=== PATIENT | female | born 1970 | race Caucasian/White ===

== ENCOUNTER 2020-10-07 17:26 | Emergency (ER) | payer BC, SELFPAY ==
[2020-10-07 18:20] VITALS: BP 141/76; PULSE 87; RESP 18; TEMP 36.8; O2SAT 100; BMI 33.5
[2020-10-07 18:38] VITALS: BP 141/76; PULSE 87; RESP 18; TEMP 36.8; O2SAT 100
--- NOTE | 2020-10-07 18:38 | HMH.EDUTC ---
[facility] – [place] Disposition Clinical Impression: Exposure to COVID-19 virus, Viral syndrome Disposition: Home, Self-Care Condition on Discharge: Good Instructions: Preventing the Spread of Coronavirus Discharge Instructions Additional Instructions: Drink plenty of fluids. Take tylenol for pain or fever. Return if you begin to have difficulty breathing. Follow up with your regular doctor. GO TO THE ER FOR ANY WORSENING SYMPTOMS Prescriptions: Azithromycin [Z-Carter 250mg Tab*] 250 mg PO UD DOSE PK #6 tab Transmission Status: Received by [id number] Referrals: Conrado Corbett [Primary Care Provider] - Time of Disposition: 18:43 Medical Decision Making - Medical Records Medical records reviewed: No: I reviewed the patient's medical records. - Milo Inquiry Pt receiving controlled substance: No Vital Signs: 10/07/20 18:20 10/07/20 18:38 Temperature 98.2 F 98.2 F Temperature Source Oral Pulse Rate 87 Pulse Rate [Right Brachial] 87 Respiratory Rate 18 18 Blood Pressure 141/76 H Blood Pressure [Right Arm] 141/76 H Blood Pressure Mean [Right Arm] 97 Blood Pressure Source [Right Arm] Automatic Cuff Blood Pressure Position [Right Arm] Sitting 02 Sat by Pulse Oximetry 100 Oxygen Delivery Method Room Air Orders (Tests/Meds): ORDERS Category Date Time Status Covid-19 Nasal PCR ([facility]) Stat Lab 10/07/20 18:20 Received [facility] [place] HPI - General Stated complaint: covid exposure Time Seen by Provider: 10/07/20 18:38 Mode of Arrival: Ambulatory Source of Information: Patient Limitations: No Limitations Description of Symptoms (Recalled from Triage Doc. by RN): PATIENT REQUESTING COVID TEST; DENIES SYMPTOMS HEENT Symptoms (Recalled from RN notes): No Resp Symptoms (Recalled from RN notes): No Skin Symptoms (Recalled from RN notes): No MS Symptoms (Recalled from RN notes): No Functional Status (Recalled from RN notes): WNL - History of Present Illness Provider Complaint: She c/o sore throat and body aches. She states her symptoms began about 2 days ago. - Related Data Home Medications Medication Instructions Recorded Confirmed Insulin Glargine,Hum.rec.anlog 95 units SQ HS 06/24/18 07/21/19 [Lantus Solostar 100 Units/mL 3mL flexpen] Insulin Lispro [HumaLOG 100 60 unit SQ AC 06/24/18 07/21/19 units/mL 3mL vial (SSI)] Previous Rx's Medication Instructions Recorded Azithromycin [Z-Carter 250mg Tab*] 250 mg PO UD DOSE PK #6 tab 10/07/20 Allergies Allergy/AdvReac Type Severity Reaction Status Date / Time bupropion Allergy Unknown Verified 06/08/19 10:14 pseudoephedrine Allergy Unknown Verified 06/08/19 10:14 - Worker's Comp Is this a Worker's Comp case?: No [facility] History - Hepatitis A Screen Drug use history?: No High risk sexual behaviors?: No History of sexually transmitted infection?: No Currently employed?: No Childcare worker?: No Do you have indoor plumbing?: Yes Do you have electricity?: Yes Attestation statement:: This patient has been screened for Hepatitis A risk factors. I have reviewed the patient's past medical history: Yes Medical History: Reports:: Diabetes Mellitus Type 2, Gastroesophageal Reflux Disease(GERD), Hypertension Denies:: Cancer, Diabetes Mellitus Type 1, MRSA Laterality Cases: Bilateral: Tonsillectomy Other Surgeries: Yes: Appendectomy, Other Amputation: No Fractures: No - Social History Smoking Status: Never smoker Alcohol Intake: never Substance Use Type: denies use Occupational Status: other Housing: house Household Members: family Family Hx:: No significant family history ROS Obtained: Yes All systems reviewed & no additional complaints - Constitutional Constitutional: Reports system reviewed and no additional complaints, except as docu - Eyes Eyes: Reports system reviewed and no additional complaints, except as docu - ENT Ears, Nose, Mouth, and Throat: Reports system reviewed and no additional compl
== END 2020-10-07 18:40 | disposition home or self-care (01) ==
PROVIDERS: Emergency Provider Nurse Practitioner Family; PCP Family Medicine
DX: Z20.828 Contact with and (suspected) exposure to other viral communicable diseases (principal); I10 Essential (primary) hypertension; K21.9 Gastro-esophageal reflux disease without esophagitis; E11.9 Type 2 diabetes mellitus without complications
CPT/HCPCS: 99201; U0003

== ENCOUNTER 2020-12-28 09:02 | Emergency (ER) | payer BC, SELFPAY ==
[2020-12-28 09:15] VITALS: BP 153/78; PULSE 69; RESP 14; TEMP 36.2; O2SAT 97; BMI 34.5
--- NOTE | 2020-12-28 09:47 | HMH.EDUTC ---
[facility] [place] Clinical Impression: Close exposure to COVID-19 virus, Nausea Disposition: Home, Self-Care Condition on Discharge: Good Instructions: DI for COVID-19 (Suspected or Confirmed ), Coronavirus Disease 2019, Preventing the Spread of Coronavirus Discharge Instructions, DI for Nausea -- Adult Additional Instructions: *Monitor Temp, Over the counter Motrin or Tylenol as directed/as needed Tylenol every 4 hours and Motrin every 6 hours (as long as your family doctor has told you that you can take it) for fever or pain. and straight to ER if unable to lower temp less than 101.0 after medication given *Warm salt water gargles may help to soothe the throat *Throat Lozenges *Warm fluids like tea with honey may help to soothe the throat *Sleep elevated *Humidifier/Vaporizer Follow up IMMEDIATELY for new or worsening symptoms or no Noticeable improvement over the next 48-72 hours. 911 for difficulty breathing or swallowing You were tested for today for COVID19 your test result should be back in the next 24-48 hours, you may call to the [facility] to see if your test results are back in the next 48 hours [phone] [facility] hours are 9am-9pm You was given a handout with instructions for Self Quarantine and Self isolation for while you wait on test results and what to do if they are positive If you are positive the Health Dept will be contacting you also Prescriptions: Ondansetron [Zofran 4mg ODT] 4 mg PO TIDP PRN #9 tab PRN Reason: Nausea Transmission Status: Pending to [id number] Referrals: Conrado Corbett [Primary Care Provider] - As needed Forms: Work/School Release Time of Disposition: 09:57 Medical Decision Making - Milo Inquiry Pt receiving controlled substance: No Milo was queried for this patient: No Vital Signs: 12/28/20 09:15 Temperature 97.2 F L Temperature Source Oral Pulse Rate [Right Radial] 69 Respiratory Rate 14 Blood Pressure [Right Arm] 153/78 H Blood Pressure Mean [Right Arm] 103 Blood Pressure Source [Right Arm] Automatic Cuff Blood Pressure Position [Right Arm] Sitting 02 Sat by Pulse Oximetry 97 Oxygen Delivery Method Room Air Medical Decision Narrative: Patient states that she has taken zofran before without complications or reactions [facility] [place] - General Stated complaint: covid exposure, symtoms Time Seen by Provider: 12/28/20 09:48 Mode of Arrival: Ambulatory Source of Information: Patient Limitations: No Limitations Description of Symptoms (Recalled from Triage Doc. by RN): Covid test, sore throat, headache and nausea HEENT Symptoms (Recalled from RN notes): Yes (sore throat) Resp Symptoms (Recalled from RN notes): No Skin Symptoms (Recalled from RN notes): No MS Symptoms (Recalled from RN notes): Yes (body aches) Functional Status (Recalled from RN notes): ok - History of Present Illness Provider Complaint: Patient states that her tested positive at work for COVID and she has been having sore throat, cough and nausea so she came in and wanted to get tested - Related Data Home Medications Medication Instructions Recorded Confirmed Insulin Glargine,Hum.rec.anlog 95 units SQ HS 06/24/18 07/21/19 [Lantus Solostar 100 Units/mL 3mL flexpen] Insulin Lispro [HumaLOG 100 60 unit SQ AC 06/24/18 07/21/19 units/mL 3mL vial (SSI)] Previous Rx's Medication Instructions Recorded Azithromycin [Z-Carter 250mg Tab*] 250 mg PO UD DOSE PK #6 tab 10/07/20 Ondansetron [Zofran 4mg ODT] 4 mg PO TIDP PRN #9 tab 12/28/20 Allergies Allergy/AdvReac Type Severity Reaction Status Date / Time bupropion Allergy Unknown Verified 06/08/19 10:14 pseudoephedrine Allergy Unknown Verified 06/08/19 10:14 - Worker's Comp Is this a Worker's Comp case?: No Is this an [facility] Worker's Comp?: No Is this a [facility] Worker's Comp?: No [facility] History - Hepatitis A Screen Drug use history?: No High risk sexual behaviors?: No History of sexually transm
[2020-12-28 10:13] VITALS: BP 150/74; PULSE 74; RESP 16; TEMP 36.6; O2SAT 98
== END 2020-12-28 10:14 | disposition home or self-care (01) ==
PROVIDERS: Emergency Provider Nurse Practitioner; PCP Family Medicine
DX: Z20.822 Contact with and (suspected) exposure to COVID-19 (principal); J02.9 Acute pharyngitis, unspecified; I10 Essential (primary) hypertension; K21.9 Gastro-esophageal reflux disease without esophagitis; E11.9 Type 2 diabetes mellitus without complications; Z79.899 Other long term (current) drug therapy
CPT/HCPCS: 99202; G0463; U0003

== ENCOUNTER → 2021-07-07 11:50 | Outpatient (CLI) | payer BC, SELFPAY | PROVIDERS: Visit Provider Internal Medicine Gastroenterology | DX: Z20.822 Contact with and (suspected) exposure to COVID-19 (principal) | CPT/HCPCS: U0003 ==

== ENCOUNTER → 2021-11-14 10:29 | Outpatient (CLI) | payer BC, SELFPAY | PROVIDERS: PCP Family Medicine; Visit Provider Nurse Practitioner | DX: Z20.822 Contact with and (suspected) exposure to COVID-19 (principal) | CPT/HCPCS: C9803; U0003; U0005 ==

== ENCOUNTER 2022-12-21 11:08 | Emergency (ER) | payer BC, SELFPAY ==
[2022-12-21 11:25] VITALS: BP 149/72; PULSE 68; RESP 19; TEMP 36.8; O2SAT 100; BMI 31.4
--- NOTE | 2022-12-21 11:39 | EXP.UTC ---
Discharge Plan Disposition Patient Disposition: Home, Self-Care Condition: Good Prescriptions Prescriptions: New benzonatate 100 mg capsule 100 mg PO TID PRN (Reason: cough) Qty: 30 0RF amoxicillin-pot clavulanate 875-125 mg Tablet 1 tab PO Q12H Qty: 20 0RF No Action (DME) pen needle, diabetic 32 gauge x 1/4 needle See Rx Instructions .ROUTE .MEDSUPPLY Qty: 50 Rx Instructions: As directed (DME) flash glucose sensor Kit See Rx Instructions .ROUTE .MEDSUPPLY Qty: 1 Label Comments: USE NEEDED Rx Instructions: As directed dapagliflozin 10 mg tablet 10 mg PO naproxen 500 mg tablet 500 mg PO (DME) blood sugar diagnostic Strip See Rx Instructions .ROUTE .MEDSUPPLY Qty: 10 Label Comments: USE 1 STRIP TO CHECK GLUCOSE THREE TIMES DAILY AND NEEDED Rx Instructions: As directed bisoprolol-hydrochlorothiazide 10-6.25 mg tablet 1 tab PO Label Comments: TAKE 1 TABLET BY MOUTH ONCE DAILY lisinopril 20 mg tablet 20 mg PO Label Comments: TAKE 1 TABLET BY MOUTH ONCE DAILY sitagliptin phos-metformin 50-500 mg tablet 1 tab PO Label Comments: TAKE 1 TABLET BY MOUTH TWICE DAILY WITH MEALS fenofibrate nanocrystallized 145 mg tablet 145 mg PO Label Comments: TAKE 1 TABLET BY MOUTH ONCE DAILY amlodipine 10 mg tablet 10 mg PO omeprazole 40 mg capsule,delayed release(DR/EC) 40 mg PO Label Comments: TAKE 1 CAPSULE BY MOUTH ONCE DAILY atorvastatin 40 mg tablet 40 mg PO Label Comments: TAKE 1 TABLET BY MOUTH ONCE DAILY amoxicillin-pot clavulanate 875-125 mg tablet 1 tab PO Q12H 10 Days Qty: 20 0RF insulin lispro 100 UNIT/ML solution 60 unit SQ AC insulin glargine 100/ML insulin pen 95 units SQ HS ondansetron 4 MG tablet,disintegrating 4 mg PO TIDP PRN (Reason: Nausea) Qty: 9 0RF Referrals Follow up/Referrals: Conrado Corbett [Primary Care Provider] - See instructions Activity Restrictions/Add. Instructions Additional Instructions/Restrictions: *Monitor Temp, Over the counter Motrin or Tylenol as directed/as needed Tylenol every 4 hours and Motrin every 6 hours (as long as your family doctor has told you that you can take it) for fever or pain. and straight to ER if unable to lower temp less than 101.0 after medication given *Warm salt water gargles may help to soothe the throat *Throat Lozenges? *Warm fluids like tea with honey may help to soothe the throat? *Sleep elevated *Humidifier/Vaporizer Your throat swab was sent for culture. Those results are typically sent to your primary care. Be sure to follow up in 2-3 days with your family doctor/primary care physician if no improvement so they can review those result and treat if necessary. If you don?t have a primary care doctor, I recommend you get one but in the mean time, you will have to return to a walk in clinic Follow up IMMEDIATELY for new or worsening symptoms or no Noticeable improvement over the next 48-72 hours. 911 for difficulty breathing or swallowing Clinical Impressions Clinical Impression: Sinusitis Instructions Patient Instructions: DI for Sinusitis, Sinusitis, Sinus Headache Discharge ED Provider: Carina Mcguire [facility] – [place] HPI General Stated complaint: sore throat,cough,body aches Mode of Arrival: Ambulatory Source of Information: Patient Limitations: No Limitations Time Seen by Provider: 12/21/22 11:39 Description of Symptoms (Recalled from Triage Doc. by RN): PATIENT C/O PRODUCTIVE COUGH AND SORE THROAT X 3 DAYS HEENT Symptoms (Recalled from RN notes): Yes Resp Symptoms (Recalled from RN notes): Yes Skin Symptoms (Recalled from RN notes): No MS Symptoms (Recalled from RN notes): No Functional Status (Recalled from RN notes): WNL History of Present Illness Provider Complaint: Patient states that she has been having sinus congestio
[2022-12-21 11:42] VITALS: BP 149/72; PULSE 68; RESP 19; TEMP 36.8; O2SAT 100
[2022-12-21 11:42] LABS: UTC Strep Screen (Rapid) Negative (Negative)
== END 2022-12-21 11:54 | disposition home or self-care (01) ==
PROVIDERS: Emergency Provider Nurse Practitioner; PCP Family Medicine
DX: J32.9 Chronic sinusitis, unspecified (principal)
CPT/HCPCS: 87880; 99212; 99213; G0463

== ENCOUNTER 2024-03-19 22:09 | Emergency (ER) | payer BC, SELFPAY ==
--- NOTE | 2024-03-19 22:29 | XR_ITS ---
PROCEDURE INFORMATION: Exam: XR Right Tibia and Fibula Exam date and time: 03/19/2024 10:28 PM Age: 54 years old Clinical indication: Pain; Lower leg; Right; Additional info: Fall, distal femur/knee pain TECHNIQUE: Imaging protocol: Radiologic exam of the right tibia and fibula. Views: 2 views. COMPARISON: CR XR KNEE RT 3V 03/19/2024 10:27 PM FINDINGS: Bones/joints: The osseous structures are intact, with no signs of acute fracture, dislocation, or malalignment. Age-related degenerative changes are observed. There is no evidence of abnormal bone density or destructive lesions. Soft tissues: The soft tissues appear within normal limits. IMPRESSION: At the time of imaging, the study shows no acute osseous abnormalities but does reveal signs of age-related degenerative changes.
--- NOTE | 2024-03-19 22:29 | XR_ITS ---
PROCEDURE INFORMATION: Exam: XR Right Knee Exam date and time: 03/19/2024 10:27 PM Age: 54 years old Clinical indication: Pain; Knee; Right; Additional info: Fall, distal femur/knee pain TECHNIQUE: Imaging protocol: Radiologic exam of the right knee. Views: 3 views. COMPARISON: No relevant prior studies available. FINDINGS: Bones/joints: There is a small joint effusion. There is diffuse osseous demineralization. There is tricompartmental osteoarthritis of the knee with loss of joint space, subchondral sclerosis, and productive changes. The osseous structures are intact, with no signs of acute fracture, dislocation, or malalignment. There is no evidence of abnormal bone density or destructive lesions. Soft tissues: The soft tissues appear within normal limits. Vasculature: Scattered atherosclerotic disease of the arterial vasculature. IMPRESSION: 1. There is a small joint effusion. 2. At the time of imaging, the study shows no acute osseous abnormalities but does reveal signs of tricompartmental osteoarthritis.
--- NOTE | 2024-03-19 22:29 | XR_ITS ---
PROCEDURE INFORMATION: Exam: XR Right Femur Exam date and time: 03/19/2024 10:29 PM Age: 54 years old Clinical indication: Pain; Thigh; Right; Additional info: Fall, distal femur/knee pain TECHNIQUE: Imaging protocol: Radiologic exam of the right femur. Views: 2 views. COMPARISON: CR XR KNEE RT 3V 03/19/2024 10:27 PM FINDINGS: Bones/joints: The osseous structures are intact, with no signs of acute fracture, dislocation, or malalignment. Age-related degenerative changes are observed. There is no evidence of abnormal bone density or destructive lesions. Soft tissues: The soft tissues appear within normal limits. IMPRESSION: At the time of imaging, the study shows no acute osseous abnormalities but does reveal signs of age-related degenerative changes.
[2024-03-19 22:58] VITALS: BP 174/83; PULSE 91; RESP 18; TEMP 37.1; O2SAT 97; BMI 30.9
--- NOTE | 2024-03-19 23:03 | ED_ITS ---
Discharge Plan Disposition Patient Disposition: Home, Self-Care Chief Complaint: Fall Prescriptions Prescriptions: No Action (DME) pen needle, diabetic 32 gauge x 1/4 needle See Rx Instructions .ROUTE .MEDSUPPLY Qty: 50 Rx Instructions: As directed (DME) flash glucose sensor Kit See Rx Instructions .ROUTE .MEDSUPPLY Qty: 1 Patient Comments: USE NEEDED Rx Instructions: As directed dapagliflozin propanediol 10 mg tablet 10 mg PO naproxen 500 mg tablet 500 mg PO (DME) blood sugar diagnostic Strip See Rx Instructions .ROUTE .MEDSUPPLY Qty: 10 Patient Comments: USE 1 STRIP TO CHECK GLUCOSE THREE TIMES DAILY AND NEEDED Rx Instructions: As directed bisoprolol-hydrochlorothiazide 10-6.25 mg tablet 1 tab PO Patient Comments: TAKE 1 TABLET BY MOUTH ONCE DAILY lisinopril 20 mg tablet 20 mg PO Patient Comments: TAKE 1 TABLET BY MOUTH ONCE DAILY sitagliptin phos-metformin 50-500 mg tablet 1 tab PO Patient Comments: TAKE 1 TABLET BY MOUTH TWICE DAILY WITH MEALS fenofibrate nanocrystallized 145 mg tablet 145 mg PO Patient Comments: TAKE 1 TABLET BY MOUTH ONCE DAILY amlodipine 10 mg tablet 10 mg PO omeprazole 40 mg capsule,delayed release(DR/EC) 40 mg PO Patient Comments: TAKE 1 CAPSULE BY MOUTH ONCE DAILY atorvastatin 40 mg tablet 40 mg PO Patient Comments: TAKE 1 TABLET BY MOUTH ONCE DAILY amoxicillin-pot clavulanate 875-125 mg tablet 1 tab PO Q12H 10 Days Qty: 20 0RF insulin lispro 100 UNIT/ML solution 60 unit SQ AC insulin glargine 100/ML insulin pen 95 units SQ HS ondansetron 4 MG tablet,disintegrating 4 mg PO TIDP PRN (Reason: Nausea) Qty: 9 0RF benzonatate 100 mg capsule 100 mg PO TID PRN (Reason: cough) Qty: 30 0RF amoxicillin-pot clavulanate 875-125 mg Tablet 1 tab PO Q12H Qty: 20 0RF Referrals Follow up/Referrals: Conrado Corbett [Primary Care Provider] - See instructions Activity Restrictions/Add. Instructions Additional Instructions/Restrictions: Follow-up with your family doctor as needed for this visit to the emergency department. Tylenol and Motrin for symptomatic pain control. Clinical Impressions Clinical Impression: Acute pain of right knee Discharge ED Provider: Ronnell Corey General Adult HPI General Chief complaint: Fall Stated complaint: AO 03/19/24 1300 Fall,Injury right knee Time Seen by Provider: 03/19/24 22:20 History of Present Illness HPI narrative: Please note that above description of symptoms, in this electronic medical record under categorization of recalled from ER triage doctor by RN are reflective of an initial nursing assessment, however, is not reflective of my full history and physical exam that was personally taken and clarified. Consequentially, this preceding description of symptoms, which may include the patient's categorized chief complaint in the EMR, do not reflect my personal clinical impression, and the ultimate description of history of present illness and patient stated complaints should be deferred to this section of the note. Unless stated otherwise or congruent with this section of the note, additional signs, symptoms, or incongruence should be interpreted as inaccurate with my clinical impression. Related Data Home Medications Medication Instructions Recorded Confirmed insulin glargine 100 unit/mL (3 95 units SQ HS Diabetes 06/24/18 04/11/21 mL) subcutaneous pen insulin lispro 100 unit/mL 60 unit SQ AC Diabetes 06/24/18 04/11/21 subcutaneous solution amlodipine 10 mg tablet 10 mg PO 04/11/21 04/11/21 atorvastatin 40 mg tablet 40 mg PO 04/11/21 04/11/21 bisoprolol 10 1 tab PO 04/11/21 04/11/21 mg-hydrochlorothiazide 6.25 mg tablet blood sugar diagnostic #10 04/11/21 04/11/21 dapagliflozin propanediol 10 mg 10 mg PO 04/11/21 04/11/21 tablet fenofibrate nanocrystallized 145 145 mg PO 04/11/21 04/11/21 mg tablet flash glucose sensor #1 ea 04/11/21 04/11/21 lisinopril 20 mg tablet 20 mg PO 04/11/21 04/11/21 naproxen 500 mg tablet 500 mg PO 04/11/21 04/11/21 omeprazole 40 mg capsule,delayed 40 mg PO 04/11/21 04/11/21 release pen needle, diabetic 32 gauge x #50 ea 04/11/21 04/11/21 1/4 sitagliptin phosphate 50 1 tab PO 04/11/21 04/11/21 mg-metformin 500 mg tablet Previous Rx's Medication Instructions Recorded ondansetron 4 mg disintegrating 4 mg PO TIDP PRN Nausea #9 tabs 12/28/20 tablet amoxicillin 875 mg-potassium 1 tab PO Q12H 10 days #20 tabs 04/11/21 clavulanate 125 mg tablet amoxicillin 875 mg-potassium 1 tab PO Q12H #20 tabs 12/21/22 clavulanate 125 mg tablet benzonatate 100 mg capsule 100 mg PO TID PRN cough #30 caps 12/21/22 Allergies Allergy/AdvReac Type Severity Reaction Status Date / Time bupropion Allergy Unknown Verified 04/11/21 17:41 pseudoephedrine Allergy Unknown Verified 04/11/21 17:41 pregabalin [From Lyrica] Allergy Verified 12/21/22 11:36 [facility] Disclaimer: The information contained in this section may have been updated after the patient was seen, as this information can be updated by other users. Medical History (Updated 03/19/24 @ 23:04 by Ronnell Corey MD) Diabetes mellitus, type 2 Hyperlipidemia Hypertension Surgical History (Updated 12/21/22 @ 11:36 by Margot Benton RN) History of tonsillectomy History of hysterectomy History of section History of cholecystectomy History of appendectomy Social History (Updated 12/21/22 @ 11:36 by Margot Benton RN) Smoking Status: Never smoker alcohol intake: never substance use type: denies use current occupational status: other Travel in the last 8 weeks: None household members: family housing: house ROS Obtained: Yes All systems reviewed & no additional complaints except as documented Physical Exam General General appearance: alert and in no apparent distress Head Head exam: atraumatic and normocephalic Eye Eye exam: Present normal appearance, PERRL and EOMI ENT ENT exam: Present mucous membranes moist Neck Neck exam: Present normal inspection, full ROM and trachea midline Respiratory Respiratory exam: Absent respiratory distress, wheezes, stridor, accessory muscle use or prolonged expiratory phase Cardiovascular Cardiovascular exam: Present normal rhythm Abdominal Exam Abdominal exam: Present soft; Absent distention, tenderness, guarding, rebound or rigidity Extremities Exam Extremities exam: Absent edema Neurological Exam Neurological exam: Present alert, oriented X3, CN II-XII intact and normal gait; Absent motor sensory deficit Skin Skin exam: Present warm and dry; Absent diaphoresis or erythema Medical Decision Making Medical Records Medical records reviewed: Yes I reviewed the patient's medical records. Milo Inquiry Pt receiving controlled substance: No Milo was queried for this patient: No Orders (Tests/Meds): ORDERS Category Date Time Status Femur XR right 2 views [XR femur RT 2V] Stat Exams 03/19/24 22:29 Completed Fibula/tibia XR right 2 views [XR tibia fibula RT 2V] Exams 03/19/24 22:29 Completed Stat Knee XR right 3 views [XR knee RT 3V] Stat Exams 03/19/24 22:29 Completed Medical Decision Narrative: 54-year-old no relevant medical history presenting with right knee injury. Patient slipped on muddy stone about 2 PM today, 03/19. Able to bear weight, but has significant pain in her knee. Has taken meloxicam and Robaxin, this has not helped much. No neurologic deficits. History was obtained via conversation with patient. On arrival, patient hemodynamically stable, alert, oriented x4, appropriate, GCS 15, moving all extremities spontaneously, pupils equal and reactive to light. Full physical exam performed and significant for structurally intact right lower extremity. She does have a superficial abrasion overlying patellar ligament, but no tibial plateau tenderness. No obvious effusion. Patellar glide within normal limits. ACL, PCL, MCL, LCL, patellar ligament and tendon within normal limits. No obvious deformity. Differential includes sprain, strain, fracture, dislocation, among others. Independent rotation of x-rays demonstrates no acute bony abnormality of the imaged right lower extremity. Because of this I feel patient is appropriate for outpatient management. Critical Care Critical Care Time Critical Care Time: No
[2024-03-19 23:18] VITALS: BP 145/81; PULSE 84; RESP 16; TEMP 37.1; O2SAT 97
== END 2024-03-19 23:19 | disposition home or self-care (01) ==
PROVIDERS: Emergency Provider Emergency Medicine; PCP Family Medicine
DX: M25.561 Pain in right knee (principal); W01.10XA Fall on same level from slipping, tripping and stumbling with subsequent striking against unspecified object, initial encounter
CPT/HCPCS: 73552; 73562; 73590; 99283

== ENCOUNTER 2024-04-03 13:04 | Emergency (ER) | payer BC, SELFPAY ==
[2024-04-03 13:05] VITALS: BP 135/78; PULSE 94; RESP 20; TEMP 36.9; O2SAT 97
--- NOTE | 2024-04-03 13:11 | HMH.EDGENADL ---
Discharge Plan Disposition Patient Disposition: Home, Self-Care Prescriptions Prescriptions: New cefdinir 300 mg capsule 300 mg PO BID 10 Days Qty: 20 0RF ondansetron HCl 4 mg tablet 4 mg PO Q8H PRN (Reason: nausea and vomiting) 4 Days Qty: 12 0RF No Action (DME) pen needle, diabetic 32 gauge x 1/4 needle See Rx Instructions .ROUTE .MEDSUPPLY Qty: 50 Rx Instructions: As directed (DME) flash glucose sensor Kit See Rx Instructions .ROUTE .MEDSUPPLY Qty: 1 Patient Comments: USE NEEDED Rx Instructions: As directed dapagliflozin propanediol 10 mg tablet 10 mg PO naproxen 500 mg tablet 500 mg PO (DME) blood sugar diagnostic Strip See Rx Instructions .ROUTE .MEDSUPPLY Qty: 10 Patient Comments: USE 1 STRIP TO CHECK GLUCOSE THREE TIMES DAILY AND NEEDED Rx Instructions: As directed bisoprolol-hydrochlorothiazide 10-6.25 mg tablet 1 tab PO Patient Comments: TAKE 1 TABLET BY MOUTH ONCE DAILY lisinopril 20 mg tablet 20 mg PO Patient Comments: TAKE 1 TABLET BY MOUTH ONCE DAILY sitagliptin phos-metformin 50-500 mg tablet 1 tab PO Patient Comments: TAKE 1 TABLET BY MOUTH TWICE DAILY WITH MEALS fenofibrate nanocrystallized 145 mg tablet 145 mg PO Patient Comments: TAKE 1 TABLET BY MOUTH ONCE DAILY amlodipine 10 mg tablet 10 mg PO omeprazole 40 mg capsule,delayed release(DR/EC) 40 mg PO Patient Comments: TAKE 1 CAPSULE BY MOUTH ONCE DAILY atorvastatin 40 mg tablet 40 mg PO Patient Comments: TAKE 1 TABLET BY MOUTH ONCE DAILY amoxicillin-pot clavulanate 875-125 mg tablet 1 tab PO Q12H 10 Days Qty: 20 0RF insulin lispro 100 UNIT/ML solution 60 unit SQ AC insulin glargine 100/ML insulin pen 95 units SQ HS ondansetron 4 MG tablet,disintegrating 4 mg PO TIDP PRN (Reason: Nausea) Qty: 9 0RF benzonatate 100 mg capsule 100 mg PO TID PRN (Reason: cough) Qty: 30 0RF amoxicillin-pot clavulanate 875-125 mg Tablet 1 tab PO Q12H Qty: 20 0RF Referrals Follow up/Referrals: Conrado Corbett [Primary Care Provider] - See instructions Activity Restrictions/Add. Instructions Additional Instructions/Restrictions: You were evaluated in the emergency department today. You have a very small area on your right kidney that is concerning for possible infection, and you have some bacteria in your urine. Given this, we are prescribing you an antibiotic. Please follow-up closely with your primary care provider for monitoring of the area on your right kidney to make sure that it goes away. We have prescribed you Zofran to have as needed for nausea and vomiting. Please follow-up closely with your primary care provider. Return to the emergency department for new or worsening symptoms. Clinical Impressions Clinical Impression: Lesion of right [place] kidney, Pyelonephritis, Enteritis Stand Alone Forms Stand Alone Forms: Work/School Release Instructions Patient Instructions: DI for Kidney Infection, DI for Diarrhea and Traveler's Diarrhea -- Adult, DI for Nausea -- Adult Discharge ED Provider: Lauren Stewart General Adult HPI <Lazaro Huang MD - Last Filed: 04/03/24 16:45> General Chief complaint: Nausea/Vomiting/Diarrhea Stated complaint: vomiting since 7am every 45 minutes wirh stomach p Time Seen by Provider: 04/03/24 13:11 History of Present Illness HPI narrative: The patient presents with a chief complaint of nausea and vomiting, which started at 7 AM. They describe the vomit as containing remnants of last night's dinner and occurring every 45 minutes. The patient also reports experiencing some abdominal pain localized in the epigastrium and left upper quadrant The patient does not believe the symptoms are indicative of a stomach virus, as they have prior experience with such viruses and the sensations differ. They mention being on Ozempic, which has previously caused them nausea, vomiting, and constipation, but typically only results in vomiting once, unlike the current episode. Regarding bowel movements, the patient notes a slight movement yesterday but no gas today, despite usually managing constipation with Miralax. She has a pertinent surgical history of having had their gallbladder and appendix removed. The patient also mentions a recent change in medication due to a sprained knee. They were switched from meloxicam to naproxen by their medical doctor approximately a week and a half ago. She denies any pain with urination. Please note that above description of symptoms, in this electronic medical record under categorization of recalled from ER triage doctor by RN are reflective of an initial nursing assessment, however, is not reflective of my full history and physical exam that was personally taken and clarified. Consequentially, this preceding description of symptoms, which may include the patient's categorized chief complaint in the EMR, do not reflect my personal clinical impression, and the ultimate description of history of present illness and patient stated complaints should be deferred to this section of the note. Unless stated otherwise or congruent with this section of the note, additional signs, symptoms, or incongruence should be interpreted as inaccurate with my clinical impression. Related Data Home Medications Medication Instructions Recorded Confirmed insulin glargine 100 unit/mL (3 95 units SQ HS Diabetes 06/24/18 04/11/21 mL) subcutaneous pen insulin lispro 100 unit/mL 60 unit SQ AC Diabetes 06/24/18 04/11/21 subcutaneous solution amlodipine 10 mg tablet 10 mg PO 04/11/21 04/11/21 atorvastatin 40 mg tablet 40 mg PO 04/11/21 04/11/21 bisoprolol 10 1 tab PO 04/11/21 04/11/21 mg-hydrochlorothiazide 6.25 mg tablet blood sugar diagnostic #10 ea 04/11/21 04/11/21 dapagliflozin propanediol 10 mg 10 mg PO 04/11/21 04/11/21 tablet fenofibrate nanocrystallized 145 145 mg PO 04/11/21 04/11/21 mg tablet flash glucose sensor #1 ea 04/11/21 04/11/21 lisinopril 20 mg tablet 20 mg PO 04/11/21 04/11/21 naproxen 500 mg tablet 500 mg PO 04/11/21 04/11/21 omeprazole 40 mg capsule,delayed 40 mg PO 04/11/21 04/11/21 release pen needle, diabetic 32 gauge x #50 ea 04/11/21 04/11/21/ sitagliptin phosphate 50 1 tab PO 04/11/21 04/11/21 mg-metformin 500 mg tablet Previous Rx's Medication Instructions Recorded ondansetron 4 mg disintegrating 4 mg PO TIDP PRN Nausea #9 tabs 12/28/20 tablet amoxicillin 875 mg-potassium 1 tab PO Q12H 10 days #20 tabs 04/11/21 clavulanate 125 mg tablet amoxicillin 875 mg-potassium 1 tab PO Q12H #20 tabs 12/21/22 clavulanate 125 mg tablet benzonatate 100 mg capsule 100 mg PO TID PRN cough #30 caps 12/21/22 cefdinir 300 mg capsule 300 mg PO BID 10 days #20 caps 04/03/24 ondansetron HCl 4 mg tablet 4 mg PO Q8H PRN nausea and 04/03/24 vomiting 4 days #12 tabs Allergies Allergy/AdvReac Type Severity Reaction Status Date / Time bupropion Allergy Unknown Verified 04/11/21 17:41 pseudoephedrine Allergy Unknown Verified 04/11/21 17:41 pregabalin [From Lyrica] Allergy Verified 12/21/22 11:36 PFSH <Lazaro Huang MD - Last Filed: 04/03/24 16:45> [facility] Disclaimer: The information contained in this section may have been updated after the patient was seen, as this information can be updated by other users. Medical History (Updated 04/03/24 @ 18:16 by Lauren Stewart DO) Diabetes mellitus, type 2 Hyperlipidemia Hypertension Surgical History (Updated 12/21/22 @ 11:36 by Margot Benton, RN) History of tonsillectomy History of hysterectomy History of section History of cholecystectomy History of appendectomy Social History (Updated 12/21/22 @ 11:36 by Margot Benton, RN) Smoking Status: Never smoker alcohol intake: never substance use type: denies use current occupational status: other Travel in the last 8 weeks: None household members: family housing: house <Lazaro Huang MD - Last Filed: 04/03/24 16:45> ROS Obtained: Yes other As per HPI Physical Exam <Lazaro Huang MD - Last Filed: 04/03/24 16:45> General General appearance: alert and in distress Comment: Frequent retching Head Head exam: atraumatic and normocephalic Eye Eye exam: Present normal appearance Neck Neck exam: Present normal inspection Chest Chest inspection: Present normal inspection and symmetric chest wall rise Respiratory Respiratory exam: Present normal lung sounds bilaterally; Absent respiratory distress Cardiovascular Cardiovascular exam: Present regular rate and normal rhythm Abdominal Exam Abdominal exam: Present soft and tenderness; Absent guarding, rebound or rigidity Abdominal tenderness: Present LUQ, epigastrium and moderate Neurological Exam Neurological exam: Present alert and oriented X3 Psychiatric Psychiatric exam: Present normal affect and normal mood Skin Skin exam: Present warm and dry Medical Decision Making <Lazaro Huang MD - Last Filed: 04/03/24 16:45> Medical Records Medical records reviewed: Yes I reviewed the patient's medical records. Milo Inquiry Pt receiving controlled substance: No Vital Signs: 04/03/24 13:05 04/03/24 16:48 04/03/24 17:30 Temperature 98.4 F Temperature Source Oral Pulse Rate 83 82 Pulse Rate [Right Radial] 94 H Respiratory Rate 20 22 14 Blood Pressure 152/68 H 137/65 Blood Pressure [Right Arm] 135/78 Blood Pressure Mean [Right Arm] 97 Blood Pressure Source Automatic Cuff Blood Pressure Source [Right Arm] Automatic Cuff Blood Pressure Position Sitting Blood Pressure Position [Right Arm] Sitting 02 Sat by Pulse Oximetry 97 98 98 Oxygen Delivery Method Room Air Room Air Room Air 04/03/24 18:34 Temperature 98.2 F Temperature Source Oral Pulse Rate 84 Pulse Rate [Right Radial] Respiratory Rate 16 Blood Pressure 160/74 H Blood Pressure [Right Arm] Blood Pressure Mean [Right Arm] Blood Pressure Source Automatic Cuff Blood Pressure Source [Right Arm] Blood Pressure Position Sitting Blood Pressure Position [Right Arm] 02 Sat by Pulse Oximetry Oxygen Delivery Method Room Air Lab Data Lab Results 04/03/24 14:36: WBC 9.2, RBC 4.93, Hgb 12.5, Hct 37.4, MCV 76.0 L, MCH 25.3 L, MCHC 33.3, RDW 15.8, Plt Count 332, MPV 7.6, Neut % (Auto) 87.5 H, Lymph % (Auto) 7.1 L, [place] % (Auto) 4.6, Eos % (Auto) 0.2, Baso % (Auto) 0.5, Neut # (Auto) 8.0 H, Lymph # (Auto) 0.7, [place] # (Auto) 0.4, Eos # (Auto) 0.0, Baso # (Auto) 0.1, Total Counted 100, Neutrophils % (Manual) 83 H, Lymphocytes % (Manual) 16, Monocytes % (Manual) 1 L, Platelet Estimate Normal, Hypochromasia 1+, Microcytosis 1+, Sodium 141, Potassium 4.6, Chloride 101, Carbon Dioxide 27, Anion Gap 17.6 H, BUN 19 H, Creatinine 1.00, Estimated Creat Clear 79, Estimated GFR 57 L, Est GFR ( Amer) 69, Glucose 140 H, Calcium 10.4 H, Total Bilirubin 0.5, AST 26, ALT 21, Alkaline Phosphatase 117, Total Protein 8.2, Albumin 4.6, Globulin 3.6 H, Albumin/Globulin Ratio 1.3, Lipase 99 04/03/24 16:56: Urine Color Yellow, Urine Appearance Clear, Urine pH 6.5, Ur Specific [place] <= 1.005, Urine Protein 1+, Urine Glucose (UA) 3+, Urine Ketones Negative, Urine Blood Trace-i, Urine Nitrate Negative, Urine Bilirubin Negative, Urine Urobilinogen 0.2, Ur Leukocyte Esterase Trace, Urine RBC Occasional, Urine WBC 3-5, Ur Squamous Epith Cells 3-5, Urine Bacteria 2+ 04/03/24 14:36 04/03/24 14:36 Orders (Tests/Meds): ED MEDICATIONS Discontinued Medications Generic Name Dose Route Start Last Admin Trade Name Freq PRN Reason Stop Dose Admin Hydromorphone HCl 0.5 mg 04/03/24 14:20 04/03/24 14:42 Hydromorphone 4 Mg/Ml Syringe IV 04/03/24 14:21 0.5 mg ONCE ONE Administration Lactated Ringer's 1,000 mls @ 999 mls/hr 04/03/24 14:20 04/03/24 14:42 Lactated Ringer's 1000 Ml Bag IV 04/03/24 15:20 999 mls/hr .Q1H1M ONE Administration Ceftriaxone Sodium 2 gm/ 100 mls @ 200 mls/hr 04/03/24 17:38 04/03/24 17:59 Sodium Chloride IV 04/03/24 18:07 200 mls/hr ONCE ONE Administration Iopamidol 75 ml 04/03/24 15:08 04/03/24 15:09 Iopamidol-370 (76%);100ml Bottle IV 04/03/24 15:09 75 ml ONCE ONE Administration Ondansetron HCl 4 mg 04/03/24 14:20 04/03/24 14:42 Ondansetron 4mg/2ml Vial IV 04/03/24 14:21 4 mg ONCE ONE Administration Ondansetron HCl 4 mg 04/03/24 18:27 04/03/24 18:30 Ondansetron 4mg Odt SL 04/03/24 18:28 4 mg ONCE ONE Administration Sodium Chloride 10 ml 04/03/24 15:08 04/03/24 15:09 Sodium Chloride 0.9% 10ml Syr (Rad Only) IV 04/03/24 15:09 10 ml ONCE ONE Administration ORDERS Category Date Time Status CT abdomen pelvis w con Stat Cat Scan 04/03/24 14:20 Completed CBC w/Auto Diff [Complete Blood Count Auto Diff] Stat Lab 04/03/24 14:36 Completed CMP [Comprehensive Metabolic Panel] Stat Lab 04/03/24 14:36 Completed Lipase Stat Lab 04/03/24 14:36 Completed UA [Urinalysis and Microscopic] Stat Lab 04/03/24 16:56 Completed Urine Culture Stat Micro 04/03/24 16:56 Received Medical Decision Narrative: Patient with history and exam per above presenting for evaluation of left upper quadrant pain, nausea, vomiting Diagnoses considered include bowel obstruction, gastroenteritis, pancreatitis, PUD, perforation, acute kidney injury, among others ED workup and treatment included: CBC, CMP, lipase, CT abdomen pelvis with contrast, LR 1 L, morphine, Zofran Labs were independently interpreted by me, significant for no leukocytosis, lipase within normal limits, creatinine 1.0 Imaging pending at this time Care was transferred to incoming physician. <Lauren Stewart, DO - Last Filed: 04/03/24 23:17> Vital Signs: 04/03/24 13:05 04/03/24 16:48 04/03/24 17:30 Temperature 98.4 F Temperature Source Oral Pulse Rate 83 82 Pulse Rate [Right Radial] 94 H Respiratory Rate 20 22 14 Blood Pressure 152/68 H 137/65 Blood Pressure [Right Arm] 135/78 Blood Pressure Mean [Right Arm] 97 Blood Pressure Source Automatic Cuff Blood Pressure Source [Right Arm] Automatic Cuff Blood Pressure Position Sitting Blood Pressure Position [Right Arm] Sitting 02 Sat by Pulse Oximetry 97 98 98 Oxygen Delivery Method Room Air Room Air Room Air 04/03/24 18:34 Temperature 98.2 F Temperature Source Oral Pulse Rate 84 Pulse Rate [Right Radial] Respiratory Rate 16 Blood Pressure 160/74 H Blood Pressure [Right Arm] Blood Pressure Mean [Right Arm] Blood Pressure Source Automatic Cuff Blood Pressure Source [Right Arm] Blood Pressure Position Sitting Blood Pressure Position [Right Arm] 02 Sat by Pulse Oximetry Oxygen Delivery Method Room Air Lab Data Lab Results 04/03/24 14:36: WBC 9.2, RBC 4.93, Hgb 12.5, Hct 37.4, MCV 76.0 L, MCH 25.3 L, MCHC 33.3, RDW 15.8, Plt Count 332, MPV 7.6, Neut % (Auto) 87.5 H, Lymph % (Auto) 7.1 L, [place] % (Auto) 4.6, Eos % (Auto) 0.2, Baso % (Auto) 0.5, Neut # (Auto) 8.0 H, Lymph # (Auto) 0.7, [place] # (Auto) 0.4, Eos # (Auto) 0.0, Baso # (Auto) 0.1, Total Counted 100, Neutrophils % (Manual) 83 H, Lymphocytes % (Manual) 16, Monocytes % (Manual) 1 L, Platelet Estimate Normal, Hypochromasia 1+, Microcytosis 1+, Sodium 141, Potassium 4.6, Chloride 101, Carbon Dioxide 27, Anion Gap 17.6 H, BUN 19 H, Creatinine 1.00, Estimated Creat Clear 79, Estimated GFR 57 L, Est GFR ( Amer) 69, Glucose 140 H, Calcium 10.4 H, Total Bilirubin 0.5, AST 26, ALT 21, Alkaline Phosphatase 117, Total Protein 8.2, Albumin 4.6, Globulin 3.6 H, Albumin/Globulin Ratio 1.3, Lipase 99 04/03/24 16:56: Urine Color Yellow, Urine Appearance Clear, Urine pH 6.5, Ur Specific [place] <= 1.005, Urine Protein 1+, Urine Glucose (UA) 3+, Urine Ketones Negative, Urine Blood Trace-i, Urine Nitrate Negative, Urine Bilirubin Negative, Urine Urobilinogen 0.2, Ur Leukocyte Esterase Trace, Urine RBC Occasional, Urine WBC 3-5, Ur Squamous Epith Cells 3-5, Urine Bacteria 2+ Orders (Tests/Meds): ED MEDICATIONS Discontinued Medications Generic Name Dose Route Start Last Admin Trade Name Freq PRN Reason Stop Dose Admin Hydromorphone HCl 0.5 mg 04/03/24 14:20 04/03/24 14:42 Hydromorphone 4 Mg/Ml Syringe IV 04/03/24 14:21 0.5 mg ONCE ONE Administration Lactated Ringer's 1,000 mls @ 999 mls/hr 04/03/24 14:20 04/03/24 14:42 Lactated Ringer's 1000 Ml Bag IV 04/03/24 15:20 999 mls/hr .Q1H1M ONE Administration Ceftriaxone Sodium 2 gm/ 100 mls @ 200 mls/hr 04/03/24 17:38 04/03/24 17:59 Sodium Chloride IV 04/03/24 18:07 200 mls/hr ONCE ONE Administration Iopamidol 75 ml 04/03/24 15:08 04/03/24 15:09 Iopamidol-370 (76%);100ml Bottle IV 04/03/24 15:09 75 ml ONCE ONE Administration Ondansetron HCl 4 mg 04/03/24 14:20 04/03/24 14:42 Ondansetron 4mg/2ml Vial IV 04/03/24 14:21 4 mg ONCE ONE Administration Ondansetron HCl 4 mg 04/03/24 18:27 04/03/24 18:30 Ondansetron 4mg Odt SL 04/03/24 18:28 4 mg ONCE ONE Administration Sodium Chloride 10 ml 04/03/24 15:08 04/03/24 15:09 Sodium Chloride 0.9% 10ml Syr (Rad Only) IV 04/03/24 15:09 10 ml ONCE ONE Administration ORDERS Category Date Time Status CT abdomen pelvis w con Stat Cat Scan 04/03/24 14:20 Completed CBC w/Auto Diff [Complete Blood Count Auto Diff] Stat Lab 04/03/24 14:36 Completed CMP [Comprehensive Metabolic Panel] Stat Lab 04/03/24 14:36 Completed Lipase Stat Lab 04/03/24 14:36 Completed UA [Urinalysis and Microscopic] Stat Lab 04/03/24 16:56 Completed Urine Culture Stat Micro 04/03/24 16:56 Received Medical Decision Narrative: Patient with history and exam per above presenting for evaluation of left upper quadrant pain, nausea, vomiting Diagnoses considered include bowel obstruction, gastroenteritis, pancreatitis, PUD, perforation, acute kidney injury, among others ED workup and treatment included: CBC, CMP, lipase, CT abdomen pelvis with contrast, LR 1 L, morphine, Zofran Labs were independently interpreted by me, significant for no leukocytosis, lipase within normal limits, creatinine 1.0 Imaging pending at this time Care was transferred to incoming physician. Terry DO: On my assessment of the patient, she is resting comfortably. Abdominal exam is benign. I independently interpreted CT scan prior to radiology read and noted no obvious bowel obstruction. CT scan per radiology is concerning for enteritis. She also has a hypoattenuated lesion on her right kidney which they said could be pyelonephritis. Urinalysis was obtained that demonstrated 2+ bacteria as well as white blood cells. It is contaminant with squamous cells, but patient states that she has had pyelonephritis and sepsis in the past. Given this, decision was made to order IV Rocephin. Urine culture was sent and was pending. Patient is able to tolerate oral intake. At this time, I feel that she is appropriate for discharge home with instructions for supportive management, prescription for cefdinir to treat pyelonephritis, and prescription for Zofran to treat nausea and vomiting. Strict return precautions were given as well as instructions for close follow-up with her primary care provider. Patient was discharged after all questions were answered. Critical Care <Lazaro Huang MD - Last Filed: 04/03/24 16:45> Critical Care Time Critical Care Time: No
--- NOTE | 2024-04-03 14:20 | CT_ITS ---
FINAL REPORT CLINICAL HISTORY: n/v/RUQ pain, concern for bowel obstruction COMPARISON: None FINDINGS: CT OF THE ABDOMEN AND PELVIS WITH CONTRAST Axial CT images of the abdomen and pelvis were obtained after the administration of IV contrast. Coronal and sagittal reformatted images were also obtained and reviewed. This study was performed with techniques to keep radiation doses as low as reasonably achievable (ALARA). Individualized dose reduction techniques using automated exposure control or adjustment of mA and/or kV according to the patient's size were employed. Abdomen: The lung bases are clear. The heart is normal in size. The liver has an unremarkable appearance, without evidence of mass or biliary ductal dilatation. The gallbladder has been surgically resected. There is mild biliary ductal dilatation, likely post cholecystectomy change. The spleen is unremarkable. No adrenal mass is present. The pancreas has an unremarkable appearance. There is severe left renal atrophy and scarring present. There is a 10 mm cyst present in the right kidney. There is a low-attenuation area present in the upper right kidney, that is of uncertain etiology but may represent acute pyelonephritis. The aorta is normal in caliber. There is no free fluid or adenopathy. No mass or abnormal fluid collection is seen. There are multiple fluid-filled loops of small bowel present, nondilated, and nonspecific. This may represent ileus or enteritis. Pelvis: The appendix is not well-visualized. The urinary bladder is unremarkable. No inflammatory process is seen. There is no evidence of mass or adenopathy. There is no evidence of bowel obstruction. IMPRESSION: Low-attenuation area in the upper right kidney, that is of uncertain etiology but may represent a focus of acute pyelonephritis. Multiple fluid-filled nondilated loops of small bowel are present, nonspecific, may represent an ileus or enteritis. Reviewed, Interpreted and Dictated by Josue Perez III, MD Transcribed by Nelli Kemp Authenticated and [facility]
[2024-04-03] MEDS: ONDANSETRON 4MG/2ML VIAL 4 MG IV (14:42)
[2024-04-03] MEDS: LACTATED RINGERS 1000ML 1,000 ML 999 ML IV (14:42)
[2024-04-03 14:49] LABS: Basophils # 0.1 K/mm3 (0-0.2); Basophils % 0.5 % (0.1-2.0); Eosinophils % 0.2 % (0.1-12.0); Hematocrit 37.4 % (37.0-47.0); Hemoglobin 12.5 g/dL (12.2-16.2); Lymphocytes # 0.7 K/mm3 (0.7-4.5); Lymphocytes % 7.1 % (10-50); Mean Corpuscular HGB Conc 33.3 g/dL (31.8-35.4); Mean Corpuscular Hemoglobin 25.3 pg (27.0-31.2); Mean Platelet Volume 7.6 fl (7.4-10.4); Monocytes # 0.4 K/mm3 (0.1-1.0); Monocytes % 4.6 % (1.7-9.3); Neutrophils % 87.5 % (37.0-80.0); Platelet Count 332 K/mm3 (142-424); Red Blood Count 4.93 M/mm3 (4.20-5.40); Red Cell Distribution Width 15.8 % (11.5-17.5); White Blood Count 9.2 K/mm3 (4.8-10.8)
[2024-04-03 14:51] LABS: Chloride 101 mmol/L (98-107); Sodium 141 mmol/L (136-145)
[2024-04-03 14:52] LABS: Potassium 4.6 mmoL/L (3.5-5.1)
[2024-04-03 14:54] LABS: Alanine Aminotransferase 21 U/L (12-78); Albumin Level 4.6 g/dl (3.5-5.0); Albumin/Globulin Ratio 1.3 (1.1-1.8); Alkaline Phosphatase 117 U/L (38-126); Anion Gap 17.6 mEq/L (5-15); Aspartate Amino Transferase 26 U/L (14-36); Bilirubin,Total 0.5 mg/dl (0.2-1.3); Blood Urea Nitrogen 19 mg/dl (7-17); Carbon Dioxide 27 mmol/L (22.0-30.0); Creatinine Clearance Estimated 79 mL/min (50-200); Estimated Glomerular Filt Rate 57 ml/min (>60); GFR (African American) 69 ML/MIN (>60); Globulin 3.6 g/dL (1.3-3.2); Total Protein,Serum 8.2 g/dl (6.3-8.2)
[2024-04-03 14:55] LABS: Calcium 10.4 mg/dl (8.4-10.2); Glucose 140 mg/dl (74-100); Lipase 99 U/L (23-300)
[2024-04-03 14:59] LABS: MANUAL DIFFERENTIAL MANUAL DIFFERENTIAL (MANUAL DIFF)
[2024-04-03] MEDS: IOPAMIDOL-370 (76%);100ML BOTTLE 75 ML IV (15:09)
[2024-04-03] MEDS: SODIUM CHLORIDE 0.9% 10ML SYR (RAD ONLY) 10 ML IV (15:09)
[2024-04-03 15:30] LABS: Hypochromasia 1+; Lymphocytes % 16 % (10-50); Microcytosis 1+; Monocytes % 1 % (2-9); Neutrophils % 83 % (42-76); Platelet Estimate Normal; Total Cells Counted 100
[2024-04-03 16:48] VITALS: BP 152/68; PULSE 83; RESP 22; O2SAT 98
--- NOTE | 2024-04-03 16:49 | PC.NURSE ---
pt stated HSBS was 115
[2024-04-03 17:08] LABS: Microscopic, Urine URINE MICROSCOPIC (MICROSCOPIC)
[2024-04-03 17:15] LABS: Appearance,Urine CLEAR (Clear); Bilirubin,Urine Negative (Negative); Blood, Urine TRACE-I (Negative); Color,Urine YELLOW (Yellow); Glucose,Urine (UA) 3+ (Negative); Ketones,Urine Negative (Negative); Leukocyte Esterase,Urine TRACE (Negative); Nitrate,Urine Negative (Negative); PH,Urine 6.5 (5.0-8.5); Protein,Urine 1+ (Negative); Specific Gravity, Urine <= 1.005 (1.005-1.030); Urobilinogen,Urine 0.2 EU/dl (0.2)
[2024-04-03 17:30] VITALS: BP 137/65; PULSE 82; RESP 14; O2SAT 98
[2024-04-03 17:52] LABS: Bacteria,Urine 2+ /lpf; RBC,Urine Occasional #/hpf (0-3)
[2024-04-03] MEDS: CEFTRIAXONE SODIUM 2 GM in 0.9 % SODIUM CHLORIDE 100 ML IV (17:59)
[2024-04-03] MEDS: ONDANSETRON 4MG ODT 4 MG SL (18:30)
[2024-04-03 18:34] VITALS: BP 160/74; PULSE 84; RESP 16; TEMP 36.8; O2SAT 99
--- NOTE | 2024-04-04 09:13 | PC.NURSE ---
urine culture discussed with , pt dc with cefdinir, ntd
== END 2024-04-03 18:35 | disposition home or self-care (01) ==
PROVIDERS: Emergency Medicine; Emergency Provider Emergency Medicine; PCP Family Medicine
DX: N10 Acute pyelonephritis (principal); B96.1 Klebsiella pneumoniae [K. pneumoniae] as the cause of diseases classified elsewhere; R10.13 Epigastric pain; K52.9 Noninfective gastroenteritis and colitis, unspecified; N28.9 Disorder of kidney and ureter, unspecified; R11.2 Nausea with vomiting, unspecified; E11.9 Type 2 diabetes mellitus without complications; I10 Essential (primary) hypertension; E78.5 Hyperlipidemia, unspecified; Z79.4 Long term (current) use of insulin; Z79.84 Long term (current) use of oral hypoglycemic drugs; Z79.85 Long-term (current) use of injectable non-insulin antidiabetic drugs
CPT/HCPCS: 74177; 80053; 81001; 83690; 85007; 85025; 87086; 87088; 87186; 96361; 96365; 96375; 99285; J0696; J2405; Q9967

== ENCOUNTER 2024-05-21 13:46 | Inpatient (IN) | payer BC, SELFPAY ==
[2024-05-21] VITALS (12 sets, daily range): BP systolic 119–164; BP diastolic 67–88; PULSE 82–115; RESP 16–20; TEMP 37.1–37.7; O2SAT 95–97; BMI 28.3; BMI 28.4
[2024-05-21 14:07] LABS: Microscopic, Urine URINE MICROSCOPIC (MICROSCOPIC)
--- NOTE | 2024-05-21 14:08 | ED_ITS ---
Discharge Plan Disposition Patient Disposition: Admitted Condition: Good Clinical Impressions Clinical Impression: Sepsis without septic shock, Pyelonephritis, FELICITAS (acute kidney injury), Diabetes mellitus type 2, insulin dependent Hyperglycemia due to type 2 diabetes mellitus Qualifiers: Diabetes mellitus terminal manager insulin use: with care home use Qualified Code(s): E11.65 - Type 2 diabetes mellitus with hyperglycemia Discharge ED Provider: Ronnell Corey General Adult HPI <JALYN Zimmer - Last Filed: 05/21/24 15:54> General Chief complaint: Abdominal Pain Stated complaint: vomiting, lower back/abd/muscle pain Time Seen by Provider: 05/21/24 13:49 History of Present Illness HPI narrative: Patient presents for 3 days of intractable vomiting. Patient is intolerant of any oral intake. Patient had 3 bowel movements today however. Patient has had a cholecystectomy appendectomy and total abdominal hysterectomy in the past. She denies any chest pain fever chills hemoptysis hematochezia melena hematemesis Related Data Home Medications Medication Instructions Recorded Confirmed insulin glargine 100 unit/mL (3 40 units SQ HS Diabetes 06/24/18 05/21/24 mL) subcutaneous pen amlodipine 10 mg tablet 10 mg PO DAILY 04/11/21 05/21/24 atorvastatin 40 mg tablet 40 mg PO DAILY 04/11/21 05/21/24 bisoprolol 10 1 tab PO DAILY 04/11/21 05/21/24 mg-hydrochlorothiazide 6.25 mg tablet blood sugar diagnostic #10 ea 04/11/21 04/11/21 flash glucose sensor #1 ea 04/11/21 04/11/21 lisinopril 20 mg tablet 20 mg PO DAILY 04/11/21 05/21/24 omeprazole 40 mg capsule,delayed 40 mg PO DAILY 04/11/21 05/21/24 release pen needle, diabetic 32 gauge x #50 ea 04/11/21 04/11/2111/21 Previous Rx's Medication Instructions Recorded ondansetron 4 mg disintegrating 4 mg PO TIDP PRN Nausea #9 tabs 12/28/20 tablet Allergies Allergy/AdvReac Type Severity Reaction Status Date / Time bupropion Allergy Unknown Verified 04/11/21 17:41 pseudoephedrine Allergy Unknown Verified 04/11/21 17:41 pregabalin [From Lyrica] Allergy Verified 12/21/22 11:36 PFSH <JALYN Zimmer - Last Filed: 05/21/24 15:54> [facility] Disclaimer: The information contained in this section may have been updated after the patient was seen, as this information can be updated by other users. Medical History (Updated 05/21/24 @ 15:55 by Cesar Benson MD) Diabetes mellitus, type 2 Hyperlipidemia Hypertension Surgical History (Updated 12/21/22 @ 11:36 by Margot Benton, RN) History of tonsillectomy History of hysterectomy History of section History of cholecystectomy History of appendectomy Social History (Updated 12/21/22 @ 11:36 by Margot Benton, LAURA) Smoking Status: Never smoker alcohol intake: never substance use type: denies use current occupational status: other Travel in the last 8 weeks: None household members: family housing: house <JALYN Zimmer - Last Filed: 05/21/24 15:54> ROS Obtained: Yes Systems reviewed as appropriate & no additional complaints except as documented Physical Exam <JALYN Zimmer - Last Filed: 05/21/24 15:54> General General appearance: alert and in no apparent distress Respiratory Respiratory exam: Present normal lung sounds bilaterally Cardiovascular Cardiovascular exam: Present normal rhythm and tachycardia Abdominal Exam Abdominal exam: Present soft and tenderness (Patient is diffusely tender in abdomen without any rebound guarding or rigidity. Bowel sounds normal active) Neurological Exam Neurological exam: Present alert and oriented X3 Medical Decision Making <JALYN Zimmer - Last Filed: 05/21/24 15:54> Medical Records Medical records reviewed: Yes I reviewed the patient's medical records. Milo Inquiry Pt receiving controlled substance: No Vital Signs: 05/21/24 13:47 05/21/24 13:58 05/21/24 14:15 Temperature 99.9 F H Temperature Source Oral Pulse Rate 115 H 106 H Pulse Rate [Right] 111 H Respiratory Rate 20 Blood Pressure 119/88 164/86 H Blood Pressure [Right Arm] 119/88 Blood Pressure Mean [Right Arm] 98 Blood Pressure Source [Right Arm] Automatic Cuff 02 Sat by Pulse Oximetry 97 97 95 Oxygen Delivery Method Room Air Room Air Room Air 05/21/24 14:32 05/21/24 14:45 05/21/24 15:00 Temperature Temperature Source Pulse Rate 104 H 99 H 99 H Pulse Rate [Right] Respiratory Rate Blood Pressure 158/87 H 162/88 H 131/67 Blood Pressure [Right Arm] Blood Pressure Mean [Right Arm] Blood Pressure Source [Right Arm] 02 Sat by Pulse Oximetry 96 95 97 Oxygen Delivery Method 05/21/24 15:15 05/21/24 15:30 05/21/24 16:09 Temperature 98.8 F Temperature Source Oral Pulse Rate 95 H 94 H 90 Pulse Rate [Right] Respiratory Rate 16 Blood Pressure 152/84 H 137/74 145/75 H Blood Pressure [Right Arm] Blood Pressure Mean [Right Arm] Blood Pressure Source [Right Arm] 02 Sat by Pulse Oximetry 95 96 Oxygen Delivery Method Room Air Lab Data Lab results reviewed: Yes I reviewed the patient's lab results. Lab Results 05/21/24 13:54: Urine Color Yellow, Urine Appearance Cloudy, Urine pH 6.0, Ur Specific [place] 1.025, Urine Protein 2+, Urine Glucose (UA) 3+, Urine Ketones 1+, Urine Blood 2+, Urine Nitrate Negative, Urine Bilirubin 2+ A, Urine Urobilinogen 0.2, Ur Leukocyte Esterase Trace, Urine RBC 5-10, Urine WBC 10-20, Ur Squamous Epith Cells 3-5, Urine Bacteria 2+ 05/21/24 14:00: WBC 12.5 H, RBC 4.93, Hgb 12.9, Hct 37.7, MCV 76.5 L, MCH 26.1 L , MCHC 34.1, RDW 16.4, Plt Count 174, MPV 8.5, Neut % (Auto) 86.1 H, Lymph % (Auto) 6.4 L, [place] % (Auto) 7.1, Eos % (Auto) 0.0 L, Baso % (Auto) 0.4, Neut # (Auto) 10.8 H, Lymph # (Auto) 0.8, [place] # (Auto) 0.9, Eos # (Auto) 0.0, Baso # (Auto) 0.1, Total Counted 100, Neutrophils % (Manual) 86 H, Lymphocytes % (Manual) 5 L, Monocytes % (Manual) 9, Platelet Estimate Normal, RBC Morphology Normal, Sodium 135 L, Potassium 4.0, Chloride 99, Carbon Dioxide 22, Anion Gap 18.0 H, BUN 34 H, Creatinine 1.60 H, Estimated Creat Clear 46, Estimated GFR 33 L, Est GFR ( Amer) 40 L, Glucose 197 H, Calcium 9.5, Magnesium 2.0, Total Bilirubin 1.1, AST 32, ALT 28, Alkaline Phosphatase 94, Total Protein 7.7, Albumin 4.5, Globulin 3.2, Albumin/Globulin Ratio 1.4, Lipase 73, Procalcitonin 10.6 H, Acetone Level None detected 05/21/24 14:12: VBG pH 7.39, VBG pCO2 35.9, VBG pO2 41.1 H, VBG HCO3 21.2 L, VBG Total CO2 22.3 L, VBG O2 Saturation 76.1 H, VBG Base Excess -3.8 L, VBG Lactic Acid 3.4 H 05/21/24 14:00 05/21/24 14:00 Orders (Tests/Meds): ED MEDICATIONS Generic Name Dose Route Start Last Admin Trade Name Freq PRN Reason Stop Dose Admin Acetaminophen 650 mg 05/21/24 15:50 Acetaminophen 325mg Tab PO 06/20/24 15:49 Q4HP PRN Fever or Mild Pain (1-3) Ceftriaxone Sodium 1 gm/ 50 mls @ 100 mls/hr 05/21/24 15:45 05/21/24 16:30 Sodium Chloride IV 05/31/24 15:44 Not Given Q24H [facility] Insulin Glargine 20 unit 05/21/24 21:00 Insulin Glargine 100 Units/Ml 3ml Flexpen SQ 06/20/24 20:59 HS [facility] Insulin Human Lispro 0 unit 05/21/24 16:30 Humalog 100 Units/Ml 10ml Vial (Ssi) SQ 06/20/24 16:29 ACHS [facility] Protocol Ondansetron HCl 4 mg 05/21/24 16:34 Ondansetron 4mg/2ml Vial IV 06/20/24 16:33 Q8HP PRN Nausea Promethazine HCl 25 mg 05/21/24 16:34 Promethazine Hcl 25mg/Ml 1ml Vial IV 06/20/24 16:33 Q6HP PRN Nausea And Vomiting Sodium Chloride 10 ml 05/21/24 14:45 05/21/24 14:46 Sodium Chloride 0.9% 10ml Syr (Rad Only) IV 06/20/24 14:44 10 ml NEEDED PRN Administration Maintain IV Site Sodium Chloride 25 ml 05/21/24 16:34 Sodium Chloride 0.9% 25ml Bag IV 06/20/24 16:33 NEEDED PRN for Use with IV Promethazine Discontinued Medications Generic Name Dose Route Start Last Admin Trade Name Jerod PRN Reason Stop Dose Admin Acetaminophen 1,000 mg 05/21/24 14:11 05/21/24 14:19 Acetaminophen 1,000mg/100ml Vial IV 05/21/24 14:12 1,000 mg ONCE ONE Administration Lactated Ringer's 1,000 mls @ 999 mls/hr 05/21/24 14:11 05/21/24 14:19 Lactated Ringer's 1000 Ml Bag IV 05/21/24 15:11 999 mls/hr .Q1H1M ONE Administration Insulin Glargine 40 unit 05/21/24 21:00 Insulin Glargine 100 Units/Ml 3ml Flexpen SQ 06/20/24 20:59 HS YOBANY Iopamidol 75 ml 05/21/24 14:45 05/21/24 14:45 Iopamidol-370 (76%);100ml Bottle IV 05/21/24 14:46 75 ml ONCE ONE Administration Ketorolac Tromethamine 15 mg 05/21/24 14:11 05/21/24 14:19 Ketorolac 30mg/Ml Vial IV 05/21/24 14:12 15 mg ONCE ONE Administration Ondansetron HCl 4 mg 05/21/24 14:11 05/21/24 14:19 Ondansetron 4mg/2ml Vial IV 05/21/24 14:12 4 mg ONCE ONE Administration ORDERS Category Date Time Status CT abdomen pelvis w con Stat Cat Scan 05/21/24 14:11 Completed Acetone, Serum (Rapid) Stat Lab 05/21/24 14:00 Completed CBC w/Auto Diff [Complete Blood Count Auto Diff] Stat Lab 05/21/24 14:00 Completed CMP [Comprehensive Metabolic Panel] Stat Lab 05/21/24 14:00 Completed Complete Blood Count Auto Diff AMLAB Lab 05/22/24 06:00 Ordered Comprehensive Metabolic Panel AMLAB Lab 05/22/24 06:00 Ordered Lipase Stat Lab 05/21/24 14:00 Completed Magnesium AMLAB Lab 05/22/24 06:00 Ordered Magnesium Stat Lab 05/21/24 14:00 Completed Procalcitonin Stat Lab 05/21/24 14:00 Completed UA [Urinalysis and Microscopic] Stat Lab 05/21/24 13:54 Completed Blood Culture Stat Micro 05/21/24 15:48 Received Urine Culture Stat Micro 05/21/24 13:54 Received VBG [Venous Blood Gas] Stat RT 05/21/24 14:12 Completed Tissue Perfus/Sepsis Re-Eval Sepsis Re-Evaluation Performed: Yes Date Performed: 05/21/24 Time Performed: 15:50 Medical Decision Narrative: In summary patient is a 54-year-old female who presents to the emergency department for evaluation of vomiting. Patient is normotensive tachycardic upon arrival, afebrile. Physical exam is remarkable for diffuse mild tenderness to palpation of the abdomen but no rebound or guarding rigidity. Bowel sounds normal active.. Differential diagnosis includes gastroenteritis versus pancreatitis versus bowel obstruction etc. Initial workup will be conducted with hematologic labs urinalysis CT scan abdomen pelvis. Initial interventions include crystalloid bolus acetaminophen antiemetics. Initial workup reviewed by me shows patient has elevated white count acute kidney injury urinary tract infection and open anion gap without ketosis my informal review of her CT scan shows patient has stranding around the right kidney suggestive of pyelonephritis.. Upon repeat evaluation patient still intolerant of oral intake. Given this I had interactive discussion with hospital medicine regarding patient management and they are agreeable for admission for further evaluation and care. I have ordered blood cultures prior to Rocephin. Tissue reperfusion patient is improving with fluid resuscitation stable vital signs <Ronnell Corey MD - Last Filed: 05/21/24 17:09> Vital Signs: 05/21/24 13:47 05/21/24 13:58 05/21/24 14:15 Temperature 99.9 F H Temperature Source Oral Pulse Rate 115 H 106 H Pulse Rate [Right] 111 H Respiratory Rate 20 Blood Pressure 119/88 164/86 H Blood Pressure [Right Arm] 119/88 Blood Pressure Mean [Right Arm] 98 Blood Pressure Source [Right Arm] Automatic Cuff 02 Sat by Pulse Oximetry 97 97 95 Oxygen Delivery Method Room Air Room Air Room Air 05/21/24 14:32 05/21/24 14:45 05/21/24 15:00 Temperature Temperature Source Pulse Rate 104 H 99 H 99 H Pulse Rate [Right] Respiratory Rate Blood Pressure 158/87 H 162/88 H 131/67 Blood Pressure [Right Arm] Blood Pressure Mean [Right Arm] Blood Pressure Source [Right Arm] 02 Sat by Pulse Oximetry 96 95 97 Oxygen Delivery Method 05/21/24 15:15 05/21/24 15:30 05/21/24 16:09 Temperature 98.8 F Temperature Source Oral Pulse Rate 95 H 94 H 90 Pulse Rate [Right] Respiratory Rate 16 Blood Pressure 152/84 H 137/74 145/75 H Blood Pressure [Right Arm] Blood Pressure Mean [Right Arm] Blood Pressure Source [Right Arm] 02 Sat by Pulse Oximetry 95 96 Oxygen Delivery Method Room Air Lab Data Lab Results 05/21/24 13:54: Urine Color Yellow, Urine Appearance Cloudy, Urine pH 6.0, Ur Specific [place] 1.025, Urine Protein 2+, Urine Glucose (UA) 3+, Urine Ketones 1+, Urine Blood 2+, Urine Nitrate Negative, Urine Bilirubin 2+ A, Urine Urobilinogen 0.2, Ur Leukocyte Esterase Trace, Urine RBC 5-10, Urine WBC 10-20, Ur Squamous Epith Cells 3-5, Urine Bacteria 2+ 05/21/24 14:00: WBC 12.5 H, RBC 4.93, Hgb 12.9, Hct 37.7, MCV 76.5 L, MCH 26.1 L , MCHC 34.1, RDW 16.4, Plt Count 174, MPV 8.5, Neut % (Auto) 86.1 H, Lymph % (Auto) 6.4 L, [place] % (Auto) 7.1, Eos % (Auto) 0.0 L, Baso % (Auto) 0.4, Neut # (Auto) 10.8 H, Lymph # (Auto) 0.8, [place] # (Auto) 0.9, Eos # (Auto) 0.0, Baso # (Auto) 0.1, Total Counted 100, Neutrophils % (Manual) 86 H, Lymphocytes % (Manual) 5 L, Monocytes % (Manual) 9, Platelet Estimate Normal, RBC Morphology Normal, Sodium 135 L, Potassium 4.0, Chloride 99, Carbon Dioxide 22, Anion Gap 18.0 H, BUN 34 H, Creatinine 1.60 H, Estimated Creat Clear 46, Estimated GFR 33 L, Est GFR ( Amer) 40 L, Glucose 197 H, Calcium 9.5, Magnesium 2.0, Total Bilirubin 1.1, AST 32, ALT 28, Alkaline Phosphatase 94, Total Protein 7.7, Albumin 4.5, Globulin 3.2, Albumin/Globulin Ratio 1.4, Lipase 73, Procalcitonin 10.6 H, Acetone Level None detected 05/21/24 14:12: VBG pH 7.39, VBG pCO2 35.9, VBG pO2 41.1 H, VBG HCO3 21.2 L, VBG Total CO2 22.3 L, VBG O2 Saturation 76.1 H, VBG Base Excess -3.8 L, VBG Lactic Acid 3.4 H Orders (Tests/Meds): ED MEDICATIONS Generic Name Dose Route Start Last Admin Trade Name Freq PRN Reason Stop Dose Admin Acetaminophen 650 mg 05/21/24 15:50 Acetaminophen 325mg Tab PO 06/20/24 15:49 Q4HP PRN Fever or Mild Pain (1-3) Ceftriaxone Sodium 1 gm/ 50 mls @ 100 mls/hr 05/21/24 15:45 05/21/24 16:30 Sodium Chloride IV 05/31/24 15:44 Not Given Q24H [facility] Insulin Glargine 20 unit 05/21/24 21:00 Insulin Glargine 100 Units/Ml 3ml Flexpen SQ 06/20/24 20:59 HS [facility] Insulin Human Lispro 0 unit 05/21/24 16:30 Humalog 100 Units/Ml 10ml Vial (Ssi) SQ 06/20/24 16:29 ACHS [facility] Protocol Ondansetron HCl 4 mg 05/21/24 16:34 Ondansetron 4mg/2ml Vial IV 06/20/24 16:33 Q8HP PRN Nausea Promethazine HCl 25 mg 05/21/24 16:34 Promethazine Hcl 25mg/Ml 1ml Vial IV 06/20/24 16:33 Q6HP PRN Nausea And Vomiting Sodium Chloride 10 ml 05/21/24 14:45 05/21/24 14:46 Sodium Chloride 0.9% 10ml Syr (Rad Only) IV 06/20/24 14:44 10 ml NEEDED PRN Administration Maintain IV Site Sodium Chloride 25 ml 05/21/24 16:34 Sodium Chloride 0.9% 25ml Bag IV 06/20/24 16:33 NEEDED PRN for Use with IV Promethazine Discontinued Medications Generic Name Dose Route Start Last Admin Trade Name Jerod PRN Reason Stop Dose Admin Acetaminophen 1,000 mg 05/21/24 14:11 05/21/24 14:19 Acetaminophen 1,000mg/100ml Vial IV 05/21/24 14:12 1,000 mg ONCE ONE Administration Lactated Ringer's 1,000 mls @ 999 mls/hr 05/21/24 14:11 05/21/24 14:19 Lactated Ringer's 1000 Ml Bag IV 05/21/24 15:11 999 mls/hr .Q1H1M ONE Administration Insulin Glargine 40 unit 05/21/24 21:00 Insulin Glargine 100 Units/Ml 3ml Flexpen SQ 06/20/24 20:59 HS YOBANY Iopamidol 75 ml 05/21/24 14:45 05/21/24 14:45 Iopamidol-370 (76%);100ml Bottle IV 05/21/24 14:46 75 ml ONCE ONE Administration Ketorolac Tromethamine 15 mg 05/21/24 14:11 05/21/24 14:19 Ketorolac 30mg/Ml Vial IV 05/21/24 14:12 15 mg ONCE ONE Administration Ondansetron HCl 4 mg 05/21/24 14:11 05/21/24 14:19 Ondansetron 4mg/2ml Vial IV 05/21/24 14:12 4 mg ONCE ONE Administration ORDERS Category Date Time Status CT abdomen pelvis w con Stat Cat Scan 05/21/24 14:11 Completed Acetone, Serum (Rapid) Stat Lab 05/21/24 14:00 Completed CBC w/Auto Diff [Complete Blood Count Auto Diff] Stat Lab 05/21/24 14:00 Completed CMP [Comprehensive Metabolic Panel] Stat Lab 05/21/24 14:00 Completed Complete Blood Count Auto Diff AMLAB Lab 05/22/24 06:00 Ordered Comprehensive Metabolic Panel AMLAB Lab 05/22/24 06:00 Ordered Lipase Stat Lab 05/21/24 14:00 Completed Magnesium AMLAB Lab 05/22/24 06:00 Ordered Magnesium Stat Lab 05/21/24 14:00 Completed Procalcitonin Stat Lab 05/21/24 14:00 Completed UA [Urinalysis and Microscopic] Stat Lab 05/21/24 13:54 Completed Blood Culture Stat Micro 05/21/24 15:48 Received Urine Culture Stat Micro 05/21/24 13:54 Received VBG [Venous Blood Gas] Stat RT 05/21/24 14:12 Completed Medical Decision Narrative: In summary patient is a 54-year-old female who presents to the emergency department for evaluation of vomiting. Patient is normotensive tachycardic upon arrival, afebrile. Physical exam is remarkable for diffuse mild tenderness to palpation of the abdomen but no rebound or guarding rigidity. Bowel sounds normal active.. Differential diagnosis includes gastroenteritis versus pancreatitis versus bowel obstruction etc. Initial workup will be conducted with hematologic labs urinalysis CT scan abdomen pelvis. Initial interventions include crystalloid bolus acetaminophen antiemetics. Initial workup reviewed by me shows patient has elevated white count acute kidney injury urinary tract infection and open anion gap without ketosis my informal review of her CT scan shows patient has stranding around the right kidney suggestive of pyelonephritis.. Upon repeat evaluation patient still intolerant of oral intake. Given this I had interactive discussion with hospital medicine regarding patient management and they are agreeable for admission for further evaluation and care. I have ordered blood cultures prior to Rocephin. Tissue reperfusion patient is improving with fluid resuscitation stable vital signs. Patient mentating without issue, very well-appearing. On independent interpretation of workup, patient has negative acetone in the blood, but ketones in the urine and other findings concerning for UTI. Ketones in the urine could be due to dehydration ketosis or DKA. Patient not acidotic, bicarb a little low with anion gap of 18, largely accounted for by lactic acid greater than 3. Patient sugar less than 200. I feel this is likely due to dehydration ketosis more so than DKA. I was consulted by the MARCELL, and we discussed the complexity of the problems being addressed. I approved the treatment and management plan for this patient?s care in the Emergency Department, thus performing a substantive portion of the medical decision making. Ronnell Corey MD Critical Care <JALYN Zimmer - Last Filed: 05/21/24 15:54> Critical Care Time Critical Care Time: No
--- NOTE | 2024-05-21 14:11 | CT_ITS ---
PROCEDURE INFORMATION: Exam: CT Abdomen And Pelvis With Contrast Exam date and time: 05/21/2024 2:38 PM Age: 54 years old Clinical indication: Abdominal pain; Additional info: Acute abdominal pain TECHNIQUE: Imaging protocol: Computed tomography of the abdomen and pelvis with contrast. Radiation optimization: All CT scans at this facility use at least one of these dose optimization techniques: automated exposure control; mA and/or kV adjustment per patient size (includes targeted exams where dose is matched to clinical indication); or iterative reconstruction. Contrast material: ISOVUE; Contrast volume: 75 ml; Contrast route: IV; COMPARISON: CT ABDOMEN PELVIS W CON 04/03/2024 3:07 PM FINDINGS: Liver: Decreased density throughout the liver compatible with hepatic steatosis. Partially enhancing predominantly hypodense focus subcapsular region of the liver abutting the falciform ligament. Findings most compatible with hemangioma. Similar findings present on the previous study.additional smaller partially enhancing hypodense nodule demonstrated immediately adjacent to the larger lesion. Findings again most compatible with a hemangioma. Gallbladder and biliary ducts: Cholecystectomy Pancreas: Pancreas unremarkable Spleen: Evidence of prior splenic granulomatous disease. Borderline splenomegaly Adrenal glands: Adrenal glands unremarkable. Kidneys and ureters: Chronic cortical scarring left kidney. Subtle asymmetric regions of hypodensity upper pole right kidney. More prominent lesion involving the lower pole of the right kidney. Findings most compatible with pyelonephritis. Perinephric stranding. Findings nonspecific and may reflect acute versus chronic inflammatory change. Stomach and bowel: Colonic diverticulosis. No evidence of diverticulitis. Appendix: No evidence of appendicitis. Intraperitoneal space: Unremarkable. No free air. No significant fluid collection. Vasculature: Unremarkable. No abdominal aortic aneurysm. Lymph nodes: Prominent left inguinal lymph nodes Urinary bladder: Unremarkable as visualized. Reproductive: Hysterectomy Bones/joints: Lumbar spondylosis with multilevel disc degeneration. Persistent prominent approximate 4 mm osteophytic ridge with underlying smaller disc bulge. Borderline spinal canal narrowing. Soft tissues: Unremarkable. IMPRESSION: 1. Asymmetric regions of hypodensity upper pole right kidney. More prominent lesion involving the lower pole of the right kidney. Findings most compatible with pyelonephritis. Findings demonstrated on series 1002 image number [id number], [id number]. [id number]. Please see above report for discussion of nonacute findings. COMMENTS: Consistent with the [employer]'s Incidental Findings Committee white paper (J Am Celia Radiol 2018): Any incidental renal lesion less than 1 cm or classified as too small to characterize, or any incidental cystic renal lesion characterized as simple-appearing, is likely benign. No follow-up imaging is recommended for these lesions per consensus recommendations based on imaging criteria.
[2024-05-21 14:12] LABS: Appearance,Urine CLOUDY (Clear); Blood, Urine 2+ (Negative); Color,Urine YELLOW (Yellow); Glucose,Urine (UA) 3+ (Negative); Ketones,Urine 1+ (Negative); Leukocyte Esterase,Urine TRACE (Negative); Nitrate,Urine Negative (Negative); Protein,Urine 2+ (Negative); Specific Gravity, Urine 1.025 (1.005-1.030); Urobilinogen,Urine 0.2 EU/dl (0.2)
[2024-05-21 14:13] LABS: Bilirubin,Urine 2+ (Negative)
[2024-05-21 14:19] LABS: Chloride 99 mmol/L (98-107)
[2024-05-21] MEDS: LACTATED RINGERS 1000ML 1,000 ML 999 ML IV (14:19)
[2024-05-21] MEDS: ACETAMINOPHEN 1,000MG/100ML VIAL 1000 MG IV (14:19)
[2024-05-21] MEDS: ONDANSETRON 4MG/2ML VIAL 4 MG IV ×2 (14:19→19:47)
[2024-05-21] MEDS: KETOROLAC 30MG/ML VIAL 15 MG IV (14:19)
[2024-05-21 14:20] LABS: Basophils # 0.1 K/mm3 (0-0.2); Basophils % 0.4 % (0.1-2.0); Hematocrit 37.7 % (37.0-47.0); Hemoglobin 12.9 g/dL (12.2-16.2); Lymphocytes # 0.8 K/mm3 (0.7-4.5); Lymphocytes % 6.4 % (10-50); Mean Corpuscular HGB Conc 34.1 g/dL (31.8-35.4); Mean Corpuscular Hemoglobin 26.1 pg (27.0-31.2); Mean Corpuscular Volume 76.5 fl (81-99); Mean Platelet Volume 8.5 fl (7.4-10.4); Monocytes # 0.9 K/mm3 (0.1-1.0); Monocytes % 7.1 % (1.7-9.3); Neutrophils # 10.8 K/mm3 (1.8-7.8); Neutrophils % 86.1 % (37.0-80.0); Platelet Count 174 K/mm3 (142-424); Red Blood Count 4.93 M/mm3 (4.20-5.40); Red Cell Distribution Width 16.4 % (11.5-17.5); Sodium 135 mmol/L (136-145); White Blood Count 12.5 K/mm3 (4.8-10.8)
[2024-05-21 14:22] LABS: Bacteria,Urine 2+ /lpf
[2024-05-21 14:22] LABS: Alanine Aminotransferase 28 U/L (12-78); Alkaline Phosphatase 94 U/L (38-126); Aspartate Amino Transferase 32 U/L (14-36); Bilirubin,Total 1.1 mg/dl (0.2-1.3); Blood Urea Nitrogen 34 mg/dl (7-17); Carbon Dioxide 22 mmol/L (22.0-30.0); Creatinine Clearance Estimated 46 mL/min (50-200); Estimated Glomerular Filt Rate 33 ml/min (>60); GFR (African American) 40 ML/MIN (>60); Lipase 73 U/L (23-300)
[2024-05-21 14:23] LABS: Albumin Level 4.5 g/dl (3.5-5.0); Albumin/Globulin Ratio 1.4 (1.1-1.8); Calcium 9.5 mg/dl (8.4-10.2); Globulin 3.2 g/dL (1.3-3.2); Glucose 197 mg/dl (74-100); Total Protein,Serum 7.7 g/dl (6.3-8.2)
[2024-05-21 14:24] LABS: VBG Base Excess -3.8 mmol/L (-2.4-2.3); VBG HCO3 21.2 mmol/L (23-30); VBG Oxygen Saturation 76.1 % (50-70); VBG PCO2 35.9 mmol/L (35-51); VBG PH 7.39 mmol/L (7.31-7.41); VBG PO2 41.1 mmol/L (28-40); VBG Total CO2 22.3 mmol/L (23-27)
[2024-05-21 14:25] LABS: MANUAL DIFFERENTIAL MANUAL DIFFERENTIAL (MANUAL DIFF)
[2024-05-21 14:25] LABS: Lactate Venous 3.4 mmol/L (0.4-2.0)
[2024-05-21] MEDS: IOPAMIDOL-370 (76%);100ML BOTTLE 75 ML IV (14:45)
[2024-05-21] MEDS: SODIUM CHLORIDE 0.9% 10ML SYR (RAD ONLY) 10 ML IV (14:46)
[2024-05-21 15:01] LABS: Acetone, Serum (Rapid) None Detected (None Detect)
[2024-05-21 15:09] LABS: Lymphocytes % 5 % (10-50); Monocytes % 9 % (2-9); Neutrophils % 86 % (42-76); Platelet Estimate Normal; RBC Morphology Normal; Total Cells Counted 100
--- NOTE | 2024-05-21 15:45 | PC.NURSE ---
BRIAN JOHNSON SPEAKING WITH DR QUIROS FOR ADMISSION
--- NOTE | 2024-05-21 15:53 | P.HP_ITS ---
History of Present Illness *Admission Date: 05/21/24 *Reason for visit:: Nausea/vomiting *History of present illness: Ms. Hawley is a 54-year-old female with history of hypertension, diabetes, hyperlipidemia. She presented to the ER with complaint of 2 to 3 days of nausea and vomiting with intermittent fevers. States she has been feeling bad and unable to keep much down. Has not eaten in 2 days. Went to see her primary care yesterday who thought she had gastroenteritis. She was negative for flu and COVID. They started antiemetics and she was sent home. She reports developing pain in her abdomen that radiated to her back on the right side yesterday afternoon with progression to pressure in her pelvis and burning with urination today. On arrival to the ER, was tachycardic with low-grade temperature. Workup concerning for sepsis. CT image of the abdomen showed pyelonephritis. Patient initiated on fluids and ceftriaxone. Cultures obtained. Medicine consulted for further management and admission. On arrival to the floor, she is feeling little bit better after receiving IV fluids. Denies any active nausea right now. Would like to try popsicle. Stable on room air. at bedside. Has not taken her insulin in a couple days. [facility] Disclaimer: The information contained in this section may have been updated after the patient was seen, as this information can be updated by other users. Medical History Diabetes mellitus, type 2 Hyperlipidemia Hypertension Surgical History History of tonsillectomy History of hysterectomy History of section History of cholecystectomy History of appendectomy Social History Smoking Status: Never smoker alcohol intake: never substance use type: denies use current occupational status: other Travel in the last 8 weeks: None household members: family housing: house Review of Systems Review of Systems Review of systems (narrative): 14 point review of systems performed, pertinent positives and negatives as per HPI Meds Home Medications and Allergies Home Medications Medication Instructions Recorded Confirmed Type insulin glargine 100 unit/mL (3 40 units SQ HS Diabetes 06/24/18 05/21/24 History mL) subcutaneous pen ondansetron 4 mg disintegrating 4 mg PO TIDP PRN Nausea #9 tabs 12/28/20 05/21/24 Rx tablet amlodipine 10 mg tablet 10 mg PO DAILY 04/11/21 05/21/24 History atorvastatin 40 mg tablet 40 mg PO DAILY 04/11/21 05/21/24 History bisoprolol 10 1 tab PO DAILY 04/11/21 05/21/24 History mg-hydrochlorothiazide 6.25 mg tablet blood sugar diagnostic #10 ea 04/11/21 04/11/21 History flash glucose sensor #1 ea 04/11/21 04/11/21 History lisinopril 20 mg tablet 20 mg PO DAILY 04/11/21 05/21/24 History omeprazole 40 mg capsule,delayed 40 mg PO DAILY 04/11/21 05/21/24 History release pen needle, diabetic 32 gauge x #50 ea 04/11/21 04/11/21 History 1/ New Prescriptions to Start Prescriptions: Allergies Allergy/AdvReac Type Severity Reaction Status Date / Time bupropion Allergy Unknown Verified 04/11/21 17:41 pseudoephedrine Allergy Unknown Verified 04/11/21 17:41 pregabalin [From Lyrica] Allergy Verified 12/21/22 11:36 Exam Data for Last 24 hours Vital signs and Labs for Last 24 Hours: Temp Pulse Resp BP Pulse Ox O2 Del Method 99.9 F H 94 H 20 137/74 96 Room Air 05/21/24 13:47 05/21/24 15:30 05/21/24 13:47 05/21/24 15:30 05/21/24 15:30 05/21/24 14:15 Laboratory Results - last 24 hr 05/21/24 13:54: Urine Color Yellow, Urine Appearance Cloudy, Urine pH 6.0, Ur Specific [place] 1.025, Urine Protein 2+, Urine Glucose (UA) 3+, Urine Ketones 1+, Urine Blood 2+, Urine Nitrate Negative, Urine Bilirubin 2+ A, Urine Urobilinogen 0.2, Ur Leukocyte Esterase Trace, Urine RBC 5-10, Urine WBC 10-20, Ur Squamous Epith Cells 3-5, Urine Bacteria 2+ 05/21/24 14:00: WBC 12.5 H, RBC 4.93, Hgb 12.9, Hct 37.7, MCV 76.5 L, MCH 26.1 L , MCHC 34.1, RDW 16.4, Plt Count 174, MPV 8.5, Neut % (Auto) 86.1 H, Lymph % (Auto) 6.4 L, [place] % (Auto) 7.1, Eos % (Auto) 0.0 L, Baso % (Auto) 0.4, Neut # (Auto) 10.8 H, Lymph # (Auto) 0.8, [place] # (Auto) 0.9, Eos # (Auto) 0.0, Baso # (Auto) 0.1, Total Counted 100, Neutrophils % (Manual) 86 H, Lymphocytes % (Manual) 5 L, Monocytes % (Manual) 9, Platelet Estimate Normal, RBC Morphology Normal, Sodium 135 L, Potassium 4.0, Chloride 99, Carbon Dioxide 22, Anion Gap 18.0 H, BUN 34 H, Creatinine 1.60 H, Estimated Creat Clear 46, Estimated GFR 33 L, Est GFR ( Amer) 40 L, Glucose 197 H, Calcium 9.5, Magnesium 2.0, Total Bilirubin 1.1, AST 32, ALT 28, Alkaline Phosphatase 94, Total Protein 7.7, Albumin 4.5, Globulin 3.2, Albumin/Globulin Ratio 1.4, Lipase 73, Acetone Level None detected 05/21/24 14:12: VBG pH 7.39, VBG pCO2 35.9, VBG pO2 41.1 H, VBG HCO3 21.2 L, VBG Total CO2 22.3 L, VBG O2 Saturation 76.1 H, VBG Base Excess -3.8 L, VBG Lactic Acid 3.4 H I & O for Last 24 hours: Intake & Output 05/18/24 05/19/24 05/20/24 05/21/24 23:59 23:59 23:59 23:59 Weight 74.843 kg Constitutional Constitutional: no acute distress, average body habitus and cooperative *Routine HEENT Exam Head: Present normocephalic Eye: Present EOMI and PERRL ENT: Present mucous membranes moist *Routine Neck Exam Neck: Present supple; Absent lymphadenopathy *Routine Respiratory Exam Respiratory: Present CTA bilaterally *Routine Cardiovascular Exam Cardiovascular: Present Normal S1, Normal S2 and tachycardia *Routine Abdominal Exam Abdominal: Present soft, normoactive bowel sounds and tenderness (right hemiabdomen) *Routine Rectal Exam Rectal:: deferred *Routine Genitalia Exam Genitalia:: deferred *Routine Extremities Exam Extremities: Absent cyanosis, clubbing or edema Routine Back/Spine/Pelvis Exam Back/Spine: Present CVA tenderness (mild right sided) *Routine Skin Exam Skin: Present warm; Absent rash *Routine Neurological Exam Neurological: Present alert, oriented X3 and moving all extremities; Absent altered mental status Assessment and Plan *Assessment and plan (1) Severe sepsis: Status: Acute Category: Medical Code(s): A41.9 - Sepsis, unspecified organism; R65.20 - Severe sepsis without septic shock (2) Pyelonephritis: Status: Acute Category: Medical Code(s): N12 - Tubulo-interstitial nephritis, not specified as acute or chronic (3) FELICITAS (acute kidney injury): Status: Acute Category: Medical Code(s): N17.9 - Acute kidney failure, unspecified (4) Hypertension: Status: Chronic Qualifiers: Hypertension type: primary hypertension Qualified Code(s): I10 - Essential (primary) hypertension Category: Medical Code(s): I10 - Essential (primary) hypertension (5) Hyperlipidemia: Status: Chronic Qualifiers: Hyperlipidemia type: mixed hyperlipidemia Qualified Code(s): E78.2 - Mixed hyperlipidemia Category: Medical Code(s): E78.5 - Hyperlipidemia, unspecified (6) Diabetes mellitus, type 2: Status: Chronic Qualifiers: Diabetes mellitus fpc insulin use: with fpc use Category: Medical Code(s): E11.9 - Type 2 diabetes mellitus without complications Plan 54-year-old presented with nausea and vomiting over 2 to 3 days. Developed worsening abdominal pain and dysuria today. Workup in the ER concerning for sepsis with pyelonephritis. Discussed case with ER physician, request admission for antibiotics and treatment of her sepsis. I agreed to admit for further management. Received ceftriaxone in the ER. Will give additional liter of IV fluids. Necessitates inpatient management for her severe sepsis (kidney injury, tachycardia, leukocytosis, pyelonephritis on CT of abdomen). Problems addressed as follows: Severe sepsis -Ceftriaxone 1 g in the ER. Per my review of CT imaging, has stranding around right kidney. Urinalysis grossly abnormal with trace leuk esterase and 2+ bacteria and 10-20 white cells. -Continue ceftriaxone daily. Urine culture obtained and pending. Blood cultures obtained. Further management de-escalation of antibiotics pending culture and sensitivity. -1 L of LR in the ER. Will administer 1 more liter over 4 hours. -Zofran 4 mg as needed every 8 hours for nausea. Phenergan 25 mg as needed every 6 hours for nausea or vomiting. -Tylenol 650 every 6 hours as needed for pain -White cell count elevated at 12.5, repeat CBC, CMP, magnesium ordered for the morning. Acute kidney injury:BUN 34, creatinine 1.6. Baseline last month normal at 1.0. Monitor for improvement with fluid resuscitation. Insulin-dependent diabetes -On basal insulin 40 units nightly at home along with Ozempic weekly. Has been able to wean off of some of her insulin regimen with addition of Ozempic. Reports last A1c approximately 6. Repeat A1c pending. -Will continue Lantus at decreased dose of 20 units nightly. Sliding scale insulin with monitoring of glucose ACHS. Will use continuous glucose monitor. -Mild anion gap of 18, bicarb 22. Does not appear in DKA however as she has no acetone in her blood, and her pH on VBG is normal at 7.39. GERD: Continue home omeprazole. Holding home blood pressure regimen in the setting of FELICITAS and sepsis. Reevaluate in the morning. Holding home Lipitor in the setting of sepsis and FELICITAS. Full code Diabetic diet Prophylactic Lovenox
--- NOTE | 2024-05-21 15:54 | PC.NURSE ---
PROOF MACHINE OPERATOR SUPERVISOR NOTIFIED OF ADMISSION
[2024-05-21 16:10] LABS: Procalcitonin 10.6 ng/mL (0.0-2.0)
[2024-05-21] MEDS: humaLOG 100 UNITS/ML 10ML VIAL (SSI) SQ (17:09)
[2024-05-21 17:28] LABS: Hemoglobin A1C 6.6 % (4.0-6.0)
[2024-05-21] MEDS: LACTATED RINGERS 1000ML 1,000 ML 250 ML IV (17:30)
[2024-05-21 18:26] LABS: Reflex Lactic Add Lactic Reflex
[2024-05-21] MEDS: ACETAMINOPHEN 325MG TAB 650 MG PO (19:47)
--- NOTE | 2024-05-21 20:36 | PC.NURSE ---
AT 1950 PATIENT RECEIVED TYLENOL 650 MG PO FOR H/A 05/27 AND ACHING IN ABDOMEN 05/27 WHICH WAS INEFFECTIVE. ALSO RECEIVED ZOFRAN 4 MG IVP FOR NAUSEA AND THIS WAS EFFECTIVE. VOICE MAIL LEFT FOR COVERING QUALITATIVE FIELD COORDINATOR FOR ADDITIONAL PAIN MED.
[2024-05-21 20:41] LABS: POC Glucose,Bedside 130 (70-110)
[2024-05-21] MEDS: PANTOPRAZOLE 40MG TABLET 40 MG PO (20:51)
[2024-05-21] MEDS: MORPHINE 2MG/ML SYRINGE 2 MG IV (22:12)
--- NOTE | 2024-05-21 23:43 | PC.NURSE ---
PATIENT C/O HEADACHE RETURNING. E PATE NOTIFIED. ICE PACK WAS RECOMMENDED.
[2024-05-22] VITALS: BP 149/85; PULSE 100; RESP 14; TEMP 37.4; O2SAT 98
[2024-05-22] MEDS: MORPHINE 2MG/ML SYRINGE 2 MG IV (02:32)
[2024-05-22] MEDS: ONDANSETRON 4MG/2ML VIAL 4 MG IV ×3 (02:33→17:18)
--- NOTE | 2024-05-22 02:38 | PC.NURSE ---
medicated with zofran 4 mg ivp for nausea and morphine 2 mg ivp for headache and back-abdomen pain 05/27. ice pack helped froa while.
[2024-05-22 04:00] VITALS: BP 122/58; PULSE 91; RESP 15; TEMP 37.7; O2SAT 97; BMI 28.7
[2024-05-22 04:22] LABS: POC Glucose,Bedside 158 (70-110)
--- NOTE | 2024-05-22 04:58 | PC.NURSE ---
0500 lab calls back positive bld cultures aerobic bottle: gram negative rods, PCR Klebsiella pneumoniae. E MALIA He notified.
[2024-05-22 05:18] LABS: POC Glucose,Bedside 110 (70-110)
[2024-05-22 05:44] LABS: Basophils % 0.3 % (0.1-2.0); Eosinophils % 0.1 % (0.1-12.0); Hematocrit 32.2 % (37.0-47.0); Lymphocytes # 0.9 K/mm3 (0.7-4.5); Lymphocytes % 10.1 % (10-50); Mean Corpuscular HGB Conc 32.6 g/dL (31.8-35.4); Mean Corpuscular Hemoglobin 25.3 pg (27.0-31.2); Mean Corpuscular Volume 77.7 fl (81-99); Mean Platelet Volume 8.9 fl (7.4-10.4); Monocytes # 0.7 K/mm3 (0.1-1.0); Monocytes % 7.4 % (1.7-9.3); Neutrophils # 7.5 K/mm3 (1.8-7.8); Neutrophils % 82.1 % (37.0-80.0); Platelet Count 140 K/mm3 (142-424); Red Blood Count 4.15 M/mm3 (4.20-5.40); Red Cell Distribution Width 16.4 % (11.5-17.5); White Blood Count 9.1 K/mm3 (4.8-10.8)
[2024-05-22 05:56] LABS: Chloride 102 mmol/L (98-107); Sodium 134 mmol/L (136-145)
[2024-05-22 05:57] LABS: Potassium 3.8 mmoL/L (3.5-5.1)
[2024-05-22 05:59] LABS: Alanine Aminotransferase 13 U/L (12-78); Albumin Level 3.5 g/dl (3.5-5.0); Albumin/Globulin Ratio 1.3 (1.1-1.8); Alkaline Phosphatase 74 U/L (38-126); Anion Gap 13.8 mEq/L (5-15); Aspartate Amino Transferase 20 U/L (14-36); Bilirubin,Total 0.8 mg/dl (0.2-1.3); Blood Urea Nitrogen 27 mg/dl (7-17); Calcium 8.8 mg/dl (8.4-10.2); Carbon Dioxide 22 mmol/L (22.0-30.0); Creatinine Clearance Estimated 69 mL/min (50-200); Estimated Glomerular Filt Rate 51 ml/min (>60); GFR (African American) 62 ML/MIN (>60); Globulin 2.8 g/dL (1.3-3.2); Glucose 108 mg/dl (74-100); Hemoglobin 10.5 g/dL (12.2-16.2); Total Protein,Serum 6.3 g/dl (6.3-8.2)
--- NOTE | 2024-05-22 06:48 | PC.NURSE ---
PATIENT CALLED OUT STATING HER DEXCOM ALERTED HER THAT HER BLD SUGAR WAS 55. DENIES FEELING SHAKEY. NO S/S OF HYPOGLYCEMIA. BLOOD SUGAR RECHECKED WITH OUR GLUCOMETER AND WAS 115.
[2024-05-22 06:53] LABS: POC Glucose,Bedside 115 (70-110)
--- NOTE | 2024-05-22 07:02 | EXP.ACUTE.PN ---
Subjective *Date: 05/22/24 *Time: 10:32 Interval history: Patient had headache overnight and some mild nausea. No jillian emesis. Afebrile this morning, temperature defervescing. Tolerated small amount of breakfast but not having much of an appetite. Denies any dysuria today. Medical Exam Vital signs and Labs for Last 24 Hours: Vital Signs Temp Pulse Pulse Resp BP BP Pulse Ox 05/22/24 06:31 05/22/24 04:54 05/22/24 04:00 99.9 F H 91 H 15 122/58 L 97 05/22/24 02:40 05/22/24 01:00 05/22/24 00:00 99.3 F 100 H 14 149/85 H 98 05/21/24 23:00 05/21/24 21:00 05/21/24 20:00 97 05/21/24 19:33 98.7 F 82 16 144/77 H 97 05/21/24 18:18 05/21/24 17:00 05/21/24 16:33 99.0 F 92 H 16 153/84 H 96 05/21/24 16:09 98.8 F 90 16 145/75 H 05/21/24 15:30 94 H 137/74 96 05/21/24 15:15 95 H 152/84 H 95 05/21/24 15:00 99 H 131/67 97 05/21/24 14:45 99 H 162/88 H 95 05/21/24 14:32 104 H 158/87 H 96 05/21/24 14:15 106 H 164/86 H 95 05/21/24 13:58 115 H 119/88 97 05/21/24 13:47 99.9 F H 111 H 20 119/88 97 O2 Del Method 05/22/24 06:31 Room Air 05/22/24 04:54 Room Air 05/22/24 04:00 Room Air 05/22/24 02:40 Room Air 05/22/24 01:00 Room Air 05/22/24 00:00 Room Air 05/21/24 23:00 Room Air 05/21/24 21:00 Room Air 05/21/24 20:00 Room Air 05/21/24 19:33 Room Air 05/21/24 18:18 Room Air 05/21/24 17:00 Room Air 05/21/24 16:33 Room Air 05/21/24 16:09 Room Air 05/21/24 15:30 05/21/24 15:15 05/21/24 15:00 05/21/24 14:45 05/21/24 14:32 05/21/24 14:15 Room Air 05/21/24 13:58 Room Air 05/21/24 13:47 Room Air Intake and Output 05/21/24 05/21/24 05/22/24 15:59 23:59 07:59 Intake Total 1630 / 3110 1480 / 1480 Output Total 2 / 2 Balance 1628 / 3108 1479 / 1479 Intake: Intake, Oral Amount 480 / 960 480 / 480 Intake, Total IV Amount 1150 / 2150 1000 / 1000 Lactated Ringers 1000ML 1,000 1000 / 1000 ml @ 250 mls/hr IV .Q4H [facility] Rx# :[id number] Output: Output, Urine Amount Other: Number of Unmeasured Voids 11 18 Weight 74.843 kg 75.098 kg 76.385 kg Patient Weight 05/22/24 23:59 Weight 76.385 kg Laboratory Results - last 24 hr 05/21/24 13:54: Urine Color Yellow, Urine Appearance Cloudy, Urine pH 6.0, Ur Specific [place] 1.025, Urine Protein 2+, Urine Glucose (UA) 3+, Urine Ketones 1+, Urine Blood 2+, Urine Nitrate Negative, Urine Bilirubin 2+ A, Urine Urobilinogen 0.2, Ur Leukocyte Esterase Trace, Urine RBC 5-10, Urine WBC 10-20, Ur Squamous Epith Cells 3-5, Urine Bacteria 2+ 05/21/24 14:00: WBC 12.5 H, RBC 4.93, Hgb 12.9, Hct 37.7, MCV 76.5 L, MCH 26.1 L, MCHC 34.1, RDW 16.4, Plt Count 174, MPV 8.5, Neut % (Auto) 86.1 H, Lymph % (Auto) 6.4 L, [place] % (Auto) 7.1, Eos % (Auto) 0.0 L, Baso % (Auto) 0.4, Neut # (Auto) 10.8 H, Lymph # (Auto) 0.8, [place] # (Auto) 0.9, Eos # (Auto) 0.0, Baso # (Auto) 0.1, Total Counted 100, Neutrophils % (Manual) 86 H, Lymphocytes % (Manual) 5 L, Monocytes % (Manual) 9, Platelet Estimate Normal, RBC Morphology Normal, Sodium 135 L, Potassium 4.0, Chloride 99, Carbon Dioxide 22, Anion Gap 18.0 H, BUN 34 H, Creatinine 1.60 H, Estimated Creat Clear 46, Estimated GFR 33 L, Est GFR ( Amer) 40 L, Glucose 197 H, Hemoglobin A1c 6.6 H, Calcium 9.5, Magnesium 2.0, Total Bilirubin 1.1, AST 32, ALT 28, Alkaline Phosphatase 94, Total Protein 7.7, Albumin 4.5, Globulin 3.2, Albumin/Globulin Ratio 1.4, Lipase 73, Procalcitonin 10.6 H, Acetone Level None detected 05/21/24 14:12: VBG pH 7.39, VBG pCO2 35.9, VBG pO2 41.1 H, VBG HCO3 21.2 L, VBG Total CO2 22.3 L, VBG O2 Saturation 76.1 H, VBG Base Excess -3.8 L, VBG Lactic Acid 3.4 H 05/21/24 17:07: POC Glucose 158 H 05/21/24 18:50: Lactate 1.0 05/21/24 20:34: POC Glucose 130 H 05/22/24 05:11: POC Glucose 110 05/22/24 05:15: WBC 9.1 D, RBC 4.15 L, Hgb 10.5 L D, Hct 32.2 L, MCV 77.7 L, MCH 25.3 L, MCHC 32.6, RDW 16.4, Plt Count 140 L, MPV 8.9, Neut % (Auto) 82.1 H, Lymph % (Auto) 10.1, [place] % (Auto) 7.4, Eos % (Auto) 0.1, Baso % (Auto) 0.3, Neut # (Auto) 7.5, Lymph # (Auto) 0.9, [place] # (Auto) 0.7, Eos # (Auto) 0.0, Baso # (Auto) 0.0, Sodium 134 L, Potassium 3.8, Chloride 102, Carbon Dioxide 22, Anion Gap 13.8, BUN 27 H, Creatinine 1.10 H D, Estimated Creat Clear 69, Estimated GFR 51 L, Est GFR ( Amer) 62 D, Glucose 108 H D, Calcium 8.8, Magnesium 2.0, Total Bilirubin 0.8, AST 20 D, ALT 13 D, Alkaline Phosphatase 74, Total Protein 6.3, Albumin 3.5 D, Globulin 2.8, Albumin/Globulin Ratio 1.3 05/22/24 06:45: POC Glucose 115 H I & O for Labs for Last 24 Hours: Intake & Output 05/19/24 05/20/24 05/21/24 05/22/24 23:59 23:59 23:59 23:59 Intake Total 1630 / 3110 1480 / 1480 Output Total Balance 1628 / 3108 1479 / 1479 Weight 75.098 kg 76.385 kg Microbiology Reports for the Last 24 Hours: Microbiology 05/21/24 15:48 Blood Blood Culture - Preliminary Constitutional: Present no acute distress and cooperative Head: Present atraumatic and normocephalic ENT: Present normal exam Respiratory: Present normal respiratory effort; Absent rhonchi, wheezes or crackles Cardiac: Present Reg Rate and Rhythm GI: Present soft, tenderness (Mild right upper quadrant pain.) and normal bowel sounds; Absent distention Extremities: Present normal inspection and full ROM Skin: Present intact; Absent erythema Neuro: Present Grossly Intact, alert, awake, oriented x 3 and moves all extremities Assessment and Plan *Assessment and plan (1) Severe sepsis: Status: Acute Category: Medical Code(s): A41.9 - Sepsis, unspecified organism; R65.20 - Severe sepsis without septic shock (2) Pyelonephritis: Status: Acute Category: Medical Code(s): N12 - Tubulo-interstitial nephritis, not specified as acute or chronic (3) FELICITAS (acute kidney injury): Status: Acute Category: Medical Code(s): N17.9 - Acute kidney failure, unspecified (4) Hypertension: Status: Chronic Qualifiers: Hypertension type: primary hypertension Qualified Code(s): I10 - Essential (primary) hypertension Category: Medical Code(s): I10 - Essential (primary) hypertension (5) Hyperlipidemia: Status: Chronic Qualifiers: Hyperlipidemia type: mixed hyperlipidemia Qualified Code(s): E78.2 - Mixed hyperlipidemia Category: Medical Code(s): E78.5 - Hyperlipidemia, unspecified (6) Diabetes mellitus, type 2: Status: Chronic Qualifiers: Diabetes mellitus truck terminal manager insulin use: with truck terminal manager use Category: Medical Code(s): E11.9 - Type 2 diabetes mellitus without complications Plan 54-year-old presented with nausea and vomiting over 2 to 3 days. Developed worsening abdominal pain and dysuria today. Workup in the ER concerning for sepsis with pyelonephritis. Discussed case with ER physician, request admission for antibiotics and treatment of her sepsis. I agreed to admit for further management. Received ceftriaxone in the ER. Will give additional liter of IV fluids. Necessitates inpatient management for her severe sepsis (kidney injury, tachycardia, leukocytosis, pyelonephritis on CT of abdomen). Patient showing some defervescent's. Continues to require inpatient management. Culture growing gram-negative rods. Problems addressed as follows: Severe sepsis -Continue ceftriaxone 1 g daily, blood cultures pending and negative so far. Urine culture with gram-negative rods. further management de-escalation of antibiotics pending culture and sensitivity. - Toradol 15 mg as needed every 6 hours for headache and pain -Zofran 4 mg as needed every 8 hours for nausea. Phenergan 25 mg as needed every 6 hours for nausea or vomiting. -Tylenol 650 every 6 hours as needed for pain -White cell count down from 12.5-9.1. Hemoglobin 10.5. repeat CBC, CMP, magnesium ordered for the morning. Acute kidney injury: BUN improved to 27, creatinine normalized to 1.1. Down from creatinine 1.6 on admission. Close to baseline. Tolerating p.o. fluids. Caution with nephrotoxins. Insulin-dependent diabetes -Morning glucose 108, A1c 6.9. -Will continue Lantus at decreased dose of 20 units nightly. Sliding scale insulin with monitoring of glucose ACHS. Will use continuous glucose monitor. -Anion gap closed this morning. GERD: Continue home omeprazole. Holding home blood pressure regimen in the setting of FELICITAS and sepsis. Reevaluate in the morning. Holding home Lipitor in the setting of sepsis and FELICITAS. Full code Diabetic diet Prophylactic Lovenox
[2024-05-22 08:00] VITALS: BP 149/72; PULSE 94; RESP 20; TEMP 36.8; O2SAT 96
[2024-05-22] MEDS: KETOROLAC 30MG/ML VIAL 15 MG IV ×2 (08:17→21:34)
[2024-05-22] MEDS: ACETAMINOPHEN 325MG TAB 650 MG PO ×2 (08:19→15:25)
[2024-05-22] MEDS: ENOXAPARIN 40MG/0.4ML SYRINGE 40 MG SQ (08:33)
[2024-05-22] MEDS: AMLODIPINE 10MG TABLET 10 MG PO (08:33)
--- OUTSIDE RECORDS SUMMARY | 2024-05-22 09:30 | XMS_ITS ---
Author Name Unknown Address [address] [place] [address] [place] [address] Phone Organization [facility] Address [address] [place] [address] [place] [address] Phone Care Team Providers Care Hand Bootmaker Name Role Phone Juan Carlos LOPEZ, Chriss Abarca Unavailable [phone] Chelle Lopez, Conrado Primary Care Provider [phone] Reason for Referral Date Encounter Description Provider Reason for Referral 12/27/21 NEW PROBLEM/EST PT Mauri Cervantes PA-C Ref erral To Physician Problems Includes: Active, inactive, and resolved Problems All Visits Onset Date Resolved Date Provider Condition S tatus History of Lower Back Pain 02/23/2020 Chriss Rangel MD Active Last Documented On 0 1:37PM ; [facility] Joint Pain in the Right Hip 02/23/2020 Chriss Rangel MD Active Last Documented On 0 1:37PM ; [facility] Plan of Treatment Instructions to patient Lose weight Last Documented On 2 8:50AM ; [facility] Instructions for patient Last Documented On 0 2:35PM ; [facility] Instructions for patient Last Documented On 0 8:47AM ; [facility] Instructions for patient Last Documented On 0 1:38PM ; [facility] Assessments Includes: Assessments for all patient encounters No Assessments Recorded Instructions Includes: Instructions for all patient encounters Instructions to patient Lose weight Last Documented On 2 8:50AM ; [facility] Instructions for patient Last Documented On 0 2:35PM ; [facility] Instructions for patient Last Documented On 0 8:47AM ; [facility] Instructions for patient Last Documented On 0 1:38PM ; [facility] Medical Equipment - Implanted Devices Includes: Current and historical Devices No Medical Equipment Recorded Medications Includes: Current and historical Medications Current Medications (continue as prescribed) Lantus 100 UNIT/ML Subcutaneous Solution 02/24/2020 Provider: Diagnosis: Last Documented On 0 3:42PM By Talia Ivory ; [facility] HumaLOG 100 UNIT/ML Subcutaneous Solution Cartridge Provider: Diagnosis: Last Documented On 0 3:42PM By Talia Ivory ; [facility] Ziac 10-6.25 MG Oral Tablet 02/24/2020 Provider: Diagnosis: Last Documented On 0 3:43PM By Talia Ivory ; [facility] amLODIPine Besylate 10 MG Oral Tablet 02/24/2020 Pro vider: Diagnosis: Last Documented On 0 3:43PM By Talia Ivory ; [facility] Pravastatin Sodium 10 MG Oral Tablet 02/24/2020 Prov ider: Diagnosis: Last Documented On 0 3:43PM By Talia Ivory ; [facility] Naprosyn 250 MG Oral Tablet 02/24/2020 Provider: Diagnosis: Last Documented On 0 3:43PM By Talia Ivory ; [facility] Aspirin 81 MG Oral Tablet 02/24/2020 Provider: Diagnosis: Last Documented On 0 3:44PM By Talia Ivory ; [facility], [facility] Medications Administered Includes: Administered Medications in patient's chart No Administered Medications Recorded Results Includes: Results from 05/22/2023 through 05/22/2024 No Results Recorded For Specified Dates History of Present Illness History of Present Illness not supported for this document type No History of Present Illness Recorded Social History Description Last Updated Not a current smoker. 12/27/2021 Last Documented On 2 2:03PM ; [facility] Recent change in diet diabetic 2 Last Documented On 2 2:03PM ; [facility] Non-smoker 12/27/2021 Last Documented On 2 2:03PM ; [facility] Caffeine use 02/24/2020 Last Documented On 0 10:12PM ; [facility] Exercising regularly 02/24/2020 Last Documented On 0 10:12PM ; [facility] No tobacco use 02/23/2020 Last Documented On 0 10:12PM ; [facility] Smoking status : Never smoker 02/23/2020 Last Documented On 0 10:12PM ; [facility] No recent change in diet 02/23/2020 Last Documented On 0 10:12PM ; [facility] Not a current smoker 02/23/2020 Last Documented On 0 10:12PM ; [facility] Not using alcohol 02/23/2020 Last Documented On 0 10:12PM ; [facility] Not using drugs 02/23/2020 Last Documented On 0 10:12PM ; [facility] Procedures and Surgical History Surgical History Last Updated History of appendectomy 02/24/2020 Last Documented On 0 10:12PM ; [facility] History of hysterectomy 02/24/2020 Last Documented On 0 10:12PM ; [facility] Medical History Includes: Medical History in patient's chart Description Last Updated History of History of Heart Attack / Str javon 12/27/2021 Last Documented On 2 2:03PM ; [facility] History of Hypertension 12/27/2021 Last Documented On 2 2:03PM ; [facility] No recent immunization for flu 2 Last Documented On 2 2:03PM ; [facility] No recent immunization for pneumococcal pneumonia 12/27/2021 Last Documented On 2 2:03PM ; [facility] Gallbladder disease 02/24/2020 Last Documented On 0 10:12PM ; [facility] History of acute myocardial infarction 0 02/24/2020 Last Documented On 0 10:12PM ; [facility] History of diabetes mellitus 02/24/2020 Last Documented On 0 10:12PM ; [facility] History of heart disease 02/24/2020 Last Documented On 0 10:12PM ; [facility] Intermittent hypertension 02/24/2020 Last Documented On 0 10:12PM ; [facility] Family History Includes: Family History in patient's chart Description Last Updated Diabetes mellitus 12/27/2021 Last Documented On 2 2:03PM ; [facility] stroke/seizures 02/24/2020 Last Documented On 0 10:12PM ; [facility] Family history of diabetes mellitus 06/2020 Last Documented On 0 10:12PM ; [facility] Family history of heart disease 02/24/20 20 Last Documented On 0 10:12PM ; [facility] Family history of hypertension 0 Last Documented On 0 10:12PM ; [facility] Review of Systems Review of Systems not supported for this document type No Review of Systems Recorded Mental Status No Mental Status Recorded Functional Status No Functional Status Recorded Physical Exam Physical Exam not supported for this document type No Physical Exam Recorded Allergies Includes: Active, inactive, and resolved Allergies Substance Type Reaction Onset Date Resolved Date Statu s Wellbutrin Allergy 02/24/2020 Active Last Documented On 2 8:36AM ; [facility] Sudafed Allergy 02/24/2020 Active Last Documented On 2 8:36AM ; [facility] nickel allergy Allergy 02/24/2020 Acti ve Last Documented On 2 8:36AM ; [facility] Insurance Includes: Active Insurance Policies Plan Name Member ID Group # Subscriber Relationship Effect quincy Dates 1 - [facility] [id number] Cesar Jerome 11/18/2019 - Unknown Clinical Notes Includes: Signed Clinical Notes starting from 11/01/2022 No Clinical Notes Recorded
--- OUTSIDE RECORDS SUMMARY | 2024-05-22 09:30 | XMS_ITS | Clinical Summary ---
Author Name Unknown Address [address] [place] [address] [place] [address] Phone Organization [facility] Address [address] [place] [address] Phone Care Team Providers Care Airport Operations Crew Member Name Role Phone Juan Carlos LOPEZ, Chriss Abarca Unavailable [phone] Conrado Corbett Md Primary Care Provider [phone] Reason for Visit and Chief Complaint BRACE FITTING Problems Includes: Problems addressed during this encounter and other active Problems All Visits Onset Date Resolved Date Provider Condition S tatus History of Lower Back Pain 02/23/2020 Chriss Rangel MD Active Last Documented On 0 1:37PM ; [facility] Joint Pain in the Right Hip 02/23/2020 Chriss Rangel MD Active Last Documented On 0 1:37PM ; [facility] Plan of Treatment No Plan of Treatment Recorded Assessments Includes: Assessments from this encounter No Assessments Recorded Medical Equipment - Implanted Devices Includes: Current Devices No Medical Equipment Recorded Medications Includes: Medications discussed during this encounter and other current Medications Current Medications (continue as prescribed) Lantus 100 UNIT/ML Subcutaneous Solution 02/24/2020 Provider: Diagnosis: Last Documented On 0 3:42PM By Talia [facility], [facility] HumaLOG 100 UNIT/ML Subcutaneous Solution Cartridge Provider: Diagnosis: Last Documented On 0 3:42PM By Talia [facility], [facility] Ziac 10-6.25 MG Oral Tablet 02/24/2020 Provider: Diagnosis: Last Documented On 0 3:43PM By Talia Ivory ; [facility] amLODIPine Besylate 10 MG Oral Tablet 02/24/2020 Pro vider: Diagnosis: Last Documented On 0 3:43PM By Talia Ivory ; [facility], [facility] Pravastatin Sodium 10 MG Oral Tablet 02/24/2020 Prov ider: Diagnosis: Last Documented On 0 3:43PM By Talia Ivory ; [facility], [facility] Naprosyn 250 MG Oral Tablet 02/24/2020 Provider: Diagnosis: Last Documented On 0 3:43PM By Talia Ivory ; [facility], [facility] Aspirin 81 MG Oral Tablet 02/24/2020 Provider: Diagnosis: Last Documented On 0 3:44PM By Talia Ivory ; [facility], [facility] Medications Administered Includes: Administered Medications from this encounter No Administered Medications Recorded Results Includes: Results discussed during this encounter No Results Recorded For Specified Dates History of Present Illness Includes: History of Present Illness from this encounter No History of Present Illness Recorded Social History No Social History Recorded - Smoking Status Unknown Medical History Includes: Medical History addressed during this encounter No Medical History Recorded Family History Includes: Family History addressed during this encounter No Family History Recorded Review of Systems Includes: Review of Systems from this encounter No Review of Systems Recorded Mental Status Includes: Mental Status from this encounter No Mental Status Recorded Functional Status Includes: Functional Status from this encounter No Functional Status Recorded Physical Exam Includes: Physical Exam from this encounter No Physical Exam Recorded Allergies Includes: Active Allergies Substance Type Reaction Onset Date Resolved Date Statu s Wellbutrin Allergy 02/24/2020 Active Last Documented On 2 8:36AM ; [facility] Sudafed Allergy 02/24/2020 Active Last Documented On 2 8:36AM ; [facility], [facility] nickel allergy Allergy 02/24/2020 Acti ve Last Documented On 2 8:36AM ; [facility], [facility] Insurance Includes: Active Insurance Policies Plan Name Member ID Group # Subscriber Relationship Effect quincy Dates 1 - [facility] [id number] Cesar Jerome 11/18/2019 - Unknown Clinical Notes Includes: Clinical Notes from this encounter No Clinical Notes Recorded
--- OUTSIDE RECORDS SUMMARY | 2024-05-22 09:30 | XMS_ITS | Clinical Summary ---
Author Name Unknown Address [address] [place] [address] [place] [address] Phone Organization [facility] Address [address] [place] [address] Phone Care Team Providers Care Explosive Expert Name Role Phone Juan Carlos LOPEZ, Chriss Abarca Unavailable [phone] Conrado Corbett Md Primary Care Provider [phone] Reason for Visit and Chief Complaint BRACE FITTING Problems Includes: Problems addressed during this encounter and other active Problems All Visits Onset Date Resolved Date Provider Condition S tatus History of Lower Back Pain 02/23/2020 Chriss Rangel MD Active Last Documented On 0 1:37PM ; [facility] Joint Pain in the Right Hip 02/23/2020 Chriss Rangel MD Active Last Documented On 0 1:37PM ; [facility] Plan of Treatment No Plan of Treatment Recorded Assessments Includes: Assessments from this encounter No Assessments Recorded Medical Equipment - Implanted Devices Includes: Current Devices No Medical Equipment Recorded Medications Includes: Medications discussed during this encounter and other current Medications Current Medications (continue as prescribed) Lantus 100 UNIT/ML Subcutaneous Solution 02/24/2020 Provider: Diagnosis: Last Documented On 0 3:42PM By Talia MOSS [facility], [facility] HumaLOG 100 UNIT/ML Subcutaneous Solution Cartridge Provider: Diagnosis: Last Documented On 0 3:42PM By Talia [facility], [facility] Ziac 10-6.25 MG Oral Tablet 02/24/2020 Provider: Diagnosis: Last Documented On 0 3:43PM By Talia Ivory ; [facility] amLODIPine Besylate 10 MG Oral Tablet 02/24/2020 Pro vider: Diagnosis: Last Documented On 0 3:43PM By Talia Ivory ; [facility], [facility] Pravastatin Sodium 10 MG Oral Tablet 02/24/2020 Prov ider: Diagnosis: Last Documented On 0 3:43PM By Talia Ivory ; [facility], [facility] Naprosyn 250 MG Oral Tablet 02/24/2020 Provider: Diagnosis: Last Documented On 0 3:43PM By Talia Ivory ; [facility], [facility] Aspirin 81 MG Oral Tablet 02/24/2020 Provider: Diagnosis: Last Documented On 0 3:44PM By Talia Ivory ; [facility], [facility] Medications Administered Includes: Administered Medications from this [...] Active Last Documented On 2 8:36AM ; [facility], [facility] Sudafed Allergy 02/24/2020 Active Last Documented On 2 8:36AM ; [facility] nickel allergy Allergy 02/24/2020 Acti ve Last Documented On 2 8:36AM ; [facility] Insurance Includes: Active Insurance Policies Plan Name Member ID Group # Subscriber Relationship Effect quincy Dates 1 - [facility] [id number] Cesar Jerome 11/18/2019 - Unknown Clinical Notes Includes: Clinical Notes from this encounter No Clinical Notes Recorded
--- OUTSIDE RECORDS SUMMARY | 2024-05-22 09:30 | XMS_ITS | Clinical Summary ---
Author Name Unknown Address [address] [place] [address] [place] [address] Phone Organization [facility] Address [address] [place] [address] Phone Care Team Providers Care Fertilizing Machine Operator Name Role Phone Juan Carlos LOPEZ, Chriss Abarca Unavailable [phone] Conrado Corbett Md Primary Care Provider [phone] Reason for Visit and Chief Complaint BRACE FITTING Problems Includes: Problems addressed during this encounter and other active Problems All Visits Onset Date Resolved Date Provider Condition S tatus History of Lower Back Pain 02/23/2020 Chriss Rangel MD Active Last Documented On 0 1:37PM ; [facility] Joint Pain in the Right Hip 02/23/2020 Chriss Rangel MD Active Last Documented On 0 1:37PM ; [facility] Plan of Treatment No Plan of Treatment Recorded Assessments Includes: Assessments from this encounter No Assessments Recorded Medical Equipment - Implanted Devices Includes: Current Devices No Medical Equipment Recorded Medications Includes: Medications discussed during this encounter and other current Medications Current Medications (continue as prescribed) Lantus 100 UNIT/ML Subcutaneous Solution 02/24/2020 Provider: Diagnosis: Last Documented On 0 3:42PM By Talia [facility] HumaLOG 100 UNIT/ML Subcutaneous Solution Cartridge Provider: Diagnosis: Last Documented On 0 3:42PM By Talia [facility] Ziac 10-6.25 MG Oral Tablet 02/24/2020 Provider: Diagnosis: Last Documented On 0 3:43PM By Talia Ivory ; [facility] amLODIPine Besylate 10 MG Oral Tablet 02/24/2020 Pro vider: Diagnosis: Last Documented On 0 3:43PM By Talia Ivory ; [facility] Pravastatin Sodium 10 MG Oral Tablet 02/24/2020 Prov ider: Diagnosis: Last Documented On 0 3:43PM By Talia Ivory ; [facility] Naprosyn 250 MG Oral Tablet 02/24/2020 Provider: Diagnosis: Last Documented On 0 3:43PM By Talia Ivory ; [facility] Aspirin 81 MG Oral Tablet 02/24/2020 Provider: Diagnosis: Last Documented On 0 3:44PM By Talia Ivory ; [facility] Medications Administered Includes: Administered Medications from [...] Active Last Documented On 2 8:36AM ; [facility] Sudafed Allergy 02/24/2020 Active Last Documented On 2 8:36AM ; [facility] nickel allergy Allergy 02/24/2020 Acti ve Last Documented On 2 8:36AM ; [facility] Encounters Encounter Provider Location Date Check-In Time Check-Out Time Diagnosis BRACE FITTING Chriss Rangel MD [facility] 12/27/2021 9:02AM 11:59PM Insurance Includes: Active Insurance Policies Plan Name Member ID Group # Subscriber Relationship Effect quincy Dates 1 - [facility] [id number] Cesar Jerome 11/18/2019 - Unknown Clinical Notes Includes: Clinical Notes from this encounter No Clinical Notes Recorded
--- OUTSIDE RECORDS SUMMARY | 2024-05-22 09:30 | XMS_ITS ---
Care Plan - [facility] Created on: May 22, 2024 Gail Jerome : 1970 Sex: Female Author Name Unknown Address [address] [place] [address] [place] [address] Phone Organization [facility] Address [address] [place] [address] [place] [address] Phone Care Team Providers Care Optical Instrument Assembler Name Role Phone Juan Carlos LOPEZ, Chriss Abarca Unavailable [phone] Conrado Corbett Md Primary Care Provider [phone]
--- OUTSIDE RECORDS SUMMARY | 2024-05-22 09:30 | XMS_ITS | Clinical Summary ---
Author Name Unknown Address [address] [place] [address] [place] [address] Phone Organization [facility] , [facility] Address [address] [place] [address] [place] [address] Phone Care Team Providers Care Senior Project Controls Specialist Name Role Phone Juan Carlos LOPEZ, Chriss Abarca Unavailable [phone] Chelle Lopez, Conrado Primary Care Provider [phone] Reason for Referral Date Encounter Description Provider Reason for Referral 12/27/21 NEW PROBLEM/EST PT Mauri Cervantes PA-C Ref erral To Physician Reason for Visit and Chief Complaint The Chief Complaint is: right knee pain Problems Includes: Problems addressed during this encounter and other active Problems All Visits Onset Date Resolved Date Provider Condition S tatus History of Lower Back Pain 02/23/2020 Chriss Rangel MD Active Last Documented On 0 1:37PM ; [facility], [facility] Joint Pain in the Right Hip 02/23/2020 Chriss Rangel MD Active Last Documented On 0 1:37PM ; [facility], [facility] Plan of Treatment Patient was seen by myself Mauri Cervantes PA-C. Patient will follow up 4 weeks we will give her a note to be off work, physical therapy she can stay out of the knee immobilizer will fit her with a hinged knee brace - Last Documented On 12/27/2021 2:03PM ; [facility], [facility] Pending Tests Order Diagnosis Results Due Ordering P rovider Therapy - Physical Therapy Knee 12/27/21 Mauri Cervantes PA-C Last Documented On 2 2:03PM ; [facility], [facility] Instructions to patient Lose weight Last Documented On 2 8:50AM ; [facility], [facility] Assessments Includes: Assessments from this encounter Findings Right knee sprain - Last Documented On 12/27/2021 2:03PM ; [facility], [facility] Instructions Includes: Instructions from this encounter Instructions to patient Lose weight Last Documented On 2 8:50AM ; [facility], [facility] Medical Equipment - Implanted Devices Includes: Current Devices No Medical Equipment Recorded Medications Includes: Medications discussed during this encounter and other current Medications Current Medications (continue as prescribed) Lantus 100 UNIT/ML Subcutaneous Solution 02/24/2020 Provider: Diagnosis: Last Documented On 0 3:42PM By Talia Ivory ; [facility], [facility] HumaLOG 100 UNIT/ML Subcutaneous Solution Cartridge Provider: Diagnosis: Last Documented On 0 3:42PM By Talia Ivory ; [facility], [facility] Ziac 10-6.25 MG Oral Tablet 02/24/2020 Provider: Diagnosis: Last Documented On 0 3:43PM By Talia Ivory ; [facility], [facility] amLODIPine Besylate 10 MG Oral Tablet 02/24/2020 Pro vider: Diagnosis: Last Documented On 0 3:43PM By Talia Ivory ; [facility], [facility] Pravastatin Sodium 10 MG Oral Tablet 02/24/2020 Prov ider: Diagnosis: Last Documented On 0 3:43PM By Talia Ivory ; [facility], [facility] Naprosyn 250 MG Oral Tablet 02/24/2020 Provider: Diagnosis: Last Documented On 0 3:43PM By Talia Ivory ; [facility], [facility] Aspirin 81 MG Oral Tablet 02/24/2020 Provider: Diagnosis: Last Documented On 0 3:44PM By Talia Ivory ; [facility], [facility] Medications Administered Includes: Administered Medications from this encounter No Administered Medications Recorded Vital Signs Includes: Vital Signs from this encounter Vital Name 12/27/2021 08:36A Blood Pressure Sitting R 196/102 Pulse Rate-Sitting (bpm) 63 Height (in) 63 Weight (lb) 203.2 Body Mass Index (kg/m2) 36.0 Body Surface Area (m2) 1.9 Note: Yessica Last Documented: On 12/27/2021 8:50AM ; [facility], [facility] Results Includes: Results discussed during this encounter No Results Recorded For Specified Dates History of Present Illness Includes: History of Present Illness from this encounter HPI Gail Jerome is a 51 year old female. - Symptoms fast movements, flexing makes sypmptoms worse. - Allergy list reviewed - Problem list reviewed - Medication reconciliation performed - Medication list reviewed with patient - Previous history of new onset pain 12/25/2021 fell on ice - Pain is throbbing - Patient pain level from 1-10: 4 Patient's her the complaints of right knee pain she twisted her right knee on Saturday she done did not fall on it she was seen in the emergency room it hurts when she tries to flex her knee or bend her knee back it hurts to go up and down steps or after sitting to try to get off of the commode. No previous injury to the knee and she did not feel anything pop. She was placed in a knee immobilizer. Social History Description Last Updated Not a current smoker. 12/27/2021 Last Documented On 2 2:03PM ; [facility], [facility] Recent change in diet diabetic 2 Last Documented On 2 2:03PM ; [facility], [facility] Non-smoker 12/27/2021 Last Documented On 2 2:03PM ; [facility], [facility] Caffeine use 02/24/2020 Last Documented On 2 8:36AM ; [facility], [facility] Exercising regularly 02/24/2020 Last Documented On 2 8:36AM ; [facility], [facility] No tobacco use 02/23/2020 Last Documented On 2 8:36AM ; [facility], [facility] Smoking status : Never smoker 02/23/2020 Last Documented On 2 8:36AM ; [facility], [facility] No recent change in diet 02/23/2020 Last Documented On 2 8:36AM ; [facility], [facility] Not a current smoker 02/23/2020 Last Documented On 2 8:36AM ; [facility], [facility] Not using alcohol 02/23/2020 Last Documented On 2 8:36AM ; [facility], [facility] Not using drugs 02/23/2020 Last Documented On 2 8:36AM ; [facility], [facility] Procedures and Surgical History Includes: Procedures from this encounter Procedures Code Diagnosis Performing Provider Service L ocation Service Date use of tobacco assessment performed 1000F Last Documented On 2 8:37AM ; [facility], [facility] referral to physician Last Documented On 2 8:50AM ; [facility], [facility] an X-ray was performed [facility] [address] Last Documented On 2 9:17AM ; [facility], [facility] Surgical History Last Updated History of appendectomy 02/24/2020 Last Documented On 2 8:36AM ; [facility], [facility] History of hysterectomy 02/24/2020 Last Documented On 2 8:36AM ; [facility], [facility] Medical History Includes: Medical History addressed during this encounter Description Last Updated History of History of Heart Attack / Str javon 12/27/2021 Last Documented On 2 2:03PM ; [facility], [facility] History of Hypertension 12/27/2021 Last Documented On 2 2:03PM ; [facility], [facility] No recent immunization for flu 2 Last Documented On 2 2:03PM ; [facility] No recent immunization for pneumococcal pneumonia 12/27/2021 Last Documented On 2 2:03PM ; [facility], [facility] Gallbladder disease 02/24/2020 Last Documented On 2 8:36AM ; [facility], [facility] History of acute myocardial infarction 0 02/24/2020 Last Documented On 2 8:36AM ; [facility], [facility] History of diabetes mellitus 02/24/2020 Last Documented On 2 8:36AM ; [facility], [facility] History of heart disease 02/24/2020 Last Documented On 2 8:36AM ; [facility], [facility] Intermittent hypertension 02/24/2020 Last Documented On 2 8:36AM ; [facility], [facility] Family History Includes: Family History addressed during this encounter Description Last Updated Diabetes mellitus 12/27/2021 Last Documented On 2 2:03PM ; [facility] stroke/seizures 02/24/2020 Last Documented On 2 8:36AM ; [facility] Family history of diabetes mellitus 0 06/2020 Last Documented On 2 8:36AM ; [facility] Family history of heart disease 02/24/20 20 Last Documented On 2 8:36AM ; [facility] Family history of hypertension 0 Last Documented On 2 8:36AM ; [facility] Review of Systems Includes: Review of Systems from this encounter Systemic: Not feeling tired, no recent weight loss, and no recent weight gain. No edema. Head: No headache and no sinus pain. Eyes: No vision problems. Vision problems. No glaucomatous visual field defect. Cataracts and Glasses/Contacts. No Glaucoma. Otolaryngeal: No hearing loss and no tinnitus. No nasal symptoms. Cardiovascular: No chest pain or discomfort and no palpitations. Hypertension and High Cholesterol. Pulmonary: No daytime asthma symptoms, no cough, and no chronic cough. No wheezing. Gastrointestinal: Heartburn. No abdominal pain. Indigestion and Acid Reflux. No Peptic Ulcer, no GI Stomach Bleed, and no Ulcers. Endocrine: No hot flashes. Muscle weakness. No Diabetes, no Hypothyroid, and no Hyperthyroid. Hematologic: No easy bleeding, no tendency for easy bruising, and no Anemia. Musculoskeletal: Arthritis and lower back pain. No soft tissue swelling. Pain localized to one or more joints. Neurological: No dizziness, no convulsions, and no numbness. Psychological: No anxiety, no emotional lability, and no depression. Insomnia. Not crying for no reason. Skin: No dry skin. No Ulcers, no Scars, no rash, and no ulcers. Allergic and Immunologic: Complaint of seasonal allergic reaction. REVIEWED W/ PATIENT 12/27/2021 Mental Status Includes: Mental Status from this encounter Description No anxiety Functional Status Includes: Functional Status from this encounter No Functional Status Recorded Physical Exam Includes: Physical Exam from this encounter Allergies Includes: Active Allergies Substance Type Reaction Onset Date Resolved Date Statu s Wellbutrin Allergy 02/24/2020 Active Last Documented On 2 8:36AM ; [facility] Sudafed Allergy 02/24/2020 Active Last Documented On 2 8:36AM ; [facility], [facility] nickel allergy Allergy 02/24/2020 Acti ve Last Documented On 2 8:36AM ; [facility], [facility] Encounters Encounter Provider Location Date Check-In Time Check-Out Time Diagnosis NEW PROBLEM/EST PT Mauri Cervantes PA-C [facility] 12/27/19 22 8:43AM 9:15AM Insurance Includes: Active Insurance Policies Plan Name Member ID Group # Subscriber Relationship Effect quincy Dates 1 - [facility] [place] [id number] Cesar Jerome 11/18/2019 - Unknown Clinical Notes Includes: Clinical Notes from this encounter No Clinical Notes Recorded
--- OUTSIDE RECORDS SUMMARY | 2024-05-22 09:30 | XMS_ITS | Clinical Summary ---
Author Name Unknown Address [address] [place] [address] [place] [address] Phone Organization [facility] , [facility] Address [address] [place] [address] Phone Care Team Providers Care Geospatial Intelligence Analyst Name Role Phone Juan Carlos LOPEZ, Chriss Abarca Unavailable [phone] Conrado Corbett Md Primary Care Provider [phone] Reason for Visit and Chief Complaint The Chief Complaint is: (R) hip pain Problems Includes: Problems addressed during this encounter and other active Problems All Visits Onset Date Resolved Date Provider Condition S tatus History of Lower Back Pain 02/23/2020 Chriss Rangel MD Active Last Documented On 0 1:37PM ; [facility] Joint Pain in the Right Hip 02/23/2020 Chriss Rangel MD Active Last Documented On 0 1:37PM ; [facility], [facility] Plan of Treatment Patient was seen by myself Mauri Cervantes PA-C. Patient will follow up 4 weeks we will try some physical therapy with this this does not help then consider possible referral to another physician for possible hip arthroscopy - Last Documented On 07/06/2020 2:53PM ; [facility] Assessments Includes: Assessments from this encounter Findings Right hip pain - Last Documented On 07/06/2020 2:53PM ; [facility] Medical Equipment - Implanted Devices Includes: Current Devices No Medical Equipment Recorded Medications Includes: Medications discussed during this encounter and other current Medications Current Medications (continue as prescribed) Lantus 100 UNIT/ML Subcutaneous Solution 02/24/2020 Provider: Diagnosis: Last Documented On 0 3:42PM By Talia Ivory ; [facility] HumaLOG 100 UNIT/ML Subcutaneous Solution Cartridge Provider: Diagnosis: Last Documented On 0 3:42PM By Talia Ivory ; [facility] Ziac 10-6.25 MG Oral Tablet 02/24/2020 Provider: Diagnosis: Last Documented On 0 3:43PM By Talia Ivory ; [facility] amLODIPine Besylate 10 MG Oral Tablet 02/24/2020 Pro vider: Diagnosis: Last Documented On 0 3:43PM By Talia Ivory ; [facility] Pravastatin Sodium 10 MG Oral Tablet 02/24/2020 Prov ider: Diagnosis: Last Documented On 0 3:43PM By Talia Ivory ; [facility] Naprosyn 250 MG Oral Tablet 02/24/2020 Provider: Diagnosis: Last Documented On 0 3:43PM By Talia Ivory ; [facility] Aspirin 81 MG Oral Tablet 02/24/2020 Provider: Diagnosis: Last Documented On 0 3:44PM By Talia Ivory ; [facility], [facility] Medications Administered Includes: Administered Medications from this encounter No Administered Medications Recorded Vital Signs Includes: Vital Signs from this encounter Vital Name 04/14/2020 11:35A Blood Pressure Sitting (mmHg) 128/75 Pulse Rate-Sitting (bpm) 66 Height (in) 63 Weight (lb) 194 Body Mass Index (kg/m2) 34.4 Body Surface Area (m2) 1.9 Note: [facility] Last Documented: On 04/14/2020 11:45A M ; [facility] Results Includes: Results discussed during this encounter No Results Recorded For Specified Dates History of Present Illness Includes: History of Present Illness from this encounter HPI Gail Jerome is a 50 year old female. - Allergy list reviewed - Problem list reviewed - Medication list reviewed with patient - Medication reconciliation performed follow-up of her right hip MRI. She had an injection a few weeks ago which lasted for about 2 days no pain in the right hip joint at a time. But she still complains of pain in the right hip groin area when she tries to buttock clothing on get up and down out of a chair and sometimes her right leg will give out on her. Pain will radiate into the thigh no back pain. also having some right knee pain Social History Description Last Updated Caffeine use 02/24/2020 Last Documented On 0 11:34AM ; [facility] Exercising regularly 02/24/2020 Last Documented On 0 11:34AM ; [facility] No tobacco use 02/23/2020 Last Documented On 0 11:34AM ; [facility] Smoking status : Never smoker 02/23/2020 Last Documented On 0 11:34AM ; [facility] No recent change in diet 02/23/2020 Last Documented On 0 11:34AM ; [facility] Not a current smoker 02/23/2020 Last Documented On 0 11:34AM ; [facility] Not using alcohol 02/23/2020 Last Documented On 0 11:34AM ; [facility], [facility] Not using drugs 02/23/2020 Last Documented On 0 11:34AM ; [facility], [facility] Procedures and Surgical History Includes: Procedures from this encounter Procedures Code Diagnosis Performing Provider Service L ocation Service Date Clinical summary provided to patient Last Documented On 0 11:35AM ; [facility], [facility] Surgical History Last Updated History of appendectomy 02/24/2020 Last Documented On 0 11:34AM ; [facility], [facility] History of hysterectomy 02/24/2020 Last Documented On 0 11:34AM ; [facility], [facility] Medical History Includes: Medical History addressed during this encounter Description Last Updated Gallbladder disease 02/24/2020 Last Documented On 0 11:34AM ; [facility] History of acute myocardial infarction 0 02/24/2020 Last Documented On 0 11:34AM ; [facility] History of diabetes mellitus 02/24/2020 Last Documented On 0 11:34AM ; [facility], [facility] History of heart disease 02/24/2020 Last Documented On 0 11:34AM ; [facility], [facility] Intermittent hypertension 02/24/2020 Last Documented On 0 11:34AM ; [facility] Family History Includes: Family History addressed during this encounter Description Last Updated stroke/seizures 02/24/2020 Last Documented On 0 11:34AM ; [facility] Family history of diabetes mellitus 06/2020 Last Documented On 0 11:34AM ; [facility] Family history of heart disease 02/24/20 20 Last Documented On 0 11:34AM ; [facility] Family history of hypertension 0 Last Documented On 0 11:34AM ; [facility] Review of Systems Includes: Review of Systems from this encounter Systemic: Not feeling tired (fatigue), no recent weight loss, and no recent weight gain. No edema. Head: No headache and no sinus pain. Eyes: No vision problems. Vision problems. No glaucomatous visual field defect. Otolaryngeal: No hearing loss and no tinnitus. No nasal symptoms. Cardiovascular: No chest pain or discomfort and no palpitations. Pulmonary: No daytime asthma symptoms, no cough, and no chronic cough. No wheezing. Gastrointestinal: No heartburn and no abdominal pain. Endocrine: No hot flashes. Muscle weakness. Hematologic: No easy bleeding and no tendency for easy bruising. Musculoskeletal: Lower back pain. No soft tissue swelling. Pain localized to one or more joints. Neurological: No dizziness, no convulsions, and no numbness. Psychological: No anxiety, no emotional lability, and no depression. Insomnia. Not crying for no reason. Skin: No dry skin, no rash, and no ulcers. Allergic and Immunologic: Complaint of seasonal allergic reaction. no ROS changes [facility] Mental Status Includes: Mental Status from this encounter Description No anxiety Functional Status Includes: Functional Status from this encounter No Functional Status Recorded Physical Exam Includes: Physical Exam from this encounter Allergies Includes: Active Allergies Substance Type Reaction Onset Date Resolved Date Statu s Wellbutrin Allergy 02/24/2020 Active Last Documented On 2 8:36AM ; [facility] Sudafed Allergy 02/24/2020 Active Last Documented On 2 8:36AM ; [facility] nickel allergy Allergy 02/24/2020 Acti ve Last Documented On 2 8:36AM ; [facility] Encounters Encounter Provider Location Date Check-In Time Check- Out Time Diagnosis Follow Up Chriss Rangel MD [facility] 0 11:12AM 11:59AM Insurance Includes: Active Insurance Policies Plan Name Member ID Group # Subscriber Relationship Effect quincy Dates 1 - [facility] [id number] Cesar Jerome 11/18/2019 - Unknown Clinical Notes Includes: Clinical Notes from this encounter No Clinical Notes Recorded
--- NOTE | 2024-05-22 09:57 | HMH.PHAINT1 ---
Pharmacy Intervention Comments: home medication list verified using outpatient list and pt interview
[2024-05-22 10:05] LABS: POC Glucose,Bedside 141 (70-110)
[2024-05-22 11:12] VITALS: BP 131/72; PULSE 98; RESP 18; TEMP 36.7; O2SAT 97
[2024-05-22 11:27] VITALS: BMI 28.7
--- NOTE | 2024-05-22 14:26 | PC.NURSE ---
Aox4, up adlib, 90's on RA, getting abx iv, 20g L AC SL, PAIN, nausea meds given once my shift.
[2024-05-22] MEDS: CEFTRIAXONE SODIUM 1 GM in 0.9 % SODIUM CHLORIDE 50 ML IV (15:22)
[2024-05-22 15:34] VITALS: BP 159/69; PULSE 90; RESP 22; TEMP 36.9; O2SAT 98
[2024-05-22 15:36] LABS: POC Glucose,Bedside 153 (70-110)
[2024-05-22 20:00] VITALS: BP 163/72; PULSE 84; RESP 17; TEMP 37.3; O2SAT 97
[2024-05-22 21:19] LABS: POC Glucose,Bedside 125 (70-110)
[2024-05-22] MEDS: PANTOPRAZOLE 40MG TABLET 40 MG PO (21:34)
[2024-05-23] VITALS: BP 160/74; PULSE 86; RESP 14; TEMP 36.9; O2SAT 94
[2024-05-23 04:00] VITALS: BP 145/73; PULSE 94; RESP 14; TEMP 37.1; O2SAT 97; BMI 29.2
--- NOTE | 2024-05-23 04:17 | PC.NURSE ---
A/O X 4. C/O ABDOMINAL ACHING/SORENESS ALL QUADRANTS, 05/27. MEDICATED WITH 15 MG TORADOL IV AT 2137. NO FURTHER COMPLAINTS OF PAIN VOICED AT THIS TIME. HAS DEXCOM BUT READING MUCH LOWER THAN OUR GLUCOMETER.
[2024-05-23 05:13] LABS: POC Glucose,Bedside 103 (70-110)
[2024-05-23 07:58] LABS: Basophils % 0.5 % (0.1-2.0); Eosinophils % 0.5 % (0.1-12.0); Hematocrit 27.5 % (37.0-47.0); Hemoglobin 10.8 g/dL (12.2-16.2); Lymphocytes # 0.8 K/mm3 (0.7-4.5); Lymphocytes % 14.3 % (10-50); Mean Corpuscular HGB Conc 39.1 g/dL (31.8-35.4); Mean Corpuscular Hemoglobin 30.2 pg (27.0-31.2); Mean Corpuscular Volume 77.3 fl (81-99); Mean Platelet Volume 8.1 fl (7.4-10.4); Monocytes # 0.4 K/mm3 (0.1-1.0); Monocytes % 7.7 % (1.7-9.3); Neutrophils # 4.2 K/mm3 (1.8-7.8); Platelet Count 162 K/mm3 (142-424); Red Blood Count 3.56 M/mm3 (4.20-5.40); Red Cell Distribution Width 16.2 % (11.5-17.5); White Blood Count 5.4 K/mm3 (4.8-10.8)
[2024-05-23 08:00] VITALS: BP 133/71; PULSE 71; RESP 17; TEMP 36.6; O2SAT 97
[2024-05-23 08:10] LABS: Alanine Aminotransferase 13 U/L (12-78); Albumin Level 3.5 g/dl (3.5-5.0); Albumin/Globulin Ratio 1.2 (1.1-1.8); Alkaline Phosphatase 82 U/L (38-126); Anion Gap 8.4 mEq/L (5-15); Aspartate Amino Transferase 19 U/L (14-36); Bilirubin,Total 0.7 mg/dl (0.2-1.3); Blood Urea Nitrogen 18 mg/dl (7-17); Carbon Dioxide 27 mmol/L (22.0-30.0); Chloride 102 mmol/L (98-107); Creatinine Clearance Estimated 86 mL/min (50-200); Estimated Glomerular Filt Rate 65 ml/min (>60); GFR (African American) 78 ML/MIN (>60); Globulin 2.9 g/dL (1.3-3.2); Glucose 112 mg/dl (74-100); Potassium 3.4 mmoL/L (3.5-5.1); Sodium 134 mmol/L (136-145); Total Protein,Serum 6.4 g/dl (6.3-8.2)
[2024-05-23] MEDS: AMLODIPINE 10MG TABLET 10 MG PO (08:36)
[2024-05-23] MEDS: ACETAMINOPHEN 325MG TAB 650 MG PO (08:36)
[2024-05-23] MEDS: ENOXAPARIN 40MG/0.4ML SYRINGE 40 MG SQ (08:36)
--- NOTE | 2024-05-23 09:01 | P.DS_ITS ---
General Admission date:: 05/21/24 Discharge date: 05/23/24 HPI HPI HPI: Ms. Hawley is a 54-year-old female with history of hypertension, diabetes, hyperlipidemia. She presented to the ER with complaint of 2 to 3 days of nausea and vomiting with intermittent fevers. States she has been feeling bad and unable to keep much down. Has not eaten in 2 days. Went to see her primary care yesterday who thought she had gastroenteritis. She was negative for flu and COVID. They started antiemetics and she was sent home. She reports developing pain in her abdomen that radiated to her back on the right side yes terday afternoon with progression to pressure in her pelvis and burning with urination today. On arrival to the ER, was tachycardic with low-grade temperature. Workup concerning for sepsis. CT image of the abdomen showed pyelonephritis. Patient initiated on fluids and ceftriaxone. Cultures obtained. Medicine consulted for further management and admission. On arrival to the floor, she is feeling little bit better after receiving IV fluids. Denies any active nausea right now. Would like to try popsicle. Stable on room air. at bedside. Has not taken her insulin in a couple days. Hospital Course Hospital Course Hospital Course: 54-year-old presented with nausea and vomiting over 2 to 3 days. Developed worsening abdominal pain and dysuria today. Workup in the ER concerning for sepsis with pyelonephritis. Discussed case with ER physician, request admission for antibiotics and treatment of her sepsis. I agreed to admit for further management. Received ceftriaxone in the ER. Will give additional liter of IV fluids. Necessitates inpatient management for her severe sepsis (kidney injury, tachycardia, leukocytosis, pyelonephritis on CT of abdomen). Patient's symptoms showed improvement with initiation of antibiotics. White cell count normalized. Stable to discharge home to transition to oral antibiotics and complete empiric therapy. Problems as follows. Severe sepsis Pyelonephritis FELICITAS -Patient admitted with sepsis criteria including leukocytosis, tachycardia, abnormal urine concerning for UTI/pyelonephritis, CT imaging showing pyelonephritis. Started on ceftriaxone 1 g daily empirically for antibiotic coverage. She had improvement in symptoms. Urine returned positive for E. coli. Transition to Levaquin to complete therapy as an outpatient. Will treat for 7 days total with Levaquin 750 mg p.o. daily. Nausea resolved. Tolerating p.o. intake by day of discharge. Pain improving. Continue treatment with Tylenol or ibuprofen. White count normalized. Voiding independently. Kidney function returned to normal, initially had FELICITAS with creatinine 1.6 and BUN 34. Improved to 0.9 with BUN of 18 by day of discharge. Blood cultures remain negative at day of discharge Insulin-dependent diabetes - A1c 6.9, well-controlled. Resume decreased dose of home insulin regimen during admission. Okay to resume regular home regimen at discharge with long- acting insulin and Ozempic. GERD: Continue home omeprazole. Holding home blood pressure regimen in the setting of FELICITAS and sepsis. Holding home Lipitor in the setting of sepsis and FELICITAS. Okay to resume home medications when infection completely resolved and antibiotics completed. Exam Data for Last 24 hours Vital signs and Labs for Last 24 Hours: Temp Pulse Resp BP Pulse Ox O2 Del Method 97.8 F 71 17 133/71 97 Room Air 05/23/24 08:00 05/23/24 08:00 05/23/24 08:00 05/23/24 08:00 05/23/24 08:00 05/23/24 06:27 Laboratory Results - last 24 hr 05/22/24 09:58: POC Glucose 141 H 05/22/24 15:28: POC Glucose 153 H 05/22/24 21:10: POC Glucose 125 H 05/23/24 05:05: POC Glucose 103 05/23/24 07:05: WBC 5.4 D, RBC 3.56 L, Hgb 10.8 L, Hct 27.5 L, MCV 77.3 L, MCH 30.2, MCHC 39.1 H, RDW 16.2, Plt Count 162, MPV 8.1, Neut % (Auto) 77.0, Lymph % (Auto) 14.3, [place] % (Auto) 7.7, Eos % (Auto) 0.5, Baso % (Auto) 0.5, Neut # (Auto) 4.2, Lymph # (Auto) 0.8, [place] # (Auto) 0.4, Eos # (Auto) 0.0, Baso # (Auto) 0.0, Sodium 134 L, Potassium 3.4 L, Chloride 102, Carbon Dioxide 27, Anion Gap 8.4, BUN 18 H D, Creatinine 0.90, Estimated Creat Clear 86, Estimated GFR 65, Est GFR ( Amer) 78 D, Glucose 112 H, Calcium 9.0, Magnesium 2.0, Total Bilirubin 0.7, AST 19, ALT 13, Alkaline Phosphatase 82, Total Protein 6.4, Albumin 3.5, Globulin 2.9, Albumin/Globulin Ratio 1.2 I & O for Last 24 hours: Intake & Output 05/20/24 05/21/24 05/22/24 05/23/24 23:59 23:59 23:59 23:59 Intake Total 1630 / 3110 2410 / 3094 684 / 684 Output Total 2 / 2 / Balance 1628 / 3108 2408 / 3092 684 / 684 Weight 75.098 kg 76.385 kg 77.655 kg Microbiology Reports for the Last 24 Hours: Microbiology 05/21/24 15:48 Blood Blood Culture - Preliminary NO GROWTH AFTER 24 HOURS 05/21/24 13:54 Urine,Clean Catch Urine Culture - Preliminary Gram Negative Rods Constitutional Constitutional: no acute distress *Routine HEENT Exam Head: Present normocephalic Eye: Present EOMI and PERRL ENT: Present mucous membranes moist *Routine Neck Exam Neck: Present supple; Absent lymphadenopathy *Routine Respiratory Exam Respiratory: Present CTA bilaterally *Routine Cardiovascular Exam Cardiovascular: Present RRR *Routine Abdominal Exam Abdominal: Present soft, normoactive bowel sounds and tenderness (intervally improved in RUQ); Absent distended *Routine Rectal Exam Patient deferred: visual exam *Routine Exam Patient deferred: external exam *Routine Extremities Exam Extremities: Absent cyanosis, clubbing or edema Routine Back/Spine/Pelvis Exam Back/Spine: Absent CVA tenderness *Routine Skin Exam Skin: Present warm; Absent rash *Routine Neurological Exam Neurological: Present alert and oriented X3 Results Data Completed and Pending Labs on day of discharge: Labs from last 24 hours 05/23/24 05/23/24 05/22/24 07:05 05:05 21:10 WBC 5.4 D RBC 3.56 L Hgb 10.8 L Hct 27.5 L MCV 77.3 L MCH 30.2 MCHC 39.1 H RDW 16.2 Plt Count 162 MPV 8.1 Neut % (Auto) 77.0 Lymph % (Auto) 14.3 [place] % (Auto) 7.7 Eos % (Auto) 0.5 Baso % (Auto) 0.5 Neut # (Auto) 4.2 Lymph # (Auto) 0.8 [place] # (Auto) 0.4 Eos # (Auto) 0.0 Baso # (Auto) 0.0 Sodium 134 L Potassium 3.4 L Chloride 102 Carbon Dioxide 27 Anion Gap 8.4 BUN 18 H D Creatinine 0.90 Estimated Creat Clear 86 Estimated GFR 65 Est GFR ( Amer) 78 D Glucose 112 H POC Glucose 103 125 H Calcium 9.0 Magnesium 2.0 Total Bilirubin 0.7 AST 19 ALT 13 Alkaline Phosphatase 82 Total Protein 6.4 Albumin 3.5 Globulin 2.9 Albumin/Globulin Ratio 1.2 05/22/24 05/22/24 15:28 09:58 WBC RBC Hgb Hct MCV MCH MCHC RDW Plt Count MPV Neut % (Auto) Lymph % (Auto) [place] % (Auto) Eos % (Auto) Baso % (Auto) Neut # (Auto) Lymph # (Auto) [place] # (Auto) Eos # (Auto) Baso # (Auto) Sodium Potassium Chloride Carbon Dioxide Anion Gap BUN Creatinine Estimated Creat Clear Estimated GFR Est GFR ( Amer) Glucose POC Glucose 153 H 141 H Calcium Magnesium Total Bilirubin AST ALT Alkaline Phosphatase Total Protein Albumin Globulin Albumin/Globulin Ratio Preliminary micro results at discharge 05/21/24 15:48 Blood Culture - Preliminary Blood NO GROWTH AFTER 24 HOURS 05/21/24 13:54 Urine Culture - Preliminary Urine,Clean Catch Gram Negative Rods 05/21/24 15:48 Blood Culture - Preliminary Blood DS: Diagnosis Discharge Diagnosis (1) Severe sepsis: Status: Acute Code(s): A41.9 - Sepsis, unspecified organism; R65.20 - Severe sepsis without septic shock (2) Pyelonephritis: Status: Acute Code(s): N12 - Tubulo-interstitial nephritis, not specified as acute or chronic (3) FELICITAS (acute kidney injury): Status: Acute Code(s): N17.9 - Acute kidney failure, unspecified (4) Hypertension: Status: Chronic Code(s): I10 - Essential (primary) hypertension Qualifiers: Hypertension type: primary hypertension Qualified Code(s): I10 - Essential (primary) hypertension (5) Hyperlipidemia: Status: Chronic Code(s): E78.5 - Hyperlipidemia, unspecified Qualifiers: Hyperlipidemia type: mixed hyperlipidemia Qualified Code(s): E78.2 - Mixed hyperlipidemia (6) Diabetes mellitus, type 2: Status: Chronic Code(s): E11.9 - Type 2 diabetes mellitus without complications Qualifiers: Diabetes mellitus medical management trainer insulin use: with medical management trainer use Meds Home Medications and Allergies Home Medications Medication Instructions Recorded Confirmed Type insulin glargine 100 unit/mL (3 40 units SQ HS Diabetes 06/24/18 05/22/24 H istory mL) subcutaneous pen ondansetron 4 mg disintegrating 4 mg PO TIDP PRN Nausea #9 tabs 12/28/20 05/22/24 Rx tablet amlodipine 10 mg tablet 10 mg PO DAILY 04/11/21 05/21/24 History atorvastatin 40 mg tablet 40 mg PO DAILY 04/11/21 05/21/24 History bisoprolol 10 1 tab PO DAILY 04/11/21 05/21/24 History mg-hydrochlorothiazide 6.25 mg tablet blood sugar diagnostic #10 ea 04/11/21 05/22/24 History flash glucose sensor #1 ea 04/11/21 05/22/24 History omeprazole 40 mg capsule,delayed 40 mg PO DAILY 04/11/21 05/21/24 History release pen needle, diabetic 32 gauge x #50 ea 04/11/21 05/22/24 History 1/4 dapagliflozin propanediol 10 mg 10 mg PO DAILY 05/22/24 05/22/24 History tablet (Farxiga) famotidine 40 mg tablet 40 mg PO DAILY 05/22/24 05/22/24 History lisinopril 40 mg tablet 40 mg PO DAILY 05/22/24 05/22/24 History meloxicam 15 mg tablet 15 mg PO DAILY 05/22/24 05/22/24 History methocarbamol 750 mg tablet 750 mg PO TIDP PRN MUSCLE SPASMS 05/22/24 05/22/24 History semaglutide 1 mg/dose (4 mg/3 mL) 1 mg SQ WEEKLY 05/22/24 05/22/24 History subcutaneous pen injector (Ozempic) levofloxacin 750 mg tablet 750 mg PO 1100 4 days #4 tabs 05/23/24 Rx New Prescriptions to Start Prescriptions: levofloxacin Cesar Benson Allergies Allergy/AdvReac Type Severity Reaction Status Date / Time bupropion Allergy Unknown Verified 04/11/21 17:41 pseudoephedrine Allergy Unknown Verified 04/11/21 17:41 pregabalin [From Lyrica] Allergy Verified 12/21/22 11:36 Discharge Plan Disposition Patient Disposition: Home, Self-Care Condition: Good Discharge Order Discharge Orders: Discharge Order (Routine); Ordered 05/23/24 Ordered By: Cesar Benson Follow up Plan Follow up with: Conrado Corbett [Primary Care Provider] - Enter time for follow up (please call for appointment) Prescriptions/Medication Reconciliation: New levofloxacin 750 mg Tablet 750 mg PO 1100 4 Days Qty: 4 0RF Continued (DME) pen needle, diabetic 32 gauge x 1/4 needle See Rx Instructions .ROUTE .MEDSUPPLY Qty: 50 Rx Instructions: As directed (DME) flash glucose sensor Kit See Rx Instructions .ROUTE .MEDSUPPLY Qty: 1 Patient Comments: USE NEEDED Rx Instructions: As directed (DME) blood sugar diagnostic Strip See Rx Instructions .ROUTE .MEDSUPPLY Qty: 10 Patient Comments: USE 1 STRIP TO CHECK GLUCOSE THREE TIMES DAILY AND NEEDED Rx Instructions: As directed bisoprolol-hydrochlorothiazide 10-6.25 mg tablet 1 tab PO DAILY Patient Comments: TAKE 1 TABLET BY MOUTH ONCE DAILY amlodipine 10 mg tablet 10 mg PO DAILY omeprazole 40 mg capsule,delayed release(DR/EC) 40 mg PO DAILY Patient Comments: TAKE 1 CAPSULE BY MOUTH ONCE DAILY atorvastatin 40 mg tablet 40 mg PO DAILY Patient Comments: TAKE 1 TABLET BY MOUTH ONCE DAILY insulin glargine 100/ML insulin pen 40 units SQ HS ondansetron 4 MG tablet,disintegrating 4 mg PO TIDP PRN (Reason: Nausea) Qty: 9 0RF meloxicam 15 mg tablet 15 mg PO DAILY Patient Comments: TAKE 1 TABLET BY MOUTH ONCE DAILY famotidine 40 mg tablet 40 mg PO DAILY Patient Comments: TAKE 1 TABLET BY MOUTH ONCE DAILY methocarbamol 750 mg tablet 750 mg PO TIDP PRN (Reason: MUSCLE SPASMS) Patient Comments: TAKE 1 TABLET BY MOUTH THREE TIMES DAILY NEEDED FOR MUSCLE SPASM lisinopril 40 mg tablet 40 mg PO DAILY Patient Comments: TAKE 1 TABLET BY MOUTH ONCE DAILY Ozempic 1 mg/dose (4 mg/3 mL) pen injector 1 mg SQ WEEKLY Patient Comments: INJECT 1 MG UNDER THE SKIN ONCE A WEEK ON THE SAME DAY OF EACH WEEK Held dapagliflozin propanediol [Farxiga] 10 mg tablet 10 mg PO DAILY Hold Instructions: Until resolution of infection and follow-up with PCP. Patient Comments: TAKE 1 TABLET BY MOUTH IN THE MORNING Problem Reconciliation Problems Reviewed?: Yes Patient Discharge Instructions ACTIVITY: Continue current activity DIET: continue same diet Patient Instructions: DI for Kidney Infection Providers Primary Care Provider: Conrado Corbett Admit Provider: Cesar Benson Attending Provider: Cesar Benson
[2024-05-23] MEDS: UBROGEPANT 50MG TABLET 100 MG PO (09:36)
[2024-05-23] MEDS: levoFLOXacin 750 MG TABLET PO (10:52)
[2024-05-23 10:59] LABS: POC Glucose,Bedside 165 (70-110)
[2024-05-23] MEDS: humaLOG 100 UNITS/ML 10ML VIAL (SSI) SQ (11:11)
[2024-05-23 12:00] VITALS: BP 147/64; PULSE 78; RESP 16; TEMP 36.6; O2SAT 95
--- NOTE | 2024-05-26 13:14 | CARE MANAGER ---
Contacted patient related to hospital discharge. Patient states she began vomiting again on Saturday and went to [facility] ER. They kept her until early Saturday morning as she was getting dehydrated, but patient reports that she feels better. She follows up with PCP tomorrow and denies questions or concerns. LAURA Urena
== END 2024-05-23 13:02 | disposition home or self-care (01) | DRG 872 ==
LOC: ER 15:54 → 2ND 15:58
PROVIDERS: Emergency Medicine; Physician Assistant; Admitting Provider Internal Medicine Adolescent Medicine; Emergency Provider Emergency Medicine; PCP Family Medicine; Visit Provider Internal Medicine Adolescent Medicine
DX: A41.9 Sepsis, unspecified organism (principal); N12 Tubulo-interstitial nephritis, not specified as acute or chronic; N17.9 Acute kidney failure, unspecified; E11.65 Type 2 diabetes mellitus with hyperglycemia; I10 Essential (primary) hypertension; E78.2 Mixed hyperlipidemia; K21.9 Gastro-esophageal reflux disease without esophagitis
CPT/HCPCS: 36415; 74177; 80053; 81001; 82009; 82803; 82962; 83036; 83605; 83690; 83735; 84145; 85007; 85025; 85027; 87040; 87077; 87086; 87088; 87186; 99285; J0131; J0696; J1650; J1885; J2270; J2405; J7120; Q9967

== ENCOUNTER 2024-08-04 13:35 | Emergency (ER) | payer BC, SELFPAY ==
--- NOTE | 2024-08-04 14:45 | EXP.UTC ---
Discharge Plan Disposition Patient Disposition: Home, Self-Care Condition: Good Prescriptions Prescriptions: New nitrofurantoin monohyd/m-cryst [Macrobid] 100 mg Capsule 100 mg PO BID Qty: 10 0RF Rx Instructions: must administer with a meal/food phenazopyridine [Pyridium] 100 mg tablet 100 mg PO TID Qty: 6 0RF ondansetron 4 mg Tablet,Disintegrating 4 mg PO Q8H PRN (Reason: Nausea) Qty: 8 0RF No Action (DME) pen needle, diabetic 32 gauge x 1/4 needle See Rx Instructions .ROUTE .MEDSUPPLY Qty: 50 Rx Instructions: As directed (DME) flash glucose sensor Kit See Rx Instructions .ROUTE .MEDSUPPLY Qty: 1 Patient Comments: USE NEEDED Rx Instructions: As directed (DME) blood sugar diagnostic Strip See Rx Instructions .ROUTE .MEDSUPPLY Qty: 10 Patient Comments: USE 1 STRIP TO CHECK GLUCOSE THREE TIMES DAILY AND NEEDED Rx Instructions: As directed bisoprolol-hydrochlorothiazide 10-6.25 mg tablet 1 tab PO DAILY Patient Comments: TAKE 1 TABLET BY MOUTH ONCE DAILY amlodipine 10 mg tablet 10 mg PO DAILY omeprazole 40 mg capsule,delayed release(DR/EC) 40 mg PO DAILY Patient Comments: TAKE 1 CAPSULE BY MOUTH ONCE DAILY atorvastatin 40 mg tablet 40 mg PO DAILY Patient Comments: TAKE 1 TABLET BY MOUTH ONCE DAILY insulin glargine 100/ML insulin pen 40 units SQ HS ondansetron 4 MG tablet,disintegrating 4 mg PO TIDP PRN (Reason: Nausea) Qty: 9 0RF meloxicam 15 mg tablet 15 mg PO DAILY Patient Comments: TAKE 1 TABLET BY MOUTH ONCE DAILY famotidine 40 mg tablet 40 mg PO DAILY Patient Comments: TAKE 1 TABLET BY MOUTH ONCE DAILY methocarbamol 750 mg tablet 750 mg PO TIDP PRN (Reason: MUSCLE SPASMS) Patient Comments: TAKE 1 TABLET BY MOUTH THREE TIMES DAILY NEEDED FOR MUSCLE SPASM lisinopril 40 mg tablet 40 mg PO DAILY Patient Comments: TAKE 1 TABLET BY MOUTH ONCE DAILY dapagliflozin propanediol [Farxiga] 10 mg tablet 10 mg PO DAILY Patient Comments: TAKE 1 TABLET BY MOUTH IN THE MORNING Ozempic 1 mg/dose (4 mg/3 mL) pen injector 1 mg SQ WEEKLY Patient Comments: INJECT 1 MG UNDER THE SKIN ONCE A WEEK ON THE SAME DAY OF EACH WEEK levofloxacin 750 mg Tablet 750 mg PO 1100 4 Days Qty: 4 0RF Referrals Follow up/Referrals: Conrado Corbett [Primary Care Provider] - See instructions Activity Restrictions/Add. Instructions Additional Instructions/Restrictions: Drink plenty of fluids. Take tylenol or ibuprofen for pain or fever. Take the medications as directed. Follow up with your regular doctor. GO TO THE ER FOR ANY WORSENING SYMPTOMS The pyridium will make your urine turn orange, this is an expected side effect. It will stain your clothes if it comes into contact with them. We will culture the urine. That will tell what bacteria is causing your infection and which antibiotics will treat it best.This test takes 3 days to complete. Clinical Impressions Clinical Impression: UTI (urinary tract infection) Qualifiers: Urinary tract infection type: site unspecified Hematuria presence: without hematuria Qualified Code(s): N39.0 - Urinary tract infection, site not specified Instructions Patient Instructions: Urine Culture, DI for Urinary Tract Infection (UTI), Ceftriaxone Injection Print Language Print Language: Somali Discharge ED Provider: Cesar Palmer [facility] General Stated complaint: possible UTI Time Seen by Provider: 08/04/24 14:45 Related Data Home Medications ?Medication ?Instructions ?Recorded ?Confirmed insulin glargine 100 unit/mL (3 40 units SQ HS Diabetes 06/24/18 05/22/24 mL) subcutaneous pen amlodipine 10 mg tablet 10 mg PO DAILY 04/11/21 05/21/24 atorvastatin 40 mg tablet 40 mg PO DAILY 04/11/21 05/21/24 bisoprolol 10 1 tab PO DAILY 04/11/21 05/21/24 mg-hydrochlorothiazide 6.25 mg tablet blood sugar diagnostic #10 ea 04/11/21 05/22/24 flash glucose sensor #1 ea 04/11/21 05/22/24 omeprazole 40 mg capsule,delayed 40 mg PO DAILY 04/11/21 05/21/24 release pen needle, diabetic 32 gauge x #50 ea 04/11/21 05/22/2411/21 dapagliflozin propanediol 10 mg 10 mg PO DAILY 05/22/24 05/22/24 tablet (Farxiga) famotidine 40 mg tablet 40 mg PO DAILY 05/22/24 05/22/24 lisinopril 40 mg tablet 40 mg PO DAILY 05/22/24 05/22/24 meloxicam 15 mg tablet 15 mg PO DAILY 05/22/24 05/22/24 methocarbamol 750 mg tablet 750 mg PO TIDP PRN MUSCLE SPASMS 05/22/24 05/22/24 semaglutide 1 mg/dose (4 mg/3 mL) 1 mg SQ WEEKLY 05/22/24 05/22/24 subcutaneous pen injector (Ozempic) Previous Rx's ?Medication ?Instructions ?Recorded ondansetron 4 mg disintegrating 4 mg PO TIDP PRN Nausea #9 tabs 12/28/20 tablet levofloxacin 750 mg tablet 750 mg PO 1100 4 days #4 tabs 05/23/24 nitrofurantoin 100 mg PO BID #10 caps 08/04/24 monohydrate/macrocrystals 100 mg capsule (Macrobid) ondansetron 4 mg disintegrating 4 mg PO Q8H PRN Nausea #8 tabs 08/04/24 tablet phenazopyridine 100 mg tablet 100 mg PO TID 6 doses #6 tabs 08/04/24 (Pyridium) Allergies Allergy/AdvReac Type Severity Reaction Status Date / Time bupropion Allergy Unknown Verified 04/11/21 17:41 pseudoephedrine Allergy Unknown Verified 04/11/21 17:41 pregabalin [From Lyrica] Allergy Verified 12/21/22 11:36 [facility] Disclaimer: The information contained in this section may have been updated after the patient was seen, as this information can be updated by other users. Medical History Diabetes mellitus, type 2 Hyperlipidemia Hypertension Surgical History History of tonsillectomy History of hysterectomy History of section History of cholecystectomy History of appendectomy Social History Smoking Status: Never smoker alcohol intake: never substance use type: denies use current occupational status: other Travel in the last 8 weeks: None household members: family housing: house ROS Obtained: Yes All systems reviewed & no additional complaints except as documented Constitutional Constitutional: Reports system reviewed and no additional complaints, except as documented, Denies chills and Denies fever(s) Eyes Eyes: Denies eye discharge ENT Ears, Nose, Mouth, and Throat: Denies dysphagia, Denies sore throat and Denies throat swelling Cardiovascular Cardiovascular: Denies chest pain and Denies dyspnea Respiratory Respiratory: Denies chest congestion, Denies cough and Denies dyspnea Gastrointestinal Gastrointestingal: Denies abdominal pain, constipation, diarrhea, dysphagia, nausea or vomiting Genitourinary Female Genitourinary: Reports as per HPI, Reports dysuria, Reports urinary frequency, Denies urinary incontinence, Reports urinary hesitancy and Reports urinary urgency Musculoskeletal Musculoskeletal: Denies arthralgias and Reports back pain Integumentary/Breasts Skin/Breast: Denies rash Neurologic Neurologic: Denies paresthesias Allergic/Immunologic Allergic/Immunologic: Denies throat swelling Physical Exam General General appearance: alert and in no apparent distress Head Head exam: atraumatic and normocephalic Eye Eye exam: Present normal appearance, PERRL and EOMI ENT ENT exam: Present normal exam, mucous membranes moist, TM's normal bilaterally and normal external ear exam Neck Neck exam: Present normal inspection, full ROM and trachea midline; Absent tenderness, meningismus or lymphadenopathy Chest Chest inspection: Present normal inspection and symmetric chest wall rise; Absent tenderness Respiratory Respiratory exam: Present normal lung sounds bilaterally; Absent respiratory distress, wheezes or stridor Cardiovascular Cardiovascular exam: Present regular rate, normal rhythm and normal heart sounds Abdominal Exam Abdominal exam: Present soft and normal bowel sounds; Absent distention, tenderness, guarding, rebound, rigidity, incision, psoas sign, obturator sign, heel tap sign, Sun's sign, Rovsing's sign or tenderness at McBurney's Point Extremities Exam Extremities exam: Present normal inspection, full ROM and normal capillary refill; Absent tenderness, edema, joint swelling, calf tenderness or cyanosis Back Exam Back exam: Present normal inspection and full ROM; Absent tenderness, CVA tenderness (R) or CVA tenderness (L) Neurological Exam Neurological exam: Present alert, oriented X3 and normal gait Psychiatric Psychiatric exam: Present normal affect and normal mood Skin Skin exam: Present warm, dry, intact and normal color Lymphatic Lymphatic Findings: no adenopathy Medical Decision Making Medical Records Medical records reviewed: No I reviewed the patient's medical records. Screening: Per USPSTF and CDC recommendations, given the prevalence of disease in our region, it is our hospital?s policy to screen for HIV and viral Hepatitis for all patients aged 18 and over and those with ongoing risk factors. Milo Inquiry Pt receiving controlled substance: No Lab Data Lab results reviewed: Yes I reviewed the patient's lab results.
[2024-08-04 14:48] LABS: Color,Urine Dark Yellow (Yellow)
[2024-08-04 14:49] LABS: Apearance,Urine Cloudy (Clear); Bilirubin,Urine Negative (Negative); Blood, Urine Trace (Negative); Glucose,Urine (UA) 1000 (Negative); Ketones,Urine Negative (Negative); Protein,Urine 3+ (Negative); Specific Gravity, Urine 1.015 (1.005-1.030); UTC Leukocyte Esterase,Urine 1+ (Negative); UTC Nitrate,Urine Positive (Negative); Urobilinogen,Urine 0.2 EU/dl (0.2)
[2024-08-04 14:56] VITALS: BP 148/68; PULSE 72; RESP 16; TEMP 36.8; O2SAT 97; BMI 29.2
[2024-08-04] MEDS: LIDOCAINE 1% 5ML PF VIAL IM (15:18)
[2024-08-04] MEDS: cefTRIAXone 1GM VIAL 1 GM IM (15:18)
[2024-08-04 15:35] VITALS: BP 148/68; PULSE 72; RESP 16; TEMP 36.8; O2SAT 97
--- NOTE | 2024-08-06 08:25 | PC.NURSE ---
CRITICAL URINE CULTURE REPORTED TO DANIEL CAM APRN
== END 2024-08-04 15:36 | disposition home or self-care (01) ==
PROVIDERS: Emergency Provider Nurse Practitioner Family; PCP Family Medicine
DX: N39.0 Urinary tract infection, site not specified (principal); B95.2 Enterococcus as the cause of diseases classified elsewhere
CPT/HCPCS: 81003; 87086; 87088; 87186; 96372; 99212; 99214; G0463; J0696

== ENCOUNTER 2024-08-27 19:22 | Inpatient (IN) | payer BC, SELFPAY ==
[2024-08-27] VITALS (7 sets, daily range): BP systolic 136–189; BP diastolic 59–91; PULSE 86–94; RESP 18; TEMP 37–37.1; O2SAT 95–99; BMI 29.2; BMI 29.8
--- NOTE | 2024-08-27 19:41 | CT_ITS ---
PROCEDURE INFORMATION: Exam: CT Abdomen And Pelvis With Contrast Exam date and time: 08/27/2024 8:40 PM Age: 54 years old Clinical indication: Abdominal pain; Additional info: Rlq, right flank pain. Concern for pyelonephritis TECHNIQUE: Imaging protocol: Computed tomography of the abdomen and pelvis with contrast. Radiation optimization: All CT scans at this facility use at least one of these dose optimization techniques: automated exposure control; mA and/or kV adjustment per patient size (includes targeted exams where dose is matched to clinical indication); or iterative reconstruction. Contrast material: ISOVUE; Contrast volume: 75 ml; Contrast route: IV; COMPARISON: 1. CT ABDOMEN PELVIS W CON 05/21/2024 2:[address] ABDOMEN PELVIS W CON 04/03/2024 3:[address] abdomen pelvis wo con 06/24/2018 8:50 AM FINDINGS: Liver: There is fat deposition adjacent to the falciform ligament. Gallbladder and biliary ducts: The patient is status post cholecystectomy. There is dilation of the intrahepatic biliary ducts most likely reflecting post cholecystectomy effect. Pancreas: Normal. Spleen: There are multiple calcifications in the spleen most likely reflects small granulomas. The spleen is enlarged. Adrenal glands: The adrenal glands appear normal. Kidneys and ureters: There is severe right hydroureteronephrosis extending to the urinary bladder without an obstructing calculus identified. There is a right-sided obstructive uropathy and underlying pyelonephritis is not excluded. Stomach and bowel: Mild fluid distention of small-bowel loops. Appendix: No evidence of appendicitis. Intraperitoneal space: Unremarkable. Vasculature: The abdominal aorta and its major branches appear normal without evidence of aneurysm or stenosis. There are pelvic phleboliths. Lymph nodes: No lymphadenopathy. Urinary bladder: The urinary bladder is collapsed. Reproductive: No acute process. Bones/joints: The visualized osseous structures of the abdomen and pelvis appear normal for patient age. Soft tissues: Unremarkable. IMPRESSION: 1. There is severe right hydroureteronephrosis extending to the urinary bladder without an obstructing calculus identified. 2. There is a right-sided obstructive uropathy and underlying pyelonephritis is not excluded.
--- NOTE | 2024-08-27 19:44 | ED_ITS ---
Discharge Plan Disposition Patient Disposition: Admitted Clinical Impressions Clinical Impression: Pyelonephritis, FELICITAS (acute kidney injury), Pancreatitis Discharge ED Provider: Marlo Hernandez General Adult HPI General Chief complaint: Abdominal Pain Stated complaint: vomiting, RT side abd pain Time Seen by Provider: 08/27/24 19:32 Mode of Arrival: Wheelchair Source of Information: Patient Limitations: No Limitations Description of Symptoms (Recalled from ER Triage Doc. by RN): Pt to ED via wheelchair with c/o RLQ abd pain, right flank, and back pain, N/V, and shivering X4 hours. Pt reports hx of kidney infections/kidney stones. Pt also reports frequent urination. History of Present Illness HPI narrative: Gail Jerome is a 54-year-old female with history of type 2 diabetes mellitus, hypertension, hyperlipidemia on [place] presenting to the emergency department for complaints of nausea, vomiting, right flank and right lower quadrant abdominal pain x 1 day. Patient states that starting today, she developed right flank and right lower quadrant abdominal pain that has worsened throughout the course of the day. She is also had multiple episodes of nonbilious nonbloody vomiting. She denies any dysuria or hematuria but states that she has had increased urine frequency today. She notes that similar episodes have happened in the past when she has had kidney infections and feels that this is similar. She has had chills but no documented fevers. She denies any rashes, diarrhea or constipation. She reports a history of cholecystectomy, appendectomy, total hysterectomy. Related Data Home Medications ?Medication ?Instructions ?Recorded ?Confirmed insulin glargine 100 unit/mL (3 40 units SQ HS Diabetes 06/24/18 05/22/24 mL) subcutaneous pen amlodipine 10 mg tablet 10 mg PO DAILY 04/11/21 05/21/24 atorvastatin 40 mg tablet 40 mg PO DAILY 04/11/21 05/21/24 bisoprolol 10 1 tab PO DAILY 04/11/21 05/21/24 mg-hydrochlorothiazide 6.25 mg tablet blood sugar diagnostic #10 ea 04/11/21 05/22/24 flash glucose sensor #1 ea 04/11/21 05/22/24 omeprazole 40 mg capsule,delayed 40 mg PO DAILY 04/11/21 05/21/24 release pen needle, diabetic 32 gauge x #50 isidro 04/11/21 05/22/24 1/ dapagliflozin propanediol 10 mg 10 mg PO DAILY 05/22/24 05/22/24 tablet (Farxiga) famotidine 40 mg tablet 40 mg PO DAILY 05/22/24 05/22/24 lisinopril 40 mg tablet 40 mg PO DAILY 05/22/24 05/22/24 meloxicam 15 mg tablet 15 mg PO DAILY 05/22/24 05/22/24 methocarbamol 750 mg tablet 750 mg PO TIDP PRN MUSCLE SPASMS 05/22/24 05/22/24 semaglutide 1 mg/dose (4 mg/3 mL) 1 mg SQ WEEKLY 05/22/24 05/22/24 subcutaneous pen injector (Ozempic) Previous Rx's ?Medication ?Instructions ?Recorded levofloxacin 750 mg tablet 750 mg PO 1100 4 days #4 tabs 05/23/24 nitrofurantoin 100 mg PO BID #10 caps 08/04/24 monohydrate/macrocrystals 100 mg capsule (Macrobid) ondansetron 4 mg disintegrating 4 mg PO Q8H PRN Nausea #8 tabs 08/04/24 tablet phenazopyridine 100 mg tablet 100 mg PO TID 6 doses #6 tabs 08/04/24 (Pyridium) sulfamethoxazole 800 1 tab PO BID 7 days #14 tabs 08/06/24 mg-trimethoprim 160 mg tablet (Bactrim DS) Allergies Allergy/AdvReac Type Severity Reaction Status Date / Time bupropion Allergy Unknown Verified 04/11/21 17:41 pseudoephedrine Allergy Unknown Verified 04/11/21 17:41 pregabalin [From Lyrica] Allergy Verified 12/21/22 11:36 [facility] Disclaimer: The information contained in this section may have been updated after the patient was seen, as this information can be updated by other users. Medical History Exposure to COVID-19 virus Diabetes mellitus, type 2 Hyperlipidemia Hypertension Surgical History History of tonsillectomy History of hysterectomy History of section History of cholecystectomy History of appendectomy Social History Smoking Status: Never smoker alcohol intake: never substance use type: denies use current occupational status: other Travel in the last 8 weeks: None household members: family housing: house Other Medical History Have you received the Flu Vaccine for this season: No Have you received the Pneumonia Vaccine: No ROS Obtained: Yes Systems reviewed as appropriate & no additional complaints except as documented Physical Exam General General appearance: alert and obese Comment: Appears uncomfortable Head Head exam: atraumatic Eye Eye exam: Present normal appearance ENT ENT exam: Present normal external ear exam Neck Neck exam: Present full ROM Chest Chest inspection: Present symmetric chest wall rise Respiratory Respiratory exam: Present normal lung sounds bilaterally; Absent respiratory distress Cardiovascular Cardiovascular exam: Present regular rate, normal rhythm and tachycardia Abdominal Exam Abdominal exam: Present soft and tenderness; Absent guarding or rigidity Abdominal tenderness: Present RLQ Extremities Exam Extremities exam: Present normal inspection Back Exam Back exam: Present normal inspection and CVA tenderness (R); Absent CVA tenderness (L) Neurological Exam Neurological exam: Present alert and oriented X3 Psychiatric Psychiatric exam: Present normal affect Skin Skin exam: Present warm and dry Medical Decision Making Medical Records Medical records reviewed: Yes I reviewed the patient's medical records. Screening: Per USPSTF and CDC recommendations, given the prevalence of disease in our region, it is our hospital?s policy to screen for HIV and viral Hepatitis for all patients aged 18 and over and those with ongoing risk factors. Milo Inquiry Pt receiving controlled substance: No Vital Signs: 08/27/24 19:23 08/27/24 19:30 08/27/24 20:15 Temperature 98.6 F Temperature Source Oral Pulse Rate 93 H 90 Pulse Rate [Left Radial] 94 H Respiratory Rate 18 Blood Pressure 189/83 H 145/84 H Blood Pressure [Right Arm] 189/91 H Blood Pressure Mean [Right Arm] 123 Blood Pressure Source [Right Arm] Automatic Cuff Blood Pressure Position [Right Arm] Sitting 02 Sat by Pulse Oximetry 99 99 95 Oxygen Delivery Method Room Air 08/27/24 20:30 08/27/24 21:01 08/27/24 21:30 Temperature Temperature Source Pulse Rate 86 91 H 93 H Pulse Rate [Left Radial] Respiratory Rate Blood Pressure 181/83 H 159/59 H 139/62 Blood Pressure [Right Arm] Blood Pressure Mean [Right Arm] Blood Pressure Source [Right Arm] Blood Pressure Position [Right Arm] 02 Sat by Pulse Oximetry 97 96 95 Oxygen Delivery Method Lab Data Lab Results 08/27/24 19:41: VBG pH 7.33, VBG pCO2 44.0, VBG pO2 44.4 H, VBG HCO3 22.9 L, VBG Total CO2 24.2, VBG O2 Saturation 78.5 H, VBG Base Excess -3.0 L, VBG Lactic Acid 2.7 H 08/27/24 19:48: WBC 2.8 L, RBC 5.21, Hgb 13.6, Hct 41.0, MCV 78.7 L, MCH 26.1 L, MCHC 33.1, RDW 15.7, Plt Count 198, MPV 7.6, Neut % (Auto) 83.8 H, Lymph % (Auto) 12.7, [place] % (Auto) 2.0, Eos % (Auto) 1.1, Baso % (Auto) 0.4, Neut # (Auto) 2.4, Lymph # (Auto) 0.4 L, [place] # (Auto) 0.1, Eos # (Auto) 0.0, Baso # (Auto) 0.0, Sodium 137, Potassium 3.4 L, Chloride 102, Carbon Dioxide 25, Anion Gap 13.4, BUN 19 H, Creatinine 1.30 H, Estimated Creat Clear 59, Estimated GFR 42 L, Est GFR ( Amer) 51 L, Glucose 117 H, Hemoglobin A1c 5.5, Calcium 10.0, Magnesium 1.5 L, Total Bilirubin 0.7, AST 32, ALT 30, Alkaline Phosphatase 72, Total Protein 7.7, Albumin 4.9, Globulin 2.8, Albumin/Globulin Ratio 1.8, L ipase 586 H, Serum HCG, Qual Negative, HIV 1&2 Antibody Rapid Nonreactive 08/27/24 20:07: Urine Color Yellow, Urine Appearance Clear, Urine pH 7.0, Ur Specific [place] 1.020, Urine Protein 2+ A, Urine Glucose (UA) Negative, Urine Ketones Negative, Urine Blood Trace-i, Urine Nitrate Negative, Urine Bilirubin Negative, Urine Urobilinogen 0.2, Ur Leukocyte Esterase Negative, Urine RBC 10- 20, Urine WBC 20-50, Ur Squamous Epith Cells 5-10, Urine Bacteria 2+ 08/27/24 19:48 08/27/24 19:48 Orders (Tests/Meds): ED MEDICATIONS Generic Name Dose Route Start Last Admin Trade Name Freq PRN Reason Stop Dose Admin Acetaminophen 650 mg 08/27/24 22:59 Acetaminophen 325mg Tab PO 09/26/24 22:58 Q4HP PRN Fever or Mild Pain (1-3) Enoxaparin Sodium 40 mg 08/28/24 09:00 Enoxaparin 40mg/0.4ml Syringe SQ 09/27/24 08:59 DAILY YOBANY Ceftriaxone Sodium 2 gm/ 100 mls @ 200 mls/hr 08/27/24 20:45 08/27/24 20:43 Sodium Chloride IV 09/06/24 20:44 200 mls/hr Q24H YOBANY Administration Lactated Ringer's 1,000 mls @ 50 mls/hr 08/27/24 23:00 Lactated Ringer's 1000 Ml Bag IV 09/26/24 22:59 .Q20H YOBANY Ondansetron HCl 4 mg 08/27/24 22:59 Ondansetron 4mg/2ml Vial IV 09/26/24 22:58 Q8HP PRN Nausea Pantoprazole Sodium 40 mg 08/28/24 21:00 Pantoprazole 40mg Tablet PO 09/27/24 20:59 HS YOBANY Sodium Chloride 10 ml 08/27/24 20:43 08/27/24 20:43 Sodium Chloride 0.9% 10ml Syr (Rad Only) IV 09/26/24 20:42 10 ml NEEDED PRN Administration Maintain IV Site Sodium Chloride 10 ml 08/27/24 22:59 Sodium Chloride 0.9% 10ml Flush Syringe IV 09/26/24 22:58 NEEDED PRN Maintain IV Site Sodium Chloride 10 ml 08/27/24 22:59 Sodium Chloride 0.9% 10ml Flush Syringe IV 09/26/24 22:58 NEEDED PRN Maintain IV Site Discontinued Medications Generic Name Dose Route Start Last Admin Trade Name Chuckq PRN Reason Stop Dose Admin Droperidol 2.5 mg 08/27/24 20:50 08/27/24 21:08 Droperidol 5mg/2ml Vial IV 08/27/24 20:51 2.5 mg ONCE ONE Administration Sodium Chloride 1,000 mls @ 999 mls/hr 08/27/24 19:41 08/27/24 19:54 Sod Chlor 0.9% 1000ml Bag IV 08/27/24 20:41 999 mls/hr .Q1H1M ONE Administration Magnesium Sulfate 2 gm in 50 mls @ 50 mls/hr 08/27/24 20:17 08/27/24 20:24 Magnesium Sulfate 2gm/50ml Premix IV 08/27/24 21:16 50 mls/hr ONCE ONE Administration Iopamidol 75 ml 08/27/24 20:43 08/27/24 20:43 Iopamidol-370 (76%);100ml Bottle IV 08/27/24 20:44 75 ml ONCE ONE Administration Morphine Sulfate 4 mg 08/27/24 19:41 08/27/24 19:54 Morphine 4mg/Ml Syringe IV 08/27/24 19:42 4 mg ONCE ONE Administration Ondansetron HCl 4 mg 08/27/24 19:41 08/27/24 19:54 Ondansetron 4mg/2ml Vial IV 08/27/24 19:42 4 mg ONCE ONE Administration Promethazine HCl 25 mg 08/27/24 20:23 08/27/24 20:29 Promethazine Hcl 25mg/Ml 1ml Vial IV 08/27/24 20:24 25 mg ONCE ONE Administration Sodium Chloride 25 ml 08/27/24 20:23 08/27/24 20:29 Sodium Chloride 0.9% 25ml Bag IV 08/27/24 20:24 25 ml ONCE ONE Administration ORDERS Category Date Time Status CT abdomen pelvis w con Stat Cat Scan 08/27/24 19:41 Completed CBC w/Auto Diff [Complete Blood Count Auto Diff] Stat Lab 08/27/24 19:48 Completed CMP [Comprehensive Metabolic Panel] Stat Lab 08/27/24 19:48 Completed HIV (1&2) Antibody Rapid Stat Lab 08/27/24 19:48 Completed Hemoglobin A1C Stat Lab 08/27/24 19:48 Completed Hep C Ab with Reflex to RNA Stat Lab 08/27/24 19:48 Received Lipase Stat Lab 08/27/24 19:48 Completed Magnesium Stat Lab 08/27/24 19:48 Completed Serum [HCG Qualitative, Serum] Stat Lab 08/27/24 19:48 Completed Urinalysis and Microscopic Stat Lab 08/27/24 20:07 Completed Blood Culture Stat Micro 08/27/24 19:48 Received Urine Culture Stat Micro 08/27/24 20:07 Received VBG [Venous Blood Gas] Stat RT 08/27/24 19:41 Completed ECG Data Tracing #1: I reviewed this ECG and interpreted as documented below: ECG reviewed at 2102 by me personally. Normal sinus rhythm. Ventricular rate of 91 bpm. QTc normal at 414. No ST elevations or depressions. Medical Decision Narrative: Gail Jerome is a 54F with a history of hyperlipidemia, hypertension, diabetes mellitus with previous diagnosis of pyelonephritis who presents to the emergency department for 1 day of nausea, vomiting as well as right flank and right lower quadrant abdominal pain. She states that she is also had increased urinary frequency. Chills at home but no documented fever. She has had multiple episodes of nonbilious nonbloody vomiting. She states that this feels similar to previous episodes of pyelonephritis. On arrival, patient is hypertensive with blood pressure 189/91, heart rate 94 bpm, afebrile, breathing comfortably on room air with oxygen saturation 99% SpO2. Physical exam, stated above, revealed an uncomfortable appearing female in no acute respiratory distress. She has tenderness to palpation in the right lower quadrant as well as CVA tenderness in the right flank. Her abdomen is nonperitoneal neck. Cardiopulmonary exam is unremarkable. Differential diagnosis includes: Pyelonephritis, UTI, pancreatitis, sepsis, colitis, diverticulitis, muscle strain, gastritis, peptic ulcer disease, DKA/HHS, among others Workup in the emergency department included: CT abdomen pelvis with IV contrast, CBC, CMP, lipase, VBG, lactic acid. Patient symptoms were initially treated with 4 mg of IV Zofran, 4 mg of IV morphine and 1 L of normal saline. Due to continued nausea and vomiting, patient required 25 mg of IV Phenergan, which did not produce any improvement, she subsequently received 2.5 mg of IV droperidol. CT abdomen pelvis was interpreted by me personally prior to official radiology reads. There does appear to be some mild perinephric fat stranding around the right kidney consistent with pyelonephritis. There is a mild amount of fat stranding surrounding the tail of the pancreas as well concerning for pancreatitis. Radiology report pending at this time. See final report for details. Lab studies were interpreted by me personally. No leukocytosis. CBC otherwise unremarkable nonactionable. VBG with no acidosis or alkalosis. Lactate mildly elevated 2.7. CMP demonstrated mild FELICITAS with creatinine of 1.3 and BUN of 19, likely prerenal in nature secondary to patient's nausea and vomiting. Mild hypokalemia with potassium of 3.4. Glucose 117, magnesium low at 1.5 (replaced with 2 g of magnesium sulfate.) lipase elevated at 586. Discussed the patient's case with the hospitalist this is felt that she would benefit from continued IV antibiotics, IV fluids for her FELICITAS and symptomatic treatment of her nausea and vomiting. They agreed to evaluate patient and admit the patient. Her nausea had improved some after droperidol and she had remained hemodynamically stable throughout her ED visit and was appropriate for admission at this time. She was subsequently admitted to the hospital medicine service for further management. Critical Care Critical Care Time Critical Care Time: No
[2024-08-27] MEDS: MORPHINE 4MG/ML SYRINGE 4 MG IV (19:54)
[2024-08-27] MEDS: ONDANSETRON 4MG/2ML VIAL 4 MG IV (19:54)
[2024-08-27] MEDS: 0.9 % SODIUM CHLORIDE 1000ML 1,000 ML 999 ML IV (19:54)
[2024-08-27 20:08] LABS: Basophils % 0.4 % (0.1-2.0); Eosinophils % 1.1 % (0.1-12.0); Hemoglobin 13.6 g/dL (12.2-16.2); Lymphocytes # 0.4 K/mm3 (0.7-4.5); Lymphocytes % 12.7 % (10-50); Mean Corpuscular HGB Conc 33.1 g/dL (31.8-35.4); Mean Corpuscular Hemoglobin 26.1 pg (27.0-31.2); Mean Corpuscular Volume 78.7 fl (81-99); Mean Platelet Volume 7.6 fl (7.4-10.4); Monocytes # 0.1 K/mm3 (0.1-1.0); Neutrophils # 2.4 K/mm3 (1.8-7.8); Neutrophils % 83.8 % (37.0-80.0); Platelet Count 198 K/mm3 (142-424); Red Blood Count 5.21 M/mm3 (4.20-5.40); Red Cell Distribution Width 15.7 % (11.5-17.5); White Blood Count 2.8 K/mm3 (4.8-10.8)
[2024-08-27 20:10] LABS: Albumin Level 4.9 g/dl (3.5-5.0); Chloride 102 mmol/L (98-107)
[2024-08-27 20:11] LABS: Potassium 3.4 mmoL/L (3.5-5.1); Sodium 137 mmol/L (136-145)
[2024-08-27 20:11] LABS: Microscopic, Urine URINE MICROSCOPIC (MICROSCOPIC)
[2024-08-27 20:12] LABS: VBG HCO3 22.9 mmol/L (23-30); VBG Oxygen Saturation 78.5 % (50-70); VBG PH 7.33 mmol/L (7.31-7.41); VBG PO2 44.4 mmol/L (28-40); VBG Total CO2 24.2 mmol/L (23-27)
--- NOTE | 2024-08-27 20:12 | PC.NURSE ---
UA sent at 8:08
[2024-08-27 20:13] LABS: Alanine Aminotransferase 30 U/L (12-78); Anion Gap 13.4 mEq/L (5-15); Aspartate Amino Transferase 32 U/L (14-36); Blood Urea Nitrogen 19 mg/dl (7-17); Carbon Dioxide 25 mmol/L (22.0-30.0); Creatinine Clearance Estimated 59 mL/min (50-200); Estimated Glomerular Filt Rate 42 ml/min (>60); GFR (African American) 51 ML/MIN (>60)
[2024-08-27 20:13] LABS: Appearance,Urine CLEAR (Clear); Bilirubin,Urine Negative (Negative); Blood, Urine TRACE-I (Negative); Color,Urine YELLOW (Yellow); Glucose,Urine (UA) Negative (Negative); Ketones,Urine Negative (Negative); Leukocyte Esterase,Urine Negative (Negative); Nitrate,Urine Negative (Negative); Protein,Urine 2+ (Negative); Urobilinogen,Urine 0.2 EU/dl (0.2)
[2024-08-27 20:14] LABS: Albumin/Globulin Ratio 1.8 (1.1-1.8); Alkaline Phosphatase 72 U/L (38-126); Bilirubin,Total 0.7 mg/dl (0.2-1.3); Globulin 2.8 g/dL (1.3-3.2); Glucose 117 mg/dl (74-100); Lipase 586 U/L (23-300); Magnesium 1.5 mg/dl (1.6-2.3); Total Protein,Serum 7.7 g/dl (6.3-8.2)
[2024-08-27 20:14] LABS: Lactate Venous 2.7 mmol/L (0.4-2.0)
[2024-08-27] MEDS: MAGNESIUM SULFATE IN WATER 2 GM/50 ML PIGGYBACK IV (20:24)
[2024-08-27 20:28] LABS: WBC,Urine 20-50 #/hpf (0-3)
[2024-08-27 20:29] LABS: Bacteria,Urine 2+ /lpf
[2024-08-27] MEDS: SODIUM CHLORIDE 0.9% 25ML BAG 25 ML IV (20:29)
[2024-08-27] MEDS: PROMETHAZINE HCL 25MG/ML 1ML VIAL 25 MG IV (20:29)
[2024-08-27 20:30] LABS: HCG Qualitative, Serum Negative (Negative)
[2024-08-27] MEDS: CEFTRIAXONE SODIUM 2 GM in 0.9 % SODIUM CHLORIDE 100 ML IV (20:43)
[2024-08-27] MEDS: SODIUM CHLORIDE 0.9% 10ML SYR (RAD ONLY) 10 ML IV (20:43)
[2024-08-27] MEDS: IOPAMIDOL-370 (76%);100ML BOTTLE 75 ML IV (20:43)
--- NOTE | 2024-08-27 20:58 | ECG_ITS ---
APPROVED REPORT Exam: Resting ECG HR:91 bpm ECG Measurements Heart Rate 91 AXES ID 185 P 71 QRSd 92 QRS 9 QT 366 T 0 QTc 414 Conclusion SINUS RHYTHM NONSPECIFIC ST & T-WAVE ABNORMALITY No STEMI Electronically signed by : GOOD SIMS, 08/28/2024 03:25:16
[2024-08-27] MEDS: droPERidol 5MG/2ML VIAL 2.5 MG IV (21:08)
[2024-08-27 21:54] LABS: HIV (1&2) Antibody Rapid NONREACTIVE (NONREACTIVE)
--- NOTE | 2024-08-27 21:54 | PC.NURSE ---
Report called to LAURA Sandhu
[2024-08-27 22:31] LABS: Hemoglobin A1C 5.5 % (4.0-6.0)
[2024-08-27 23:32] LABS: Reflex Lactic Add Lactic Reflex
--- NOTE | 2024-08-27 23:33 | EXP.HP ---
History of Present Illness *Admission Date: 08/27/24 *Reason for visit:: Recurrent urinary tract infection with pyelonephritis, *History of present illness: Ms. Hawley has been having issues with her kidney and urinary tract infection on a regular basis since with 22, she has been seen in the emergency room and/or admitted 4 times since then. She stated she did have a new appointment with a medical billing manager or urologist in November at [facility]. She has not seen anyone for this except family practice, patient was seen and treated in the ER in March of this year for right kidney infection, then returned on 05 23 of this year and was admitted for same., Noted in ER note for July where her Macrobid was changed to Bactrim due to resistance.. She comes in today with similar symptoms of abdominal pain flank pain nausea,. But front and in the past white count is actually down. And she now has positive lipase. But denies right upper quadrant pain in the abdomen. She does show an increase in BUN and creatinine on her labs. CT scan was done which shows inflammation of the right kidney possible spleen enlargement hydroureter nephrosis on the right without blockage. After reviewing all records and talking with the ER physician will admit for IV antibiotic, with potentially trying to contact her new specialist to see if we can get her appointment set for an earlier date instead of November. Patient is also noted for diabetes, her vomiting is now controlled with medication received in the ER. [facility] Disclaimer: The information contained in this section may have been updated after the patient was seen, as this information can be updated by other users. Medical History Exposure to COVID-19 virus Diabetes mellitus, type 2 Hyperlipidemia Hypertension Surgical History History of tonsillectomy History of hysterectomy History of section History of cholecystectomy History of appendectomy Social History Smoking Status: Never smoker alcohol intake: never substance use type: denies use current occupational status: other Travel in the last 8 weeks: None household members: family housing: house Other Medical History Have you received the Flu Vaccine for this season: No Have you received the Pneumonia Vaccine: Yes Review of Systems Review of Systems Review of systems:: pertinent systems reviewed and negative unless documented below Constitutional Constitutional: Reports as per HPI and Reports fatigue Comments: Patient was examined on stretcher in the emergency room with family member at bedside. Patient reports feeling better now that her nausea has resolved. She answers questions well alert and orient Eyes Eyes: Reports as per HPI ENT Ears, Nose, Mouth, and Throat: Reports as per HPI *Cardiovascular Cardiovascular: Reports as per HPI Comments: Denies any shortness of breath or chest wall pressure or pain *Respiratory Respiratory: Reports system reviewed and no additional complaints, except as documented Comments: Reports no difficulty breathing *Gastrointestinal Gastrointestinal: Reports as per HPI, Reports abdominal pain, Reports nausea and Reports vomiting Comments: Patient's nausea and vomiting now uncontrolled. But still has abdominal pain generalized she says *Genitourinary Genitourinary: Reports system reviewed and no additional complaints, except as documented Comments: Patient states she has no problems controlling her urine *Musculoskeletal Musculoskeletal: Reports system reviewed and no additional complaints, except as documented Integumentary/Breasts Skin/Breast: Reports system reviewed and no additional complaints, except as documented *Neurologic Neurologic: Reports system reviewed and no additional complaints, except as documented Psychiatric Psychiatric: Reports system reviewed and no additional complaints, except as documented Endocrine Endocrine: Reports system reviewed and no additional complaints, except as documented and Reports fatigue Hematologic/Lymphatic Hematologic/Lymphatic: Reports system reviewed and no additional complaints, except as documented Allergic/Immunologic Allergic/Immunologic: Reports system reviewed and no additional complaints, except as documented Meds Home Medications and Allergies Home Medications ?Medication ?Instructions ?Recorded ?Confirmed ?Type insulin glargine 100 unit/mL (3 40 units SQ HS 06/24/18 08/28/24 History mL) subcutaneous pen amlodipine 10 mg tablet 10 mg PO DAILY 04/11/21 08/28/24 History atorvastatin 40 mg tablet 40 mg PO DAILY 04/11/21 08/28/24 History blood sugar diagnostic #10 ea 04/11/21 08/28/24 History flash glucose sensor #1 ea 04/11/21 08/28/24 History omeprazole 40 mg capsule,delayed 40 mg PO DAILY 04/11/21 08/28/24 History release pen needle, diabetic 32 gauge x #50 isidro 04/11/21 08/28/24 History 1/4 lisinopril 40 mg tablet 40 mg PO DAILY 05/22/24 08/28/24 History meloxicam 15 mg tablet 15 mg PO DAILY 05/22/24 08/28/24 History methocarbamol 750 mg tablet 750 mg PO TIDP PRN MUSCLE SPASMS 05/22/24 08/28/24 History bisoprolol 10 1 tab PO DAILY 08/28/24 08/28/24 History mg-hydrochlorothiazide 6.25 mg tablet tirzepatide 2.5 mg/0.5 mL 2.5 mg SQ WEEKLY 08/28/24 08/28/24 History subcutaneous pen injector (Maximiliano) New Prescriptions to Start Prescriptions: Allergies Allergy/AdvReac Type Severity Reaction Status Date / Time bupropion Allergy Unknown Verified 04/11/21 17:41 pseudoephedrine Allergy Unknown Verified 04/11/21 17:41 pregabalin [From Lyrica] Allergy Verified 12/21/22 11:36 Exam Data for Last 24 hours Vital signs and Labs for Last 24 Hours: Temp Pulse Resp BP Pulse Ox O2 Del Method 98.7 F 88 18 136/62 95 Room Air 08/27/24 22:03 08/27/24 22:03 08/27/24 22:03 08/27/24 22:03 08/27/24 21:30 08/27/24 22:03 Laboratory Results - last 24 hr 08/27/24 19:41: VBG pH 7.33, VBG pCO2 44.0, VBG pO2 44.4 H, VBG HCO3 22.9 L, VBG Total CO2 24.2, VBG O2 Saturation 78.5 H, VBG Base Excess -3.0 L, VBG Lactic Acid 2.7 H 08/27/24 19:48: WBC 2.8 L, RBC 5.21, Hgb 13.6, Hct 41.0, MCV 78.7 L, MCH 26.1 L, MCHC 33.1, RDW 15.7, Plt Count 198, MPV 7.6, Neut % (Auto) 83.8 H, Lymph % (Auto) 12.7, Mcke[place] % (Auto) 2.0, Eos % (Auto) 1.1, Baso % (Auto) 0.4, Neut # (Auto) 2.4, Lymph # (Auto) 0.4 L, Mckean # (Auto) 0.1, Eos # (Auto) 0.0, Baso # (Auto) 0.0, Sodium 137, Potassium 3.4 L, Chloride 102, Carbon Dioxide 25, Anion Gap 13.4, BUN 19 H, Creatinine 1.30 H, Estimated Creat Clear 59, Estimated GFR 42 L, Est GFR ( Amer) 51 L, Glucose 117 H, Hemoglobin A1c 5.5, Calcium 10.0, Magnesium 1.5 L, Total Bilirubin 0.7, AST 32, ALT 30, Alkaline Phosphatase 72, Total Protein 7.7, Albumin 4.9, Globulin 2.8, Albumin/Globulin Ratio 1.8, Lipase 586 H, Serum HCG, Qual Negative, HIV 1&2 Antibody Rapid Nonreactive 08/27/24 20:07: Urine Color Yellow, Urine Appearance Clear, Urine pH 7.0, Ur Specific [place] 1.020, Urine Protein 2+ A, Urine Glucose (UA) Negative, Urine Ketones Negative, Urine Blood Trace-i, Urine Nitrate Negative, Urine Bilirubin Negative, Urine Urobilinogen 0.2, Ur Leukocyte Esterase Negative, Urine RBC 10-20, Urine WBC 20-50, Ur Squamous Epith Cells 5-10, Urine Bacteria 2+ I & O for Last 24 hours: Intake & Output 08/24/24 08/25/24 08/26/24 08/27/24 23:59 23:59 23:59 23:59 Weight 79.379 kg Radiology Reports for the Last 24 Hours: CT scan of the abdomen shows inflammation of the right kidney hydronephrosis Constitutional Constitutional: mild distress, obese and cooperative Comments: Patient is still uncomfortable and quite tired, she had to work to stay awake during the exam *Routine HEENT Exam Head: Present normocephalic and atraumatic Eye: Present EOMI and PERRL ENT: Present mucous membranes dry *Routine Neck Exam Neck: Present supple and full ROM Comments: Patient able to move her neck without any difficulty or pain Routine Chest/Breast/Axilla Exam Comments: Exam not done patient reports she has no chest wall or breast pain *Routine Respiratory Exam Respiratory: Present CTA bilaterally, normal respiratory effort, able to speak in complete sentences and symmetric chest movement *Routine Cardiovascular Exam Cardiovascular: Present RRR, Normal S1 and Normal S2 *Routine Abdominal Exam Abdominal: Present tenderness and obese Comments: Slightly hyperactive bowel sound, tenderness on palpation greater to both upper quadrants *Routine Rectal Exam Rectal:: deferred *Routine Genitalia Exam Genitalia:: deferred *Routine Extremities Exam Extremities: Present full ROM and pulses intact Comments: Patient able to move all limbs well with good range of motion no signs of distress Routine Back/Spine/Pelvis Exam Back/Spine: Present full ROM Comments: Patient is able to sit up without any problems there was no CVA tenderness noted *Routine Skin Exam Comments: Skin is pink warm and dry turgor was fair *Routine Neurological Exam Neurological: Present alert, oriented X3, CN II-XII intact, vision grossly intact, hearing grossly intact and normal speech Comments: No motor deficits or decreased range of motion decrease in any joint found Routine Psychiatric Exam Psychiatric: Present normal affect, normal thought process, cooperative, good insight and good judgment Comments: Patient was slightly somnolent during the exam and during the interview as she had received medication for nausea and vomiting H&P: Result Impressions 1. Pyelonephritis with urinary tract infection: This is about the fourth time in the last 6 months that the patient has been having problem.. She does have an appointment as a new patient with a urologist or medical billing manager at [facility] in November. She has not been followed up for any of this since her last hospitalization in July. Patient noted that her nausea and vomiting much improved medication she has received. 2. Neutropenia: This is a new development from her other times with urinary tract infections, not excessively low patient does not appear to be septic at this time 3. FELICITAS with low magnesium, patient is now on IV fluids we will keep her on clear liquids at present. Continue medication for nausea and vomiting replace electrolytes as needed try to improve kidney function with maximizing hydration. 4. ,UTI: PATIENT HAS RECEIVED 2 G OF ROCEPHIN IV IN THE EMERGENCY ROOM , will continue antibiotics starting again in the morning. Will talk with the dayshift provider to determine best antibiotic if she has good coverage for tonight I 5. Splenomegaly noted on the CT scan it was also questionable on her last CTA of her abdomen and a previous visit to this hospital for similar condition. This will need to be monitored and followed by her primary care. 6. Elevated lipase: Will continue to monitor with labs patient not showing any significant right upper quadrant pain of pancreatitis at this time. Imaging and Cardiology CT scan - abdomen: Status: image reviewed by me Additional comments: Agree with the reading of radiologist there is some inflammation of the right kidney some fat stranding may be a little fat stranding with the pancreas as her lipase is also elevated slightly, spleen showing not much difference from her previous CT scan which noted slight enlargement. Assessment and Plan *Assessment and plan (1) Sepsis: Status: Acute Category: Medical Code(s): A41.9 - Sepsis, unspecified organism (2) Pyelonephritis: Status: Acute Category: Medical Code(s): N12 - Tubulo-interstitial nephritis, not specified as acute or chronic (3) FELICITAS (acute kidney injury): Status: Acute Category: Medical Code(s): N17.9 - Acute kidney failure, unspecified (4) Diabetes mellitus, type 2: Status: Chronic Qualifiers: Diabetes mellitus oysterman insulin use: with care home use Category: Medical Code(s): E11.9 - Type 2 diabetes mellitus without complications (5) UTI (urinary tract infection): Status: Acute Qualifiers: Hematuria presence: without hematuria Urinary tract infection type: site unspecified Qualified Code(s): N39.0 - Urinary tract infection, site not specified Category: Medical Code(s): N39.0 - Urinary tract infection, site not specified (6) Pancreatitis: Status: Acute Category: Medical Code(s): K85.90 - Acute pancreatitis without necrosis or infection, unspecified (7) Neutropenia: Status: Acute Category: Medical Code(s): D70.9 - Neutropenia, unspecified Plan 54-year-old female who presented with pain and nausea. Found to have fever on arrival. Concern for pyelonephritis and sepsis. Case discussed with ER physician, request admission for further treatment with IV antibiotics of her pyelonephritis and sepsis. Medicine agreed to admit for further management. Problems addressed as follows: Sepsis Pyelonephritis Acute kidney injury -Per chart review, patient has had previous multidrug-resistant pathogens. Initially treated with ceftriaxone 2 g. Continue daily. -Per my review of CT abdomen, has stranding around right kidney. Concerning for pyelonephritis on CT. - Urine grossly abnormal with 20-50 white cells and 2+ bacteria. Urine culture pending. Blood cultures pending -White count low at 2.8, patient tachycardic above 90, suspected infection with pyelonephritis meeting sepsis criteria. Neutrophil predominant 83% -Noted to have FELICITAS with creatinine elevated 1.3. Baseline less than 1 Insulin-dependent diabetes -Admission glucose 117, A1c pending - Sliding scale insulin with monitoring of glucose ACHS. Will use continuous glucose monitor. -Patient on Farxiga at home along with Saad. Given recurrent UTIs recommend discontinuing Farxiga as it is contraindicated at this time GERD: Continue pantoprazole as formulary conversion Holding home blood pressure regimen in the setting of FELICITAS and sepsis. Reevaluate in the morning. Holding home Lipitor in the setting of sepsis and FELICITAS. Full code Diabetic diet Prophylactic Lovenox MDM: [place]: High, acute infection with high risk for morbidity given sepsis and pyelonephritis Data: High, discussion of case with ER physician, review of previous labs/cultures/chart from previous admissions. Review of labs above and ordering labs for the morning along with personal review of CT of abdomen pelvis Risk: High medications necessitating close monitoring for toxicity with antibiotics, insulin, meds impacting kidney function. Rounded on patient after nurse practitioner. Personally examined and interviewed patient. Agree with exam findings and care plan as documented. Plan personally adjusted above. Updated to reflect complexity of decision for admission, review of chart, treatment plan at time of admission.
[2024-08-28] VITALS: BP 125/65; PULSE 91; RESP 18; TEMP 36.9; O2SAT 95
[2024-08-28 00:02] LABS: Lactic Acid Follow Up (RFLX 1) 3.4 mmol/L (0.7-2.1)
[2024-08-28 01:47] LABS: Reflex Lactic (2 hrs) Add Lactic Reflex
[2024-08-28 02:24] LABS: Lactic Acid Follow up (RFLX 2) 2.3 mmol/L (0.7-2.1)
[2024-08-28] MEDS: LACTATED RINGERS 1000ML 1,000 ML 50 ML IV (03:06)
[2024-08-28] MEDS: MAGNESIUM SULFATE IN WATER 2 GM/50 ML PIGGYBACK IV (03:07)
[2024-08-28] MEDS: POTASSIUM CHLORIDE 20MEQ TAB 40 MEQ PO ×2 (03:07→06:33)
[2024-08-28 04:00] VITALS: BP 117/51; PULSE 83; RESP 16; TEMP 37.9; O2SAT 96; BMI 29.8
[2024-08-28 06:30] LABS: Albumin Level 3.5 g/dl (3.5-5.0); Chloride 108 mmol/L (98-107)
[2024-08-28 06:31] LABS: Potassium 4.1 mmoL/L (3.5-5.1); Sodium 137 mmol/L (136-145)
[2024-08-28 06:33] LABS: Alanine Aminotransferase 32 U/L (12-78); Anion Gap 10.1 mEq/L (5-15); Aspartate Amino Transferase 33 U/L (14-36); Blood Urea Nitrogen 23 mg/dl (7-17); Carbon Dioxide 23 mmol/L (22.0-30.0); Creatinine Clearance Estimated 56 mL/min (50-200); Estimated Glomerular Filt Rate 39 ml/min (>60); GFR (African American) 47 ML/MIN (>60)
[2024-08-28 06:34] LABS: Albumin/Globulin Ratio 1.4 (1.1-1.8); Alkaline Phosphatase 53 U/L (38-126); Bilirubin,Total 0.6 mg/dl (0.2-1.3); Calcium 8.9 mg/dl (8.4-10.2); Globulin 2.5 g/dL (1.3-3.2); Glucose 109 mg/dl (74-100); Lipase 82 U/L (23-300); Magnesium 2.8 mg/dl (1.6-2.3)
[2024-08-28 06:57] LABS: Basophils % 0.2 % (0.1-2.0); Hematocrit 34.3 % (37.0-47.0); Lymphocytes # 0.4 K/mm3 (0.7-4.5); Lymphocytes % 3.4 % (10-50); Mean Corpuscular HGB Conc 33.1 g/dL (31.8-35.4); Mean Corpuscular Volume 78.5 fl (81-99); Mean Platelet Volume 8.5 fl (7.4-10.4); Monocytes # 0.6 K/mm3 (0.1-1.0); Monocytes % 4.9 % (1.7-9.3); Neutrophils # 10.7 K/mm3 (1.8-7.8); Neutrophils % 91.5 % (37.0-80.0); Platelet Count 165 K/mm3 (142-424); Red Blood Count 4.37 M/mm3 (4.20-5.40); Red Cell Distribution Width 15.9 % (11.5-17.5); White Blood Count 11.7 K/mm3 (4.8-10.8)
[2024-08-28 07:00] LABS: MANUAL DIFFERENTIAL MANUAL DIFFERENTIAL (MANUAL DIFF)
[2024-08-28 07:54] VITALS: BP 114/55; PULSE 75; RESP 16; TEMP 37.4; O2SAT 95
[2024-08-28 08:17] LABS: Hemoglobin 11.4 g/dL (12.2-16.2)
[2024-08-28] MEDS: ENOXAPARIN 40MG/0.4ML SYRINGE 40 MG SQ (08:22)
--- NOTE | 2024-08-28 08:22 | HMH.PHAINT1 ---
Pharmacy Intervention Comments: MEDICATION RECONCILIATION COMPLETED ON PATIENT USING EXTERNAL FILL HISTORY FROM PHARMACY. -CARRIE CLAYTON, GRAEMED
[2024-08-28 08:55] LABS: Lymphocytes % 4 % (10-50); Monocytes % 3 % (2-9); Neutrophils % 93 % (42-76); Total Cells Counted 100
[2024-08-28 08:56] LABS: Platelet Estimate Normal; RBC Morphology Normal
[2024-08-28] MEDS: MEROPENEM 1 GM in 0.9 % SODIUM CHLORIDE 100 ML IV ×2 (09:46→16:54)
[2024-08-28] MEDS: humaLOG 100 UNITS/ML 10ML VIAL (SSI) SQ (11:02)
--- NOTE | 2024-08-28 11:03 | SW/DCPLANNER ---
Addendum entered by Maxine Russo 08/28/24 12:46: [facility] has requested that PICC care information be faxed once completed tomorrow. I have updated [employer] fax: [phone] phone [phone] Addendum entered by Maxine Russo 08/28/24 12:23: Per Faby w/ [facility] IV medication is covered at 100%. Faby will reach out to family about delivery time of medication to home. Faby is also checking to make sure a [employer] nurse is available to do PICC care and lab draws. If they can not provide a nurse patient prefers to come back to [facility] outpatient for PICC care and lab draws. I will continue to follow up. Original Note: Per patient will need 10 days total of IV Meropenem 1gm Q8, PICC care and lab draws. I discuss IV antibiotics w/ patient and she is agreeable to do this at home w/ the assistance from her . Patient is agreeable for information/order to be faxed to [facility] for IV antibiotics and nursing care. Once [facility] reviews information/order I will follow up w/ patient regarding OOP and nurse availability. Per PICC will be placed tomorrow then discharge afterwards pending no setbacks. I will continue to follow up w/ patient and Faby w/ [facility].
--- NOTE | 2024-08-28 11:58 | EXP.ACUTE.PN ---
Subjective *Date: 08/28/24 *Time: 14:02 Interval history: Patient states she is feeling somewhat better this morning. Afebrile this morning. White count jumped from less than 4 to 11.7. Blood cultures returned positive and under 12 hours, positive for Enterobacter. Based on previous cultures, will transition to meropenem. Stable on room air. No nausea or vomiting. Electrolytes and kidney function normal for patient. Medical Exam Vital signs and Labs for Last 24 Hours: Vital Signs Temp Pulse Pulse Resp BP BP Pulse Ox 08/28/24 07:54 99.4 F 75 16 114/55 L 95 08/28/24 06:35 08/28/24 05:03 08/28/24 04:00 100.2 F H 83 16 117/51 L 96 08/28/24 03:15 08/28/24 01:00 08/28/24 00:00 98.5 F 91 H 18 125/65 95 08/27/24 23:00 08/27/24 22:03 98.7 F 88 18 136/62 08/27/24 21:30 93 H 139/62 95 08/27/24 21:01 91 H 159/59 H 96 08/27/24 20:30 86 181/83 H 97 08/27/24 20:15 90 145/84 H 95 08/27/24 19:30 93 H 189/83 H 99 08/27/24 19:23 98.6 F 94 H 18 189/91 H 99 O2 Del Method 08/28/24 07:54 Room Air 08/28/24 06:35 Room Air 08/28/24 05:03 Room Air 08/28/24 04:00 Room Air 08/28/24 03:15 Room Air 08/28/24 01:00 Room Air 08/28/24 00:00 Room Air 08/27/24 23:00 Room Air 08/27/24 22:03 Room Air 08/27/24 21:30 08/27/24 21:01 08/27/24 20:30 08/27/24 20:15 08/27/24 19:30 08/27/24 19:23 Room Air Intake and Output 08/27/24 08/28/24 08/28/24 23:59 07:59 15:59 Intake Total 720 / 720 Output Total 0 / 0 0 / 0 Balance 0 / 0 720 / 720 Intake: Intake, Oral Amount 720 / 720 Output: Output, Urine Amount 0 / 0 0 / 0 Other: Number of Unmeasured Voids 1 1 Weight 79.379 kg 79.379 kg Patient Weight 08/28/24 23:59 Weight 79.379 kg Laboratory Results - last 24 hr 08/27/24 19:41: VBG pH 7.33, VBG pCO2 44.0, VBG pO2 44.4 H, VBG HCO3 22.9 L, VBG Total CO2 24.2, VBG O2 Saturation 78.5 H, VBG Base Excess -3.0 L, VBG Lactic Acid 2.7 H 08/27/24 19:48: WBC 2.8 L, RBC 5.21, Hgb 13.6, Hct 41.0, MCV 78.7 L, MCH 26.1 L, MCHC 33.1, RDW 15.7, Plt Count 198, MPV 7.6, Neut % (Auto) 83.8 H, Lymph % (Auto) 12.7, [place] % (Auto) 2.0, Eos % (Auto) 1.1, Baso % (Auto) 0.4, Neut # (Auto) 2.4, Lymph # (Auto) 0.4 L, [place] # (Auto) 0.1, Eos # (Auto) 0.0, Baso # (Auto) 0.0, Sodium 137, Potassium 3.4 L, Chloride 102, Carbon Dioxide 25, Anion Gap 13.4, BUN 19 H, Creatinine 1.30 H, Estimated Creat Clear 59, Estimated GFR 42 L, Est GFR ( Amer) 51 L, Glucose 117 H, Hemoglobin A1c 5.5, Calcium 10.0, Magnesium 1.5 L, Total Bilirubin 0.7, AST 32, ALT 30, Alkaline Phosphatase 72, Total Protein 7.7, Albumin 4.9, Globulin 2.8, Albumin/Globulin Ratio 1.8, Lipase 586 H, Serum HCG, Qual Negative, HIV 1&2 Antibody Rapid Nonreactive 08/27/24 20:07: Urine Color Yellow, Urine Appearance Clear, Urine pH 7.0, Ur Specific [place] 1.020, Urine Protein 2+ A, Urine Glucose (UA) Negative, Urine Ketones Negative, Urine Blood Trace-i, Urine Nitrate Negative, Urine Bilirubin Negative, Urine Urobilinogen 0.2, Ur Leukocyte Esterase Negative, Urine RBC 10-20, Urine WBC 20-50, Ur Squamous Epith Cells 5-10, Urine Bacteria 2+ 08/27/24 23:42: Lactate 3.4 H 08/28/24 02:00: Lactate 2.3 H 08/28/24 05:50: WBC 11.7 H D, RBC 4.37, Hgb 11.4 L D, Hct 34.3 L, MCV 78.5 L, MCH 26.0 L, MCHC 33.1, RDW 15.9, Plt Count 165, MPV 8.5, Neut % (Auto) 91.5 H, Lymph % (Auto) 3.4 L, [place] % (Auto) 4.9, Eos % (Auto) 0.0 L, Baso % (Auto) 0.2, Neut # (Auto) 10.7 H, Lymph # (Auto) 0.4 L, [place] # (Auto) 0.6, Eos # (Auto) 0.0, Baso # (Auto) 0.0, Total Counted 100, Neutrophils % (Manual) 93 H, Lymphocytes % (Manual) 4 L, Monocytes % (Manual) 3, Platelet Estimate Normal, RBC Morphology Normal, Sodium 137, Potassium 4.1 D, Chloride 108 H, Carbon Dioxide 23, Anion Gap 10.1, BUN 23 H, Creatinine 1.40 H, Estimated Creat Clear 56, Estimated GFR 39 L, Est GFR ( Amer) 47 L, Glucose 109 H, Calcium 8.9, Magnesium 2.8 H D, Total Bilirubin 0.6, AST 33, ALT 32, Alkaline Phosphatase 53, Total Protein 6.0 L, Albumin 3.5 D, Globulin 2.5, Albumin/Globulin Ratio 1.4, Lipase 82 I & O for Labs for Last 24 Hours: Intake & Output 08/25/24 08/26/24 08/27/24 08/28/24 23:59 23:59 23:59 23:59 Intake Total 720 / 720 Output Total 0 / 0 0 / 0 Balance 0 / 0 720 / 720 Weight 79.379 kg 79.379 kg Microbiology Reports for the Last 24 Hours: Microbiology 08/27/24 19:48 Blood Blood Culture - Preliminary Constitutional: Present no acute distress and cooperative Head: Present atraumatic and normocephalic ENT: Present normal exam Respiratory: Present normal respiratory effort; Absent rhonchi, wheezes or crackles Cardiac: Present Reg Rate and Rhythm GI: Present soft, tenderness (Mild right upper quadrant pain.) and normal bowel sounds; Absent distention Comments:: Mild right CVA tenderness to percussion Extremities: Present normal inspection and full ROM Skin: Present intact; Absent erythema Neuro: Present Grossly Intact, alert, awake, oriented x 3 and moves all extremities Assessment and Plan *Assessment and plan (1) Sepsis: Status: Acute Category: Medical Code(s): A41.9 - Sepsis, unspecified organism (2) Bacteremia due to Enterobacter species: Status: Acute Category: Medical Code(s): R78.81 - Bacteremia; B96.89 - Other specified bacterial agents as the cause of diseases classified elsewhere (3) Pyelonephritis: Status: Acute Category: Medical Code(s): N12 - Tubulo-interstitial nephritis, not specified as acute or chronic (4) FELICITAS (acute kidney injury): Status: Acute Category: Medical Code(s): N17.9 - Acute kidney failure, unspecified (5) Hypertension: Status: Chronic Qualifiers: Hypertension type: primary hypertension Qualified Code(s): I10 - Essential (primary) hypertension Category: Medical Code(s): I10 - Essential (primary) hypertension (6) Hyperlipidemia: Status: Chronic Qualifiers: Hyperlipidemia type: mixed hyperlipidemia Qualified Code(s): E78.2 - Mixed hyperlipidemia Category: Medical Code(s): E78.5 - Hyperlipidemia, unspecified (7) Diabetes mellitus, type 2: Status: Chronic Qualifiers: Diabetes mellitus fpc insulin use: with long term care administrator use Category: Medical Code(s): E11.9 - Type 2 diabetes mellitus without complications Plan 54-year-old presented with nausea and flank pain. Concern for pyelonephritis in the ER. Meeting sepsis criteria. Admitted to medicine for further management. Blood cultures positive in less than 24 hours for Enterobacter. Antibiotic regimen adjusted based on previous sensitivities. Continues to require inpatient management. Problems addressed as follows: Sepsis Pyelonephritis Enterobacter bacteremia -Initiated on ceftriaxone, based on previous culture per chart review, she grew Enterobacter 5 months ago resistant to cephalosporins. Only sensitive to meropenem and Bactrim. Will transition to meropenem 1 g every 8 hours due to bacteremia. Will need at least 10 days of therapy. -Still awaiting culture finalization with speciation and sensitivity -Will need PICC line, plan to place tomorrow after 24 hours of appropriate antibiotics - Toradol 15 mg as needed every 6 hours for headache and pain -Zofran 4 mg as needed every 8 hours for nausea. Phenergan 25 mg as needed every 6 hours for nausea or vomiting. -Tylenol 650 every 6 hours as needed for pain -White count low at 2.8 on arrival, increased to 11.7 this morning. Hemoglobin 11.4. Fever defervesced overnight. Acute kidney injury: BUN 23, Cr 1.4, baseline <1. Tolerating p.o. fluids. Caution with nephrotoxins. Repeat CBC, CMP, magnesium ordered for the morning. Insulin-dependent diabetes -Morning glucose 109, A1c 6.9. -Will continue Lantus at decreased dose of 20 units nightly. Sliding scale insulin with monitoring of glucose ACHS. Will use continuous glucose monitor. -Patient on Farxiga at home along with Monjaro. Given recurrent UTIs recommend discontinuing Farxiga as it is contraindicated at this time GERD: Continue pantoprazole as formulary conversion Holding home blood pressure regimen in the setting of FELICITAS and sepsis. Reevaluate in the morning. Holding home Lipitor in the setting of sepsis and FELICITAS. Full code Diabetic diet Prophylactic Lovenox MDM: [place]: High, acute infection with high risk for morbidity given Enterobacter bacteremia and sepsis Data: Med, review of labs from this morning with ordering of labs for tomorrow. Review of previous records. Risk: High medications necessitating close monitoring for toxicity with antibiotics, insulin, meds impacting kidney function.
[2024-08-28 12:00] VITALS: BP 131/57; PULSE 72; RESP 16; TEMP 37.2; O2SAT 97
[2024-08-28 13:40] LABS: POC Glucose,Bedside 158 (70-110)
[2024-08-28] MEDS: ACETAMINOPHEN 325MG TAB 650 MG PO ×2 (13:42→18:59)
[2024-08-28 16:00] VITALS: BP 129/70; PULSE 77; RESP 16; TEMP 37.7; O2SAT 95
[2024-08-28 17:03] LABS: POC Glucose,Bedside 106 (70-110)
[2024-08-28 19:43] VITALS: BP 133/68; PULSE 78; RESP 20; TEMP 37.7; O2SAT 96
--- NOTE | 2024-08-28 20:25 | EXP.EVENT.NO ---
Problem nursing reported to me that the patient did not get much relief for the Tylenol for her headache and other pain.. plan: Will add Toradol 15 every 6 hours as needed for pain IV to see if this will help, question whether this will give better relief if the pain is from the kidney or the ureter. Nursing will let me know the results of the medication..
[2024-08-28] MEDS: INSULIN GLARGINE 100 UNITS/ML 3ML FLEXPEN 20 UNIT SQ (21:15)
[2024-08-28] MEDS: PANTOPRAZOLE 40MG TABLET 40 MG PO (21:17)
[2024-08-28] MEDS: KETOROLAC 30MG/ML VIAL 15 MG IV (21:21)
[2024-08-28 21:25] LABS: POC Glucose,Bedside 124 (70-110)
[2024-08-29] VITALS: BP 126/65; PULSE 75; RESP 16; TEMP 36.9; O2SAT 95
[2024-08-29] MEDS: MEROPENEM 1 GM in 0.9 % SODIUM CHLORIDE 100 ML IV ×3 (00:32→14:32)
[2024-08-29 04:00] VITALS: BP 141/64; PULSE 83; RESP 16; TEMP 37.2; O2SAT 94; BMI 30.9
[2024-08-29 06:15] LABS: POC Glucose,Bedside 108 (70-110)
[2024-08-29 07:06] LABS: Alanine Aminotransferase 24 U/L (12-78); Blood Urea Nitrogen 18 mg/dl (7-17); Calcium 9.1 mg/dl (8.4-10.2); Chloride 110 mmol/L (98-107); Glucose 112 mg/dl (74-100); Sodium 134 mmol/L (136-145); Total Protein,Serum 6.6 g/dl (6.3-8.2)
[2024-08-29 07:17] LABS: Albumin Level 3.9 g/dl (3.5-5.0); Albumin/Globulin Ratio 1.4 (1.1-1.8); Alkaline Phosphatase 68 U/L (38-126); Anion Gap 5.4 mEq/L (5-15); Aspartate Amino Transferase 27 U/L (14-36); Bilirubin,Total 0.9 mg/dl (0.2-1.3); Carbon Dioxide 23 mmol/L (22.0-30.0); Creatinine Clearance Estimated 82 mL/min (50-200); Estimated Glomerular Filt Rate 57 ml/min (>60); GFR (African American) 69 ML/MIN (>60); Globulin 2.7 g/dL (1.3-3.2); Potassium 4.4 mmoL/L (3.5-5.1)
[2024-08-29 07:27] LABS: Basophils % 0.5 % (0.1-2.0); Eosinophils # 0.1 K/mm3 (0.0-0.4); Eosinophils % 1.6 % (0.1-12.0); Hematocrit 33.9 % (37.0-47.0); Hemoglobin 11.6 g/dL (12.2-16.2); Lymphocytes # 0.9 K/mm3 (0.7-4.5); Lymphocytes % 10.6 % (10-50); Mean Corpuscular HGB Conc 34.2 g/dL (31.8-35.4); Mean Corpuscular Hemoglobin 26.9 pg (27.0-31.2); Mean Corpuscular Volume 78.8 fl (81-99); Mean Platelet Volume 8.1 fl (7.4-10.4); Monocytes # 0.4 K/mm3 (0.1-1.0); Neutrophils # 6.9 K/mm3 (1.8-7.8); Neutrophils % 82.4 % (37.0-80.0); Platelet Count 135 K/mm3 (142-424); Red Cell Distribution Width 15.7 % (11.5-17.5); White Blood Count 8.3 K/mm3 (4.8-10.8)
--- NOTE | 2024-08-29 07:54 | EXP.DC.SUM ---
General Admission date:: 08/27/24 Discharge date: 08/29/24 HPI HPI HPI: Ms. Hawely has been having issues with her kidney and urinary tract infection on a regular basis since with , she has been seen in the emergency room and/or admitted 4 times since then. She stated she did have a new appointment with a project accountant or urologist in November at [facility]. She has not seen anyone for this except family [facility], patient was seen and treated in the ER in March of this year for right kidney infection, then returned on 05 23 of this year and was admitted for same., Noted in ER note for July where her Macrobid was changed to Bactrim due to resistance.. She comes in today with similar symptoms of abdominal pain flank pain nausea,. But front and in the past white count is actually down. And she now has positive lipase. But denies right upper quadrant pain in the abdomen. She does show an increase in BUN and creatinine on her labs. CT scan was done which shows inflammation of the right kidney possible spleen enlargement hydroureter nephrosis on the right without blockage. After reviewing all records and talking with the ER physician will admit for IV antibiotic, with potentially trying to contact her new specialist to see if we can get her appointment set for an earlier date instead of November. Patient is also noted for diabetes, her vomiting is now controlled with medication received in the ER. Hospital Course Hospital Course Hospital Course: 54-year-old presented with nausea and flank pain. Concern for pyelonephritis in the ER. Meeting sepsis criteria. Admitted to medicine for further management. Blood cultures positive in less than 24 hours for Enterobacter. Antibiotic regimen adjusted based on previous sensitivities. Symptoms effervescing. PICC line placed. Will complete 10 days of antibiotics with meropenem to treat Enterobacter species. Stable discharge home with home health. Problems addressed as follows: Sepsis Pyelonephritis Enterobacter bacteremia -Initiated on ceftriaxone, based on previous culture per chart review, she grew Enterobacter 5 months ago resistant to cephalosporins. Only sensitive to meropenem and Bactrim. Transitioned to meropenem 1 g every 8 hours due to bacteremia. Symptoms defervesced with resolution of fever. PICC line placed on morning of discharge. Will continue 10 days of antibiotics total with meropenem every 8 hours. Chest imaging reviewed on day of discharge showing appropriate placement of PICC line. Responding to NSAIDs for pain control. Continue Tylenol and ibuprofen at discharge. White count normalized and sepsis appears to have resolved by discharge. Will continue to follow cultures after discharge. Orders have been sent to [facility] and home health for shelter and IV antibiotics along with PICC care at home. -Of note, already has an appointment with urology/nephrology at [facility] in the coming weeks. Encouraged to keep this appointment. Acute kidney injury: Elevated on admission with BUN 23, Cr 1.4, baseline <1. Tolerating p.o. fluids. Normalized to BUN of 18, creatinine of 1 on day of discharge. Insulin-dependent diabetes -Morning glucose 112 on day of discharge. A1c well-controlled at 6.9. Recommend continuing patient's Lantus nightly. Okay to resume Mounjaro. Patient on Farxiga at home along with Monjaro. Given recurrent UTIs recommend discontinuing Farxiga as it is contraindicated at this time GERD: Continue home PPI Held home blood pressure regimen in the setting of FELICITAS and sepsis. Okay to resume in the morning after discharge given normalization of kidney function Held home Lipitor in the setting of sepsis and FELICITAS. Okay to resume once home Total time spent on discharge 45 minutes in counseling, documentation, chart review, and direct care with patient. Exam Data for Last 24 hours Vital signs and Labs for Last 24 Hours: Temp Pulse Resp BP Pulse Ox O2 Del Method 99.0 F 83 16 141/64 H 94 L Room Air 08/29/24 04:00 08/29/24 04:00 08/29/24 04:00 08/29/24 04:00 08/29/24 04:00 08/29/24 06:53 Laboratory Results - last 24 hr 08/28/24 05:50: Hgb 11.4 L D, Total Counted 100, Neutrophils % (Manual) 93 H, Lymphocytes % (Manual) 4 L, Monocytes % (Manual) 3, Platelet Estimate Normal, RBC Morphology Normal 08/28/24 10:45: POC Glucose 158 H 08/28/24 16:52: POC Glucose 106 08/28/24 21:13: POC Glucose 124 H 08/29/24 06:02: POC Glucose 108 08/29/24 06:48: WBC 8.3 D, RBC 4.30, Hgb 11.6 L, Hct 33.9 L, MCV 78.8 L, MCH 26.9 L, MCHC 34.2, RDW 15.7, Plt Count 135 L, MPV 8.1, Neut % (Auto) 82.4 H, Lymph % (Auto) 10.6, [place] % (Auto) 5.0, Eos % (Auto) 1.6, Baso % (Auto) 0.5, Neut # (Auto) 6.9, Lymph # (Auto) 0.9, [place] # (Auto) 0.4, Eos # (Auto) 0.1, Baso # (Auto) 0.0, Sodium 134 L, Potassium 4.4, Chloride 110 H, Carbon Dioxide 23, Anion Gap 5.4, BUN 18 H, Creatinine 1.00 D, Estimated Creat Clear 82, Estimated GFR 57 L, Est GFR ( Amer) 69 D, Glucose 112 H, Calcium 9.1, Magnesium 2.0 D, Total Bilirubin 0.9, AST 27, ALT 24, Alkaline Phosphatase 68, Total Protein 6.6, Albumin 3.9 D, Globulin 2.7, Albumin/Globulin Ratio 1.4 I & O for Last 24 hours: Intake & Output 08/26/24 08/27/24 08/28/24 08/29/24 23:59 23:59 23:59 23:59 Intake Total 1290 / 1290 100 / 100 Output Total 0 / 0 0 / 0 0 / 0 Balance 0 / 0 1290 / 1290 100 / 100 Weight 79.379 kg 79.379 kg 82.191 kg Microbiology Reports for the Last 24 Hours: Microbiology 08/27/24 19:48 Blood Blood Culture - Preliminary 08/27/24 19:48 Blood Blood Culture - Preliminary Constitutional Constitutional: no acute distress *Routine HEENT Exam Head: Present normocephalic Eye: Present EOMI and PERRL ENT: Present mucous membranes moist *Routine Neck Exam Neck: Present supple; Absent lymphadenopathy *Routine Respiratory Exam Respiratory: Present CTA bilaterally *Routine Cardiovascular Exam Cardiovascular: Present RRR *Routine Abdominal Exam Abdominal: Present soft, normoactive bowel sounds and tenderness (intervally improved mild in RUQ); Absent distended *Routine Rectal Exam Patient deferred: visual exam *Routine Exam Patient deferred: external exam *Routine Extremities Exam Extremities: Absent cyanosis, clubbing or edema Routine Back/Spine/Pelvis Exam Back/Spine: Absent CVA tenderness *Routine Skin Exam Skin: Present warm; Absent rash *Routine Neurological Exam Neurological: Present alert, oriented X3 and moving all extremities; Absent altered mental status Results Data Completed and Pending Labs on day of discharge: Labs from last 24 hours 08/29/24 08/29/24 08/28/24 06:48 06:02 21:13 WBC 8.3 D RBC 4.30 Hgb 11.6 L Hct 33.9 L MCV 78.8 L MCH 26.9 L MCHC 34.2 RDW 15.7 Plt Count 135 L MPV 8.1 Neut % (Auto) 82.4 H Lymph % (Auto) 10.6 [place] % (Auto) 5.0 Eos % (Auto) 1.6 Baso % (Auto) 0.5 Neut # (Auto) 6.9 Lymph # (Auto) 0.9 [place] # (Auto) 0.4 Eos # (Auto) 0.1 Baso # (Auto) 0.0 Total Counted Neutrophils % (Manual) Lymphocytes % (Manual) Monocytes % (Manual) Platelet Estimate RBC Morphology Sodium 134 L Potassium 4.4 Chloride 110 H Carbon Dioxide 23 Anion Gap 5.4 BUN 18 H Creatinine 1.00 D Estimated Creat Clear 82 Estimated GFR 57 L Est GFR ( Amer) 69 D Glucose 112 H POC Glucose 108 124 H Calcium 9.1 Magnesium 2.0 D Total Bilirubin 0.9 AST 27 ALT 24 Alkaline Phosphatase 68 Total Protein 6.6 Albumin 3.9 D Globulin 2.7 Albumin/Globulin Ratio 1.4 08/28/24 08/28/24 08/28/24 16:52 10:45 05:50 WBC RBC Hgb 11.4 L D Hct MCV MCH MCHC RDW Plt Count MPV Neut % (Auto) Lymph % (Auto) [place] % (Auto) Eos % (Auto) Baso % (Auto) Neut # (Auto) Lymph # (Auto) [place] # (Auto) Eos # (Auto) Baso # (Auto) Total Counted 100 Neutrophils % (Manual) 93 H Lymphocytes % (Manual) 4 L Monocytes % (Manual) 3 Platelet Estimate Normal RBC Morphology Normal Sodium Potassium Chloride Carbon Dioxide Anion Gap BUN Creatinine Estimated Creat Clear Estimated GFR Est GFR ( Amer) Glucose POC Glucose 106 158 H Calcium Magnesium Total Bilirubin AST ALT Alkaline Phosphatase Total Protein Albumin Globulin Albumin/Globulin Ratio Preliminary micro results at discharge 08/27/24 19:48 Blood Culture - Preliminary Blood 08/27/24 19:48 Blood Culture - Preliminary Blood DS: Diagnosis Discharge Diagnosis (1) Sepsis: Status: Acute Code(s): A41.9 - Sepsis, unspecified organism (2) Pyelonephritis: Status: Acute Code(s): N12 - Tubulo-interstitial nephritis, not specified as acute or chronic (3) FELICITAS (acute kidney injury): Status: Acute Code(s): N17.9 - Acute kidney failure, unspecified (4) Diabetes mellitus, type 2: Status: Chronic Code(s): E11.9 - Type 2 diabetes mellitus without complications 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 (5) UTI (urinary tract infection): Status: Acute Code(s): N39.0 - Urinary tract infection, site not specified Qualifiers: Hematuria presence: without hematuria Urinary tract infection type: site unspecified Qualified Code(s): N39.0 - Urinary tract infection, site not specified (6) Pancreatitis: Status: Acute Code(s): K85.90 - Acute pancreatitis without necrosis or infection, unspecified (7) Neutropenia: Status: Acute Code(s): D70.9 - Neutropenia, unspecified Meds Home Medications and Allergies Home Medications ?Medication ?Instructions ?Recorded ?Confirmed ?Type amlodipine 10 mg tablet 10 mg PO DAILY 04/11/21 08/28/24 History atorvastatin 40 mg tablet 40 mg PO DAILY 04/11/21 08/28/24 History blood sugar diagnostic #10 ea 04/11/21 08/28/24 History flash glucose sensor #1 ea 04/11/21 08/28/24 History omeprazole 40 mg capsule,delayed 40 mg PO DAILY 04/11/21 08/28/24 History release pen needle, diabetic 32 gauge x #50 04/11/21 08/28/24 History 1/4 lisinopril 40 mg tablet 40 mg PO DAILY 05/22/24 08/28/24 History meloxicam 15 mg tablet 15 mg PO DAILY 05/22/24 08/28/24 History methocarbamol 750 mg tablet 750 mg PO TIDP PRN MUSCLE SPASMS 05/22/24 08/28/24 History bisoprolol 10 1 tab PO DAILY 08/28/24 08/28/24 History mg-hydrochlorothiazide 6.25 mg tablet tirzepatide 2.5 mg/0.5 mL 2.5 mg SQ WEEKLY 08/28/24 08/28/24 History subcutaneous pen injector (Mounjaro) insulin glargine 100 unit/mL (3 30 unit (0.3 mL) SQ HS 30 days #0 08/29/24 08/28/24 Rx mL) subcutaneous pen mL meropenem 1 gram intravenous 1 g IV Q8H #0 ea 08/29/24 Rx solution New Prescriptions to Start Prescriptions: Allergies Allergy/AdvReac Type Severity Reaction Status Date / Time bupropion Allergy Unknown Verified 04/11/21 17:41 pseudoephedrine Allergy Unknown Verified 04/11/21 17:41 pregabalin [From Lyrica] Allergy Verified 12/21/22 11:36 Discharge Plan Disposition Patient Disposition: Home Health Service Condition: Fair Discharge Order Discharge Orders: Discharge Order (Routine); Ordered 08/29/24 Ordered By: Cesar Benson Follow up Plan Follow up with: Conrado Corbett [Primary Care Provider] - Enter time for follow up (please call saturdayaugust 31 to schedule a hospital follow up with your primary care doctor! ) Prescriptions/Medication Reconciliation: New meropenem 1 gram Recon Soln 1 g IV Q8H Qty: 0 0RF Rx Instructions: last dose 09/06/24 Continued amlodipine 10 mg tablet 10 mg PO DAILY omeprazole 40 mg capsule,delayed release(DR/EC) 40 mg PO DAILY Patient Comments: TAKE 1 CAPSULE BY MOUTH ONCE DAILY atorvastatin 40 mg tablet 40 mg PO DAILY Patient Comments: TAKE 1 TABLET BY MOUTH ONCE DAILY meloxicam 15 mg tablet 15 mg PO DAILY Patient Comments: TAKE 1 TABLET BY MOUTH ONCE DAILY methocarbamol 750 mg tablet 750 mg PO TIDP PRN (Reason: MUSCLE SPASMS) Patient Comments: TAKE 1 TABLET BY MOUTH THREE TIMES DAILY NEEDED FOR MUSCLE SPASM lisinopril 40 mg tablet 40 mg PO DAILY Patient Comments: TAKE 1 TABLET BY MOUTH ONCE DAILY bisoprolol-hydrochlorothiazide 10-6.25 mg tablet 1 tab PO DAILY Patient Comments: TAKE 1 TABLET BY MOUTH ONCE DAILY Mounjaro 2.5 mg/0.5 mL pen injector 2.5 mg SQ WEEKLY Patient Comments: INJECT 1 SYRINGE SUBCUTANEOUSLY ONCE A WEEK Changed insulin glargine 100/ML insulin pen 30 unit SQ HS 30 Days Qty: 0 0RF Discontinued dapagliflozin propanediol [Farxiga] 10 mg tablet 10 mg PO DAILY Patient Comments: TAKE 1 TABLET BY MOUTH IN THE MORNING No Action (DME) pen needle, diabetic 32 gauge x 1/4 needle See Rx Instructions .ROUTE .MEDSUPPLY Qty: 50 Rx Instructions: As directed (DME) flash glucose sensor Kit See Rx Instructions .ROUTE .MEDSUPPLY Qty: 1 Patient Comments: USE NEEDED Rx Instructions: As directed (DME) blood sugar diagnostic Strip See Rx Instructions .ROUTE .MEDSUPPLY Qty: 10 Patient Comments: USE 1 STRIP TO CHECK GLUCOSE THREE TIMES DAILY AND NEEDED Rx Instructions: As directed Problem Reconciliation Problems Reviewed?: Yes Patient Discharge Instructions ACTIVITY: Continue current activity DIET: continue same diet Additional Instructions: Meropenem to be administered at 6 AM, 2 PM, and 10 PM daily. Last dose due 09/06/2024 at 10 PM Patient Instructions: DI for Kidney Infection, DI for Pancreatitis, Peripherally Inserted Central Catheter, DI for Acute Kidney Injury Print Language: [place] Providers Primary Care Provider: Conrado Corbett Admit Provider: Cesar Benson Attending Provider: Cesar Benson
[2024-08-29 08:00] VITALS: BP 157/76; PULSE 83; RESP 15; TEMP 37.6; O2SAT 96
[2024-08-29 08:51] LABS: HCV Ab Non Reactive (Non Reactive)
[2024-08-29] MEDS: AMLODIPINE 10MG TABLET 10 MG PO (09:10)
[2024-08-29] MEDS: ENOXAPARIN 40MG/0.4ML SYRINGE 40 MG SQ (09:10)
[2024-08-29] MEDS: ONDANSETRON 4MG/2ML VIAL 4 MG IV (09:14)
[2024-08-29 11:46] LABS: POC Glucose,Bedside 96 (70-110)
[2024-08-29 11:48] VITALS: BP 152/73; PULSE 80; RESP 15; TEMP 37.2; O2SAT 95
--- NOTE | 2024-08-29 12:57 | XR_ITS ---
PROCEDURE INFORMATION: Exam: XR Chest Exam date and time: 08/29/2024 1:35 PM Age: 54 years old Clinical indication: Device placement; Picc; Additional info: Picc placement TECHNIQUE: Imaging protocol: Radiologic exam of the chest. Views: 1 view. Total images: 2 COMPARISON: CT ABDOMEN PELVIS W CON 08/27/2024 8:40 PM FINDINGS: Tubes, catheters and devices: Right-sided PICC tip is overlying the superior vena cava. Lungs: No focal pneumonia. Pleural spaces: No evidence of pneumothorax. Heart/Mediastinum: The heart is not enlarged. Diaphragm: There is nonspecific elevation of the right hemidiaphragm. Bones/joints: The thoracic spine demonstrates mild degenerative changes at multiple levels. Degenerative changes of the glenohumeral and acromioclavicular joints. IMPRESSION: 1. Right-sided PICC tip is overlying the superior vena cava. 2. No focal pneumonia. 3. No evidence of pneumothorax. 4. Degenerative changes of the glenohumeral and acromioclavicular joints.
[2024-08-29] MEDS: KETOROLAC 30MG/ML VIAL 15 MG IV (13:35)
--- NOTE | 2024-08-29 14:05 | PC.NURSE ---
per Dr. Benson, PICC line is in appropriate position and ok to use
--- NOTE | 2024-08-31 12:17 | CARE MANAGER ---
Contacted patient to let her know that she will need to come here to outpatient to get PICC care tomorrow as well as BMP. Patient verbalized understanding. She had questions about diarrhea. Discussed with pharmacist and recommended patient eat yogurt and perhaps take probiotic. She states she started that yesterday. Denies any other questions at this time. LAURA Urena
--- OUTSIDE RECORDS SUMMARY | 2024-09-01 12:07 | XMS_ITS ---
Author Organization [facility] Address [address] [place] [address] Phone Care Team Providers Care Boarding Mother Name Role Phone Juan Carlos LOPEZ, Chriss Abarca Unavailable [phone] Chelle Lopez, Conrado Primary Care Provider [phone] Reason for Referral Date Encounter Description Provider Reason for Referral 12/27/21 NEW PROBLEM/EST PT Mauri Cervantes PA-C Ref erral To Physician Problems Includes: Active, inactive, and resolved Problems All Visits Onset Date Resolved Date Provider Condition S tatus History of Lower Back Pain 02/23/2020 Chriss Rangel MD Active Last Documented On 0 1:37PM ; [facility] Joint Pain in the Right Hip 02/23/2020 Chriss Rangel MD Active Last Documented On 0 1:37PM ; [facility] Plan of Treatment Instructions to patient Lose weight Last Documented On 2 8:50AM ; [facility] Instructions for patient Last Documented On 0 2:35PM ; [facility] Instructions for patient Last Documented On 0 8:47AM ; [facility] Instructions for patient Last Documented On 0 1:38PM ; [facility] Assessments Includes: Assessments for all patient encounters No Assessments Recorded Instructions Includes: Instructions for all patient encounters Instructions to patient Lose weight Last Documented On 2 8:50AM ; [facility] Instructions for patient Last Documented On 0 2:35PM ; [facility] Instructions for patient Last Documented On 0 8:47AM ; [facility] Last Documented On 0 1:38PM ; [facility] Medical Equipment - Implanted Devices Includes: Current and historical Devices No Medical Equipment Recorded Medications Includes: Current and historical Medications Current Medications (continue as prescribed) Lantus 100 UNIT/ML Subcutaneous Solution 02/24/2020 Provider: Diagnosis: Last Documented On 0 3:42PM By Talia Ivory ; [facility] HumaLOG 100 UNIT/ML Subcutaneous Solution Cartridge Provider: Diagnosis: Last Documented On 0 3:42PM By Talia Ivory ; [facility] Ziac 10-6.25 MG Oral Tablet 02/24/2020 Provider: Diagnosis: Last Documented On 0 3:43PM By Talia Ivory ; [facility] amLODIPine Besylate 10 MG Oral Tablet 02/24/2020 Pro vider: Diagnosis: Last Documented On 0 3:43PM By Talia Ivory ; [facility] Pravastatin Sodium 10 MG Oral Tablet 02/24/2020 Prov ider: Diagnosis: Last Documented On 0 3:43PM By Talia Ivory ; [facility] Naprosyn 250 MG Oral Tablet 02/24/2020 Provider: Diagnosis: Last Documented On 0 3:43PM By Talia Ivory ; [facility] Aspirin 81 MG Oral Tablet 02/24/2020 Provider: Diagnosis: Last Documented On 0 3:44PM By Talia Ivory ; [facility] Medications Administered Includes: Administered Medications in patient's chart No Administered Medications Recorded Results Includes: Results from 09/01/2023 through 09/01/2024 No Results Recorded For Specified Dates History of Present Illness History of Present Illness not supported for this document type No History of Present Illness Recorded Social History Description Last Updated Not a current smoker. 12/27/2021 Last Documented On 2 2:03PM ; [facility] Recent change in diet diabetic 2 Last Documented On 2 2:03PM ; [facility] Non-smoker 12/27/2021 Last Documented On 2 2:03PM ; [facility] Caffeine use 02/24/2020 Last Documented On 0 10:12PM ; [facility] Exercising regularly 02/24/2020 Last Documented On 0 10:12PM ; [facility] No tobacco use 02/23/2020 Last Documented On 0 10:12PM ; [facility] Smoking status : Never smoker 02/23/2020 Last Documented On 0 10:12PM ; [facility] No recent change in diet 02/23/2020 Last Documented On 0 10:12PM ; [facility] Not a current smoker 02/23/2020 Last Documented On 0 10:12PM ; [facility] Not using alcohol 02/23/2020 Last Documented On 0 10:12PM ; [facility] Not using drugs 02/23/2020 Last Documented On 0 10:12PM ; [facility] Procedures and Surgical History Surgical History Last Updated History of appendectomy 02/24/2020 Last Documented On 0 10:12PM ; [facility] History of hysterectomy 02/24/2020 Last Documented On 0 10:12PM ; [facility] Medical History Includes: Medical History in patient's chart Description Last Updated History of History of Heart Attack / Str javon 12/27/2021 Last Documented On 2 2:03PM ; [facility] History of Hypertension 12/27/2021 Last Documented On 2 2:03PM ; [facility] No recent immunization for flu 2 Last Documented On 2 2:03PM ; [facility] No recent immunization for pneumococcal pneumonia 12/27/2021 Last Documented On 2 2:03PM ; [facility] Gallbladder disease 02/24/2020 Last Documented On 0 10:12PM ; [facility] History of acute myocardial infarction 0 02/24/2020 Last Documented On 0 10:12PM ; [facility] History of diabetes mellitus 02/24/2020 Last Documented On 0 10:12PM ; [facility] History of heart disease 02/24/2020 Last Documented On 0 10:12PM ; [facility] Intermittent hypertension 02/24/2020 Last Documented On 0 10:12PM ; [facility] Family History Includes: Family History in patient's chart Description Last Updated Diabetes mellitus 12/27/2021 Last Documented On 2 2:03PM ; [facility] stroke/seizures 02/24/2020 Last Documented On 0 10:12PM ; [facility] Family history of diabetes mellitus 06/2020 Last Documented On 0 10:12PM ; [facility] Family history of heart disease 02/24/20 20 Last Documented On 0 10:12PM ; [facility] Family history of hypertension 0 Last Documented On 0 10:12PM ; [facility] Review of Systems [...] Active Last Documented On 2 8:36AM ; [facility] Sudafed Allergy 02/24/2020 Active Last Documented On 2 8:36AM ; [facility] nickel allergy Allergy 02/24/2020 Acti ve Last Documented On 2 8:36AM ; [facility] Insurance Includes: Active Insurance Policies Plan Name Member ID Group # Subscriber Relationship Effect quincy Dates 1 - [facility] [id number] Cesar Jerome 11/18/2019 - Unknown Clinical Notes Includes: Signed Clinical Notes starting from 11/01/2022 No Clinical Notes Recorded
--- OUTSIDE RECORDS SUMMARY | 2024-09-01 12:07 | XMS_ITS ---
Care Plan - [facility] Created on: September 01, 2024 Gail Jerome : 1970 Sex: Female Author Organization [facility] Address [address] [place] [address] Phone Care Team Providers Care Flux Tube Attendant Name Role Phone Juan Carlos COYLE, Chriss Abarca Unavailable [phone] Chelle Coyle, Conrado Primary Care Provider [phone]
--- OUTSIDE RECORDS SUMMARY | 2024-09-01 12:08 | XMS_ITS | Clinical Summary ---
Author Organization [facility] Address [address] [place] [address] Phone Care Team Providers Care Landscaping And Groundskeeping Laborer Name Role Phone Juan Carlos LOPEZ, Chriss Abarca Unavailable [phone] Conrado Corbett Md Primary Care Provider [phone] Reason for Visit and Chief Complaint The Chief Complaint is: (R) hip pain Problems Includes: Problems addressed during this encounter and other active Problems All Visits Onset Date Resolved Date Provider Condition S tatus History of Lower Back Pain 02/23/2020 Chriss Rangel MD Active Last Documented On 0 1:37PM ; [facility] Joint Pain in the Right Hip 02/23/2020 Chriss Rangel MD Active Last Documented On 0 1:37PM ; [facility] Plan of Treatment Patient was seen by myself Mauri Cervantes PA-C. Patient will follow up 4 weeks we will try some physical therapy with this this does not help then consider possible referral to another physician for possible hip arthroscopy - Last Documented On 07/06/2020 2:53PM ; [facility], [facility] Assessments Includes: Assessments from this encounter Findings Right hip pain - Last Documented On 07/06/2020 2:53PM ; [facility], [facility] Medical Equipment - Implanted Devices Includes: Current Devices No Medical Equipment Recorded Medications Includes: Medications discussed during this encounter and other current Medications Current Medications (continue as prescribed) Lantus 100 UNIT/ML Subcutaneous Solution 02/24/2020 Provider: Diagnosis: Last Documented On 0 3:42PM By Talia Ivory ; [facility], [facility] HumaLOG 100 UNIT/ML Subcutaneous Solution Cartridge Provider: Diagnosis: Last Documented On 0 3:42PM By Talia Ivory ; [facility] Ziac 10-6.25 MG Oral Tablet 02/24/2020 Provider: Diagnosis: Last Documented On 0 3:43PM By Talia Ivory ; [facility] amLODIPine Besylate 10 MG Oral Tablet 02/24/2020 Pro vider: Diagnosis: Last Documented On 0 3:43PM By Talia Ivory ; [facility] Pravastatin Sodium 10 MG Oral Tablet 02/24/2020 Prov ider: Diagnosis: Last Documented On 0 3:43PM By Talia Ivory ; [facility] Naprosyn 250 MG Oral Tablet 02/24/2020 Provider: Diagnosis: Last Documented On 0 3:43PM By Talia Ivory ; [facility] Aspirin 81 MG Oral Tablet 02/24/2020 Provider: Diagnosis: Last Documented On 0 3:44PM By Talia Ivory ; [facility] Medications Administered Includes: Administered Medications from this encounter No Administered Medications Recorded Vital Signs Includes: Vital Signs from this encounter Vital Name 04/14/2020 11:35A Blood Pressure Sitting (mmHg) 128/75 Pulse Rate-Sitting (bpm) 66 Height (in) 63 Weight (lb) 194 Body Mass Index (kg/m2) 34.4 Body Surface Area (m2) 1.9 Note: [facility] Last Documented: On 04/14/2020 11:45A M ; [facility] Results Includes: Results discussed during this encounter No Results Recorded For Specified Dates History of Present Illness Includes: History of Present Illness from this encounter CHACHA Jerome is a 50 year old female. [...] 02/24/2020 Last Documented On 0 11:34AM ; [facility] Exercising regularly 02/24/2020 Last Documented On 0 11:34AM ; [facility] No tobacco use 02/23/2020 Last Documented On 0 11:34AM ; [facility] Smoking status : Never smoker 02/23/2020 Last Documented On 0 11:34AM ; [facility] No recent change in diet 02/23/2020 Last Documented On 0 11:34AM ; [facility] Not a current smoker 02/23/2020 Last Documented On 0 11:34AM ; [facility] Not using alcohol 02/23/2020 Last Documented On 0 11:34AM ; [facility] Not using drugs 02/23/2020 Last Documented On 0 11:34AM ; [facility] Procedures and Surgical History Includes: Procedures from this encounter Procedures Code Diagnosis Performing Provider Service L ocation Service Date Clinical summary provided to patient Last Documented On 0 11:35AM ; [facility] Surgical History Last Updated History of appendectomy 02/24/2020 Last Documented On 0 11:34AM ; [facility] History of hysterectomy 02/24/2020 Last Documented On 0 11:34AM ; [facility] Medical History Includes: Medical History addressed during this encounter Description Last Updated Gallbladder disease 02/24/2020 Last Documented On 0 11:34AM ; [facility] History of acute myocardial infarction 0 02/24/2020 Last Documented On 0 11:34AM ; [facility] History of diabetes mellitus 02/24/2020 Last Documented On 0 11:34AM ; [facility] History of heart disease 02/24/2020 Last Documented On 0 11:34AM ; [facility] Intermittent hypertension 02/24/2020 Last Documented On 0 11:34AM ; [facility] Family History Includes: Family History addressed during this encounter Description Last Updated stroke/seizures 02/24/2020 Last Documented On 0 11:34AM ; [facility] Family history of diabetes mellitus 06/2020 Last Documented On 0 11:34AM ; [facility] Family history of heart disease 02/24/20 20 Last Documented On 0 11:34AM ; [facility] Family history of hypertension 0 Last Documented On 0 11:34AM ; [facility] Review of Systems Includes: Review of [...] Active Last Documented On 2 8:36AM ; [facility] Sudafed Allergy 02/24/2020 Active Last Documented On 2 8:36AM ; [facility] nickel allergy Allergy 02/24/2020 Acti ve Last Documented On 2 8:36AM ; [facility] Encounters Encounter Provider Location Date Check-In Time Check- Out Time Diagnosis Follow Up Chriss Rangel MD [facility] 0 11:12AM 11:59AM Insurance Includes: Active Insurance Policies Plan Name Member ID Group # Subscriber Relationship Effect quincy Dates 1 - [facility] [id number] Cesar Jerome 11/18/2019 - Unknown Clinical Notes Includes: Clinical Notes from this encounter No Clinical Notes Recorded
--- OUTSIDE RECORDS SUMMARY | 2024-09-01 12:08 | XMS_ITS | Clinical Summary ---
Author Organization [facility] Address [address] [place] [address] Phone Care Team Providers Care Director Print Name Role Phone Juan Carlos LOPEZ, Chriss Abarca Unavailable [phone] Conrado Corbett Md Primary Care Provider [phone] Reason for Visit and Chief Complaint BRACE FITTING Problems Includes: Problems addressed during this encounter and other active Problems All Visits Onset Date Resolved Date Provider Condition S tatus History of Lower Back Pain 02/23/2020 Chriss Rangel MD Active Last Documented On 0 1:37PM ; [facility] Joint Pain in the Right Hip 02/23/2020 Chriss Rangel MD Active Last Documented On 0 1:37PM ; [facility] Plan of Treatment No Plan of Treatment Recorded Assessments Includes: Assessments from this encounter No Assessments Recorded Medical Equipment - Implanted Devices Includes: Current Devices No Medical Equipment Recorded Medications Includes: Medications discussed during this encounter and other current Medications Current Medications (continue as prescribed) Lantus 100 UNIT/ML Subcutaneous Solution 02/24/2020 Provider: Diagnosis: Last Documented On 0 3:42PM By Talia [facility], [facility] HumaLOG 100 UNIT/ML Subcutaneous Solution Cartridge Provider: Diagnosis: Last Documented On 0 3:42PM By Talia [facility], [facility] Ziac 10-6.25 MG Oral Tablet 02/24/2020 Provider: Diagnosis: Last Documented On 0 3:43PM By Talia [facility], [facility] amLODIPine Besylate 10 MG Oral Tablet 02/24/2020 Pro vider: Diagnosis: Last Documented On 0 3:43PM By Talia Ivory ; [facility], [facility] Pravastatin Sodium 10 MG Oral Tablet 02/24/2020 Prov ider: Diagnosis: Last Documented On 0 3:43PM By Talia Ivory ; [facility], [facility] Naprosyn 250 MG Oral Tablet 02/24/2020 Provider: Diagnosis: Last Documented On 0 3:43PM By Talia Ivory ; [facility], [facility] Aspirin 81 MG Oral Tablet 02/24/2020 Provider: Diagnosis: Last Documented On 0 3:44PM By Talia Ivory ; [facility], [facility] Medications Administered Includes: Administered Medications from [...] Active Last Documented On 2 8:36AM ; [facility], [facility] Sudafed Allergy 02/24/2020 Active Last Documented On 2 8:36AM ; [facility], [facility] nickel allergy Allergy 02/24/2020 Acti ve Last Documented On 2 8:36AM ; [facility], [facility] Insurance Includes: Active Insurance Policies Plan Name Member ID Group # Subscriber Relationship Effect quincy Dates 1 - [employer] [place] [id number] Cesar Jerome 11/18/2019 - Unknown Clinical Notes Includes: Clinical Notes from this encounter No Clinical Notes Recorded
--- OUTSIDE RECORDS SUMMARY | 2024-09-01 12:08 | XMS_ITS | Clinical Summary ---
Author Organization [facility] Address [address] [place] [address] Phone Care Team Providers Care Cereal Chemist Name Role Phone Juan Carlos LOPEZ, Chriss Abarca Unavailable [phone] Conrado Corbett Md Primary Care Provider [phone] Reason for Visit and Chief Complaint BRACE FITTING Problems Includes: Problems addressed during this encounter and other active Problems All Visits Onset Date Resolved Date Provider Condition S tatus History of Lower Back Pain 02/23/2020 Chriss Rangel MD Active Last Documented On 0 1:37PM ; [facility] Joint Pain in the Right Hip 02/23/2020 Chriss Rangel MD Active Last Documented On 0 1:37PM ; [facility] Plan of Treatment No Plan of Treatment Recorded Assessments Includes: Assessments from this encounter No Assessments Recorded Medical Equipment - Implanted Devices Includes: Current Devices No Medical Equipment Recorded Medications Includes: Medications discussed during this encounter and other current Medications Current Medications (continue as prescribed) Lantus 100 UNIT/ML Subcutaneous Solution 02/24/2020 Provider: Diagnosis: Last Documented On 0 3:42PM By Talia [facility], [facility] HumaLOG 100 UNIT/ML Subcutaneous Solution Cartridge Provider: Diagnosis: Last Documented On 0 3:42PM By Talia [facility] Ziac 10-6.25 MG Oral Tablet 02/24/2020 Provider: Diagnosis: Last Documented On 0 3:43PM By Talia [facility] amLODIPine Besylate 10 MG Oral Tablet 02/24/2020 Pro vider: Diagnosis: Last Documented On 0 3:43PM By Talia Ivory ; [facility] Pravastatin Sodium 10 MG Oral Tablet 02/24/2020 Prov ider: Diagnosis: Last Documented On 0 3:43PM By Talia Ivory ; [facility] Naprosyn 250 MG Oral Tablet 02/24/2020 Provider: Diagnosis: Last Documented On 0 3:43PM By Talia Ivory ; [facility], [facility] Aspirin 81 MG Oral Tablet 02/24/2020 Provider: Diagnosis: Last Documented On 0 3:44PM By Talia Ivory ; [facility], [facility] Medications Administered Includes: Administered Medications from this [...] Active Last Documented On 2 8:36AM ; [facility] Sudafed Allergy 02/24/2020 Active Last Documented On 2 8:36AM ; [facility] nickel allergy Allergy 02/24/2020 Acti ve Last Documented On 2 8:36AM ; [facility] Encounters Encounter Provider Location Date Check-In Time Check-Out Time Diagnosis BRACE FITTING Chriss Rangel MD [facility] 12/27/2021 9:02AM 11:59PM Insurance Includes: Active Insurance Policies Plan Name Member ID Group # Subscriber Relationship Effect quincy Dates 1 - [facility] [id number] Cesar Jerome 11/18/2019 - Unknown Clinical Notes Includes: Clinical Notes from this encounter No Clinical Notes Recorded
--- OUTSIDE RECORDS SUMMARY | 2024-09-01 12:08 | XMS_ITS | Clinical Summary ---
Author Organization [facility] Address [address] [place] [address] Phone Care Team Providers Care Staff Physician Name Role Phone Juan Carlos LOPEZ, Chriss Abarca Unavailable [phone] Chelle Lopez, Conrado Primary Care Provider [phone] Reason for Referral Date Encounter Description Provider [...] Documented On 0 1:37PM ; [facility] Joint Pain in the Right Hip 02/23/2020 Chriss Rangel MD Active Last Documented On 0 1:37PM ; [facility] Plan of Treatment Patient was seen by myself Mauri Cervantes PA-C. Patient will follow up 4 weeks we will give her a note to be off work, physical therapy she can stay out of the knee immobilizer will fit her with a hinged knee brace - Last Documented On 12/27/2021 2:03PM ; [facility] Pending Tests Order Diagnosis Results Due Ordering P rovider Therapy - Physical Therapy Knee 12/27/21 Mauri Cervantes PA-C Last Documented On 2 2:03PM ; [facility] Instructions to patient Lose weight Last Documented On 2 8:50AM ; [facility] Assessments Includes: Assessments from this encounter Findings Right knee sprain - Last Documented On 12/27/2021 2:03PM ; [facility], [facility] Instructions Includes: Instructions from this encounter Instructions to patient Lose weight Last Documented On 2 8:50AM ; [facility], [facility] Medical Equipment - Implanted Devices Includes: Current Devices No Medical Equipment Recorded Medications Includes: Medications discussed during this encounter and other current Medications Current Medications (continue as prescribed) Lantus 100 UNIT/ML Subcutaneous Solution 02/24/2020 Provider: Diagnosis: Last Documented On 0 3:42PM By Talia Ivory ; [facility] HumaLOG 100 UNIT/ML Subcutaneous Solution Cartridge Provider: Diagnosis: Last Documented On 0 3:42PM By Talia Ivory ; [facility], [facility] Ziac 10-6.25 MG Oral Tablet 02/24/2020 Provider: Diagnosis: Last Documented On 0 3:43PM By Talia Ivory ; [facility], [facility] amLODIPine Besylate 10 MG Oral Tablet 02/24/2020 Pro vider: Diagnosis: Last Documented On 0 3:43PM By Talia Ivory ; [facility] Pravastatin Sodium 10 MG Oral Tablet 02/24/2020 Prov ider: Diagnosis: Last Documented On 0 3:43PM By Talia Ivory ; [facility], [facility] Naprosyn 250 MG Oral Tablet 02/24/2020 Provider: Diagnosis: Last Documented On 0 3:43PM By Talia Ivory ; [facility], [facility] Aspirin 81 MG Oral Tablet 02/24/2020 Provider: Diagnosis: Last Documented On 0 3:44PM By Talia Ivory ; [facility], [facility] Medications Administered Includes: Administered Medications from this encounter No Administered Medications Recorded Vital Signs Includes: Vital Signs from this encounter Vital Name 12/27/2021 08:36A Blood Pressure Sitting R 196/102 Pulse Rate-Sitting (bpm) 63 Height (in) 63 Weight (lb) 203.2 Body Mass Index (kg/m2) 36.0 Body Surface Area (m2) 1.9 Note: Yessica Last Documented: On 12/27/2021 8:50AM ; [facility], [facility] Results Includes: Results discussed during this encounter [...] 12/27/2021 Last Documented On 2 2:03PM ; [facility], [facility] Recent change in diet diabetic 2 Last Documented On 2 2:03PM ; [facility], [facility] Non-smoker 12/27/2021 Last Documented On 2 2:03PM ; [facility], [facility] Caffeine use 02/24/2020 Last Documented On 2 8:36AM ; [facility], [facility] Exercising regularly 02/24/2020 Last Documented On 2 8:36AM ; [facility], [facility] No tobacco use 02/23/2020 Last Documented On 2 8:36AM ; [facility], [facility] Smoking status : Never smoker 02/23/2020 Last Documented On 2 8:36AM ; [facility], [facility] No recent change in diet 02/23/2020 Last Documented On 2 8:36AM ; [facility], [facility] Not a current smoker 02/23/2020 Last Documented On 2 8:36AM ; [facility], [facility] Not using alcohol 02/23/2020 Last Documented On 2 8:36AM ; [facility], [facility] Not using drugs 02/23/2020 Last Documented On 2 8:36AM ; [facility], [facility] Procedures and Surgical History Includes: Procedures from this encounter Procedures Code Diagnosis Performing Provider Service L ocation Service Date use of tobacco assessment performed 1000F Last Documented On 2 8:37AM ; [facility], [facility] referral to physician Last Documented On 2 8:50AM ; [facility], [facility] an X-ray was performed [facility] [id number] Last Documented On 2 9:17AM ; [facility], [facility] Surgical History Last Updated History of appendectomy 02/24/2020 Last Documented On 2 8:36AM ; [facility], [facility] History of hysterectomy 02/24/2020 Last Documented On 2 8:36AM ; [facility], [facility] Medical History Includes: Medical History addressed during this encounter Description Last Updated History of History of Heart Attack / Str javon 12/27/2021 Last Documented On 2 2:03PM ; [facility], [facility] History of Hypertension 12/27/2021 Last Documented On 2 2:03PM ; [facility] No recent immunization for flu 2 Last Documented On 2 2:03PM ; [facility] No recent immunization for pneumococcal pneumonia 12/27/2021 Last Documented On 2 2:03PM ; [facility], [facility] Gallbladder disease 02/24/2020 Last Documented On 2 8:36AM ; [facility], [facility] History of acute myocardial infarction 0 02/24/2020 Last Documented On 2 8:36AM ; [facility], [facility] History of diabetes mellitus 02/24/2020 Last Documented On 2 8:36AM ; [facility], [facility] History of heart disease 02/24/2020 Last Documented On 2 8:36AM ; [facility], [facility] Intermittent hypertension 02/24/2020 Last Documented On 2 8:36AM ; [facility], [facility] Family History Includes: Family History addressed during this encounter Description Last Updated Diabetes mellitus 12/27/2021 Last Documented On 2 2:03PM ; [facility], [facility] stroke/seizures 02/24/2020 Last Documented On 2 8:36AM ; [facility] Family history of diabetes mellitus 0 06/2020 Last Documented On 2 8:36AM ; [facility] Family history of heart disease 02/24/20 20 Last Documented On 2 8:36AM ; [facility] Family history of hypertension 0 Last Documented On 2 8:36AM ; [facility] Review of Systems Includes: Review of [...] Active Last Documented On 2 8:36AM ; [facility] Sudafed Allergy 02/24/2020 Active Last Documented On 2 8:36AM ; [facility], [facility] nickel allergy Allergy 02/24/2020 Acti ve Last Documented On 2 8:36AM ; [facility], [facility] Encounters Encounter Provider Location Date Check-In Time Check-Out Time Diagnosis NEW PROBLEM/EST PT Mauri Cervantes PA-C [facility] 12/27/19 22 8:43AM 9:15AM Insurance Includes: Active Insurance Policies Plan Name Member ID Group # Subscriber Relationship Effect quincy Dates 1 - [facility] [id number] Cesar Jerome 11/18/2019 - Unknown Clinical Notes Includes: Clinical Notes from this encounter No Clinical Notes Recorded
--- OUTSIDE RECORDS SUMMARY | 2024-09-01 12:08 | XMS_ITS | Clinical Summary ---
Author Organization [facility] Address [address] [place] [address] Phone Care Team Providers Care Fiberglass Finisher Name Role Phone Juan Carlos LOPEZ, Chriss Abarca Unavailable [phone] Conrado Corbett Md Primary Care Provider [phone] Reason for Visit and Chief Complaint BRACE [...] Documented On 0 1:37PM ; [facility] Plan of Treatment No [...] Documented On 0 3:42PM By Talia [facility] HumaLOG 100 UNIT/ML Subcutaneous Solution Cartridge Provider: Diagnosis: Last Documented On 0 3:42PM By Talia [facility] Ziac 10-6.25 MG Oral Tablet 02/24/2020 Provider: Diagnosis: Last Documented On 0 3:43PM By Talia [facility] amLODIPine Besylate 10 MG Oral Tablet 02/24/2020 Pro vider: Diagnosis: Last Documented On 0 3:43PM By Talia Ivory ; [facility], [facility] Pravastatin Sodium 10 MG Oral Tablet 02/24/2020 Prov ider: Diagnosis: Last Documented On 0 3:43PM By Talia Ivory ; [facility], [facility] Naprosyn 250 MG Oral Tablet 02/24/2020 Provider: Diagnosis: Last Documented On 0 3:43PM By Talia Ivory ; [facility], [facility] Aspirin 81 MG Oral Tablet 02/24/2020 Provider: Diagnosis: Last Documented On 0 3:44PM By Talia Ivory ; [facility], [facility] Medications Administered Includes: Administered [...] Active Last Documented On 2 8:36AM ; [facility], [facility] Sudafed Allergy 02/24/2020 Active Last Documented On 2 8:36AM ; [facility], [facility] nickel allergy Allergy 02/24/2020 Acti ve Last Documented On 2 8:36AM ; [facility], [facility] Insurance Includes: Active Insurance Policies Plan Name Member ID Group # Subscriber Relationship Effect quincy Dates 1 - [employer] [place] [id number] Cesar Jerome 11/18/2019 - Unknown Clinical Notes Includes: Clinical Notes from this encounter No Clinical Notes Recorded
== END 2024-08-29 15:52 | disposition home or self-care (01) | DRG 872 ==
LOC: ER 21:50 → 2ND 21:54
PROVIDERS: Nurse Practitioner Family; Admitting Provider Internal Medicine Adolescent Medicine; Emergency Provider Student in an Organized Health Care Education/Training Program; PCP Family Medicine; Visit Provider Internal Medicine Adolescent Medicine
DX: A41.50 Gram-negative sepsis, unspecified (principal); N17.9 Acute kidney failure, unspecified; N39.0 Urinary tract infection, site not specified; E11.9 Type 2 diabetes mellitus without complications; I10 Essential (primary) hypertension; E78.5 Hyperlipidemia, unspecified; Z79.4 Long term (current) use of insulin; K21.9 Gastro-esophageal reflux disease without esophagitis; R65.20 Severe sepsis without septic shock
CPT/HCPCS: 36569; 36415; 71045; 74177; 80053; 81001; 82803; 82962; 83036; 83605; 83690; 83735; 84703; 85007; 85025; 85027; 86803; 87040; 87077; 87086; 87088; 87186; 87389; 93005; 99285; C1751; J0696; J1650; J1790; J1885; J2185; J2270; J2405; J2550; J3475; J7030; J7120; Q9967

== ENCOUNTER 2024-09-01 12:36 | Outpatient (CLI) | payer BC, SELFPAY ==
[2024-09-01 12:48] VITALS: BMI 33.6
[2024-09-01 13:02] LABS: Chloride 105 mmol/L (98-107); Sodium 138 mmol/L (136-145)
[2024-09-01 13:05] LABS: Blood Urea Nitrogen 11 mg/dl (7-17); Calcium 9.5 mg/dl (8.4-10.2); Carbon Dioxide 27 mmol/L (22.0-30.0); Creatinine Clearance Estimated 95 mL/min (50-200); Estimated Glomerular Filt Rate 65 ml/min (>60); GFR (African American) 78 ML/MIN (>60); Glucose 104 mg/dl (74-100)
--- NOTE | 2024-09-08 11:21 | SW/DCPLANNER ---
I called and spoke w/ patient regarding PICC line. Patient will return o outpatient services at [facility] to have PICC line removed.
== END 2024-09-01 13:12 | disposition home or self-care (01) ==
LOC: INF 12:37
PROVIDERS: PCP Family Medicine; Visit Provider Internal Medicine Adolescent Medicine
DX: R78.81 Bacteremia (principal)
CPT/HCPCS: 36592; 80048

== ENCOUNTER 2024-09-08 12:47 | Outpatient (CLI) | payer BC, SELFPAY ==
[2024-09-08] MEDS: NEOSPORIN OINTMENT 0.9GM UDP 1 EACH TP (13:07)
== END 2024-09-08 13:05 | disposition home or self-care (01) ==
LOC: INF 12:47
PROVIDERS: PCP Family Medicine; Visit Provider Internal Medicine Adolescent Medicine
DX: R78.81 Bacteremia (principal)
CPT/HCPCS: G0463

== ENCOUNTER 2025-01-27 08:39 | Inpatient (IN) | payer BC, SELFPAY ==
[2025-01-27] VITALS (10 sets, daily range): BP systolic 121–163; BP diastolic 56–81; PULSE 69–107; RESP 16–20; TEMP 36.9–37.9; O2SAT 94–97; BMI 27.4
--- NOTE | 2025-01-27 08:44 | PC.NURSE ---
BS IS 245 @[id number].
--- NOTE | 2025-01-27 08:47 | ECG_ITS ---
APPROVED REPORT Exam: Resting ECG HR:105 bpm ECG Measurements Heart Rate 105 AXES SC 162 P -50 QRSd 83 QRS 1 QT 330 T 71 QTc 391 Conclusion Sinus TACHYCARDIA NONSPECIFIC ST & T-WAVE ABNORMALITY No STEMI Electronically signed by : GOOD [place]S, 01/28/2025 07:38:36
--- NOTE | 2025-01-27 08:54 | XR_ITS ---
FINAL REPORT TECHNIQUE: Chest PA & Lateral CLINICAL HISTORY: Cough COMPARISON: 08/29/2024 FINDINGS: 2 views of the chest were performed. The heart size is normal. The mediastinum is within normal limits. There is no acute cardiopulmonary process. There are no pleural effusions. There is no pneumothorax. The bony thorax appears intact. IMPRESSION: No acute cardiopulmonary process. Reviewed, Interpreted and Dictated by Roman Ornelas MD Transcribed by Nelli Kemp Authenticated and [facility]
[2025-01-27 08:55] LABS: Coronavirus 19, PCR Not Detected (NotDetected); Influenza A, PCR Not Detected (NotDetected); Influenza B, PCR Not Detected (NotDetected)
--- NOTE | 2025-01-27 08:56 | ED_ITS ---
Discharge Plan Disposition Patient Disposition: Admitted Clinical Impressions Clinical Impression: Pyelonephritis, Sepsis Discharge ED Provider: Marlo Hernandez General Adult HPI General Chief complaint: Nausea/Vomiting/Diarrhea Stated complaint: vomiting, dizziness, fever, high Blood sugar Time Seen by Provider: 01/27/25 08:46 Mode of Arrival: Ambulatory Source of Information: Patient Description of Symptoms (Recalled from ER Triage Doc. by RN): Patient reports vomiting, dizzy, high temp and high blood glucose. History of Present Illness HPI narrative: Gail Jerome is a 55y female with a history of insulin-dependent diabetes mellitus, hypertension, hyperlipidemia, UTI/pyelonephritis who presents to the emergency department for complaints of nausea and vomiting. Patient states that starting at the beginning of this week, she has been feeling somewhat ill but began developing nausea and vomiting x 6 last night that is nonbilious and nonbloody. She reports some generalized abdominal discomfort. Over this time period, she also reports a deep cough that is nonproductive. She notes that her has had a cough recently. She reports objective fevers at home and nasal congestion. She denies any chest pain. She reports that last week she was diagnosed with a kidney infection and has been treated with Macrobid. She denies any dysuria or hematuria but states that her urine has been frothy. She states that she has not been able to keep food or liquid down since last night and is worried that she might have a kidney injury or dehydration. Patient states that since she has been on the Macrobid, her blood sugar has been high. She states that she is not taking steroids. She did not take her insulin this morning as she did not want to bottom herself out . Related Data Home Medications ?Medication ?Instructions ?Recorded ?Confirmed amlodipine 10 mg tablet 10 mg PO DAILY 04/11/21 01/27/25 atorvastatin 40 mg tablet 40 mg PO DAILY 04/11/21 01/27/25 blood sugar diagnostic #10 isidro 04/11/21 01/27/25 flash glucose sensor #1 isidro 04/11/21 01/27/25 omeprazole 40 mg capsule,delayed 40 mg PO DAILY 04/11/21 01/27/25 release pen needle, diabetic 32 gauge x #50 isidro 04/11/21 01/27/25/ lisinopril 40 mg tablet 40 mg PO DAILY 05/22/24 01/27/25 meloxicam 15 mg tablet 15 mg PO DAILY 05/22/24 01/27/25 methocarbamol 750 mg tablet 750 mg PO TIDP PRN MUSCLE SPASMS 05/22/24 01/27/25 bisoprolol 10 1 tab PO DAILY 08/28/24 01/27/25 mg-hydrochlorothiazide 6.25 mg tablet insulin glargine U-300 conc 300 130 unit SQ DAILY 01/27/25 01/27/25 unit/mL (3 mL) subcutaneous pen (Toujeo Max U-300 SoloStar) methenamine hippurate 1 gram tablet 1 g PO BIDWMEAL 01/27/25 01/27/25 nitrofurantoin 100 mg PO BID 01/27/25 01/27/25 monohydrate/macrocrystals 100 mg capsule tirzepatide 7.5 mg/0.5 mL 7.5 mg SQ WEEKLY 01/27/25 01/27/25 subcutaneous pen injector (Mounjaro) Allergies Allergy/AdvReac Type Severity Reaction Status Date / Time bupropion Allergy Mild Hives Verified 01/27/25 09:05 pregabalin (From Lyrica) Allergy Mild Hallucinati Verified 01/27/25 09:05 ng pseudoephedrine Allergy Mild Hives Verified 01/27/25 09:05 PFSH [facility] Disclaimer: The information contained in this section may have been updated after the patient was seen, as this information can be updated by other users. Medical History GERD (gastroesophageal reflux disease) Diabetes mellitus, type 2 Hyperlipidemia Hypertension Exposure to COVID-19 virus Surgical History History of tonsillectomy History of hysterectomy History of section History of cholecystectomy History of appendectomy Social History (Updated 01/27/25 @ 13:23 by Noy Griffith RN) Smoking Status: Never smoker alcohol intake: never substance use type: denies use current occupational status: other Travel in the last 8 weeks: None household members: family housing: house Have you lived/traveled outside [place] in past 30 days?: No Contact w/someone who lives/traveled outside US past 30 days?: No Exposure to someone with infectious disease in past 14 days?: No Do you have a fever (greater than 100.4 F or 38 C)?: No Have you tested positive for COVID-19: No Exposed to someone with COVID-19 in past 14 days?: No Do you have a sore throat?: No Do you have a cough?: No Do you have any weakness?: Yes Are you experiencing any nausea/vomitting?: Yes Do you have any diarrhea?: Yes Are you experiencing any unusual bleeding?: No Do you have any muscle aches/pain?: No Do you have any abdominal pain?: No Are you experiencing loss of taste or smell?: No Other Medical History Have you received the Flu Vaccine for this season: No Have you received the Pneumonia Vaccine: No ROS Obtained: Yes Systems reviewed as appropriate & no additional complaints except as documented Physical Exam General General appearance: alert and in no apparent distress Head Head exam: atraumatic Eye Eye exam: Present normal appearance ENT ENT exam: Present normal external ear exam Neck Neck exam: Present full ROM Chest Chest inspection: Present symmetric chest wall rise Respiratory Respiratory exam: Present normal lung sounds bilaterally; Absent respiratory distress Cardiovascular Cardiovascular exam: Present regular rate and normal rhythm Abdominal Exam Abdominal exam: Present soft and tenderness (Mild left lower quadrant); Absent distention or guarding Extremities Exam Extremities exam: Present normal inspection Back Exam Back exam: Present normal inspection Neurological Exam Neurological exam: Present alert and oriented X3 Psychiatric Psychiatric exam: Present normal affect Skin Skin exam: Present warm and dry Medical Decision Making Medical Records Screening: Per USPSTF and CDC recommendations, given the prevalence of disease in our region, it is our hospital?s policy to screen for HIV and viral Hepatitis for all patients aged 18 and over and those with ongoing risk factors. Milo Inquiry Pt receiving controlled substance: No Vital Signs: 01/27/25 08:46 01/27/25 09:00 01/27/25 09:30 Temperature 100.2 F H Temperature Source Oral Pulse Rate 105 H 102 H Pulse Rate [Radial] 107 H Respiratory Rate 16 Blood Pressure 148/78 H 163/77 H Blood Pressure [Right Arm] 160/75 H Blood Pressure Mean 101 105 Blood Pressure Mean [Right Arm] 103 Blood Pressure Source [Right Arm] Automatic Cuff Blood Pressure Position [Right Arm] Sitting 02 Sat by Pulse Oximetry 96 96 96 Oxygen Delivery Method Room Air 01/27/25 10:01 01/27/25 10:30 01/27/25 11:00 Temperature Temperature Source Pulse Rate 99 H 89 76 Pulse Rate [Radial] Respiratory Rate Blood Pressure 121/56 L 139/59 L 137/57 L Blood Pressure [Right Arm] Blood Pressure Mean Blood Pressure Mean [Right Arm] Blood Pressure Source [Right Arm] Blood Pressure Position [Right Arm] 02 Sat by Pulse Oximetry 95 96 95 Oxygen Delivery Method Room Air Room Air Room Air 01/27/25 11:30 01/27/25 12:00 01/27/25 12:54 Temperature Temperature Source Pulse Rate 86 78 Pulse Rate [Radial] Respiratory Rate Blood Pressure 154/81 H 127/61 Blood Pressure [Right Arm] Blood Pressure Mean 101 83 Blood Pressure Mean [Right Arm] Blood Pressure Source [Right Arm] Blood Pressure Position [Right Arm] 02 Sat by Pulse Oximetry 97 95 Oxygen Delivery Method Room Air 01/27/25 13:00 01/27/25 13:05 Temperature 98.5 F Temperature Source Pulse Rate 84 Pulse Rate [Radial] Respiratory Rate 20 Blood Pressure 129/69 Blood Pressure [Right Arm] Blood Pressure Mean Blood Pressure Mean [Right Arm] Blood Pressure Source [Right Arm] Blood Pressure Position [Right Arm] 02 Sat by Pulse Oximetry Oxygen Delivery Method Room Air Room Air Lab Data Lab Results 01/27/25 08:43: SARS-CoV-2 (PCR) Not detected, Influenza A Untype (PCR) Not detected, Influenza Type B (PCR) Not detected 01/27/25 09:06: WBC 16.2 H, RBC 4.52, Hgb 11.8 L, Hct 35.7 L, MCV 79.0 L, MCH 26.1 L, MCHC 33.1, RDW 12.3, Plt Count 164, MPV 10.4, Neut % (Auto) 92.6 H, L ymph % (Auto) 2.7 L, [place] % (Auto) 3.8, Eos % (Auto) 0.0 L, Baso % (Auto) 0.3, N eut # (Auto) 15.0 H, Lymph # (Auto) 0.4 L, [place] # (Auto) 0.6, Eos # (Auto) 0.0, Baso # (Auto) 0.1, Total Counted 100, Neutrophils % (Manual) 97 H, Lymphocytes % (Manual) 1 L, Monocytes % (Manual) 2, Platelet Estimate Normal, RBC Morphology Normal, VBG pH 7.48 H, VBG pCO2 26.8 L, VBG pO2 161.7 H, VBG HCO3 19.5 L, VBG Total CO2 20.3 L, VBG O2 Saturation 99.1 H, VBG Base Excess -4.1 L, VBG Lactic Acid 1.6, Sodium 135 L, Potassium 3.9, Chloride 103, Carbon Dioxide 21 L, Anion Gap 14.9, BUN 23 H, Creatinine 1.20 H, Estimated Creat Clear 59, Estimated GFR 46 L, Est GFR ( Amer) 56 L, Glucose 235 H, Calcium 9.1, Total Bilirubin 1.1, AST 26, ALT 23, Alkaline Phosphatase 84, Troponin I 0.03, Total Protein 6.6, Albumin 4.4, Globulin 2.2, Albumin/Globulin Ratio 2.0 H, Lipase 105 01/27/25 10:00: D-Dimer 0.85 H 01/27/25 10:08: Urine Color Yellow, Urine Appearance Clear, Urine pH 6.0, Ur Specific [place] 1.025, Urine Protein >=300, Urine Glucose (UA) Negative, Urine Ketones Trace, Urine Blood 2+ A, Urine Nitrate Negative, Urine Bilirubin Trace, Urine Urobilinogen 0.2, Ur Leukocyte Esterase Negative, Urine RBC 20-50, Urine WBC 3-5, Ur Squamous Epith Cells 5-10, Urine Bacteria Trace 01/27/25 11:07: Troponin I 0.05 H 01/27/25 09:06 01/27/25 09:06 Orders (Tests/Meds): ED MEDICATIONS Generic Name Dose Route Start Last Admin Trade Name Freq PRN Reason Stop Dose Admin Lactated Ringer's 1,000 mls @ 125 mls/hr 01/27/25 14:45 Lactated Ringer's 1000 Ml Bag IV 02/26/25 14:44 .Q8H YOBANY Sodium Chloride 10 ml 01/27/25 14:34 Sodium Chloride 0.9% 10ml Flush Syringe IV 02/26/25 14:33 NEEDED PRN Maintain IV Site Discontinued Medications Generic Name Dose Route Start Last Admin Trade Name Freq PRN Reason Stop Dose Admin Acetaminophen 1,000 mg 01/27/25 12:19 01/27/25 12:56 Acetaminophen 500mg Tab PO 01/27/25 12:20 1,000 mg ONCE ONE Administration Lactated Ringer's 1,000 mls @ 999 mls/hr 01/27/25 08:54 01/27/25 09:07 Lactated Ringer's 1000 Ml Bag IV 01/27/25 09:54 999 mls/hr .Q1H1M ONE Administration Meropenem 1 gm/ Sodium 100 mls @ 100 mls/hr 01/27/25 12:18 01/27/25 12:55 Chloride IV 01/27/25 12:19 100 mls/hr ONCE ONE Administration Iopamidol 80 ml 01/27/25 10:43 01/27/25 10:50 Iopamidol-370 (76%);100ml Bottle IV 01/27/25 10:44 80 ml ONCE ONE Administration Ondansetron HCl 4 mg 01/27/25 08:54 01/27/25 09:07 Ondansetron 4mg/2ml Vial IV 01/27/25 08:55 4 mg ONCE ONE Administration Sodium Chloride 10 ml 01/27/25 10:43 01/27/25 10:49 Sodium Chloride 0.9% 10ml Syr (Rad Only) IV 01/27/25 10:44 10 ml ONCE ONE Administration Sodium Chloride 50 ml 01/27/25 10:43 01/27/25 10:49 0.9 % Sodium Chloride 50 Ml Vial IV 01/27/25 10:44 50 ml ONCE ONE Administration ORDERS Category Date Time Status CT abdomen pelvis w con Stat Cat Scan 01/27/25 10:[address] angio chest PE protocol Stat Cat Scan 01/27/25 10:30 Completed CXR 2 view (NOT portable) [XR chest 2V] Stat Exams 01/27/25 08:54 Completed CBC w/Auto Diff [Complete Blood Count Auto Diff] Stat Lab 01/27/25 09:06 Completed CMP [Comprehensive Metabolic Panel] Stat Lab 01/27/25 09:06 Completed D-Dimer Stat Lab 01/27/25 10:00 Completed Lipase Stat Lab 01/27/25 09:06 Completed Rapid PCR Covid and Flu A/B Stat Lab 01/27/25 08:43 Completed Troponin I Q3H Lab 01/27/25 11:07 Completed Troponin I Q3H Lab 01/27/25 15:00 Completed Troponin I Stat Lab 01/27/25 09:06 Completed UA [Urinalysis and Microscopic] Stat Lab 01/27/25 10:08 Completed Blood Culture Stat Micro 01/27/25 12:53 Received VBG [Venous Blood Gas] Stat RT 01/27/25 09:06 Completed ECG Data Tracing #1: I reviewed this ECG and interpreted as documented below: EKG demonstrated sinus tachycardia with ventricular to the [address] elevation or depression. QTc normal at 391. MI interval normal at 162. Medical Decision Narrative: Gail Jerome is a 55y female with a history of insulin-dependent diabetes mellitus, hypertension, hyperlipidemia, UTI/pyelonephritis who presents to the emergency department for complaints of nausea and vomiting. Patient states that starting at the beginning of this week, she has been feeling somewhat ill but began developing nausea and vomiting x 6 last night that is nonbilious and nonbloody. She reports some generalized abdominal discomfort. Over this time period, she also reports a deep cough that is nonproductive. She notes that her has had a cough recently. She reports objective fevers at home and nasal congestion. She denies any chest pain. She reports that last week she was diagnosed with a kidney infection and has been treated with Macrobid. She denies any dysuria or hematuria but states that her urine has been frothy. She states that she has not been able to keep food or liquid down since last night and is worried that she might have a kidney injury or dehydration. On arrival, patient is hypertensive with blood pressure 160/75, mildly tachycardic with heart rate of 107 bpm. Mildly febrile with temperature of 100.2 ?F. Breathing comfortably on room air with oxygen saturation 96% SpO2. Physical exam, as stated above, revealed an ill but nontoxic-appearing female. She has nasal congestion but lungs are clear bilaterally. She has no murmurs on cardiac exam. Abdomen is soft and mildly tender in the left lower quadrant without guarding or rebound. She has no peripheral edema. Differential diagnosis includes, but is not limited to: Influenza/COVID, pneumonia, UTI, sepsis, FELICITAS, electrolyte derangement, ACS, DKA, pulmonary embolism, among others. Workup in the emergency department included: 2 view chest x-ray, EKG, troponin CBC, CMP, lipase, UA, rapid COVID/flu testing, VBG, lactic acid, D-dimer. Patient's symptoms were treated with 1 L lactated ringer and 4 mg of IV Zofran. Chest x-ray interpreted by me personally prior to official radiology read demonstrated no focal consolidations, no pneumothorax, no widening of the mediastinum. Cardiac silhouette does not appear enlarged. Labs demonstrated mildly elevated D-dimer of 0.8, leukocytosis of 16,000, With neutrophilia with neutrophilia, VBG with no acidosis and lactate normal at 1.6. Mild hyponatremia with sodium 135. Creatinine 1.2 (but appears close to baseline), BUN mildly elevated 23. Liver enzymes within normal limits. Initial troponin 0.03, will get repeat troponin. Lipase normal at 105. COVID and flu testing negative. Urine [] Given the patient's mildly elevated D-dimer in the setting of tachycardia, will get CT PE at this time to rule out pulmonary embolism and evaluate other infectious sources further. Will also obtain CT abdomen pelvis with IV contrast to evaluate for any other infectious source given her abdominal pain and recent UTI, such as pyelonephritis. Repeat troponin only mildly elevated from previous at 0.05. CT imaging was interpreted by me personally. Patient has stranding around her right kidney suggestive of pyelonephritis. She has an atrophic left kidney, which patient notes is chronic. She does not have any evidence of pneumonia or PE on CT of the chest. Based on previous records, UTIs in the past have showed Enterobacter that has been resistant to multiple organisms but is susceptible to meropenem. Given patient appears septic with elevated white count, tachycardia and fever in the setting of pyelonephritis, will treat with IV 1 g meropenem and discussed with hospital medicine regarding admission. I spoke with Dr. Juares, the hospitalist, who agreed to admit the patient. Critical Care Critical Care Time Critical Care Time: Yes Attestation: On 01/27/25, the high probability of a clinically significant, sudden or life threatening deterioration of the following system(s) required my full and direct attention, intervention and personal management. The time I documented below is in addition to time spent performing reported procedures but includes the following listed in this critical care notation. Total Time Total Critical Care Time: 35
[2025-01-27] MEDS: LACTATED RINGERS 1000ML 1,000 ML 999 ML IV (09:07)
[2025-01-27] MEDS: ONDANSETRON 4MG/2ML VIAL 4 MG IV (09:07)
[2025-01-27 09:13] LABS: Basophils # 0.1 K/mm3 (0-0.2); Basophils % 0.3 % (0.1-2.0); Hematocrit 35.7 % (37.0-47.0); Hemoglobin 11.8 g/dL (12.2-16.2); Lactate Venous 1.6 mmol/L (0.4-2.0); Lymphocytes # 0.4 K/mm3 (0.7-4.5); Lymphocytes % 2.7 % (10-50); Mean Corpuscular HGB Conc 33.1 g/dL (31.8-35.4); Mean Corpuscular Hemoglobin 26.1 pg (27.0-31.2); Mean Platelet Volume 10.4 fl (7.4-10.4); Monocytes # 0.6 K/mm3 (0.1-1.0); Monocytes % 3.8 % (1.7-9.3); Neutrophils % 92.6 % (37.0-80.0); Platelet Count 164 K/mm3 (142-424); Red Blood Count 4.52 M/mm3 (4.20-5.40); Red Cell Distribution Width 12.3 % (11.5-17.5); VBG Base Excess -4.1 mmol/L (-2.4-2.3); VBG HCO3 19.5 mmol/L (23-30); VBG Oxygen Saturation 99.1 % (50-70); VBG PCO2 26.8 mmol/L (35-51); VBG PH 7.48 mmol/L (7.31-7.41); VBG PO2 161.7 mmol/L (28-40); VBG Total CO2 20.3 mmol/L (23-27); White Blood Count 16.2 K/mm3 (4.8-10.8)
[2025-01-27 09:19] LABS: MANUAL DIFFERENTIAL MANUAL DIFFERENTIAL (MANUAL DIFF)
[2025-01-27 09:38] LABS: Lymphocytes % 1 % (10-50); Monocytes % 2 % (2-9); Neutrophils % 97 % (42-76); Platelet Estimate Normal; RBC Morphology Normal; Total Cells Counted 100
[2025-01-27 09:56] LABS: Alanine Aminotransferase 23 U/L (12-78); Albumin Level 4.4 g/dl (3.5-5.0); Alkaline Phosphatase 84 U/L (38-126); Anion Gap 14.9 mEq/L (5-15); Aspartate Amino Transferase 26 U/L (14-36); Bilirubin,Total 1.1 mg/dl (0.2-1.3); Blood Urea Nitrogen 23 mg/dl (7-17); Calcium 9.1 mg/dl (8.4-10.2); Carbon Dioxide 21 mmol/L (22.0-30.0); Chloride 103 mmol/L (98-107); Creatinine Clearance Estimated 59 mL/min (50-200); Estimated Glomerular Filt Rate 46 ml/min (>60); GFR (African American) 56 ML/MIN (>60); Glucose 235 mg/dl (74-100); Lipase 105 U/L (23-300); Potassium 3.9 mmoL/L (3.5-5.1); Sodium 135 mmol/L (136-145)
--- NOTE | 2025-01-27 10:02 | PC.NURSE ---
PT ASSISTED TO BR
[2025-01-27 10:08] LABS: Troponin I 0.03 ng/ml (0.00-0.034)
[2025-01-27 10:12] LABS: Microscopic, Urine URINE MICROSCOPIC (MICROSCOPIC)
[2025-01-27 10:20] LABS: D-Dimer 0.85 ug/mL (0.0-0.5)
--- NOTE | 2025-01-27 10:30 | CT_ITS ---
FINAL REPORT TECHNIQUE: Postcontrast axial images of the chest were performed in a CTA protocol. This study was performed with techniques to keep radiation doses as low as reasonably achievable, (ALARA). Individualized dose reduction technique using automated exposure control or adjustment of mA and/or kV according to the patient's size were employed. CLINICAL HISTORY: Cough, tachycardia, elevated D-dimer FINDINGS: The heart is normal in size. No adenopathy is identified. No pleural or pericardial effusion is identified. The thoracic aorta is normal in caliber with no focal aneurysm or dissection identified. There is no filling defect to suggest pulmonary embolism. No lung infiltrate or mass is identified. IMPRESSION: No evidence for PE on this exam. Reviewed, Interpreted and Dictated by Roman Ornelas MD Transcribed by Chata Bello Authenticated and [facility]
--- NOTE | 2025-01-27 10:30 | CT_ITS ---
FINAL REPORT TECHNIQUE: After the administration of intravenous contrast, axial images were obtained through the abdomen and pelvis by computed tomography. This study was performed with technique to keep radiation doses as low as reasonably achievable, (ALARA). Individualized dose reduction techniques using automated exposure control or adjustment of the MA and/or KV according to the patient's size were employed. CLINICAL HISTORY: LLQ abdominal pain, fever COMPARISON: 08/27/2024 FINDINGS: Abdomen: There is hepatosplenomegaly with the liver measuring 18 cm and spleen measuring 14 cm. Liver is fatty infiltrated. Patient is status postcholecystectomy. The adrenals are normal. The pancreas is unremarkable. The left kidney is nodular with an irregular cortex which could be related to old infarcts or old pyelonephritis. There are multiple segmental hypoenhancing regions in the right kidney highly concerning for acute pyelonephritis. This is best seen on images 33-58 of series 10. The aorta is normal in caliber. There is no free fluid or adenopathy. Pelvis: The appendix is not identified. The urinary bladder is unremarkable. There is no free fluid. There is left inguinal adenopathy measuring up to 3.0 cm in craniocaudad dimension of uncertain etiology. IMPRESSION: Mild hepatosplenomegaly. Hypoenhancing defect in the right kidney concerning for acute pyelonephritis. Nodular left kidney which may be related to old pyelonephritis or infarcts. Left inguinal adenopathy of uncertain etiology. Reviewed, Interpreted and Dictated by Roman Ornelas MD Transcribed by Chata Bello Authenticated and [facility]
[2025-01-27 10:47] LABS: Globulin 2.2 g/dL (1.3-3.2); Total Protein,Serum 6.6 g/dl (6.3-8.2)
[2025-01-27] MEDS: SODIUM CHLORIDE 0.9% 10ML SYR (RAD ONLY) 10 ML IV (10:49)
[2025-01-27] MEDS: 0.9 % SODIUM CHLORIDE 50 ML VIAL IV (10:49)
[2025-01-27] MEDS: IOPAMIDOL-370 (76%);100ML BOTTLE 80 ML IV (10:50)
[2025-01-27 11:19] LABS: Appearance,Urine Clear (Clear); Color,Urine Yellow (Yellow); Protein,Urine >=300 (Negative); Specific Gravity, Urine 1.025 (1.005-1.030)
[2025-01-27 11:20] LABS: Bilirubin,Urine Trace (Negative); Blood, Urine 2+ (Negative); Glucose,Urine (UA) Negative (Negative); Ketones,Urine Trace (Negative); Leukocyte Esterase,Urine Negative (Negative); Nitrate,Urine Negative (Negative); Urobilinogen,Urine 0.2 EU/dl (0.2)
[2025-01-27 11:24] LABS: Bacteria,Urine Trace /lpf; RBC,Urine 20-50 #/hpf (0-3)
[2025-01-27 11:35] LABS: Troponin I 0.05 ng/ml (0.00-0.034)
--- NOTE | 2025-01-27 12:43 | P.HP_ITS ---
History of Present Illness *Admission Date: 01/27/25 *Reason for visit:: Intractable nausea/vomiting *History of present illness: Gail Jerome is a 55-year-old female with a medical history significant for recurrent multidrug-resistant UTIs/pyelonephritis, hypertension, type 2 diabete s, GERD who presents with 1 week onset of worsening nausea/vomiting. She states she had been treated for a UTI and February with Macrobid for 10 days which somewhat improved symptoms. However, over the past week patient has had increased urinary frequency but states she never has dysuria. Also reports fever 102.7 Fahrenheit at home, but denies chest pain, abdominal pain, constipation/diarrhea. Workup in the ED significant for WBC 16.2, creatinine 1.2 (baseline 0.90), troponin 0.05, UA with hematuria. CT abdomen/pelvis suggestive of acute right pyelonephritis. Patient has been hospitalized multiple times in the last year for MDR UTIs, most recent urine culture in August 2024 showing Enterobacter cloacae sensitive to carbapenems, Bactrim. Case discussed with ED provider and decision was made to admit patient for sepsis secondary to pyelonephritis, multidrug-resistant UTI, FELICITAS, intractable nausea/vomiting. [facility] Disclaimer: The information contained in this section may have been updated after the patient was seen, as this information can be updated by other users. Medical History GERD (gastroesophageal reflux disease) Diabetes mellitus, type 2 Hyperlipidemia Hypertension Exposure to COVID-19 virus Surgical History History of tonsillectomy History of hysterectomy History of section History of cholecystectomy History of appendectomy Social History (Updated 01/27/25 @ 13:23 by Noy Griffith RN) Smoking Status: Never smoker alcohol intake: never substance use type: denies use current occupational status: other Travel in the last 8 weeks: None household members: family housing: house Have you lived/traveled outside US in past 30 days?: No Contact w/someone who lives/traveled outside US past 30 days?: No Exposure to someone with infectious disease in past 14 days?: No Do you have a fever (greater than 100.4 F or 38 C)?: No Have you tested positive for COVID-19: No Exposed to someone with COVID-19 in past 14 days?: No Do you have a sore throat?: No Do you have a cough?: No Do you have any weakness?: Yes Are you experiencing any nausea/vomitting?: Yes Do you have any diarrhea?: Yes Are you experiencing any unusual bleeding?: No Do you have any muscle aches/pain?: No Do you have any abdominal pain?: No Are you experiencing loss of taste or smell?: No Other Medical History Have you received the Flu Vaccine for this season: No Have you received the Pneumonia Vaccine: No Meds Home Medications and Allergies Home Medications ?Medication ?Instructions ?Recorded ?Confirmed ?Type amlodipine 10 mg tablet 10 mg PO DAILY 04/11/21 01/27/25 History atorvastatin 40 mg tablet 40 mg PO DAILY 04/11/21 01/27/25 History blood sugar diagnostic #10 ea 04/11/21 01/27/25 History flash glucose sensor #1 ea 04/11/21 01/27/25 History omeprazole 40 mg capsule,delayed 40 mg PO DAILY 04/11/21 01/27/25 History release pen needle, diabetic 32 gauge x #50 ea 04/11/21 01/27/25 History 1/4 lisinopril 40 mg tablet 40 mg PO DAILY 05/22/24 01/27/25 History meloxicam 15 mg tablet 15 mg PO DAILY 05/22/24 01/27/25 History methocarbamol 750 mg tablet 750 mg PO TIDP PRN MUSCLE SPASMS 05/22/24 01/27/25 History bisoprolol 10 1 tab PO DAILY 08/28/24 01/27/25 History mg-hydrochlorothiazide 6.25 mg tablet insulin glargine U-300 conc 300 130 unit SQ DAILY 01/27/25 01/27/25 History unit/mL (3 mL) subcutaneous pen (Toujeo Max U-300 SoloStar) methenamine hippurate 1 gram tablet 1 g PO BIDWMEAL 01/27/25 01/27/25 History nitrofurantoin 100 mg PO BID 01/27/25 01/27/25 History monohydrate/macrocrystals 100 mg capsule tirzepatide 7.5 mg/0.5 mL 7.5 mg SQ WEEKLY 01/27/25 01/27/25 History subcutaneous pen injector (Mounjaro) New Prescriptions to Start Prescriptions: Allergies Allergy/AdvReac Type Severity Reaction Status Date / Time bupropion Allergy Mild Hives Verified 01/27/25 09:05 pregabalin (From Lyrica) Allergy Mild Hallucinati Verified 01/27/25 09:05 ng pseudoephedrine Allergy Mild Hives Verified 01/27/25 09:05 Exam Data for Last 24 hours Vital signs and Labs for Last 24 Hours: Temp Pulse Resp BP Pulse Ox O2 Del Method 100.2 F H 78 16 127/61 95 Room Air 01/27/25 08:46 01/27/25 12:00 01/27/25 08:46 01/27/25 12:00 01/27/25 12:00 01/27/25 11:00 Laboratory Results - last 24 hr 01/27/25 08:43: SARS-CoV-2 (PCR) Not detected, Influenza A Untype (PCR) Not detected, Influenza Type B (PCR) Not detected 01/27/25 09:06: WBC 16.2 H, RBC 4.52, Hgb 11.8 L, Hct 35.7 L, MCV 79.0 L, MCH 26.1 L, MCHC 33.1, RDW 12.3, Plt Count 164, MPV 10.4, Neut % (Auto) 92.6 H, Lymph % (Auto) 2.7 L, [place] % (Auto) 3.8, Eos % (Auto) 0.0 L, Baso % (Auto) 0.3, Neut # (Auto) 15.0 H, Lymph # (Auto) 0.4 L, [place] # (Auto) 0.6, Eos # (Auto) 0.0, Baso # (Auto) 0.1, Total Counted 100, Neutrophils % (Manual) 97 H, Lymphocytes % (Manual) 1 L, Monocytes % (Manual) 2, Platelet Estimate Normal, RBC Morphology Normal, VBG pH 7.48 H, VBG pCO2 26.8 L, VBG pO2 161.7 H, VBG HCO3 19.5 L, VBG Total CO2 20.3 L, VBG O2 Saturation 99.1 H, VBG Base Excess -4.1 L, VBG Lactic Acid 1.6, Sodium 135 L, Potassium 3.9, Chloride 103, Carbon Dioxide 21 L, Anion Gap 14.9, BUN 23 H, Creatinine 1.20 H, Estimated Creat Clear 59, Estimated GFR 46 L, Est GFR ( Amer) 56 L, Glucose 235 H, Calcium 9.1, Total Bilirubin 1.1, AST 26, ALT 23, Alkaline Phosphatase 84, Troponin I 0.03, Total Protein 6.6, Albumin 4.4, Globulin 2.2, Albumin/Globulin Ratio 2.0 H, Lipase 105 01/27/25 10:00: D-Dimer 0.85 H 01/27/25 10:08: Urine Color Yellow, Urine Appearance Clear, Urine pH 6.0, Ur Specific [place] 1.025, Urine Protein >=300, Urine Glucose (UA) Negative, Urine Ketones Trace, Urine Blood 2+ A, Urine Nitrate Negative, Urine Bilirubin Trace, Urine Urobilinogen 0.2, Ur Leukocyte Esterase Negative, Urine RBC 20-50, Urine WBC 3-5, Ur Squamous Epith Cells 5-10, Urine Bacteria Trace 01/27/25 11:07: Troponin I 0.05 H I & O for Last 24 hours: Intake & Output 01/25/25 01/25/25 01/26/25 01/27/25 00:59 23:59 23:59 23:59 Weight 72.575 kg Constitutional Constitutional: no acute distress *Routine HEENT Exam Head: Present normocephalic Eye: Present EOMI and PERRL ENT: Present mucous membranes moist *Routine Neck Exam Neck: Present supple; Absent lymphadenopathy *Routine Respiratory Exam Respiratory: Present CTA bilaterally *Routine Cardiovascular Exam Cardiovascular: Present RRR *Routine Abdominal Exam Abdominal: Present soft, normoactive bowel sounds and tenderness Comments: Right CVA tenderness *Routine Rectal Exam Rectal:: deferred *Routine Genitalia Exam Genitalia:: deferred *Routine Extremities Exam Extremities: Absent cyanosis, clubbing or edema *Routine Skin Exam Skin: Present warm; Absent rash *Routine Neurological Exam Neurological: Present alert and oriented X3 Assessment and Plan *Assessment and plan (1) Sepsis: Status: Acute Category: Medical Code(s): A41.9 - Sepsis, unspecified organism (2) Pyelonephritis: Status: Acute Category: Medical Code(s): N12 - Tubulo-interstitial nephritis, not specified as acute or chronic Plan Gail Jerome is a 55-year-old female with a medical history significant for recurrent multidrug-resistant UTIs/pyelonephritis, hypertension, type 2 diabetes, GERD who presents with 1 week onset of worsening nausea/vomiting. She states she had been treated for a UTI and February with Macrobid for 10 days which somewhat improved symptoms. However, over the past week patient has had increased urinary frequency but states she never has dysuria. Also reports fever 102.7 Fahrenheit at home, but denies chest pain, abdominal pain, constipation/diarrhea. Workup in the ED significant for WBC 16.2, creatinine 1.2 (baseline 0.90), troponin 0.05, UA with hematuria. CT abdomen/pelvis suggestive of acute right pyelonephritis. Patient has been hospitalized multiple times in the last year for MDR UTIs, most recent urine culture in August 2024 showing Enterobacter cloacae sensitive to carbapenems, Bactrim. Case discussed with ED provider and decision was made to admit patient for sepsis secondary to pyelonephritis, multidrug-resistant UTI, FELICITAS, intractable nausea/vomiting. #Sepsis #Right pyelonephritis #Intractable nausea/vomiting ? Presented with intractable nausea/vomiting for a week, was tachycardic with fever and leukocytosis on admission. Nausea/vomiting seem to have improved on my evaluation. ? CT abdomen/pelvis suggestive of acute right pyelonephritis, does have right CVA tenderness. ? Patient has been hospitalized multiple times in the last year for MDR UTIs, most recent urine culture in August 2024 showing Enterobacter cloacae sensitive to carbapenems, Bactrim. ? Extensively discussed with patient regarding her recurrent UTIs, does follow with a urologist at [facility]. States she has been prescribed methenamine hippurate for significative urine. ? Started meropenem day 1 pending cultures. ? IV LR at 125 mL/h. ? Follow-up urine, blood culture. ? Follow-up morning CBC, CMP. #FELICITAS ? Initial creatinine 1.2, baseline around 0.90. ? Continue IV and oral rehydration as above. #Elevated troponin #Suspected NSTEMI type II ? Troponin plateaued at 0.05, EKG without acute ischemic changes. ? Patient states she had a outpatient stress test about 1.5 years ago which was normal. ? Likely NSTEMI type II in the setting of dehydration, however cannot rule out underlying coronary artery disease. ? Cardiology consulted for possible outpatient CCTA. #Hypertension ? Hold home lisinopril, bisoprolol?hydrochlorothiazide due to FELICITAS. ? Resume home amlodipine once appropriate. #Type 2 diabetes ? Hemoglobin A1c 5.5 in August 2024 but takes about a bit of insulin at home. ? Follow-up repeat A1c. ? LDSSI, ACHS glucose checks. #GERD ? Resume home PPI. Full code DVT prophylaxis: Lovenox 40 mg.
--- NOTE | 2025-01-27 12:44 | PC.NURSE ---
spoke with house sup for bed assignmt, pt being admitted per HM for sepsis/ pylo
[2025-01-27] MEDS: MEROPENEM 1 GM in 0.9 % SODIUM CHLORIDE 100 ML IV ×2 (12:55→19:42)
[2025-01-27] MEDS: ACETAMINOPHEN 500MG TAB 1000 MG PO (12:56)
--- NOTE | 2025-01-27 12:57 | PC.NURSE ---
report called to tom on second floor
--- NOTE | 2025-01-27 13:05 | HMH.PHAINT1 ---
Pharmacy Intervention Comments: MEDICATION RECONCILIATION COMPLETED ON PATIENT USING EXTERNAL FILL HISTORY FROM PHARMACY. -CARRIE CLAYTON, GRAEMED
[2025-01-27 15:29] LABS: Troponin I 0.05 ng/ml (0.00-0.034)
[2025-01-27] MEDS: LACTATED RINGERS 1000ML 1,000 ML 125 ML IV (16:13)
--- NOTE | 2025-01-27 17:52 | PC.NURSE ---
PT IS AOX4, SHE IS NOT REQUIRING O2 SUPPORT. AMBULATING IN ROOM WITHOUT ASSISTANCE. TOLERATED PO INTAKE. SHE HAS NOT C/O N/V SINCE ARRIVAL TO FLOOR. PT STATES THAT HER PAIN IS MUCH BETTER. LR INFUSING PER ORDER.
[2025-01-27] MEDS: ACETAMINOPHEN 325MG TAB 650 MG PO (19:36)
[2025-01-27] MEDS: PANTOPRAZOLE 40MG TABLET 40 MG PO (21:58)
[2025-01-27 23:43] LABS: POC Glucose,Bedside 112 (70-110)
[2025-01-28] VITALS: TEMP 36.6
[2025-01-28 04:00] VITALS: BMI 27.3
[2025-01-28] MEDS: MEROPENEM 1 GM in 0.9 % SODIUM CHLORIDE 100 ML IV ×3 (04:36→20:51)
[2025-01-28] MEDS: LACTATED RINGERS 1000ML 1,000 ML 125 ML IV (04:36)
[2025-01-28 06:17] LABS: POC Glucose,Bedside 158 (70-110)
[2025-01-28] MEDS: humaLOG 100 UNITS/ML 10ML VIAL (SSI) SUBCUT ×2 (06:55→20:53)
[2025-01-28 07:01] LABS: Basophils % 0.5 % (0.1-2.0); Eosinophils % 0.3 % (0.1-12.0); Hematocrit 30.7 % (37.0-47.0); Lymphocytes % 12.7 % (10-50); Mean Corpuscular HGB Conc 32.6 g/dL (31.8-35.4); Mean Corpuscular Hemoglobin 25.6 pg (27.0-31.2); Mean Corpuscular Volume 78.5 fl (81-99); Monocytes # 0.8 K/mm3 (0.1-1.0); Monocytes % 10.4 % (1.7-9.3); Neutrophils # 5.8 K/mm3 (1.8-7.8); Neutrophils % 75.8 % (37.0-80.0); Platelet Count 193 K/mm3 (142-424); Red Blood Count 3.91 M/mm3 (4.20-5.40); Red Cell Distribution Width 12.3 % (11.5-17.5); White Blood Count 7.6 K/mm3 (4.8-10.8)
[2025-01-28 07:03] LABS: Hemoglobin 10.1 g/dL (12.2-16.2)
[2025-01-28 07:45] VITALS: BP 162/66; PULSE 85; RESP 17; TEMP 37.1; O2SAT 96
[2025-01-28 07:47] LABS: Alanine Aminotransferase 17 U/L (12-78); Albumin Level 3.7 g/dl (3.5-5.0); Albumin/Globulin Ratio 1.4 (1.1-1.8); Alkaline Phosphatase 74 U/L (38-126); Anion Gap 11.7 mEq/L (5-15); Aspartate Amino Transferase 24 U/L (14-36); Bilirubin,Total 0.5 mg/dl (0.2-1.3); Blood Urea Nitrogen 21 mg/dl (7-17); Calcium 8.8 mg/dl (8.4-10.2); Carbon Dioxide 25 mmol/L (22.0-30.0); Chloride 103 mmol/L (98-107); Creatinine Clearance Estimated 79 mL/min (50-200); Estimated Glomerular Filt Rate 65 ml/min (>60); GFR (African American) 78 ML/MIN (>60); Globulin 2.6 g/dL (1.3-3.2); Glucose 142 mg/dl (74-100); Magnesium 1.5 mg/dl (1.6-2.3); Potassium 3.7 mmoL/L (3.5-5.1); Sodium 136 mmol/L (136-145); Total Protein,Serum 6.3 g/dl (6.3-8.2)
--- NOTE | 2025-01-28 08:03 | PC.NURSE ---
Pt. was admitted yesterday for sepsis and pylenonephritis. Pt. is alert and orientated.x 4. Pt. is on room air. Pt. c/o headache last night and received Tylenol for pain. Headache resolved. No c.o urinary symptoms. Pt. up independent. Getting IVF and IV antibiotics. VSS. personal items and call reyna in reach.
[2025-01-28] MEDS: ENOXAPARIN 40MG/0.4ML SYRINGE 40 MG SUBCUT (08:56)
[2025-01-28 09:53] LABS: Hemoglobin A1C 5.4 % (4.0-6.0)
[2025-01-28] MEDS: LACTATED RINGERS 1000ML 1,000 ML 75 ML IV (10:02)
--- NOTE | 2025-01-28 10:31 | P.CONCA_ITS ---
History of Present Illness History of Present Illness Consult date: 01/28/25 Requesting physician: Saul Mosquera Chief complaint: Nausea and vomiting History of present illness: Hospitalist Note: Gail Jerome is a 55-year-old female with a medical history significant for recurrent multidrug-resistant UTIs/pyelonephritis, hypertension, type 2 diabetes, GERD who presents with 1 week onset of worsening nausea/vomiting. She states she had been treated for a UTI and February with Macrobid for 10 days which somewhat improved symptoms. However, over the past week patient has had increased urinary frequency but states she never has dysuria. Also reports fever 102.7 Fahrenheit at home, but denies chest pain, abdominal pain, constipation/diarrhea. Workup in the ED significant for WBC 16.2, creatinine 1.2 (baseline 0.90), troponin 0.05, UA with hematuria. CT abdomen/pelvis suggestive of acute right pyelonephritis. Patient has been hospitalized multiple times in the last year for MDR UTIs, most recent urine culture in August 2024 showing Enterobacter cloacae sensitive to carbapenems, Bactrim. Case discussed with ED provider and decision was made to admit patient for sepsis secondary to pyelonephritis, multidrug-resistant UTI, FELICITAS, intractable nausea/vomiting. Cardiology note: Cardiology asked to evaluate for elevated troponin. Serial troponin 0.05 in the setting of acute illness with sepsis and pyelonephritis. D-dimer on admission was positive, CTA negative for PE. EKG upon presentation to ER showed sinus tachycardia rate of [address] and T wave abnormalities noted. Negative for STEMI. Patient reports she had a previous stress test about 1-1/2 years ago which was normal at [facility]. She denies chest pain or shortness of breath. [facility] Disclaimer: The information contained in this section may have been updated after the patient was seen, as this information can be updated by other users. Medical History (Updated 01/28/25 @ 10:39 by Samantha Perales APRN) GERD (gastroesophageal reflux disease) Diabetes mellitus, type 2 Hyperlipidemia Hypertension Exposure to COVID-19 virus Surgical History History of tonsillectomy History of hysterectomy History of section History of cholecystectomy History of appendectomy Social History (Updated 01/27/25 @ 13:23 by Noy Griffith RN) Smoking Status: Never smoker alcohol intake: never substance use type: denies use current occupational status: other Travel in the last 8 weeks: None household members: family housing: house Have you lived/traveled outside US in past 30 days?: No Contact w/someone who lives/traveled outside US past 30 days?: No Exposure to someone with infectious disease in past 14 days?: No Do you have a fever (greater than 100.4 F or 38 C)?: No Have you tested positive for COVID-19: No Exposed to someone with COVID-19 in past 14 days?: No Do you have a sore throat?: No Do you have a cough?: No Do you have any weakness?: Yes Are you experiencing any nausea/vomitting?: Yes Do you have any diarrhea?: Yes Are you experiencing any unusual bleeding?: No Do you have any muscle aches/pain?: No Do you have any abdominal pain?: No Are you experiencing loss of taste or smell?: No Review of Systems Review of Systems Review of systems:: pertinent systems reviewed and negative unless documented below *Cardiovascular Cardiovascular: Denies chest pain and Denies dyspnea *Respiratory Respiratory: Denies dyspnea *Gastrointestinal Gastrointestinal: Reports vomiting Exam Data for Last 24 hours Vital signs and Labs for Last 24 Hours: Temp Pulse Resp BP Pulse Ox O2 Del Method 98.7 F 85 17 162/66 H 96 Room Air 01/28/25 07:45 01/28/25 07:45 01/28/25 07:45 01/28/25 07:45 01/28/25 07:45 01/28/25 08:00 Laboratory Results - last 24 hr 01/27/25 09:06: Total Protein 6.6, Globulin 2.2, Albumin/Globulin Ratio 2.0 H 01/27/25 10:08: Urine Color Yellow, Urine Appearance Clear, Urine pH 6.0, Ur Specific [place] 1.025, Urine Protein >=300, Urine Glucose (UA) Negative, Urine Ketones Trace, Urine Blood 2+ A, Urine Nitrate Negative, Urine Bilirubin Trace, Urine Urobilinogen 0.2, Ur Leukocyte Esterase Negative, Urine RBC 20-50, Urine WBC 3-5, Ur Squamous Epith Cells 5-10, Urine Bacteria Trace 01/27/25 11:07: Troponin I 0.05 H 01/27/25 15:00: Troponin I 0.05 H 01/27/25 22:01: POC Glucose 112 H 01/28/25 05:53: POC Glucose 158 H 01/28/25 05:55: WBC 7.6 D, RBC 3.91 L, Hgb 10.1 L D, Hct 30.7 L, MCV 78.5 L, MCH 25.6 L, MCHC 32.6, RDW 12.3, Plt Count 193, MPV 10.0, Neut % (Auto) 75.8, Lymph % (Auto) 12.7, [place] % (Auto) 10.4 H, Eos % (Auto) 0.3, Baso % (Auto) 0.5, Neut # (Auto) 5.8, Lymph # (Auto) 1.0, [place] # (Auto) 0.8, Eos # (Auto) 0.0, Baso # (Auto) 0.0, Sodium 136, Potassium 3.7, Chloride 103, Carbon Dioxide 25, Anion Gap 11.7, BUN 21 H, Creatinine 0.90 D, Estimated Creat Clear 79, Estimated GFR 65, Est GFR ( Amer) 78 D, Glucose 142 H D, Hemoglobin A1c 5.4, Calcium 8.8, Magnesium 1.5 L, Total Bilirubin 0.5, AST 24, ALT 17 D, Alkaline Phosphatase 74, Total Protein 6.3, Albumin 3.7 D, Globulin 2.6, Albumin/Globulin Ratio 1.4 I & O for Last 24 hours: Intake & Output 01/25/25 01/26/25 01/27/25 01/28/25 23:59 23:59 23:59 23:59 Intake Total 200 / 1398 1438 / 1438 Output Total 0 / 0 0 / 0 Balance 200 / 1398 1438 / 1438 Weight 160 lb 160 lb 0.008 oz Constitutional Constitutional: no acute distress *Routine Respiratory Exam Respiratory: Present CTA bilaterally and symmetric chest movement *Routine Cardiovascular Exam Cardiovascular: Present RRR, Normal S1 and Normal S2 *Routine Abdominal Exam Abdominal: Present soft and normoactive bowel sounds; Absent tenderness *Routine Extremities Exam Extremities: Present full ROM and normal capillary refill; Absent edema *Routine Skin Exam Skin: Present intact, dry and warm Detailed Neck Exam: Thyroids Thyroid: Absent bruit Meds Home Medications and Allergies Home Medications ?Medication ?Instructions ?Recorded ?Confirmed ?Type amlodipine 10 mg tablet 10 mg PO DAILY 04/11/21 01/27/25 History atorvastatin 40 mg tablet 40 mg PO DAILY 04/11/21 01/27/25 History blood sugar diagnostic #10 ea 04/11/21 01/27/25 History flash glucose sensor #1 ea 04/11/21 01/27/25 History omeprazole 40 mg capsule,delayed 40 mg PO DAILY 04/11/21 01/27/25 History release pen needle, diabetic 32 gauge x #50 ea 04/11/21 01/27/25 History 1/4 lisinopril 40 mg tablet 40 mg PO DAILY 05/22/24 01/27/25 History meloxicam 15 mg tablet 15 mg PO DAILY 05/22/24 01/27/25 History methocarbamol 750 mg tablet 750 mg PO TIDP PRN MUSCLE SPASMS 05/22/24 01/27/25 History bisoprolol 10 1 tab PO DAILY 08/28/24 01/27/25 History mg-hydrochlorothiazide 6.25 mg tablet insulin glargine U-300 conc 300 130 unit SQ DAILY 01/27/25 01/27/25 History unit/mL (3 mL) subcutaneous pen (Toujeo Max U-300 SoloStar) methenamine hippurate 1 gram tablet 1 g PO BIDWMEAL 01/27/25 01/27/25 History nitrofurantoin 100 mg PO BID 01/27/25 01/27/25 History monohydrate/macrocrystals 100 mg capsule tirzepatide 7.5 mg/0.5 mL 7.5 mg SQ WEEKLY 01/27/25 01/27/25 History subcutaneous pen injector (Mounjaro) New Prescriptions to Start Prescriptions: Allergies Allergy/AdvReac Type Severity Reaction Status Date / Time bupropion Allergy Mild Hives Verified 01/27/25 09:05 pregabalin (From Lyrica) Allergy Mild Hallucinati Verified 01/27/25 09:05 ng pseudoephedrine Allergy Mild Hives Verified 01/27/25 09:05 Assessment and Plan *Assessment and plan (1) Sepsis: Status: Acute Category: Medical Code(s): A41.9 - Sepsis, unspecified organism (2) Pyelonephritis: Status: Acute Category: Medical Code(s): N12 - Tubulo-interstitial nephritis, not specified as acute or chronic (3) Diabetes mellitus type 2, insulin dependent: Status: Acute Category: Medical Code(s): E11.9 - Type 2 diabetes mellitus without complications; Z79.4 - detention (current) use of insulin (4) Hypertension: Status: Chronic Qualifiers: Hypertension type: primary hypertension Qualified Code(s): I10 - Essential (primary) hypertension Category: Medical Code(s): I10 - Essential (primary) hypertension (5) Hyperlipidemia: Status: Chronic Qualifiers: Hyperlipidemia type: mixed hyperlipidemia Qualified Code(s): E78.2 - Mixed hyperlipidemia Category: Medical Code(s): E78.5 - Hyperlipidemia, unspecified (6) Myocardial injury: Status: Acute Category: Medical Code(s): I5A - Non-ischemic myocardial injury (non-traumatic) Plan Acute myocardial injury Elevated trop In the setting of acute illness with sepsis, right pyelonephritis and intractable nausea and vomiting Serial troponins 0.05 EKG without acute ischemic changes Denies chest pain or soa Risk factors for CAD: DM II, HTN, HLD Recommend outpatient CCTA and echo Sepsis Right pyelonephritis Tractable nausea and vomiting Urine and blood cultures are pending Antibiotics and fluid resuscitation per primary service Will defer to primary service Acute kidney injury Creatinine on admission 1.2 trending down to 0.9 Hypertension Restart Lisinopril and bisoprolol/hydrochlorothiazide when blood pressure will allow Diabetes mellitus type 2 Defer to primary service Consider Ozempic and Jardiance Hyperlipidemia LDL goal less than 55, continue atorvastatin 40 mg p.o. daily CV summary 01/28/2025: Patient is CV stable, cardiology will sign off. Please have patient follow-up in cardiology clinic in 1 week for reevaluation. Will obtain CCTA and echo on an outpatient basis to further evaluate for coronary artery disease. Please continue below listed medications. Cardiac meds: Lisinopril 40 mg p.o. daily Bisoprolol/hydrochlorothiazide 10-6.25 mg 1 tablet p.o. daily Atorvastatin 40 mg p.o. daily
[2025-01-28] MEDS: ACETAMINOPHEN 325MG TAB 650 MG PO (11:30)
[2025-01-28 12:00] VITALS: BP 149/76; PULSE 88; RESP 18; TEMP 37.1; O2SAT 98
[2025-01-28 12:20] LABS: POC Glucose,Bedside 137 (70-110)
[2025-01-28] MEDS: MAGNESIUM SULFATE IN WATER 2 GM/50 ML PIGGYBACK IV ×2 (13:34→14:46)
[2025-01-28 15:48] VITALS: BP 174/81; PULSE 74; RESP 16; TEMP 36.9; O2SAT 96
[2025-01-28] MEDS: LISINOPRIL 20MG TABLET 40 MG PO (15:50)
--- NOTE | 2025-01-28 16:25 | PC.NURSE ---
patient is a/ox4 and remains on room air tolerating well. pt has ambulated to the bathroom independently. LR infusing @125 mls/hr. electrolyte protocol in place, magnesium replaced this shift. awaiting U/A, patient is aware, hat and specimen cup in bathroom. c/o headache earlier in shift, treated per MAR but denies flank pain and denies frequency/urgency/burning when voiding. no further requests at this time, family at bedside.
[2025-01-28 17:00] LABS: POC Glucose,Bedside 132 (70-110)
[2025-01-28 18:22] LABS: Microscopic, Urine URINE MICROSCOPIC (MICROSCOPIC)
[2025-01-28 18:37] LABS: Appearance,Urine Clear (Clear); Bilirubin,Urine Negative (Negative); Blood, Urine Trace (Negative); Color,Urine Yellow (Yellow); Glucose,Urine (UA) Negative (Negative); Ketones,Urine Trace (Negative); Nitrate,Urine Negative (Negative); Protein,Urine Trace (Negative); Specific Gravity, Urine 1.015 (1.005-1.030)
[2025-01-28 18:38] LABS: Leukocyte Esterase,Urine Trace (Negative); Urobilinogen,Urine 0.2 EU/dl (0.2)
[2025-01-28 20:00] VITALS: BP 164/77; PULSE 82; RESP 16; TEMP 36.9; O2SAT 95
[2025-01-28] MEDS: ATORVASTATIN 40MG TABLET 40 MG PO (20:51)
[2025-01-28] MEDS: PANTOPRAZOLE 40MG TABLET 40 MG PO (20:51)
[2025-01-28 21:09] LABS: POC Glucose,Bedside 181 (70-110)
--- NOTE | 2025-01-28 22:40 | P.PN_ITS ---
Subjective *Date: 01/28/25 *Time: 22:40 Interval history: Patient feeling better today, still has depleted appetite but improving. Pending urine culture, anticipate discharge tomorrow with PICC line versus oral antibiotics. Exam Data for Last 24 hours Vital signs and Labs for Last 24 Hours: Temp Pulse Resp BP Pulse Ox O2 Del Method 98.4 F 82 16 164/77 H 95 Room Air 01/28/25 20:00 01/28/25 20:00 01/28/25 20:00 01/28/25 20:00 01/28/25 20:00 01/28/25 21:00 Laboratory Results - last 24 hr 01/27/25 22:01: POC Glucose 112 H 01/28/25 05:53: POC Glucose 158 H 01/28/25 05:55: WBC 7.6 D, RBC 3.91 L, Hgb 10.1 L D, Hct 30.7 L, MCV 78.5 L, MCH 25.6 L, MCHC 32.6, RDW 12.3, Plt Count 193, MPV 10.0, Neut % (Auto) 75.8, Lymph % (Auto) 12.7, [place] % (Auto) 10.4 H, Eos % (Auto) 0.3, Baso % (Auto) 0.5, Neut # (Auto) 5.8, Lymph # (Auto) 1.0, [place] # (Auto) 0.8, Eos # (Auto) 0.0, Baso # (Auto) 0.0, Sodium 136, Potassium 3.7, Chloride 103, Carbon Dioxide 25, Anion Gap 11.7, BUN 21 H, Creatinine 0.90 D, Estimated Creat Clear 79, Estimated GFR 65, Est GFR ( Amer) 78 D, Glucose 142 H D, Hemoglobin A1c 5.4, Calcium 8.8, Magnesium 1.5 L, Total Bilirubin 0.5, AST 24, ALT 17 D, Alkaline Phosphatase 74, Total Protein 6.3, Albumin 3.7 D, Globulin 2.6, Albumin/Globulin Ratio 1.4 01/28/25 11:07: POC Glucose 137 H 01/28/25 15:51: POC Glucose 132 H 01/28/25 18:18: Urine Color Yellow, Urine Appearance Clear, Urine pH 7.0, Ur Specific [place] 1.015, Urine Protein Trace A, Urine Glucose (UA) Negative, Urine Ketones Trace, Urine Blood Trace A, Urine Nitrate Negative, Urine Bilirubin Negative, Urine Urobilinogen 0.2, Ur Leukocyte Esterase Trace A 01/28/25 20:52: POC Glucose 181 H I & O for Last 24 hours: Intake & Output 01/25/25 01/26/25 01/27/25 01/28/25 23:59 23:59 23:59 23:59 Intake Total 200 / 1398 2098 / 2098 Output Total 0 / 0 800 / 800 Balance 200 / 1398 1298 / 1298 Weight 72.575 kg 72.575 kg Microbiology Reports for the Last 24 Hours: Microbiology 01/27/25 12:53 Blood Blood Culture - Preliminary NO GROWTH AFTER 24 HOURS 01/27/25 12:49 Blood Blood Culture - Preliminary NO GROWTH AFTER 24 HOURS Constitutional Constitutional: no acute distress *Routine HEENT Exam Head: Present normocephalic Eye: Present EOMI and PERRL ENT: Present mucous membranes moist *Routine Neck Exam Neck: Present supple; Absent lymphadenopathy *Routine Respiratory Exam Respiratory: Present CTA bilaterally *Routine Cardiovascular Exam Cardiovascular: Present RRR *Routine Abdominal Exam Abdominal: Present soft and normoactive bowel sounds; Absent tenderness *Routine Extremities Exam Extremities: Absent cyanosis, clubbing or edema *Routine Skin Exam Skin: Present warm; Absent rash *Routine Neurological Exam Neurological: Present alert and oriented X3 Assessment and Plan *Assessment and plan (1) Sepsis: Status: Acute Category: Medical Code(s): A41.9 - Sepsis, unspecified organism (2) Pyelonephritis: Status: Acute Category: Medical Code(s): N12 - Tubulo-interstitial nephritis, not specified as acute or chronic Plan Gail Jerome is a 55-year-old female with a medical history significant for recurrent multidrug-resistant UTIs/pyelonephritis, hypertension, type 2 diabetes, GERD who presents with 1 week onset of worsening nausea/vomiting. She states she had been treated for a UTI and February with Macrobid for 10 days which somewhat improved symptoms. However, over the past week patient has had increased urinary frequency but states she never has dysuria. Also reports fever 102.7 Fahrenheit at home, but denies chest pain, abdominal pain, constipation/diarrhea. Workup in the ED significant for WBC 16.2, creatinine 1.2 (baseline 0.90), troponin 0.05, UA with hematuria. CT abdomen/pelvis suggestive of acute right pyelonephritis. Patient has been hospitalized multiple times in the last year for MDR UTIs, most recent urine culture in August 2024 showing Enterobacter cloacae sensitive to carbapenems, Bactrim. Case discussed with ED provider and decision was made to admit patient for sepsis secondary to pyelonephritis, multidrug-resistant UTI, FELICITAS, intractable nausea/vomiting. #Sepsis #Right pyelonephritis #Intractable nausea/vomiting ? Presented with intractable nausea/vomiting for a week, was tachycardic with fever and leukocytosis on admission. Nausea/vomiting seem to have improved on my evaluation. ? CT abdomen/pelvis suggestive of acute right pyelonephritis, does have right CVA tenderness. ? Patient has been hospitalized multiple times in the last year for MDR UTIs, most recent urine culture in August 2024 showing Enterobacter cloacae sensitive to carbapenems, Bactrim. ? Extensively discussed with patient regarding her recurrent UTIs, does follow with a urologist at [facility]. States she has been prescribed methenamine hippurate for significative urine. ? Started meropenem day 2 pending cultures. ? IV LR at 75 mL/h. ? Follow-up urine, blood culture. ? Follow-up morning CBC, CMP. #FELICITAS ? Back to baseline creatinine 0.90 with fluid resuscitation. #Elevated troponin #Suspected NSTEMI type II ? Troponin plateaued at 0.05, EKG without acute ischemic changes. ? Patient states she had a outpatient stress test about 1.5 years ago which was normal. ? Likely NSTEMI type II in the setting of dehydration, however cannot rule out underlying coronary artery disease. ? Cardiology consulted, planning for outpatient ischemic workup. #Hypertension #Proteinuria ? Hold home bisoprolol?hydrochlorothiazide due to FELICITAS. ? Resume home amlodipine once appropriate. ? Resumed home lisinopril for proteinuria, kidney protection. #Type 2 diabetes ? Hemoglobin A1c 5.5 in August 2024 but takes about a bit of insulin at home. ? Follow-up repeat A1c. ? LDSSI, ACHS glucose checks. #GERD ? Resume home PPI. Full code DVT prophylaxis: Lovenox 40 mg.
[2025-01-28 22:56] LABS: Squamous Epithelial Cell,Urine Occasional #/hpf (0-5)
[2025-01-28 22:57] LABS: Bacteria,Urine 1+ /lpf
[2025-01-29] VITALS: BP 144/71; PULSE 87; RESP 18; TEMP 36.6; O2SAT 96
[2025-01-29] MEDS: LACTATED RINGERS 1000ML 1,000 ML 75 ML IV (03:25)
[2025-01-29] MEDS: MEROPENEM 1 GM in 0.9 % SODIUM CHLORIDE 100 ML IV (03:26)
[2025-01-29 03:35] VITALS: BP 167/72; PULSE 77; RESP 18; TEMP 36.9; O2SAT 96
[2025-01-29 03:36] VITALS: BMI 29.2
[2025-01-29 05:10] LABS: POC Glucose,Bedside 130 (70-110)
--- NOTE | 2025-01-29 05:25 | PC.NURSE ---
Pt is A&Ox4. Pt has tolerated fluids and antibiotic therapy well this shift. Pt IV to Left forearm did infiltrate, IV was removed, arm is elevated at this time. Pt denies pain and has had no other acute changes to note this shift.
[2025-01-29 06:27] LABS: Basophils % 0.5 % (0.1-2.0); Eosinophils # 0.1 K/mm3 (0.0-0.4); Eosinophils % 0.9 % (0.1-12.0); Hematocrit 29.7 % (37.0-47.0); Hemoglobin 9.8 g/dL (12.2-16.2); Lymphocytes # 1.2 K/mm3 (0.7-4.5); Lymphocytes % 21.2 % (10-50); Mean Corpuscular Hemoglobin 25.5 pg (27.0-31.2); Mean Corpuscular Volume 77.1 fl (81-99); Mean Platelet Volume 9.7 fl (7.4-10.4); Monocytes # 0.7 K/mm3 (0.1-1.0); Neutrophils # 3.5 K/mm3 (1.8-7.8); Platelet Count 224 K/mm3 (142-424); Red Blood Count 3.85 M/mm3 (4.20-5.40); White Blood Count 5.5 K/mm3 (4.8-10.8)
[2025-01-29 06:53] LABS: Alanine Aminotransferase 16 U/L (12-78); Albumin Level 3.8 g/dl (3.5-5.0); Albumin/Globulin Ratio 1.5 (1.1-1.8); Alkaline Phosphatase 73 U/L (38-126); Anion Gap 9.6 mEq/L (5-15); Aspartate Amino Transferase 21 U/L (14-36); Bilirubin,Total 0.4 mg/dl (0.2-1.3); Blood Urea Nitrogen 12 mg/dl (7-17); Calcium 9.1 mg/dl (8.4-10.2); Carbon Dioxide 28 mmol/L (22.0-30.0); Chloride 103 mmol/L (98-107); Creatinine Clearance Estimated 109 mL/min (50-200); Estimated Glomerular Filt Rate 86 ml/min (>60); GFR (African American) 104 ML/MIN (>60); Globulin 2.6 g/dL (1.3-3.2); Glucose 122 mg/dl (74-100); Potassium 3.6 mmoL/L (3.5-5.1); Sodium 137 mmol/L (136-145); Total Protein,Serum 6.4 g/dl (6.3-8.2)
[2025-01-29 08:00] VITALS: BP 138/76; PULSE 80; RESP 16; TEMP 36.8; O2SAT 95
[2025-01-29] MEDS: SULFA/TRIMETHOPRIM 1 TABLET 1 EACH PO (08:08)
[2025-01-29] MEDS: ENOXAPARIN 40MG/0.4ML SYRINGE 40 MG SUBCUT (08:08)
[2025-01-29] MEDS: LISINOPRIL 5MG TABLET 5 MG PO (08:08)
[2025-01-29] MEDS: ACETAMINOPHEN 325MG TAB 650 MG PO (08:08)
--- NOTE | 2025-01-29 11:56 | EXP.DC.SUM ---
General Admission date:: 01/27/25 HPI HPI HPI: Gail Jerome is a 55-year-old female with a medical history significant for recurrent multidrug-resistant UTIs/pyelonephritis, hypertension, type 2 diabetes, GERD who presents with 1 week onset of worsening nausea/vomiting. She states she had been treated for a UTI and December with Macrobid for 10 days which somewhat improved symptoms. However, over the past week patient has had increased urinary frequency but states she never has dysuria. Also reports fever 102.7 Fahrenheit at home, but denies chest pain, abdominal pain, constipation/diarrhea. Workup in the ED significant for WBC 16.2, creatinine 1.2 (baseline 0.90), troponin 0.05, UA with hematuria. CT abdomen/pelvis suggestive of acute right pyelonephritis. Patient has been hospitalized multiple times in the last year for MDR UTIs, most recent urine culture in August 2024 showing Enterobacter cloacae sensitive to carbapenems, Bactrim. Case discussed with ED provider and decision was made to admit patient for sepsis secondary to pyelonephritis, multidrug-resistant UTI, FELICITAS, intractable nausea/vomiting. Hospital Course Hospital Course Hospital Course: Gail Jerome is a 55-year-old female with a medical history significant for recurrent multidrug-resistant UTIs/pyelonephritis, hypertension, type 2 diabetes, GERD who presents with 1 week onset of worsening nausea/vomiting. She states she had been treated for a UTI and December with Macrobid for 10 days which somewhat improved symptoms. However, over the past week patient has had increased urinary frequency but states she never has dysuria. Also reports fever 102.7 Fahrenheit at home, but denies chest pain, abdominal pain, constipation/diarrhea. Workup in the ED significant for WBC 16.2, creatinine 1.2 (baseline 0.90), troponin 0.05, UA with hematuria. CT abdomen/pelvis suggestive of acute right pyelonephritis. Patient has been hospitalized multiple times in the last year for MDR UTIs, most recent urine culture in August 2024 showing Enterobacter cloacae sensitive to carbapenems, Bactrim. Case discussed with ED provider and decision was made to admit patient for sepsis secondary to pyelonephritis, multidrug-resistant UTI, FELICITAS, intractable nausea/vomiting. #Sepsis #Right pyelonephritis #Intractable nausea/vomiting ? Presented with intractable nausea/vomiting for a week, was tachycardic with fever and leukocytosis on admission. Nausea/vomiting seem to have improved on my evaluation. ? CT abdomen/pelvis suggestive of acute right pyelonephritis, does have right CVA tenderness. ? Patient has been hospitalized multiple times in the last year for MDR UTIs, most recent urine culture in August 2024 showing Enterobacter cloacae sensitive to carbapenems, Bactrim. ? Extensively discussed with patient regarding her recurrent UTIs, does follow with a urologist at [facility]. States she has been prescribed methenamine hippurate for significative urine. ? Clinically improved with meropenem for 3 days. Urine culture shows normal growth, but does not correlate with symptoms and pyelonephritis. Will discharge on Bactrim based on previous cultures. Advised patient to talk to PCP/urologist about chronic antibiotics to prevent recurrent pyelonephritis. #FELICITAS ? Back to baseline creatinine 0.90 with fluid resuscitation. #Elevated troponin #Suspected NSTEMI type II ? Troponin plateaued at 0.05, EKG without acute ischemic changes. ? Patient states she had a outpatient stress test about 1.5 years ago which was normal. ? Likely NSTEMI type II in the setting of dehydration, however cannot rule out underlying coronary artery disease. ? Cardiology consulted, planning for outpatient ischemic workup. #Hypertension #Proteinuria ? Hold home bisoprolol?hydrochlorothiazide as pressures have been stable without this medication. ? Continue home amlodipine once appropriate. ? Resumed home lisinopril (but at a lower dose of 5 mg while taking Bactrim) for proteinuria, kidney protection. #Type 2 diabetes ? Hemoglobin A1c 5.5 in August 2024 but takes about a bit of insulin at home. Avoid to follow-up with PCP whether patient can be weaned off insulin. #GERD ? Resume home PPI. Exam Data for Last 24 hours Vital signs and Labs for Last 24 Hours: Temp Pulse Resp BP Pulse Ox O2 Del Method 98.3 F 80 16 138/76 95 Room Air 01/29/25 08:00 01/29/25 08:00 01/29/25 08:00 01/29/25 08:00 01/29/25 08:00 01/29/25 09:00 Laboratory Results - last 24 hr 01/28/25 11:07: POC Glucose 137 H 01/28/25 15:51: POC Glucose 132 H 01/28/25 18:18: Urine Color Yellow, Urine Appearance Clear, Urine pH 7.0, Ur Specific [place] 1.015, Urine Protein Trace A, Urine Glucose (UA) Negative, Urine Ketones Trace, Urine Blood Trace A, Urine Nitrate Negative, Urine Bilirubin Negative, Urine Urobilinogen 0.2, Ur Leukocyte Esterase Trace A, Urine RBC 3-5, Urine WBC 3-5, Ur Squamous Epith Cells Occasional, Urine Bacteria 1+ 01/28/25 20:52: POC Glucose 181 H 01/29/25 05:03: POC Glucose 130 H 01/29/25 05:59: WBC 5.5 D, RBC 3.85 L, Hgb 9.8 L, Hct 29.7 L, MCV 77.1 L, MCH 25.5 L, MCHC 33.0, RDW 12.0, Plt Count 224, MPV 9.7, Neut % (Auto) 64.0, Lymph % (Auto) 21.2, [place] % (Auto) 13.0 H, Eos % (Auto) 0.9, Baso % (Auto) 0.5, Neut # (Auto) 3.5, Lymph # (Auto) 1.2, [place] # (Auto) 0.7, Eos # (Auto) 0.1, Baso # (Auto) 0.0, Sodium 137, Potassium 3.6, Chloride 103, Carbon Dioxide 28, Anion Gap 9.6, BUN 12 D, Creatinine 0.70 D, Estimated Creat Clear 109, Estimated GFR 86, Est GFR ( Amer) 104 D, Glucose 122 H, Calcium 9.1, Magnesium 2.0 D, Total Bilirubin 0.4, AST 21, ALT 16, Alkaline Phosphatase 73, Total Protein 6.4, Albumin 3.8, Globulin 2.6, Albumin/Globulin Ratio 1.5 I & O for Last 24 hours: Intake & Output 01/26/25 01/27/25 01/28/25 01/29/25 23:59 23:59 23:59 23:59 Intake Total 200 / 1398 2098 / 3053 3102 / 3102 Output Total 0 / 0 800 / 800 0 / 0 Balance 200 / 1398 1298 / 2253 3102 / 3102 Weight 72.575 kg 72.575 kg 77.882 kg Microbiology Reports for the Last 24 Hours: Microbiology 01/27/25 18:45 Urine,Clean Catch Urine Culture - Final No growth. 01/27/25 12:53 Blood Blood Culture - Preliminary NO GROWTH AFTER 24 HOURS 01/27/25 12:49 Blood Blood Culture - Preliminary NO GROWTH AFTER 24 HOURS Constitutional Constitutional: no acute distress *Routine HEENT Exam Head: Present normocephalic Eye: Present EOMI and PERRL ENT: Present mucous membranes moist *Routine Neck Exam Neck: Present supple; Absent lymphadenopathy *Routine Respiratory Exam Respiratory: Present CTA bilaterally *Routine Cardiovascular Exam Cardiovascular: Present RRR *Routine Abdominal Exam Abdominal: Present soft and normoactive bowel sounds; Absent tenderness *Routine Extremities Exam Extremities: Absent cyanosis, clubbing or edema *Routine Skin Exam Skin: Present warm; Absent rash *Routine Neurological Exam Neurological: Present alert and oriented X3 Results Data Completed and Pending Labs on day of discharge: Labs from last 24 hours 01/29/25 01/29/25 01/28/25 05:59 05:03 20:52 WBC 5.5 D RBC 3.85 L Hgb 9.8 L Hct 29.7 L MCV 77.1 L MCH 25.5 L MCHC 33.0 RDW 12.0 Plt Count 224 MPV 9.7 Neut % (Auto) 64.0 Lymph % (Auto) 21.2 [place] % (Auto) 13.0 H Eos % (Auto) 0.9 Baso % (Auto) 0.5 Neut # (Auto) 3.5 Lymph # (Auto) 1.2 [place] # (Auto) 0.7 Eos # (Auto) 0.1 Baso # (Auto) 0.0 Sodium 137 Potassium 3.6 Chloride 103 Carbon Dioxide 28 Anion Gap 9.6 BUN 12 D Creatinine 0.70 D Estimated Creat Clear 109 Estimated GFR 86 Est GFR ( Amer) 104 D Glucose 122 H POC Glucose 130 H 181 H Calcium 9.1 Magnesium 2.0 D Total Bilirubin 0.4 AST 21 ALT 16 Alkaline Phosphatase 73 Total Protein 6.4 Albumin 3.8 Globulin 2.6 Albumin/Globulin Ratio 1.5 Urine Color Urine Appearance Urine pH Ur Specific [place] Urine Protein Urine Glucose (UA) Urine Ketones Urine Blood Urine Nitrate Urine Bilirubin Urine Urobilinogen Ur Leukocyte Esterase Urine RBC Urine WBC Ur Squamous Epith Cells Urine Bacteria 01/28/25 01/28/25 01/28/25 18:18 15:51 11:07 WBC RBC Hgb Hct MCV MCH MCHC RDW Plt Count MPV Neut % (Auto) Lymph % (Auto) [place] % (Auto) Eos % (Auto) Baso % (Auto) Neut # (Auto) Lymph # (Auto) [place] # (Auto) Eos # (Auto) Baso # (Auto) Sodium Potassium Chloride Carbon Dioxide Anion Gap BUN Creatinine Estimated Creat Clear Estimated GFR Est GFR ( Amer) Glucose POC Glucose 132 H 137 H Calcium Magnesium Total Bilirubin AST ALT Alkaline Phosphatase Total Protein Albumin Globulin Albumin/Globulin Ratio Urine Color Yellow Urine Appearance Clear Urine pH 7.0 Ur Specific [place] 1.015 Urine Protein Trace A Urine Glucose (UA) Negative Urine Ketones Trace Urine Blood Trace A Urine Nitrate Negative Urine Bilirubin Negative Urine Urobilinogen 0.2 Ur Leukocyte Esterase Trace A Urine RBC 3-5 Urine WBC 3-5 Ur Squamous Epith Cells Occasional Urine Bacteria 1+ Preliminary micro results at discharge 01/27/25 12:53 Blood Culture - Preliminary Blood NO GROWTH AFTER 24 HOURS 01/27/25 12:49 Blood Culture - Preliminary Blood NO GROWTH AFTER 24 HOURS DS: Diagnosis Discharge Diagnosis (1) Sepsis: Status: Acute Code(s): A41.9 - Sepsis, unspecified organism (2) Pyelonephritis: Status: Acute Code(s): N12 - Tubulo-interstitial nephritis, not specified as acute or chronic Meds Home Medications and Allergies Home Medications ?Medication ?Instructions ?Recorded ?Confirmed ?Type amlodipine 10 mg tablet 10 mg PO DAILY 04/11/21 01/27/25 History atorvastatin 40 mg tablet 40 mg PO DAILY 04/11/21 01/27/25 History blood sugar diagnostic #10 ea 04/11/21 01/27/25 History flash glucose sensor #1 ea 04/11/21 01/27/25 History omeprazole 40 mg capsule,delayed 40 mg PO DAILY 04/11/21 01/27/25 History release pen needle, diabetic 32 gauge x #50 ea 04/11/21 01/27/25 History 1/4 lisinopril 40 mg tablet 40 mg PO DAILY 05/22/24 01/27/25 History methocarbamol 750 mg tablet 750 mg PO TIDP PRN MUSCLE SPASMS 05/22/24 01/27/25 History bisoprolol 10 1 tab PO DAILY 08/28/24 01/27/25 History mg-hydrochlorothiazide 6.25 mg tablet insulin glargine U-300 conc 300 130 unit SQ DAILY 01/27/25 01/27/25 History unit/mL (3 mL) subcutaneous pen (Toujeo Max U-300 SoloStar) methenamine hippurate 1 gram tablet 1 g PO BIDWMEAL 01/27/25 01/27/25 History tirzepatide 7.5 mg/0.5 mL 7.5 mg SQ WEEKLY 01/27/25 01/27/25 History subcutaneous pen injector (Maximiliano) lisinopril 5 mg tablet 5 mg PO DAILY 7 days #7 tabs 01/29/25 Rx meloxicam 15 mg tablet 15 mg PO DAILY PRN Pain 30 days #0 01/29/25 01/27/25 Rx tabs sulfamethoxazole 800 1 tab PO BID 7 days #14 tabs 01/29/25 Rx mg-trimethoprim 160 mg tablet New Prescriptions to Start Prescriptions: lisinopril Saul Mosquera sulfamethoxazole-trimethoprim Saul Mosquera Allergies Allergy/AdvReac Type Severity Reaction Status Date / Time bupropion Allergy Mild Hives Verified 01/27/25 09:05 pregabalin (From Lyrica) Allergy Mild Hallucinati Verified 01/27/25 09:05 ng pseudoephedrine Allergy Mild Hives Verified 01/27/25 09:05 Discharge Plan Disposition Patient Disposition: Home, Self-Care Condition: Fair Discharge Order Discharge Orders: Discharge Order (Routine); Ordered 01/29/25 Ordered By: Saul Mosquera Follow up Plan Follow up with: Conrado Corbett [Primary Care Provider] - 02/02/25 12:00 pm Prescriptions/Medication Reconciliation: New sulfamethoxazole-trimethoprim 800-160 mg Tablet 1 tab PO BID 7 Days Qty: 14 0RF lisinopril 5 mg Tablet 5 mg PO DAILY 7 Days Qty: 7 0RF Continued (DME) pen needle, diabetic 32 gauge x 1/4 needle See Rx Instructions .ROUTE .MEDSUPPLY Qty: 50 Rx Instructions: As directed (DME) flash glucose sensor Kit See Rx Instructions .ROUTE .MEDSUPPLY Qty: 1 Patient Comments: USE NEEDED Rx Instructions: As directed (DME) blood sugar diagnostic Strip See Rx Instructions .ROUTE .MEDSUPPLY Qty: 10 Patient Comments: USE 1 STRIP TO CHECK GLUCOSE THREE TIMES DAILY AND NEEDED Rx Instructions: As directed amlodipine 10 mg tablet 10 mg PO DAILY omeprazole 40 mg capsule,delayed release(DR/EC) 40 mg PO DAILY Patient Comments: TAKE 1 CAPSULE BY MOUTH ONCE DAILY atorvastatin 40 mg tablet 40 mg PO DAILY Patient Comments: TAKE 1 TABLET BY MOUTH ONCE DAILY methocarbamol 750 mg tablet 750 mg PO TIDP PRN (Reason: MUSCLE SPASMS) Patient Comments: TAKE 1 TABLET BY MOUTH THREE TIMES DAILY NEEDED FOR MUSCLE SPASM insulin glargine U-300 conc [Toujeo Max U-300 SoloStar] 300 unit/mL (3 mL) insulin pen 130 unit SQ DAILY Patient Comments: INJECT 130 UNITS UNDER THE SKIN INTO THE APPROPRIATE AREA DIRECTED EVERY MORNING Mounjaro 7.5 mg/0.5 mL pen injector 7.5 mg SQ WEEKLY Patient Comments: INJECT 1 SYRINGE SUBCUTANEOUSLY ONCE A WEEK methenamine hippurate 1 gram tablet 1 g PO BIDWMEAL Patient Comments: TAKE 1 TABLET BY MOUTH TWICE DAILY WITH MEALS Changed meloxicam 15 mg tablet 15 mg PO DAILY PRN (Reason: Pain) 30 Days Qty: 0 0RF Patient Comments: TAKE 1 TABLET BY MOUTH ONCE DAILY Held lisinopril 40 mg tablet 40 mg PO DAILY Hold Instructions: Resume on 02/05/25. Take reduced dose of 5 mg daily while you take Bactrim. Patient Comments: TAKE 1 TABLET BY MOUTH ONCE DAILY bisoprolol-hydrochlorothiazide 10-6.25 mg tablet 1 tab PO DAILY Hold Instructions: Resume on 02/12/25. Hold this medication as your blood pressures were normal without it. Please speak to your PCP before restarting this medication. Patient Comments: TAKE 1 TABLET BY MOUTH ONCE DAILY Discontinued nitrofurantoin monohyd/m-cryst 100 mg capsule 100 mg PO BID Problem Reconciliation Problems Reviewed?: Yes Patient Discharge Instructions Additional Instructions: Please speak to your PCP or urologist regarding chronic antibiotics to prevent UTIs and kidney infections. Patient Instructions: DI for Kidney Infection, DI for Sepsis -- Adult Print Language: Serbian Providers Primary Care Provider: Conrado Corbett Provider: Saul Mosquera Attending Provider: Saul Mosquera
[2025-01-29 12:00] VITALS: BP 153/85; PULSE 74; RESP 17; TEMP 37; O2SAT 98
[2025-01-29 12:02] LABS: POC Glucose,Bedside 151 (70-110)
--- NOTE | 2025-02-01 11:36 | SW/DCPLANNER ---
Spoke with patient on the phone. Patient stated that she is so glad that she is feeling well. Patient stated that she is aware of her upcoming appointment. Patient stated that she was able to get her medicine picked up. Patient stated that she has no concerns or questions at this time. Tino Thacker
== END 2025-01-29 13:45 | disposition home or self-care (01) | DRG 689 ==
LOC: ER 12:42 → 2ND 12:49
PROVIDERS: Admitting Provider Student in an Organized Health Care Education/Training Program; Emergency Provider Student in an Organized Health Care Education/Training Program; PCP Family Medicine; Visit Provider Student in an Organized Health Care Education/Training Program
DX: N12 Tubulo-interstitial nephritis, not specified as acute or chronic (principal); A41.9 Sepsis, unspecified organism; R11.2 Nausea with vomiting, unspecified; N17.9 Acute kidney failure, unspecified; R79.89 Other specified abnormal findings of blood chemistry; K21.9 Gastro-esophageal reflux disease without esophagitis; E86.0 Dehydration; E78.5 Hyperlipidemia, unspecified; R80.9 Proteinuria, unspecified; I10 Essential (primary) hypertension; E11.9 Type 2 diabetes mellitus without complications; Z79.4 Long term (current) use of insulin; Z79.85 Long-term (current) use of injectable non-insulin antidiabetic drugs; Z79.899 Other long term (current) drug therapy; Z88.8 Allergy status to other drugs, medicaments and biological substances; Z90.49 Acquired absence of other specified parts of digestive tract; Z87.440 Personal history of urinary (tract) infections
CPT/HCPCS: 36415; 71046; 71275; 74177; 80053; 81001; 82803; 82962; 83036; 83690; 83735; 84484; 85007; 85025; 85378; 87040; 87086; 87636; 93005; 99291; J1650; J2185; J2405; J3475; J7120; Q9967

== ENCOUNTER 2025-03-29 13:38 | Outpatient (CLI) | payer BC, SELFPAY ==
[2025-03-29 15:52] LABS: Coronavirus 19, PCR Not Detected (NotDetected); Influenza A, PCR Not Detected (NotDetected); Influenza B, PCR Not Detected (NotDetected)
== END 2025-03-29 23:59 | disposition home or self-care (01) ==
LOC: LAB.DROPOF 03-30 14:04
PROVIDERS: PCP Student in an Organized Health Care Education/Training Program; Visit Provider Student in an Organized Health Care Education/Training Program
DX: R05.9 Cough, unspecified (principal); R09.81 Nasal congestion
CPT/HCPCS: 87636

== ENCOUNTER 2025-07-02 20:02 | Emergency (ER) | payer BC, SELFPAY ==
--- OUTSIDE RECORDS SUMMARY | 2025-05-05 10:00 | XMS_ITS | Encounter Summary ---
Author Organization [facility] Address [address] [place] [id number] Care Team Providers Care Television News Video Editor Name Role Phone Conrado Corbett MD Primary Care Provider [phone] Reason for Visit * Reason Comments Annual Exam Encounter Details Date Type Department Care Team (Latest Contact Info) Description 05/05/2025 10:00 AM EDT Office Visit [facility] [address] [facility] [place] [address] Conrado Corbett MD [address] [place] [address] Well woman exam (no gynecological exam) (Primary Dx); Essential hypertension; Type 2 diabetes mellitus without complication, with long-term current use of insulin; Gastroesophageal reflux disease, unspecified whether esophagitis present; Hypercholesteremia Social History Tobacco Use Types Packs/Day Years Used Date Smoking Tobacco: Never Passive Smoke Exposure: Never Smokeless Tobacco: Never Alcohol Use Standard Drinks/Week Comments No 0 (1 standard drink = 0.6 oz pur e alcohol) AUDIT-C Answer Date Recorded Frequency of Alcohol Consumption Never 09/29/2019 Average Number of Drinks Not on file 019 Frequency of Binge Drinking Not on file 09/18 PHQ-2 Answer Date Recorded Retired PHQ-9: Brief Depression Severity Measure Score 0 12/28/2022 Abuse Screen Answer Date Recorded Feels Unsafe at Home or Work/School no 05/01/2025 Feels Threatened by Someone no 04/18 Does Anyone Try to Keep You From Having Contact with Others or Doing Things Outside Your Home? 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 Not on file Not on file Not on kita e documented as of this encounter Last Filed Vital Signs Vital Sign Reading Time Taken Comments Blood Pressure 148/72 05/05/2025 9:56 AM EDT Pulse 68 05/05/2025 9:56 AM EDT Temperature 36.6 C (97.8 F) 05/05/2025 9:56 AM EDT Respiratory Rate 18 05/05/2025 9:56 AM EDT Oxygen Saturation - - Inhaled Oxygen Concentration - - Weight 69.4 kg (153 lb) 05/05/2025 9:56 AM EDT Height 165.1 cm (5' 5 ) 05/05/2025 9:56 AM EDT Body Mass Index 25.46 05/05/2025 9:56 AM EDT documented in this encounter Functional Status documented as of this encounter Progress Notes * Conrado Corbett MD - 05/05/2025 10:00 AM EDT Subjective Chief Complaint Patient presents with Annual Exam Gail Jerome is a 55 y.o. female who presents for an annual exam. The patient has no complaints today. The patient is sexually active. . The patient wears seatbelts: yes. The patient participates in regular exercise: yes. The patient reports that there is not domestic violence in her life. She has been seeing black spots Sugars doing ok at home Has decreased her toujeo to 20 units but really has not been taking this the past few weeks! She has dexcom and has had some lows Still on mounjaro 7.5 as well History of abnormal Pap smear: no Family history of uterine or ovarian cancer: no Family history of colon cancer: no History of abnormal mammogram: no Family history of breast cancer: yes - GM Colonoscopy history: 2020 Menstrual History: OB History No obstetric history on file. No LMP recorded. Patient has had a hysterectomy. The following portions of the patient's history were reviewed and updated as appropriate:vital signs, allergies, current medications, past family history, past medical history, past social history, past surgical history, and problem list Review of Systems A comprehensive review of systems was negative. She did have some vision changes Objective BP 148/72 Pulse 68 Temp 97.8 ??F (36.6 ??C) Resp 18 Ht 165.1 cm (65 ) Wt 69.4 kg (153 lb) BMI 25.46 kg/m?? Physical Exam Vitals and nursing note reviewed. Constitutional: General: She is not in acute distress. Appearance: Normal appearance. She is well-developed. Eyes: Extraocular Movements: Extraocular movements intact. Conjunctiva/sclera: Conjunctivae normal. Cardiovascular: Rate and Rhythm: Normal rate and regular rhythm. Heart sounds: Normal heart sounds. Pulmonary: Effort: Pulmonary effort is normal. Breath sounds: Normal breath sounds. Abdominal: General: Abdomen is flat. Bowel sounds are normal. There is no distension. Palpations: Abdomen is soft. Tenderness: There is no abdominal tenderness. There is no guarding or rebound. Neurological: Mental Status: She is alert and oriented to person, place, and time. Psychiatric: Mood and Affect: Mood normal. Behavior: Behavior normal. Thought Content: Thought content normal. Judgment: Judgment normal. Assessment & Plan ASSESSMENT Healthy female exam. 1. Well woman exam (no gynecological exam) 2. Essential hypertension 3. Type 2 diabetes mellitus without complication, with long-term current use of insulin 4. Gastroesophageal reflux disease, unspecified whether esophagitis present 5. Hypercholesteremia PLAN 1. Orders Placed This Encounter Procedures Lipid Panel Comprehensive Metabolic Panel Hemoglobin A1c CBC & Differential 2. Medications prescribed this encounter: New Medications Ordered This Visit Medications bisoprolol-hydrochlorothiazide (Ziac) 5-6.25 MG per tablet Sig: Take 1 tablet by mouth Daily. Dispense: 90 tablet Refill: 0 Continuous Glucose Sensor (Dexcom G7 Sensor) [facility] [place]: Apply 1 each topically Every 10 (Ten) Days. Dispense: 9 each Refill: 3 lisinopril (PRINIVIL,ZESTRIL) 40 MG tablet Sig: Take 1 tablet by mouth Daily. Dispense: 90 tablet Refill: 0 amLODIPine (NORVASC) 10 MG tablet Sig: Take 1 tablet by mouth Daily. Dispense: 90 tablet Refill: 0 omeprazole (priLOSEC) 40 MG capsule Sig: Take 1 capsule by mouth Daily. Dispense: 90 capsule Refill: 0 atorvastatin (LIPITOR) 40 MG tablet Sig: Take 1 tablet by mouth Daily. Dispense: 90 tablet Refill: 0 Tirzepatide (Mounjaro) 7.5 MG/0.5ML solution auto-injector Sig: Inject 7.5 mg under the skin into the appropriate area as directed 1 (One) Time Per Week. Dispense: 2 mL Refill: 2 3. She has NOT been taking her lantus nor fast acting insulin and sugars doing well at home.. Usingmounjaro at this time. 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 4. Will reduce ziac form 10 to 5 Well woman exam completed, shingles vaccine recommended Conrado Corbett MD 05/05/2025 documented in this encounter Plan of Treatment Upcoming Encounters Date Type Department Care Team (Late st Contact Info) Description 07/13/2025 10:30 AM EDT Office Visit [facility] [address] [place] [address] Erika Gallardo APRN [address] [facility] [address] [place] [address] 08/17/2025 11:15 AM EDT Office Visit [facility] [address] [place] [address] Conrado Corbett MD [address] [place] [address] documented as of this encounter Procedures Procedure Name Priority Date/Time Associated Diagnosis Comments CBC AND DIFFERENTIAL Routine 05/05/2025 10:21 AM EDT Essential hypertension Type 2 diabetes mellitus without complication, with long-term current use of insulin HEMOGLOBIN A1C Routine 05/05/2025 10:21 AM EDT Type 2 diabetes mellitus without complication, with long-term current use of insulin LIPID PANEL Routine 05/05/2025 10:21 AM EDT Hypercholesteremia COMPREHENSIVE METABOLIC PANEL Routine 05/05/2025 10:21 AM EDT Essential hypertension Type 2 diabetes mellitus without complication, with long-term current use of insulin Hypercholesteremia documented in this encounter Results * Hemoglobin A1c (05/05/2025 10:21 AM EDT) Hemoglobin A1C 5.50 4.80 - 5.60 % [facility] Comment: Hemoglobin A1C Ranges: Increased Risk for Diabetes 5.7% to 6.4% Diabetes >= 6.5% Diabetic Goal < 7.0% Blood 05/05/2025 10:2 1 AM EDT 05/05/2025 Narrative [facility] ([facility]) - 05/06/2025 3:07 AM EDT Performed at: [address] [place] [id number] Stable Hand: Khanh Ruby MD, Phone: [phone] Patient Fasting: Y us Conrado Corbett MD LAB BLOOD ORDERABLES Final Resu lt [facility] (AMBULATORY) [address] [place] [address], [facility] [address] [place] [address], * (ABNORMAL) Comprehensive Metabolic Panel (05/05/2025 10:21 AM EDT) Glucose 106(H) 65 - 99 mg/dL [facility] BUN 21.0(H) 6.0 - 20.0 mg/dL [facility] Creatinine 0.95 0.57 - 1.00 mg/dL [facility] EGFR Result 70.0 >60.0 mL/min/1.7 3 [facility] Comment: GFR Categories in Chronic Kidney Disease (CKD) GFR Category GFR (mL/min/1.73) Interpretation G1 90 or greater Normal or high (1) G2 60-89 Mild decrease (1) G3a 45-59 Mild to moderate decrease G3b 30-44 Moderate to severe decrease G4 15-29 Severe decrease G5 14 or less Kidney failure (1)In the absence of evidence of kidney disease, neither GFR category G1 or G2 fulfill the criteria for CKD. eGFR calculation 2020 CKD-EPI creatinine equation, which does not include race as a factor BUN/Creatinine Ratio 22.1 7.0 - 25.0 [facility] Sodium 141 136 - 145 mmol/L [facility] Potassium 4.6 3.5 - 5.2 mmol/L [facility] Chloride 102 98 - 107 mmol/L [facility] Total CO2 25.3 22.0 - 29.0 mmol/L [facility] Calcium 10.0 8.6 - 10.5 mg/dL [facility] Total Protein 6.9 6.0 - 8.5 g/dL [facility] Albumin 4.8 3.5 - 5.2 g/dL [facility] Globulin 2.1 gm/dL [facility] A/G Ratio 2.3 g/dL [facility] Total Bilirubin 0.3 0.0 - 1.2 mg/dL [facility] Alkaline Phosphatase 60 39 - 117 U/L [facility] AST (SGOT) 16 1 - 32 U/L [facility] ALT (SGPT) 10 1 - 33 U/L [facility] Blood 05/05/2025 10:2 1 AM EDT 05/05/2025 Narrative [facility] ([facility]) - 05/06/2025 3:07 AM EDT Performed at: [address] [id number] Stable Hand: Khanh Ruby MD, Phone: [phone] Patient Fasting: Y Conrado Corbett MD LAB BLOOD ORDERABLES Final Resu lt [facility] ([facility]) [address] [place] [address], [facility] [address] [place] [address], [place] [phone] * (ABNORMAL) Lipid Panel (05/05/2025 10:21 AM EDT) [facility] Total Cholesterol 185 0 - 200 mg/dL [facility] Comment: Cholesterol Reference Ranges (U.S. Department of Health and Human Services ATP III Classifications) Desirable <200 mg/dL Borderline High 200-239 mg/dL High Risk >240 mg/dL Triglyceride Reference Ranges (U.S. Department of Health and Human Services ATP III Classifications) Normal <150 mg/dL Borderline High 150-199 mg/dL High 200-499 mg/dL Very High >500 mg/dL HDL Reference Ranges (U.S. Department of Health and Human Services ATP III Classifications) Low <40 mg/dl (major risk factor for CHD) High >60 mg/dl ('negative' risk factor for CHD) LDL Reference Ranges (U.S. Department of Health and Human Services ATP III Classifications) Optimal <100 mg/dL Near Optimal 100-129 mg/dL Borderline High 130-159 mg/dL High 160-189 mg/dL Very High >189 mg/dL LDL is calculated using the NIH LDL-C calculation. Triglycerides 194(H) 0 - 150 mg/dL [facility] HDL Cholesterol 46 40 - 60 mg/dL [facility] VLDL Cholesterol Todd 34 5 - 40 mg/dL [facility] LDL Chol Calc (NIH) 105(H) 0 - 100 mg/dL [facility] Blood 05/05/2025 10:2 1 AM EDT 05/05/2025 Narrative [facility] ([facility]) - 05/06/2025 3:07 AM EDT Performed at: [address] [place] [id number] Stable Hand: Khanh Ruby MD, Phone: [phone] Patient Fasting: Y us Conrado Corbett MD LAB BLOOD ORDERABLES Final Resu lt [facility] ([facility]) [address] [place] [address], [facility] [address] [place] [address], * CBC & Differential (05/05/2025 10:21 AM EDT) [facility] WBC 5.03 3.40 - 10.80 10*3/mm3 [facility] RBC 4.82 3.77 - 5.28 10*6/mm3 [facility] Hemoglobin 12.8 12.0 - 15.9 g/dL [facility] Hematocrit 40.6 34.0 - 46.6 % [facility] MCV 84.2 79.0 - 97.0 fL [facility] MCH 26.6 26.6 - 33.0 pg [facility] MCHC 31.5 31.5 - 35.7 g/dL [facility] RDW 15.3 12.3 - 15.4 % [facility] Platelets 215 140 - 450 10*3/mm3 [facility] Neutrophil Rel % 55.7 42.7 - 76.0 % [facility] Lymphocyte Rel % 33.0 19.6 - 45.3 % [facility] Monocyte Rel % 8.3 5.0 - 12.0 % [facility] Eosinophil Rel % 1.6 0.3 - 6.2 % [facility] Basophil Rel % 1.2 0.0 - 1.5 % [facility] Neutrophils Absolute 2.80 1.70 - 7.00 10*3/mm3 [facility] Lymphocytes Absolute 1.66 0.70 - 3.10 10*3/mm3 [facility] Monocytes Absolute 0.42 0.10 - 0.90 10*3/mm3 [facility] Eosinophils Absolute 0.08 0.00 - 0.40 10*3/mm3 [facility] Basophils Absolute 0.06 0.00 - 0.20 10*3/mm3 [facility] Immature Granulocyte Rel % 0.2 0.0 - 0.5 % [facility] Immature Grans Absolute 0.01 0.00 - 0.05 10*3/mm3 [facility] nRBC 0.0 0.0 - 0.2 /100 WBC [facility] Blood 05/05/2025 10:2 1 AM EDT 05/05/2025 Narrative [facility] ([facility]) - 05/06/2025 3:07 AM EDT Performed at: [address] [place] [address] [place] [id number] Stable Hand: Khanh Ruby MD, Phone: [phone] Patient Fasting: Y Conrado Corbett MD LAB BLOOD ORDERABLES Final Resu lt [facility] (AMBULATORY) [address] [place] [address], [facility] [address] [place] [address], documented in this encounter Visit Diagnoses Diagnosis Well woman exam (no gynecological exam)- Primary Routine general medical examination at a health care facility Essential hypertension Unspecified essential hypertension Type 2 diabetes mellitus without complication, with long-term current use of insulin Gastroesophageal reflux disease, unspecified whether esophagitis present Hypercholesteremia Pure hypercholesterolemia documented in this encounter Care Teams Television News Video Editor Relationship Specialty Start Date End Date Conrado Corbett MD [address] [place] [id number] PCP - General Family Medicine 12/02/19 documented as of this encounter
[2025-07-02 20:15] VITALS: BP 153/77; PULSE 82; RESP 18; TEMP 36.8; O2SAT 99; BMI 23.9
--- NOTE | 2025-07-02 20:16 | XR_ITS ---
PROCEDURE INFORMATION: Exam: XR Right Foot Exam date and time: 07/02/2025 8:17 PM Age: 55 years old Clinical indication: Injury or trauma; Fall; Other: Pain; Additional info: Fell pain in great toe TECHNIQUE: Imaging protocol: Radiologic exam of the right foot. Views: 3 or more views. COMPARISON: CR XR TIBIA FIBULA RT 2V 03/19/2024 10:28 PM FINDINGS: Bones/joints: Normal. No acute fracture identified. Soft tissues: Normal. IMPRESSION: No acute findings.
--- NOTE | 2025-07-02 20:17 | ED_ITS ---
<Statement entered by Galilea Haas MD - 07/02/25 22:21> I was consulted by the MARCELL, and we discussed the complexity of the problems being addressed. I approved the treatment and management plan for this patient's care in the emergency department, thus performing a substantive portion of the medical decision making. Galilea Haas MD, DINESH, FACEP Discharge Plan Disposition Patient Disposition: Home, Self-Care Prescriptions Prescriptions: No Action (DME) pen needle, diabetic 32 gauge x 1/4 needle See Rx Instructions .ROUTE .MEDSUPPLY Qty: 50 Rx Instructions: As directed (DME) flash glucose sensor Kit See Rx Instructions .ROUTE .MEDSUPPLY Qty: 1 Patient Comments: USE NEEDED Rx Instructions: As directed (DME) blood sugar diagnostic Strip See Rx Instructions .ROUTE .MEDSUPPLY Qty: 10 Patient Comments: USE 1 STRIP TO CHECK GLUCOSE THREE TIMES DAILY AND NEEDED Rx Instructions: As directed amlodipine 10 mg tablet 10 mg PO DAILY omeprazole 40 mg capsule,delayed release(DR/EC) 40 mg PO DAILY Patient Comments: TAKE 1 CAPSULE BY MOUTH ONCE DAILY atorvastatin 40 mg tablet 40 mg PO DAILY Patient Comments: TAKE 1 TABLET BY MOUTH ONCE DAILY guaifenesin 600 mg tablet extended release 12hr 600 mg PO Q12H PRN (Reason: congestion) Qty: 14 0RF methocarbamol 750 mg tablet 750 mg PO TIDP PRN (Reason: MUSCLE SPASMS) Patient Comments: TAKE 1 TABLET BY MOUTH THREE TIMES DAILY NEEDED FOR MUSCLE SPASM lisinopril 40 mg tablet 40 mg PO DAILY Patient Comments: TAKE 1 TABLET BY MOUTH ONCE DAILY bisoprolol-hydrochlorothiazide 10-6.25 mg tablet 1 tab PO DAILY Patient Comments: TAKE 1 TABLET BY MOUTH ONCE DAILY insulin glargine U-300 conc [Toujeo Max U-300 SoloStar] 300 unit/mL (3 mL) insulin pen 130 unit SQ DAILY Patient Comments: INJECT 130 UNITS UNDER THE SKIN INTO THE APPROPRIATE AREA DIRECTED EVERY MORNING Mounjaro 7.5 mg/0.5 mL pen injector 7.5 mg SQ WEEKLY Patient Comments: INJECT 1 SYRINGE SUBCUTANEOUSLY ONCE A WEEK methenamine hippurate 1 gram tablet 1 g PO BIDWMEAL Patient Comments: TAKE 1 TABLET BY MOUTH TWICE DAILY WITH MEALS lisinopril 5 mg Tablet 5 mg PO DAILY 7 Days Qty: 7 0RF meloxicam 15 mg tablet 15 mg PO DAILY PRN (Reason: Pain) 30 Days Qty: 0 0RF Patient Comments: TAKE 1 TABLET BY MOUTH ONCE DAILY Referrals Follow up/Referrals: Elsy Mckeon PA [Primary Care Provider, Family Practice] - See instructions Activity Restrictions/Add. Instructions Additional Instructions/Restrictions: Today you were evaluated in the emergency department for toe injury. I do not see any fracture on the x-ray, please follow-up with your PCP next week. Please return to the ED for any worsening of your condition. Clinical Impressions Clinical Impression: Injury of great toe Instructions Patient Instructions: DI for Acute Pain -- Adult Print Language Print Language: Cameroonian Discharge ED Provider: Galilea Haas General Adult HPI General Chief complaint: PAIN Stated complaint: Poss broken big toe on R foot Time Seen by Provider: 07/02/25 20:13 History of Present Illness HPI narrative: patient is a 55-year-old female PMHx diabetes, hypertension, lipidemia who presents to the ED for right great toe injury that occurred earlier today. Patient states that she had her dog leash in her hand when her cat ran between her legs causing her to hit her toe on something. Related Data Home Medications ?Medication ?Instructions ?Recorded ?Confirmed amlodipine 10 mg tablet 10 mg PO DAILY 04/11/2103/18 atorvastatin 40 mg tablet 40 mg PO DAILY 04/11/2103/18 blood sugar diagnostic #10 ea 04/11/21 03/29/25 flash glucose sensor #1 ea 04/11/21 03/29/25 omeprazole 40 mg capsule,delayed 40 mg PO DAILY 03/29/25 release pen needle, diabetic 32 gauge x #50 ea 04/11/2111/21 lisinopril 40 mg tablet 40 mg PO DAILY 05/22/2403/18 Held on 01/29/25. Instructions: Resume on 02/05/25. Take reduced dose of 5 mg daily while you take Bactrim. methocarbamol 750 mg tablet 750 mg PO TIDP PRN MUSCLE SPASMS 05/22/24 03/29/25 bisoprolol 10 1 tab PO DAILY 08/28/2403/18 mg-hydrochlorothiazide 6.25 mg tablet Held on 01/29/25. Instructions: Resume on 02/12/25. Hold this medication as your blood pressures were normal without it. Please speak to your PCP before restarting this medication. insulin glargine U-300 conc 300 130 unit SQ DAILY 01/1603/29/25 unit/mL (3 mL) subcutaneous pen (Toujeo Max U-300 SoloStar) methenamine hippurate 1 gram tablet 1 g PO BIDWMEAL 03/29/25 tirzepatide 7.5 mg/0.5 mL 7.5 mg SQ WEEKLY 01/27/25 subcutaneous pen injector (Maximiliano) Previous Rx's ?Medication ?Instructions ?Recorded lisinopril 5 mg tablet 5 mg PO DAILY 7 days #7 tabs 01/29/25 meloxicam 15 mg tablet 15 mg PO DAILY PRN Pain 30 d ays #0 01/29/25 tabs guaifenesin 600 mg tablet, 600 mg PO Q12H PRN congesti on #14 03/29/25 extended release 12 hr tabs Allergies Allergy/AdvReac Type Severity Reaction Status Date / Time bupropion Allergy Mild Hives Verified 03/29/25 13:28 pregabalin (From Lyrica) Allergy Mild Hallucinati Verified 03/29/25 13:28 ng pseudoephedrine Allergy Mild Hives Verified 03/29/25 13:28 PFSH PFSH Disclaimer: The information contained in this section may have been updated after the patient was seen, as this information can be updated by other users. Medical History GERD (gastroesophageal reflux disease) Diabetes mellitus, type 2 Hyperlipidemia Hypertension Exposure to COVID-19 virus Surgical History History of tonsillectomy History of hysterectomy History of section History of cholecystectomy History of appendectomy Family History (Updated 03/29/25 @ 13:29 by Cheyenne Johnson MA) Family/Other No significant family history Social History Smoking Status: Never smoker alcohol intake: never substance use type: denies use current occupational status: other Travel in the last 8 weeks?: None household members: family housing: house Have you lived/traveled outside US in past 30 days?: No Contact w/someone who lives/traveled outside US past 30 days?: No Exposure to someone with infectious disease in past 14 days?: No Do you have a fever (greater than 100.4 F or 38 C)?: No Have you tested positive for COVID-19?: No Exposed to someone with COVID-19 in past 14 days?: No Do you have a sore throat?: No Do you have a cough?: No Do you have any weakness?: No Do you have any diarrhea?: No Are you experiencing any unusual bleeding?: No Do you have any muscle aches/pain?: No Do you have any abdominal pain?: No Are you experiencing loss of taste or smell?: No Other Medical History Have you received the Flu Vaccine for this season: No Have you received the Pneumonia Vaccine: No ROS Obtained: Yes Systems reviewed as appropriate & no additional complaints except as documented Physical Exam General General appearance: alert Eye Eye exam: Present PERRL Neck Neck exam: Present full ROM Chest Chest inspection: Present normal inspection Respiratory Respiratory exam: Present normal lung sounds bilaterally Cardiovascular Cardiovascular exam: Present regular rate Extremities Exam Extremities exam: Present other (Right great toe ecchymosis, tenderness of right great toe, neurovascular status intact) Neurological Exam Neurological exam: Present alert and oriented X3 Medical Decision Making Medical Records Screening: Per USPSTF and CDC recommendations, given the prevalence of disease in our region, it is our hospital?s policy to screen for HIV and viral Hepatitis for all patients aged 18 and over and those with ongoing risk factors. Milo Inquiry Pt receiving controlled substance: No Vital Signs: 07/02/25 20:15 07/02/25 20:59 Temperature 98.2 F 98.2 F Temperature Source Oral Oral Pulse Rate 80 Pulse Rate [Right Radial] 82 Respiratory Rate 18 18 Blood Pressure 152/77 H Blood Pressure [Left Arm] 153/77 H Blood Pressure Mean [Left Arm] 102 Blood Pressure Source Automatic Cuff Blood Pressure Source [Left Arm] Automatic Cuff Blood Pressure Position Sitting Blood Pressure Position [Left Arm] Sitting 02 Sat by Pulse Oximetry 99 Oxygen Delivery Method Room Air Room Air Orders (Tests/Meds): ED MEDICATIONS Discontinued Medications Generic Name Dose Route Start Last Admin Trade Name Freq PRN Reason Stop Dose Admin Acetaminophen 1,000 mg 07/02/25 20:16 07/02/25 20:24 Acetaminophen 500mg Tab PO 07/02/25 20:17 1,000 mg ONCE ONE Administration Ondansetron HCl 4 mg 07/02/25 20:16 07/02/25 20:24 Ondansetron 4mg Odt SL 07/02/25 20:17 4 mg ONCE ONE Administration ORDERS Category Date Time Status Foot XR right minimum 3 views [XR foot RT min 3V] Stat Exams 07/02/25 20:16 Completed Medical Decision Narrative: In summary, patient is a 55-year-old female PMHx diabetes, hypertension, lipidemia who presents to the ED for right great toe injury that occurred earlier today. Patient states that she had her dog leash in her hand when her cat ran between her legs causing her to hit her toe on something. She states she only has pain in her right great toe. She reports pain when standing. Denies any previous injury or surgery to this area. States that she took acetaminophen earlier today, has not had anything for pain recently. Denies fever, chills, body aches, chest pain, abdominal pain, shortness of breath. Differential diagnosis include hematoma, fracture, ecchymosis, among others. Upon initial evaluation patient is alert, oriented and cooperative. She is hemodynamically stable. Her physical exam is remarkable for ecchymosis of the right great toe, tenderness noted. Full ROM and neurovascular status intact. Will administer acetaminophen for pain relief. Will obtain x-ray of the right foot. I independently interpreted the x-ray as no acute fracture, my attending also reviewed the x-ray. Discussed options of hard sole shoe with patient, she advises she would rather wear the shoe that she currently has on. We discussed follow-up with PCP. Discussed return precautions to the ED and pain management. Patient verbalized understanding and was ambulatory from the ED without difficulty. Critical Care Critical Care Time Critical Care Time: No
--- OUTSIDE RECORDS SUMMARY | 2025-07-02 20:19 | XMS_ITS | Encounter Summary ---
Author Organization [facility] Address [address] [place] [id number] Care Team Providers Care Bistro Attendant Name Role Phone Conrado Corbett MD Primary Care Provider [phone] Encounter Details Date Type Department Care Team (Latest Contact Info) Description 05/05/2025 Travel Social History Tobacco Use Types Packs/Day Years Used Date Smoking Tobacco: Never Passive Smoke Exposure: Never Smokeless Tobacco: Never Alcohol Use Standard Drinks/Week Comments No 0 (1 standard drink = 0.6 oz pur e alcohol) AUDIT-C Answer Date Recorded Frequency of Alcohol Consumption Never 09/29/2019 Average Number of Drinks Not on file Frequency of Binge Drinking Not on file [...] 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 [address] [place], [place] [id number] 08/17/2025 11:15 AM EDT Office Visit [facility] [address] [place] [id number] Conrado Corbett MD [address] [place] [address] documented as of this encounter Visit Diagnoses Not on filedocumented in this encounter Care Teams Bistro Attendant Relationship Specialty Start Date End Date Conrado Corbett MD [address] [place] [address] PCP - General Family Medicine 12/02/19 documented as of this encounter
--- OUTSIDE RECORDS SUMMARY | 2025-07-02 20:19 | XMS_ITS | Encounter Summary ---
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 Not on kita e documented as of this encounter Plan of Treatment Upcoming Encounters Date Type Department Care Team (Late st Contact Info) Description 07/13/2025 10:30 AM EDT Office Visit [facility] [address] [facility] [address] [place] [address] Erika Gallardo APRN [address] [address] 08/17/2025 11:15 AM EDT Office Visit [facility] [address] [place] [phone] Conrado Corbett MD [address] [facility] [place] [address] documented as of this encounter Visit Diagnoses Not on filedocumented in this encounter Care Teams Campus Ambassador Relationship Specialty Start Date End Date Conrado Corbett MD [address] [place] [address] PCP - General Family Medicine 12/02/19 documented as of this encounter
--- OUTSIDE RECORDS SUMMARY | 2025-07-02 20:19 | XMS_ITS | Clinical Summary ---
Author Organization [facility] Address [address] [place] [id number] Care Team Providers Care Weekday Babysitter Name Role Phone Conrado Corbett MD Primary Care Provider Allergies Active Allergy Reactions Criticality Noted Date Comments Dapagliflozin Other (See Comments) 05/07/2025 Recurrent UTIs Pregabalin Hallucinations High 09/28/2021 Pt stated severe hallucinations, and vivid disturbing dreams Pseudoephedrine Hcl Hives Low 09/29/2019 Bupropion Hives Low 09/29/2019 Medications cetirizine (zyrTEC) 10 MG tablet Take 1 tablet by mouth Daily. Active methenamine (HIPREX) 1 g tabletIndications :Recurrent UTI TAKE 1 TABLET BY MOUTH TWICE DAILY WITH MEALS 180 tablet 5 Active famotidine (PEPCID) 40 MG tabletIndications :Acute gastric ulcer without hemorrhage or perforation Take 1 tablet by mouth Daily. 30 tablet 5 5 Active methocarbamol (ROBAXIN) 750 MG tabletIndications :Lumbar disc herniation with radiculopathy Take 1 tablet by mouth three times daily as needed for muscle spasm 270 tablet 5 Active bisoprolol-hydroc hlorothiazide (Ziac) 5-6.25 MG per tabletIndications :Essential hypertension Take 1 tablet by mouth Daily. 90 tablet 5 Active Continuous Glucose Sensor (Dexcom G7 Sensor) miscIndications:T ype 2 diabetes mellitus without complication, with long-term current use of insulin Apply 1 each topically Every 10 (Ten) Days. 9 each 3 5 Active lisinopril (PRINIVIL,ZESTRIL ) 40 MG tabletIndications :Essential hypertension Take 1 tablet by mouth Daily. 90 tablet 5 Active amLODIPine (NORVASC) 10 MG tabletIndications :Essential hypertension Take 1 tablet by mouth Daily. 90 tablet 5 Active omeprazole (priLOSEC) 40 MG capsuleIndication s:Gastroesophagea l reflux disease, unspecified whether esophagitis present Take 1 capsule by mouth Daily. 90 capsule 5 Active atorvastatin (LIPITOR) 40 MG tabletIndications :Hypercholesterem ia Take 1 tablet by mouth Daily. 90 tablet 5 Active Tirzepatide (Mounjaro) 7.5 MG/0.5ML solution auto-injectorIndi cations:Type 2 diabetes mellitus without complication, with long-term current use of insulin Inject 7.5 mg under the skin into the appropriate area as directed 1 (One) Time Per Week. 2 mL 2 5 Active meloxicam (MOBIC) 15 MG tabletIndications :Lumbar disc herniation with radiculopathy Take 1 tablet by mouth once daily 90 tablet 5 Active Active Problems Problem Noted Date Diagnosed Date Lumbar stenosis with neurogenic claudication Lumbar disc herniation with radiculopathy 2020 Mild obesity 08/03/2021 Left renal atrophy 06/21/2021 Overview (06/21/2021): Found on 06/15/21 MRI of spine Compression of lumbar nerve root 06/21/2021 Overview (06/21/2021): Extruded disc at L2-L3 with right L3 nerve root compression and moderate right neuroforaminal narrowing on MRI 06/15/21 Acute gastric ulcer without hemorrhage or perfor ation 05/12/2021 Type 2 diabetes mellitus wit hout complication, with long-term current use of insulin 09/29/2019 Essential hypertension 09/29/2019 Hypercholesteremia 09/29/2019 Cerebrovascular accident (CV A) due to thrombosis of right middle cerebral artery 09/29/2019 Resolved Problems Problem Noted Date Diagnosed Date Resolved Date Lumbar radiculopathy 01/09/2022 024 Gastroesophageal reflux disease 05/12/2021 06/28/2023 Encounters Date Type Department Care Team Description 05/29/2025 Refill [facility] [address] [place] [address] Conrado Corbett MD Essential hypertension; Lumbar disc herniation with radiculopathy 05/07/2025 Results Follow-Up [facility] MEDICINE [address] [place] [address] Conrado Corbett MD 05/05/2025 10:00 AM EDT Office Visit [facility] [address] [place] [address] Conrado Corbett MD Well woman exam (no gynecological exam) (Primary Dx); Essential hypertension; Type 2 diabetes mellitus without complication, with long-term current use of insulin; Gastroesophageal reflux disease, unspecified whether esophagitis present; Hypercholesteremia 05/05/2025 Travel 05/01/2025 6:53 PM EDT - 05/01/2025 8:02 PM EDT Emergency [facility] [address] [address] Isak Ventura, Vinay Johansen MD Contusion of right index finger without damage to nail, initial encounter (Primary Dx) Discharge Disposition: Home or Self Care 05/01/2025 Travel 04/05/2025 Refill [facility] MED[facility] [address] [place] [address] Conrado Corbett MD Lumbar disc herniation with radiculopathy from Last 3 Months Immunizations Immunization Administration Dates Next Due COVID-19 (MODERNA) 1st,2nd,3 rd Dose Monovalent 11/30/2020 Flu Vaccine Quad PF >36MO 08/31/2020 Fluzone >6mos 07/24/2017 Fluzone (or Fluarix & Flulav al for VFC) >6mos 09/26/2022,08/31/2020,08/06/2019 Hepatitis A 07/31/2018 Pneumococcal Polysaccharide (PPSV23) 07/24/2017 Tdap 01/06/2018 Family History Medical History Relation Name Comments Coronary artery disease Father Breast cancer Maternal Grandmother Diabetes Mother Hypertension Mother Ovarian cancer Neg Hx Relation Name Status Comments Father Maternal Grandmother Mother Alive Social History Tobacco Use Types Packs/Day Years Used Date Smoking Tobacco: Never Passive Smoke Exposure: Never Smokeless Tobacco: Never Tobacco Cessation:Counseling Given: No Alcohol Use Standard Drinks/Week Comments No 0 [...] 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 Not on kita e Last Filed Vital Signs Vital Sign Reading Time Taken Comments Blood Pressure 148/72 05/05/2025 9:56 AM EDT Pulse 68 05/05/2025 9:56 AM EDT Temperature 36.6 C (97.8 F) 05/05/2025 9:56 AM EDT Respiratory Rate 18 05/05/2025 9:56 AM EDT Oxygen Saturation 99% 05/01/2025 7:30 PM EDT Inhaled Oxygen Concentration - - Weight 69.4 kg (153 lb) 05/05/2025 9:56 AM EDT Height 165.1 cm (5' 5 ) 05/05/2025 9:56 AM EDT Body Mass Index 25.46 05/05/2025 9:56 AM EDT Plan of Treatment Upcoming Encounters Date Type Department Care Team (Late st Contact Info) Description 07/13/2025 10:30 AM EDT Office Visit [facility] [address] [facility] [address] [place], [place] [phone] Erika Gallardo APRN [address] [facility] [address] [place] [address] 08/17/2025 11:15 AM EDT Office Visit [facility] [address] [place] [address] Cnorado Corbett MD [address] [place] [address] Health Maintenance Due Date Last Done Comments Annual Gynecologic Pelvic and Breast Exam 1968 DIABETIC FOOT EXAM 01/20/1978 COLOGUARD 01/20/2013 COLON CANCER SCREENING 5 YEAR SIGMOIDOSCOPY 01/20/2013 CT COLONOGRAPHY 01/20/2013 FECAL OCCULT BLOOD TEST 01/20/2013 FIT Testing (1 year) 01/20/2013 ZOSTER VACCINE (1 of 2) 01/20/2018 Pneumococcal Vaccine 50+ (2 of 2 - PCV) 07/24/2018 07/24/2017 COVID-19 Vaccine (2 - season) 2024 11/30/2020 DIABETIC EYE EXAM 07/06/2025 07/06/2024 (Patient-Reported (Performed Externally)), 10/30/2021, 08/19/2020 INFLUENZA VACCINE 08/18/2025 09/26/2022, , 08/31/2020, Additional history exists MAMMOGRAM 10/03/2025 10/03/2023, 03/2022, 03/28/2022, Additional history exists Hepatitis B (1 of 3 - 19+ 3-dose series) 11/01/2025 Postponed from 01/20/1987 (Patient Refused) HEMOGLOBIN A1C 11/04/2025 05/05/2025, 01/16, 09/25/2024, Additional history exists URINE MICROALBUMIN-CREATININE RATIO (uACR) 02/02/2026 02/02/2025 ANNUAL PHYSICAL 05/05/2026 05/05/2025 LIPID PANEL 05/05/2026 05/05/2025, 1106/2024, 06/24/2024, Additional history exists TDAP/TD VACCINES (2 - Td or Tdap) 01/06/2028 01/06/2018 COLONOSCOPY 05/10/2028 07/10/2021, 09/22/2018 COLORECTAL CANCER SCREENING 05/10/2028 HEPATITIS C SCREENING Completed 10/11/2020 Medical Devices Implanted Type Area Limited Radiology Technician Device Identifier Shelf Expiration Date Model / Serial / Lot Hemost Abs Surgifoam Sz100 8x12 10mm - [id number] Implanted:Qty : 1 on 01/17/2022 by Angus Anderson MD at [facility] Implant Right: Spine Lumbar [employer] J [employer] J 1974 / / NA Kt Seal Hemos Abs Floseal Matrx Fast/Prep 10ml - [id number] Implanted:Qty : 1 on 01/17/2022 by Angus Anderson MD at [facility] Implant Right: Spine Lumbar [facility] [id number] / / NA Procedures Procedure Name Priority Date/Time Associated Diagnosis Comments CBC AND DIFFERENTIAL Routine 05/05/2025 10:21 AM EDT Essential hypertension Type 2 diabetes mellitus without complication, with long-term current use of insulin HEMOGLOBIN A1C Routine 05/05/2025 10:21 AM EDT Type 2 diabetes mellitus without complication, with long-term current use of insulin COMPREHENSIVE METABOLIC PANEL Routine 05/05/2025 10:21 AM EDT Essential hypertension Type 2 diabetes mellitus without complication, with long-term current use of insulin Hypercholesteremia LIPID PANEL Routine 05/05/2025 10:21 AM EDT Hypercholesteremia XR FINGER 2+ VW RIGHT STAT 05/01/2025 7:17 PM EDT POC ALBUMIN/CREATININE RATIO Routine 02/02/2025 12:33 PM EDT Type 2 diabetes mellitus without complication, with long-term current use of insulin MAMMO SCREENING DIGITAL TOMOSYNTHESIS BILATERAL W CAD Routine 10/03/2023 1:42 PM EST Screening mammogram for breast cancer SCANNED - COLONOSCOPY 07/10/2021 HEPATITIS C ANTIBODY Routine 10/11/2020 9:23 AM EST Encounter for hepatitis C screening test for low risk patient SCANNED - EYE EXAM 08/19/2020 from Last 3 Months or Most Recently Relevant to Health Maintenance Results * CBC & Differential (05/05/2025 10:21 AM EDT) WBC 5.03 3.40 - 10.80 10*3/mm3 [facility] [...] - 05/06/2025 3:07 AM EDT Performed at: [address] [place] [id number] Special Education Director: Khanh Ruby MD, Phone: [phone] Patient Fasting: Y Conrado Corbett MD LAB BLOOD ORDERABLES Final Resu lt Performing Organization Address [facility] de Phone Number [facility] ([facility]BULATORY) [address] [place] [address], [facility] [address] [place] [address], * Hemoglobin A1c (05/05/2025 10:21 AM EDT) [facility] Hemoglobin A1C 5.50 4.80 - 5.60 % [facility] Comment: Hemoglobin A1C Ranges: Increased Risk for Diabetes 5.7% to 6.4% Diabetes >= 6.5% Diabetic Goal < 7.0% Blood 05/05/2025 10:2 1 AM EDT 05/05/2025 Narrative [facility] ([facility]) - 05/06/2025 3:07 AM EDT Performed at: [address] [place] [id number] Special Education Director: Khanh Ruby MD, Phone: [phone] Patient Fasting: Y Conrado Corbett MD LAB BLOOD ORDERABLES Final Resu lt Performing Organization Address [facility] Co de Phone Number [facility] ([facility]BUL[facility]) [address] [place] [address], [place] [phone] [facility] [address] [place] [address], [place] [phone] * (ABNORMAL) Lipid Panel (05/05/2025 10:21 AM EDT) [facility] Total Cholesterol 185 0 - 200 mg/dL [...] - 05/06/2025 3:07 AM EDT Performed at: [address] [place] [id number] Special Education Director: Khanh Ruby MD, Phone: [phone] Patient Fasting: Y us Conrado Corbett MD LAB BLOOD ORDERABLES Final Resu lt [facility] ([facility]) [address] [place] [address], [facility] [address] [place] [address], * (ABNORMAL) Comprehensive Metabolic Panel (05/05/2025 10:21 AM EDT) Pathologist [facility] Glucose 106(H) 65 - 99 mg/dL [facility] [...] 10:2 1 AM EDT 05/05/2025 Narrative [facility] ([facility]) - 05/06/2025 3:07 AM EDT Performed at: [address] [id number] Special Education Director: Khanh Ruby MD, Phone: [phone] Patient Fasting: Y us Conrado Corbett MD LAB BLOOD ORDERABLES Final Resu lt [facility] (AMBULATORY) [address] [place] [address], [facility] [address] [place] [address], * XR Finger 2+ View Right (05/01/2025 7:17 PM EDT) Anatomical Region Laterality Modality Upper Extremities, Fingers Right Radio graphic Imaging 05/01/2025 7:29 PM EDT Impressions 05/01/2025 7:32 PM EDT Impression: 1.No acute osseous abnormality. 2.Mild swan-neck deformity of the second digit. 3.Degenerative joint disease at the first carpometacarpal joint. Electronically Signed: Stevo Rodríguez MD 05/01/2025 7:32 PM EDT Workstation ID: [id number] Narrative 05/01/2025 7:32 PM EDT XR FINGER 2+ VW RIGHT Date of Exam: 05/01/2025 7:11 PM EDT Indication: Edema and pain Comparison: None available. Findings: There is no acute fracture or dislocation. There is a mild swan-neck deformity of the second digit. There is no osseous erosion. Bone mineralization is normal. There is joint space narrowing at the PIP and DIP joints. There is degenerative joint disease at the first carpometacarpal joint. Procedure Note Stevo Rodríguez MD - 05/01/2025 XR FINGER 2+ VW RIGHT Date of Exam: 05/01/2025 7:11 PM EDT Indication: Edema and pain Comparison: None available. Findings: There is no acute fracture or dislocation. There is a mild swan-neckdeformity of the second digit. There is no osseous erosion. Bonemineralization is normal. There is joint space narrowing at the PIP andDIP joints. There is degenerative joint disease at the first carpometacarpal joint. IMPRESSION: Impression: 1.No acute osseous abnormality. 2.Mild swan-neck deformity of the second digit. 3.Degenerative joint disease at the first carpometacarpal joint. Electronically Signed: Stevo Rodríguez MD 05/01/2025 7:32 PM EDT Workstation ID: [id number] Rachana Figueroa PA-C IMG DIAGNOSTIC IMAGING ORDERABL ES Final Result * (ABNORMAL) POC Albumin/Creatinine Ratio Urine (02/02/2025 12:33 PM EDT) POC ALBUMIN, URINE 150 mg/L POC CREATININE, URINE 100 mg/dL POC Urine Albumin Creatinine Ratio 30-300 <30 Lot Number [id number] Expiration Date 11-17-2025 Urine 02/02/2025 12:3 3 PM EDT Conrado Corbett MD POINT OF CARE TEST ORDERABLES F inal Result * Mammo Screening Digital Tomosynthesis Bilateral With CAD (10/03/2023 1:42 PM EST) Anatomical Region Laterality Modality Breast N/A Mammography 10/07/2023 12:5 4 PM EST Impressions 10/07/2023 12:56 PM EST No suspicious abnormality identified. OVERALL ASSESSMENT: ACR BI-RADS CATEGORY: 1, NEGATIVE: Recommend continued routine annual screening mammogram. The standard false-negative rate of mammography is between 10% and 25%. Complex patterns or increased breast density will markedly elevate the false-negative rate of mammography. A letter, in lay terminology, with the results of this exam will be mailed to the patient. This report was finalized on 10/07/2023 12:56 PM by Radha Harvey MD. Narrative 10/07/2023 12:56 PM EST BILATERAL DIGITAL SCREENING MAMMOGRAM WITH TOMOSYNTHESIS CLINICAL INDICATION: Screening mammogram. TECHNIQUE: Bilateral low dose full field digital breast tomosynthesis imaging was performed. CAD was utilized. COMPARISON: Prior studies dating back to 01/16/2016 FINDINGS: The breast tissue is predominantly fat density RIGHT BREAST: No suspicious masses, calcifications, or areas of distortion are seen. LEFT BREAST: No suspicious masses, calcifications, or areas of distortion are seen. Result [facility] Conrado Corbett MD IMG MAMMOGRAPHY ORDERABLES Enma zepeda Result * SCANNED - COLONOSCOPY (07/10/2021) Result [facility] Abhinav العلي MD CHART REVIEW TABS Final Result * Hepatitis C Antibody (10/11/2020 9:23 AM EST) Hep C Virus Ab <0.1 0.0 - 0.9 s/co ratio [facility] Comment: Negative: < 0.8 Indeterminate: 0.8 - 0.9 Positive: > 0.9 The CDC recommends that a positive HCV antibody result be followed up with a HCV Nucleic Acid Amplification test (034933). Blood 10/11/2020 9:23 AM EST 10/11/2020 Narrative [facility] (AMBULATORY) - 10/12/2020 8:12 AM EST Performed at: [address] [place] [id number] Special Education Director: Gustavo Dodge PhD, Phone: [phone] Patient Fasting: Y Result [facility] Conrado Corbett MD LAB BLOOD ORDERABLES Final Resu lt [facility] [address] [place], [place] [id number], [facility] [address] [place] [address], * SCANNED - EYE EXAM (08/19/2020) Anatomical Region Laterality Modality Other Result [facility] Conrado Corbett MD CHART REVIEW TABS Final Resu lt from Last 3 Months or Most Recently Relevant to Health Maintenance Insurance [place] [id number] [employer] PPO Care Teams Weekday Babysitter Relationship Specialty Start Date End Date Conrado Corbett MD [address] [facility] [address] [place] [address] PCP - General Family Medicine 12/02/19
--- OUTSIDE RECORDS SUMMARY | 2025-07-02 20:19 | XMS_ITS | Encounter Summary ---
Author Organization [facility] Address [address] [place] [address] Care Team Providers Care I O Psychologist Name Role Phone Conrado Corbett MD Primary Care Provider [phone] Encounter Details Date Type Department Care Team (Late st Contact Info) Description 02/04/2025 Results Follow-Up [facility] [address] [facility] [place] [address] Conrado Corbett MD [address] [facility] [place] [address] Social History Tobacco Use Types [...] Feels Unsafe at Home or Work/School no 05/23/2024 Feels Threatened by Someone no 04/2024 Does Anyone Try to Keep You From Having Contact with Others or Doing Things Outside Your Home? 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 Not on file Not on kita e documented as of this encounter Plan of Treatment Upcoming Encounters Date Type Department Care Team (Late st Contact Info) Description 07/13/2025 10:30 AM EDT Office Visit [facility] UR[facility] [address] [address] Erika Gallardo APRN [address] [facility] [address] [place] [phone] 08/17/2025 11:15 AM EDT Office Visit [facility] [address] [place] [phone] Conrado Corbett MD [address] [place] [address] documented as of this encounter Visit Diagnoses Not on filedocumented in this encounter Care Teams I O Psychologist Relationship Specialty Start Date End Date Conrado Corbett MD [address] [place] [address] PCP - General Family Medicine 12/02/19 documented as of this encounter
--- OUTSIDE RECORDS SUMMARY | 2025-07-02 20:19 | XMS_ITS | Encounter Summary ---
Author Organization [facility] Address [address] [place] [address] Care Team Providers Care Sales Representative Meats Name Role Phone Conrado Corbett MD Primary Care Provider [phone] Reason for Visit * Reason Comments Med Refill Encounter Details Date Type Department Care Team (Late st Contact Info) Description 12/31/2022 Refill [facility] [address] [facility] [place] [address] Conrado Corbett MD [address] [facility] [place] [address] Type 2 diabetes mellitus without complication, with long-term current use of insulin Social History Tobacco Use Types Packs/Day Years Used Date Smoking Tobacco: Never Smokeless Tobacco: Never Alcohol Use Standard Drinks/Week Comments No 0 (1 standard drink = 0.6 oz pur e alcohol) AUDIT-C Answer Date Recorded Frequency of Alcohol Consumption Never 09/29/2019 Average Number of Drinks Not on file 019 Frequency of Binge Drinking Not on file 09/18 PHQ-2 Answer Date Recorded Retired PHQ-9: Brief Depression Severity Measure Score 0 12/28/2022 PHQ-2 Answer Date Recorded Retired PHQ-9: Brief Depression Severity Measure Score 0 12/28/2022 Comments No Sex and Gender Information Value Date Recorded Sex Assigned at Not on file Legal Sex Female 10:31 AM EDT Gender Identity Not on file Sexual Orientation Not on file 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 [address] [place] [phone] 08/17/2025 11:15 AM EDT Office Visit [facility] [address] [facility] [place] [address] Conrado Corbett MD [address] [place] [address] documented as of this encounter Visit Diagnoses Diagnosis Type 2 diabetes mellitus without complication, with long-term current use of insulin documented in this encounter Care Teams Sales Representative Meats Relationship Specialty Start Date End Date Conrado Corbett MD [address] [facility] [place] [address] PCP - General Family Medicine 12/02/19 documented as of this encounter
--- OUTSIDE RECORDS SUMMARY | 2025-07-02 20:19 | XMS_ITS | Encounter Summary ---
Author Organization [facility] Address [address] [place] [address] Care Team Providers Care Sheep Farm Worker Name Role Phone Conrado Corbett MD Primary Care Provider [phone] Reason for Visit * Reason Comments Med Refill Encounter Details Date Type Department Care Team (Late st Contact Info) Description 05/29/2025 Refill [facility] [address] [facility] [place] [address] Conrado Corbett MD [address] [facility] [place] [address] Essential hypertension; Lumbar disc herniation with radiculopathy Social History Tobacco Use Types Packs/Day Years [...] 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 Not on file Not on kita e documented as of this encounter Plan of Treatment Upcoming Encounters Date Type Department Care Team (Late st Contact Info) Description 07/13/2025 10:30 AM EDT Office Visit [facility] [address] [facility] [address] [place], [place] [phone] Erika Galalrdo APRN [address]60 [facility] [address] [place], [place] [phone] 08/17/2025 11:15 AM EDT Office Visit [facility] [address] [place] [phone] Conrado Corbett MD [address] [place] [address] documented as of this encounter Visit Diagnoses Diagnosis Essential hypertension Unspecified essential hypertension Lumbar disc herniation with radiculopathy Displacement of lumbar intervertebral disc without myelopathy documented in this encounter Care Teams Sheep Farm Worker Relationship Specialty Start Date End Date Conrado Corbett MD [address] [place] [address] PCP - General Family Medicine 12/02/19 documented as of this encounter
[2025-07-02] MEDS: ONDANSETRON 4MG ODT 4 MG SL (20:24)
[2025-07-02] MEDS: ACETAMINOPHEN 500MG TAB 1000 MG PO (20:24)
--- NOTE | 2025-07-02 20:29 | PC.NURSE ---
patient in radiology
[2025-07-02 20:59] VITALS: BP 152/77; PULSE 80; RESP 18; TEMP 36.8; O2SAT 99
== END 2025-07-02 21:00 | disposition home or self-care (01) ==
PROVIDERS: Emergency Provider Student in an Organized Health Care Education/Training Program; PCP Student in an Organized Health Care Education/Training Program
DX: S99.921A Unspecified injury of right foot, initial encounter (principal); W22.8XXA Striking against or struck by other objects, initial encounter
CPT/HCPCS: 73630; 99283; Q0162